=== PATIENT | female | born 2000 | race Caucasian/White ===

== ENCOUNTER 2024-01-27 14:36 | Emergency (ER) | payer SELFPAY ==
[2024-01-27 15:29] VITALS: BP 129/74; PULSE 67; TEMP 36.7; O2SAT 100; BMI 22.3
--- NOTE | 2024-01-27 17:06 | CT_ITS ---
The [address] [address] Patient Name: DARLYN HYATT MRN: [id number] date: 2000 Sex: F Assigned Patient Location: ER Current Patient Location: ER Accession/Order Number: [id number] Exam Date: 01/27/2024 17:29 Report Date: 01/27/2024 18:27 At the request of: SHERRI SANTOYO Procedure: CT head/brain wo con EXAM: CT head/brain wo con HISTORY: Visual changes right eye COMPARISON: None. TECHNIQUE: Axial CT scans through the head were obtained without IV contrast administration. Dose reduction techniques were achieved by using: automated exposure control and/or adjustment of mA and /or kV according to patient size and/or use of iterative reconstruction technique. FINDINGS: There is no acute intracranial hemorrhage or abnormal extra-axial fluid collection. No mass effect or midline shift is seen. There is no evidence of large acute territorial infarction. There is no hydrocephalus. To the limit of CT, the posterior fossa appears unremarkable. There is bony prominence at the left temporal level along the inner table, likely representing small bony exostosis or calcified meningioma, measuring approximately 1 x 0.5 cm (5/20). No mass effect on adjacent brain parenchyma. No acute fracture. The extra cranial soft tissues are unremarkable. The visualized orbits show no abnormality. The visualized paranasal sinuses show no air-fluid level. Mastoid air cells are clear. CT/CT head/brain wo con IMPRESSION: No acute intracranial process. Bony prominence at the left temporal level along the inner table, suggestive of a small bony exostosis or calcified meningioma. Electronically authenticated by: ANDREA WATERSU Date: 01/27/2024 18:27
--- NOTE | 2024-01-27 17:08 | ED_ITS ---
HPI HPI - General Adult General Chief complaint: Skin/Abscess/Foreign Body Stated complaint: RIGHT UNDER ARM PAIN Time Seen by Provider: 01/27/24 16:42 Source: patient Mode of arrival: walk-in Limitations: no limitations History of Present Illness HPI narrative: Patient is a 23-year-old female who presents to the emergency department for the evaluation of multiple complaints. She has a family member at the bedside. She states for 8 months she has had swollen lymph nodes in her throat and now notices them in the last several weeks in the bilateral axilla associated with bilateral breast pain. She states she is concerned she has cancer. She has been to urgent care multiple times and states she has been treated with antibiotics because the providers have assumed that the swollen lymph nodes in her throat are due to bad gums . She states she has been on multiple courses of antibiotics. She does not have a primary care provider. She has not followed up with her primary care provider in the office. She states she went to the emergency department several weeks ago at an outside facility, she states they examined her breasts and discharged her home. She feels worsened pain on the right than the left. She has not had any redness or drainage from the breast. She is not concerned for . She denies upper respiratory symptoms. She further complains of a 2-day history of visual change in the right eye. She states her vision is brown tinted and grainy. She has not had any visual loss, eye pain, headaches. No medications taken prior to arrival. Related Data Home Medications ?Medication ?Instructions ?Recorded ?Confirmed No Known Home Medications 01/27/24 01/27/24 Allergies Allergy/AdvReac Type Severity Reaction Status Date / Time No Known Drug Allergies Allergy Verified 01/27/24 15:29 Opioid HPI Opioid Management Most Recent Opioid Data: Last AUG Pain Assessment 01/27/24 19:22 Review of Systems ROS Constitutional Denies: fever or chills Eyes Reports: change in vision and blurry vision; Denies: blind spots, eye discomfort or eye discharge Ears, nose, mouth, and throat Denies: throat pain, throat swelling, difficulty swallowing or nasal congestion Cardiovascular Denies: chest pain Respiratory Denies: shortness of breath or cough Gastrointestinal Denies: abdominal pain, nausea or vomiting Integumentary/Breast Reports: breast pain; Denies: rash or itching Neurological Denies: headache Hematologic/Lymphatic Reports: enlarged lymph nodes; Denies: easy bruising or easy bleeding Exam Narrative Exam Narrative: Gen.: Awake, alert, in no distress Head: Normocephalic, atraumatic ENT: Moist mucous membranes, normal extraocular muscle motion noted with no identified retinal hemorrhage on ophthalmologic exam, bilateral TMs are clear. Minimal anterior cervical adenopathy palpated with no asymmetric lymphadenopathy, fluctuance or abscess noted Respiratory: No respiratory distress, lungs clear bilaterally; bilateral breast examined with no nipple drainage, no erythema or induration of the breast, no palpated lymphadenopathy to the axilla Extremities: Moves extremities equally Psych: Normal mood and affect Neuro: No focal neuro deficit Skin: Warm, dry, intact Constitutional Vital Signs, click to edit/add: Last Vital Signs Temp 98.1 F 01/27/24 15:29 Pulse 67 01/27/24 15:29 Resp 18 01/27/24 15:29 BP 129/74 01/27/24 15:29 Pulse Ox 100 01/27/24 15:29 O2 Del Method Room Air 01/27/24 15:29 Course Vital Signs Vital signs: Vital Signs Temperature 98.1 F 01/27/24 15:29 Pulse Rate 67 01/27/24 15:29 Respiratory Rate 18 01/27/24 15:29 Blood Pressure 129/74 01/27/24 15:29 Pulse Oximetry 100 01/27/24 15:29 Oxygen Delivery Method Room Air 01/27/24 15:29 Temperature 98.1 F 01/27/24 15:29 Pulse Rate 67 01/27/24 15:29 Respiratory Rate 18 01/27/24 15:29 Blood Pressure 129/74 01/27/24 15:29 Pulse Oximetry 100 01/27/24 15:29 Oxygen Delivery Method Room Air 01/27/24 15:29 Medical Decision Making MDM Narrative Medical decision making narrative: Patient was treated with Toradol for breast pain. Her test is negative, monoscreen is negative. I do not appreciate any specific areas of lymphadenopathy in the throat or the axilla bilaterally. Patient was sent for CT of the brain due to visual change, this is unremarkable. Laboratory studies with normal white blood cell count, normal differential, normal inflammatory markers. test is negative. Patient with no headache, visual loss. Visual acuity was obtained, left eye is 20/25 and right eye is 20/60 with bi lateral eyes 20/40. I discussed the case with Dr. Armstrong for ophthalmology at [facility]. He does have office availability for the patient, at this time I do not suspect a retinal detachment. Patient was given strict instructions to follow-up with ophthalmology for reevaluation of her visual change. She was also given requisition for outpatient ultrasound and mammogram of the bilateral breasts. She was also given primary care follow-up. She is hemodynamically stable, stable vital signs in the ER. I contacted the physician assistant manager retail in the [facility] office, she can see the patient for follow-up next week. Patient was reexamined by attending physician prior to discharge. Return to the ER if symptoms change or worsen SHARED APC VISIT, PHYSICIAN ATTESTATION: [id number] I performed a substantive part of the MDM during the patient?s E/M visit. I personally evaluated and examined the patient. I personally made or approved the documented management plan and acknowledge its risk of complications. Medical Records Medical records reviewed: Yes I reviewed the patient's medical records Lab Data Lab results reviewed: Yes I reviewed the patient's lab results Labs: Lab Results 01/27/24 Range/Units 17:16 WBC 4.8 (4.0-11.0) 10^3/uL RBC 3.95 L (4.20-5.40) 10^6/uL Hgb 11.4 L (12.0-16.0) g/dL Hct 34.4 L (36.0-48.0) % MCV 87.1 (81.0-99.0) fL MCH 28.9 (26.7-34.0) pg MCHC 33.1 (29.9-35.2) g/dL RDW 13.1 (11.0-15.0) % Plt Count 171 (150-450) 10^3/uL MPV 11.0 (9.5-13.5) fL Neut % (Auto) 54.5 (43.0-75.0) % Lymph % (Auto) 31.3 (20.5-60.0) % [place] % (Auto) 9.6 (1.7-12.0) % Eos % (Auto) 2.7 (0.9-7.0) % Baso % (Auto) 1.7 (0.2-2.0) % Neut # (Auto) 2.6 (1.4-6.5) 10^3/uL Lymph # (Auto) 1.5 (1.2-3.8) 10^3/uL [place] # (Auto) 0.5 (0.3-0.8) 10^3/uL Eos # (Auto) 0.1 (0.0-0.7) 10^3/uL Baso # (Auto) 0.1 (0.0-0.1) 10^3/uL Abs Immat Gran (auto) 0.01 (0.00-0.03) 10^3/uL Imm/Tot Granulo (auto) 0.2 (0.0-0.5) % ESR 18 (<=20) mm/hr Sodium 138 (136-145) mmol/L Potassium 4.3 (3.5-5.1) mmol/L Chloride 103 (98-107) mmol/L Carbon Dioxide 27.8 (21.0-32.0) mmol/L Anion Gap 11.5 BUN 11.0 (7.0-18.0) mg/dL Creatinine 0.84 (0.55-1.02) mg/dL Est GFR ( Amer) >60 (>=60) Est GFR (Non-Af Amer) >60 (>=60) BUN/Creatinine Ratio 13.1 Glucose 84 (74-106) mg/dL Calcium 8.9 (8.5-10.1) mg/dL Total Bilirubin 0.3 (0.2-1.0) mg/dL AST 8 L (15-37) U/L ALT 16 (14-59) U/L Alkaline Phosphatase 44 L (46-116) U/L C-Reactive Protein <0.50 (<=0.50) mg/dL Total Protein 7.1 (6.4-8.2) g/dL Albumin 4.0 (3.4-5.0) g/dL Globulin 3.1 g/dL Albumin/Globulin Ratio 1.3 Serum HCG, Qual Negative (NEGATIVE) Monoscreen Negative (NEGATIVE) Imaging Data CT scan - head: Attestation: I have reviewed the pertinent imaging results. Radiologist's impression: ITS Impressions Head CT 01/27/24 17:06 IMPRESSION: No acute intracranial process. Bony prominence at the left temporal level along the inner table, suggestive of a small bony exostosis or calcified meningioma. Electronically authenticated by: ANDREA THURMAN Date: 01/27/2024 18:27 Discharge Plan Discharge Stand Alone Forms: Portal Instructions Chief Complaint: Skin/Abscess/Foreign Body Clinical Impression: Lymphadenopathy, Pain of both breasts, Alteration in vision Patient Disposition: Home, Self-Care Time of Disposition Decision: 19:28 Condition: Good Prescriptions / Home Meds: No Action No Known Home Medications Print Language: Yoruba Instructions: Lymphadenopathy (ED), Blurred Vision (ED) Referrals: Thad Meyer DO [Physician] - As soon as possible Santosh Armstrong MD [Physician] - As soon as possible ([address] [place] [address], [address] [place] [address] ) Viktoriya Sherman NP [Nurse Practitioner] - As soon as possible
[2024-01-27 17:33] LABS: Basophils Absolute Auto 0.1 10^3/uL (0.0-0.1); Basophils Percent Auto 1.7 % (0.2-2.0); Eosinophils Absolute Auto 0.1 10^3/uL (0.0-0.7); Eosinophils Percent Auto 2.7 % (0.9-7.0); Hematocrit 34.4 % (36.0-48.0); Hemoglobin 11.4 g/dL (12.0-16.0); Immature Granulocytes Abs Auto 0.01 10^3/uL (0.00-0.03); Immature Granulocytes Pct Auto 0.2 % (0.0-0.5); Lymphocytes Absolute Auto 1.5 10^3/uL (1.2-3.8); Lymphocytes Percent Auto 31.3 % (20.5-60.0); Mean Corpuscular HGB Conc 33.1 g/dL (29.9-35.2); Mean Corpuscular Hemoglobin 28.9 pg (26.7-34.0); Mean Corpuscular Volume 87.1 fL (81.0-99.0); Monocytes Absolute Auto 0.5 10^3/uL (0.3-0.8); Monocytes Percent Auto 9.6 % (1.7-12.0); Neutrophils Absolute Auto 2.6 10^3/uL (1.4-6.5); Neutrophils Percent Auto 54.5 % (43.0-75.0); Platelet Count 171 10^3/uL (150-450); Red Blood Count 3.95 10^6/uL (4.20-5.40); Red Cell Distribution Width 13.1 % (11.0-15.0); White Blood Count 4.8 10^3/uL (4.0-11.0)
[2024-01-27 17:44] LABS: Alanine Aminotransferase 16 U/L (14-59); Albumin Globulin Ratio 1.3; Alkaline Phosphatase 44 U/L (46-116); Anion Gap 11.5; Aspartate Amino Transferase 8 U/L (15-37); BUN Creatinine Ratio 13.1; Bilirubin Total 0.3 mg/dL (0.2-1.0); Calcium 8.9 mg/dL (8.5-10.1); Carbon Dioxide 27.8 mmol/L (21.0-32.0); Chloride 103 mmol/L (98-107); Estimated GFR (African America >60 (>=60); Estimated GFR (Non-African Ame >60 (>=60); Globulin 3.1 g/dL; Glucose 84 mg/dL (74-106); Potassium 4.3 mmol/L (3.5-5.1); Sodium 138 mmol/L (136-145); Total Protein 7.1 g/dL (6.4-8.2)
[2024-01-27 17:55] LABS: Internal Control Within Normal Limits; Mono Screen NEGATIVE (NEGATIVE)
[2024-01-27 17:56] LABS: Erythrocyte Sedimentation Rate 18 mm/hr (<=20)
[2024-01-27 18:13] LABS: HCG Qualitative NEGATIVE (NEGATIVE); Internal Control Within Normal Limits
[2024-01-27 18:16] LABS: C Reactive Protein <0.50 mg/dL (<=0.50)
--- NOTE | 2024-01-27 19:12 | PC.NURSE ---
visual acuity performed at this time. pts L eye 20/15, R eye 20/60, and both eyes 20/40. Naomi AGUILLON made aware of visual acuity results.
[2024-01-27] MEDS: KETOROLAC TROMETHAMINE 10 MG TABLET PO (19:22)
--- NOTE | 2024-01-27 19:36 | PC.NURSE ---
Visual acuity done by Derick Benavidez and endorsed to HENNA Salgado: Left eye 2/25, right eye 20/60; both eyes 20/40 uncorrected
[2024-01-27 19:56] VITALS: BP 120/75; PULSE 65; O2SAT 98
== END 2024-01-27 20:00 | disposition home or self-care (01) ==
PROVIDERS: Physician Assistant; Emergency Provider Emergency Medicine
DX: H53.9 Unspecified visual disturbance (principal); R59.1 Generalized enlarged lymph nodes; N64.4 Mastodynia
CPT/HCPCS: 36415; 70450; 80053; 84703; 85025; 85652; 86140; 86308; 99284

== ENCOUNTER 2024-07-28 11:33 | Outpatient (OUT) | payer OTHER, SELFPAY ==
--- OUTSIDE RECORDS SUMMARY | 2024-07-28 11:56 | XMS_ITS | CCD ---
Author Organization [facility] Care Team Providers Care Power Lineman Technician Name Role Phone BOB SHAH Admitting Unavailable BOB SHAH Attending Unavailable REQUEST, NONE LISTED Primary Care Unavailable MAITE LUCAS Consulting Unavailable ALYSSABOB DE JESUS Consulting Unavailable MISC, DOCTOR Admitting Unavailable MISC, DOCTOR Attending Unavailable MISC, DOCTOR Primary Care Unavailable MISC, DOCTOR Consulting Unavailable Samantha Driscoll Unavailable NO FAMILY, PHYSICIAN Primary Care Provider Unava ilable Bullimore, MONEY ORDER CLERK-BC Gregoria E Emergency Provider Bullimore, Gregoria E Admitting Unavailable Bullimore, Gregoria E Attending Unavailable NO FAMILY, PHYSICIAN Primary Care Unavailable NO FAMILY, PHYSICIAN Primary Care Unavailable Maximilian Garner Admitting Unavailable Maximilian Garner Attending Unavailable PHILOMENA STEELE Attending Unavailable THAD MEYER Attending Unavailable Unavailable Primary Care Provider Unavailabl belkis Blackburn MD, Prem Unavailable [phone] Unavailable Primary Care Provider UnavailLigia Lawson MD Unavailable [facility] [phone] Syl Santiago CPhT Unavailable UnavailRadha Martinez CPhT Unavailable Unavailable CRISTIAN BOLANOS Attending Unavailable AGUSTO NOONAN Referring Unavailable PROVIDER, UNKNOWN Admitting Unavailable LIGIA BEDOLLA Attending Unavailable PROVIDER, UNKNOWN Attending Unavailable PROVIDER, UNKNOWN Admitting Unavailable AGUSTO NOONAN Admitting Unavailable AGUSTO NOONAN Attending Unavailable PROVIDER, UNKNOWN Admitting Unavailable PROVIDER, UNKNOWN Attending Unavailable PROVIDER, UNKNOWN Attending Unavailable AGUSTO NOONAN Admitting Unavailable AGUSTO NOONAN Referring Unavailable PROVIDER, UNKNOWN Admitting Unavailable PROVIDER, UNKNOWN Attending Unavailable AGUSTO NOONAN Referring Unavailable PROVIDER, UNKNOWN Admitting Unavailable PROVIDER, UNKNOWN Attending Unavailable LIGIA BEDOLLA Attending Unavailable PROVIDER, UNKNOWN Admitting Unavailable NEISHA AGUERO Attending Unavailable PROVIDER, UNKNOWN Admitting Unavailable PREM BLACKBURN Attending Unavailable PROVIDER, UNKNOWN Admitting Unavailable Allergies Allergy Classification Reported Allergen(s) Allergy Type Date of Onset Reaction(s) Facility (1 source) Latex Drug allergy (disorder) 12-08-2019 [facility] Repository Medications Current Medications Medication Drug Class(es) Dates Sig (Normalized) Sig (Original) amoxicillin 500 mg oral capsule (1 source) Penicillin-class Antibacterial Start: 04-05-2023 take 1 capsule by mouth every eight hours Amoxicillin 500 MG 1 capsule Orally three times a day for 10 day(s) Mar, Active cyclobenzaprine hydrochloride 10 mg oral tablet (3 sources) Muscle Relaxant Start: 01-08-2024 take 10 mg by mouth three times daily Cyclobenzaprine Active 10 MG PO Three times daily January 08, 2024 12:00am Start: 12-18-2019 take 1 tablet by kobe th every eight hours Cyclobenzaprine HCl 10 MG 1 tablet as needed Orally Three times a day for 10 days Dec, Active Cyclobenzaprine HCl Active hydrOXYzine hydrochloride 10 mg oral tablet (1 source) Antihistamine Start: 12-18-2019 take 1 tablet by mouth every eight hours hydrOXYzine HCl 10 MG 1 tablet as needed Orally every 8 hrs for 10 days Dec, Active lidocaine 0.05 mg/mg medicated patch (1 source) Antiarrhythmic, Amide Local Anesthetic Start: 01-08-2024 apply 1 dose topically once daily Lidocaine Active 1 PATCH TOPICAL Daily January 08, 2024 12:00am leave on most painful area for up to 12 hrs [place] (No Known Home Meds) (1 source) Start: 01-08-2024 [place] (No Known Home Meds) Active January 08, 2024 12:00am omeprazole 40 mg delayed release oral capsule (14 sources) Proton Pump Inhibitor Start: 02-03-2024 End: 02-03-2024 take 1 capsule by mouth once daily omeprazole (PRILOSEC) 40 MG capsule Take 1 Capsule by mouth daily. 30 Capsule 02/03/2024 Active ondansetron 4 mg oral tablet (1 source) Serotonin-3 Receptor Antagonist Start: 12-18-2019 take 1 tablet by mouth every eight hours as needed Zofran ODT 4 MG 1 tablet on the tongue and allow to dissolve Orally every 8 hrs as needed for 4 days Dec, Active predniSONE 50 mg oral tablet (4 sources) Start: 02-04-2024 End: 02-03-2024 predniSONE (DELTASONE) 50 MG tablet Take 25 Tablets by mouth Daily for 2 days. 50 Tablet 02/04/2024 02/03/2024 Discontinued Start: 02-03-2024 End: 02-05-2024 predniSONE (DELTASONE) 50 MG tablet Take 23 Tablets by mouth daily for 2 days. 46 Tablet 02/03/2024 02/05/2024 Active Start: 01-08-2024 Prednisone Act zainab 20 MG PO Daily January 08, 2024 12:00am 40mg 5 days, 20mg five days, 10mg for five days Start: 08-07-2023 End: 01-08-2024 Prednisone Discontinued 20 M G PO .COMPLEX 10 August 07, 2023 1:00am January 08, 2024 9:09am 20 mg orally Take 40mg (2 tabs) x 3 days then take 20mg orally daily until complete; Completed/Discontinued Medications Medication Drug Class(es) Dates Sig (Normalized) Sig (Original) acetaminophen 325 mg oral tablet (1 source) Start: 02-01-2024 650 mg, Oral, EVERY 4 HOURS PRN, Starting on 02/01/24 at 0655, Until Discontinued, Mild Pain (pain score 1,2,3), Moderate Pain (pain score 4,5,6) cetirizine hydrochloride 10 mg oral tablet (1 source) Histamine-1 Receptor Antagonist Start: 08-07-2023 End: 01-08-2024 take 1 tablet by mouth once daily Cetirizine (Allergy Relief (Cetirizine)) 10 mg tablet Discontinued 10 MG PO Daily August 07, 2023 1:00am January 08, 2024 9:09am 0.4 ml enoxaparin sodium 100 mg/ml prefilled syringe (1 source) Low Molecular Weight Heparin Start: 02-01-2024 inject 40 mg by subcutaneous injection once daily 40 mg, Subcutaneous, DAILY, First dose on Sat02/01/24 at 0900, Until Discontinued EPINEPHrine / Lidocaine (1 source) Antiarrhythmic, alpha-Adrenergic Agonist, beta-Adrenergic Agonist, Catecholamine, Amide Local Anesthetic Start: 02-01-2024 End: 02-01-2024 10 mL, Injection, ONCE, 1 dose, On 02/01/24 at 0041 Gadoterate Meglumine (DOTAREM) 10 MMOL/20ML solution (2 sources) Start: 02-02-2024 End: 02-02-2024 take 1 dose intravenously once 20 mL, Intravenous Push, Once at Radiology exam, 1 dose, Starting on 02/02/24 at 1115, Until 02/02/24 at 1105, Imaging Protocol Orders Start: 01-31-2024 End: 01-31-2024 take 1 dose intravenously once 20 mL, Intravenous Push , Once at Radiology exam, 1 dose, Starting on Sat01/31/24 at 2325, Until Sat01/31/24 at 2324, Imaging Protocol Orders melatonin 3 mg oral tablet (1 source) Start: 02-01-2024 take 3 mg by mouth at bedtime as needed 3 mg, Oral, AT BEDTIME PRN, Starting on Sat02/01/24 at 0527, Until Discontinued, Sleep methylPREDNISolone sodium succinate (SOLU-Medrol) 1,000 mg in dextrose 5 % 100 mL ivpb (custom dose) (1 source) Start: 02-01-2024 End: 02-03-2024 1,000 mg, Intravenous, DAILY, 3 doses, First dose on Sat02/01/24 at 0300, Last dose on Sat02/03/24 at 0900 pantoprazole 40 mg delayed release oral tablet (2 sources) Proton Pump Inhibitor Start: 02-03-2024 End: 02-03-2024 take 1 tablet by mouth once daily pantoprazole (Protonix) 40 MG tablet Take 1 Tablet by mouth daily. 30 Tablet 3 02/03/2024 02/03/2024 Discontinued Start: 02-03-2024 take 40 mg intraveno usly twice daily 40 mg, Intravenous Push, 2 TIMES DAILY, First dose on Sat02/03/24 at 1300, Until Discontinued Problems Active Problems Problem Classification Problem Date Documented Da te Episodic/Chronic Anxiety disorders (2 sources) Panic attack; Translations: [Panic disorder [episodic paroxysmal anxiety]] 08-07-2023 Chronic Disorders of teeth and jaw (2 sources) Gingivitis; Translations: [Chronic gingivitis, plaque induced] Chronic External cause codes: Natural/environment (1 source) Other and unspecified overexertion or strenuous movements or postures, initial encounter; Translations: [OTH AND UNS OVREXRT/STRN MVMT/POS INT] Onset: 12-10-2019 Inflammation; infection of eye (except that caused by tuberculosis or sexually transmitteddisease) (20 sources) Optic neuritis; Translations: [Other optic neuritis] Onset: 02-01-2024 02-01-2024 Chronic Miscellaneous mental health disorders (3 sources) Anxiety about body function or health; Translations: [Other symptoms and signs involving emotional state] 05-06-2024 Episodic Multiple sclerosis (10 sources) Multiple sclerosis; Translations: [Multiple sclerosis] Onset: 05-06-2024 05-06-2024 Chronic Other gastrointestinal disorders (3 sources) Dysphagia; Translations: [Dysphagia, unspecified] 05-06-2024 Episodic Other nervous system disorders (15 sources) Disorder of nervous system; Translations: [Demyelinating disease of central nervous system, unspecified] Onset: 02-03-2024 02-03-2024 Chronic Other nervous system disorders (1 source) Demyelinating disease of central nervous system, unspecified; Translations: [Demyelinating disease of central nervous system, unspecified (HCC)] Onset: 02-10-2024 Chronic Other nervous system disorders (1 source) Paresthesia of right upper limb; Translations: [Paresthesia of skin] 01-08-2024 Episodic Other nervous system disorders (1 source) Anesthesia of skin; Translations: [Anesthesia of skin] Onset: 01-08-2024 Episodic Other nervous system disorders (3 sources) Paresthesia; Translations: [Paresthesia of skin] 05-06-2024 Episodic Other non-traumatic joint disorders (3 sources) Chronic pain of right upper limb; Translations: [Pain in right shoulder] 05-06-2024 Episodic Residual codes; unclassified (3 sources) Body mass index 20-24 - normal; Translations: [Body mass index (BMI) 22.0-22.9, adult] 05-06-2024 Episodic Screening and history of mental health and substance abuse codes (3 sources) History of eating disorder; Translations: [Personal history of other mental and behavioral disorders] 05-06-2024 Episodic Spondylosis; intervertebral disc disorders; other back problems (4 sources) Dorsalgia, unspecified; Translations: [Backache] Onset: 12-08-2019 01-08-2024 Episodic Sprains and strains (1 source) Strain of muscle and tendon of back wall of thorax, initial encounter; Translations: [STRN MSC TENDON BACK WALL THOR INIT] Onset: 12-10-2019 Episodic Unclassified (3 sources) Chronic pain of right upper limb 05-06-2024 Unclassified (1 source) ENCOUNTER OPENED IN ERROR 05-28-2024 Unclassified (2 sources) New Patient; Translations: [New Patient] Onset: 06-09-2024 Unclassified (2 sources) Swollen Glands; Translations: [Swollen Glands] Onset: 06-09-2024 Past or Other Problems Problem Classification Problem Date Documented Da te Episodic/Chronic Acute and chronic tonsillitis (1 source) Acute tonsillitis, unspecified; Translations: [Acute tonsillitis, unspecified] Onset: 08-07-2023 Episodic Immunizations and screening for infectious disease (20 sources) Contact with and (suspected) exposure to other viral communicable diseases; Translations: [Patient encounter status] Onset: 12-24-2019 02-01-2024 Episodic Lymphadenitis (2 sources) Lymphadenopathy; Translations: [Enlarged lymph nodes, unspecified] 01-29-2024 Episodic Other aftercare (2 sources) Follow-up status; Translations: [Encounter for follow-up examination after completed treatment for conditions other than malignant neoplasm] 01-29-2024 Episodic Results Test Name Value Interpretation Reference Range Facility Progress Noteson 07-22-2024 Hygiene Teacher Authentication Interface Message Text SPECIALTY PHARMACY - Appeal Submitted- PHARMACY BENEFIT Medication and dosing: Ocrevus 300mg/10mL: 300 mg once on day 1, followed by 300 mg once 2 weeks later; subsequent doses of 600 mg are administered once every 6 months Insurance: ANNET[employer] Appeal submitted on date: 07/22/24 Method submitted: FAX #: [phone] Insurance has up to 3 calendar days to make a decision on the appeal. Pharmacy will addend this encounter with response from plan. Thank you, Syl Santiago, [facility] [phone] option 3 [facility] Notes[facility] 07-21-2024 Hygiene Teacher Authentication Interface Message Text SPECIALTY PHARMACY - Prior Auth Denied- PHARMACY BENEFIT 07/21/24 1607 Specialty Med Prior Auth Info - Primary Specialty Med [place] Outcome Denied Insurance Payor [employer] Denial Reason Insufficient information submitted Denial Follow Up Appeal Required Specialty Prior Auth Medication Details - Primary Medication(s) Ocrevus 300mg/10mL: 300 mg once on day 1, followed by 300 mg once 2 weeks later; subsequent doses of 600 mg are administered once every 6 months Thank you, Syl Santiago CPhT Normal [facility] Progress Noteson 07-17-2024 Hygiene Teacher Authentication Interface Message Text SPECIALTY PHARMACY - Prior Auth Submitted- PHARMACY BENEFIT Medication and dosing: Ocrevus 300mg/10mL: 300 mg once on day 1, followed by 300 mg once 2 weeks later; subsequent doses of 600 mg are administered once every 6 months Insurance: ANNETTA [place] submitted on date: 07/17/24 [place] WQ- LATENT: Pardo- [id number] Pharmacy will addend this encounter with response from plan. Thank you, Syl Santiago CPhT Normal [facility] Hygiene Teacher Authentication Interface Message Text SPECIALTY PHARMACY - Appeal Denied- MEDICAL BENEFIT 07/17/24 1452 Specialty Med Prior Auth Info - Primary - Medical Benefit Specialty Med [place] Outcome - Medical Benefit Appeal denied Insurance Payor - Medical Benefit [place] Denial Reason Drug criteria not met [place] Notes Appeal Denied on 06/24/24 per MMO Rep Selena ([phone]) Specialty Prior Auth Medication Details - Primary - Medical Benefit Medication(s) Ocrevus Thank you, [facility] [phone] option 3 Normal [facility] Progress Notes[facility] 06-17-2024 Hygiene Teacher Authentication Interface Message Text SPECIALTY PHARMACY - Appeal Submitted- MEDICAL BENEFIT Medication and dosing: Ocrevus 300mg/10mL: 300 mg once on day 1, followed by 300 mg once 2 weeks later; subsequent doses of 600 mg are administered once every 6 months Insurance: MMO Appeal submitted on date: 06/17/24 Method submitted: FAX #: [phone] Insurance has up to 30 calendar days to make a decision on the appeal. Pharmacy will addend this encounter with response from plan. Thank you, Syl Santiago CPhT [facility] [phone] option 3 Normal [facility] Office Visiton 06-09-2024 Follow-up visit [id number] Azeb Hyatt 2000 F Date Provider Department Center 06/09/2024 Luis[facility] FM Comprehensiv Family History Problem Relation Age of Onset Other Maternal Grandmother Family Status - Relation Status Age at Maternal Grandmother Level of Service:13185 [place] OFFICE/OUTPATIENT NEW LOW MDM 30 MINUTES (GE) Reason for Visit and Comments: New Patient [632] - Here to est care. Swollen Glands [[id number]] Normal [facility] Progress Noteson 06-04-2024 Hygiene Teacher Authentication Interface Message Text SPECIALTY PHARMACY - Prior Auth Denied- MEDICAL BENEFIT 06/04/24 1246 Specialty Med Prior Auth Info - Primary - Medical Benefit Specialty Med [place] Outcome - Medical Benefit Denied Insurance Payor - Medical Benefit [place] Denial Reason Required Step Therapy Denial Follow Up Appeal Required Specialty Prior Auth Medication Details - Primary - Medical Benefit Medication(s) Ocrevus 300mg/10mL: 300 mg once on day 1, followed by 300 mg once 2 weeks later; subsequent doses of 600 mg are administered once every 6 months Thank you, Syl Santiago electric stove mechanic Normal [facility] Progress Noteson 05-28-2024 Hygiene Teacher Authentication Interface Message Text Encounter Opened in error. Please disregard. Pt stated she scheduled this visit to establish with a PCP, was unable to schedule herself online. I will request the [facility] Primary Care RN to assist pt. Neisha Aguero PA-C Normal [facility] Hygiene Teacher Authentication Interface Message Text More info faxed to [employer] regarding Ocrevus auth request ([phone]). Thank you, Syl Santiago CPhT Normal [facility] Progress Noteson 05-26-2024 Hygiene Teacher Authentication Interface Message Text Generic disease modifying therapies would not be appropriate for patient. These include oral tablets that she is unable to swallow (dimethyl fumarate, Teriflunomide, fingolimod) and injections that she is unable to administer (glatiramer, interferons). Additionally, patient has MS with spinal cord involvement, is -italian (risk factor for more aggressive MS), and currently lives a very active lifestyle that she would like to maintain. Patient and provider believe a highly aggressive disease modifying therapy is most appropriate to treat patient's multiple sclerosis and to improve patient's quality of life. Supporting literature: Amari K, Pramod O, Ethan M, et al. Clinical Outcomes of Escalation vs Early Intensive Disease-Modifying Therapy in Patients With Multiple Sclerosis. TISH Neurol. 2019 October 08;76(5):536-541. doi: 10.1001/jamaneurol.20 18.4905. PMID: 11160337; PMCID: [id number]. Karie Johnson, KirstenD [facility] [phone] option # 3 Normal [facility] Progress Noteson 05-25-2024 Hygiene Teacher Authentication Interface Message Text Normal [facility] Progress Noteson 05-22-2024 Hygiene Teacher Authentication Interface Message Text SPECIALTY PHARMACY - Prior Auth Submitted- MEDICAL BENEFIT Medication and dosing: Ocrevus 300mg/10mL: 300 mg once on day 1, followed by 300 mg once 2 weeks later; subsequent doses of 600 mg are administered once every 6 months Insurance: [facility] [place] submitted on date: 05/22/24 PORTAL SUBMISSION: SITE: [employer] REF#: [id number] Pharmacy will addend this encounter with response from plan. Thank you, Syl Santiago CPhT Normal [facility] Patient Instructionson 05-20 Hygiene Teacher Authentication Interface Message Text It was great to see you again today! We will work together to tackle MS. Ocrevus is a great medication. I will place the orders. The infusion team should reach out in 1 to 2 weeks. We should have you see a primary care doctor for consideration of the vaccinations: Hep B, Shingrix, flu/COVID PCP: Please schedule a follow up visit with your primary care provider. If you need a new primary care provider please call [phone] Physical therapy for your shoulder: SCHEDULING INSTRUCTIONS: Call [phone] to schedule your Physical Therapy appointment. We offer therapy services at many convenient locations. Please arrive 20 minutes prior to your appointment to register. It is important to bring your insurance cards and a personal identification card to your appointment. If you are unable to keep your appointment, cancel or reschedule by calling [phone] or via [employer]. Normal [facility] Progress Noteson 05-20-2024 Hygiene Teacher Authentication Interface Message Text Patient accompanied by family/friend/visitor for visit. Patient granted verbal permission for family/friend/visitor to remain in exam room for visit. Walk time test result: 11.23 Normal [facility] AUTOIMMUNE MULTIPLEX PANELon 05-06-2024 OSCAR SCREEN Positive Abnormal Negative [facility] Comment on above: Order Comment: ds DN A Reference Range:< or = to 4 IU/gL-Zfeqqjex2-1 IU/mL-Indeterminate> or = to 10 IU/mL-Positive Performed By: #### a na, vz ####[facility] PATHOLOGY [id number] [place] [address], CENTROMERE ANTIBODY Positive Abnormal Negative [facility] Comment on above: Order Comment: ds DN A Reference Range:< or = to 4 IU/mC-Pgsqdfie1-6 IU/mL-Indeterminate> or = to 10 IU/mL-Positive Performed By: #### a na, vz ####S PATHOLOGY [id number] [place], [place], CENTROMERE ANTIBODY INDEX 1.7 Al High <1.0 [facility] Comment on above: Order Comment: ds DN A Reference Range:< or = to 4 IU/cR-Ipzybham5-0 IU/mL-Indeterminate> or = to 10 IU/mL-Positive Performed By: #### a na, vz ####S PATHOLOGY [id number] [place], [place], CHROMATIN ANTIBODY Negative Normal Negative [facility] Comment on above: Order Comment: ds DN A Reference Range:< or = to 4 IU/vJ-Hrrctxio0-4 IU/mL-Indeterminate> or = to 10 IU/mL-Positive Performed By: #### a na, vz ####S PATHOLOGY [id number] [place], [place], CHROMATIN ANTIBODY INDEX < 0.2 Normal <1.0 [facility] Comment on above: Order Comment: ds DN A Reference Range:< or = to 4 IU/fK-Zoymnxco2-0 IU/mL-Indeterminate> or = to 10 IU/mL-Positive Performed By: #### a na, vz ####[facility] PATHOLOGY [id number] [place] [address], DS DNA Negative Normal Negative [facility] Comment on above: Order Comment: ds DN A Reference Range:< or = to 4 IU/xZ-Xncpvbcg9-0 IU/mL-Indeterminate> or = to 10 IU/mL-Positive Performed By: #### a na, vz ####[facility] PATH[facility]Y [id number] [place] [address], DS DNA ANTIBODY < 1 Normal See Below [facility] Comment on above: Order Comment: ds DN A Reference Range:< or = to 4 IU/aQ-Maggqgyq6-2 IU/mL-Indeterminate> or = to 10 IU/mL-Positive Performed By: #### a na, vz ####[facility] [id number] [place] [address], JO1 ANTIBODY Negative Normal Negative [facility] Comment on above: Order Comment: ds DN A Reference Range:< or = to 4 IU/wI-Uikslzpd8-5 IU/mL-Indeterminate> or = to 10 IU/mL-Positive Performed By: #### a na, vz ####[facility]Y [id number] [place] [address], JO1 ANTIBODY INDEX < 0.2 Normal <1.0 [facility] Comment on above: Order Comment: ds DN A Reference Range:< or = to 4 IU/eS-Gbefoapr4-4 IU/mL-Indeterminate> or = to 10 IU/mL-Positive Performed By: #### a na, vz ####[facility] [id number] [place] [address], RIBOSOMAL P ANTIBODY Negative Normal Negative [facility] Comment on above: Order Comment: ds DN A Reference Range:< or = to 4 IU/fY-Knzrtorn0-1 IU/mL-Indeterminate> or = to 10 IU/mL-Positive Performed By: #### a na, vz ####[facility] [id number] [place] [address], RIBOSOMAL P ANTIBODY INDEX < 0.2 Normal <1.0 [facility] Comment on above: Order Comment: ds DN A Reference Range:< or = to 4 IU/pI-Gsavoevy0-3 IU/mL-Indeterminate> or = to 10 IU/mL-Positive Performed By: #### a na, vz ####[facility] [id number] [place] [address], JUKE BOX MECHANIC ANTIBODY Negative Normal Negative [facility] Comment on above: Order Comment: ds DN A Reference Range:< or = to 4 IU/qF-Ryutocqt2-2 IU/mL-Indeterminate> or = to 10 IU/mL-Positive Performed By: #### a na, vz ####[facility] [id number] [place] [address], JUKE BOX MECHANIC ANTIBODY INDEX < 0.2 Normal <1.0 [facility] Comment on above: Order Comment: ds DN A Reference Range:< or = to 4 IU/lI-Ngvlqzru9-1 IU/mL-Indeterminate> or = to 10 IU/mL-Positive Performed By: #### a na, vz ####[facility] [id number] [place] [address], SCLERODERMA-70 ANTIBODY Negative Normal Negative [facility] Comment on above: Order Comment: ds DN A Reference Range:< or = to 4 IU/zB-Qsvlljjg9-9 IU/mL-Indeterminate> or = to 10 IU/mL-Positive Performed By: #### a na, vz ####[facility] [id number] [place] [address], SCLERODERMA-70 ANTIBODY INDEX < 0.2 Normal <1.0 [facility] System Comment on above: Order Comment: ds DN A Reference Range:< or = to 4 IU/pW-Gufzmhvc6-3 IU/mL-Indeterminate> or = to 10 IU/mL-Positive Performed By: #### a na, vz ####[facility] [id number] [place] [address], THOMAS ANTIBODY Negative Normal Negative [facility] Comment on above: Order Comment: ds DN A Reference Range:< or = to 4 IU/sB-Nkodkefo9-7 IU/mL-Indeterminate> or = to 10 IU/mL-Positive Performed By: #### a na, vz ####[facility] [id number] [place] [address], THOMAS ANTIBODY INDEX < 0.2 Normal <1.0 [facility] Comment on above: Order Comment: ds DN A Reference Range:< or = to 4 IU/zI-Awkwitub5-1 IU/mL-Indeterminate> or = to 10 IU/mL-Positive Performed By: #### a na, vz ####[facility] [id number] [place] [address], THOMAS/JUKE [employer]OX [employer] ANTIBODY Negative Normal Negative [facility] Comment on above: Order Comment: ds DN A Reference Range:< or = to 4 IU/pB-Wlzairsd0-9 IU/mL-Indeterminate> or = to 10 IU/mL-Positive Performed By: #### a na, vz ####[facility] [id number] [place] [address], THOMAS/JUKE BOX MECH[employer]IC ANTIBODY INDEX < 0.2 Normal <1.0 [facility] Comment on above: Order Comment: ds DN A Reference Range:< or = to 4 IU/zW-Ydeurcmu5-1 IU/mL-Indeterminate> or = to 10 IU/mL-Positive Performed By: #### a na, vz ####[facility] [id number] [place] [address], SS-A ANTIBODY Negative Normal Negative [facility] Comment on above: Order Comment: ds DN A Reference Range:< or = to 4 IU/tM-Eecmtufw6-3 IU/mL-Indeterminate> or = to 10 IU/mL-Positive Performed By: #### a na, vz ####[facility] [id number] [place] [address], SS-A ANTIBODY INDEX < 0.2 Normal <1.0 [facility] Comment on above: Order Comment: ds DN A Reference Range:< or = to 4 IU/mG-Wouafmkn4-1 IU/mL-Indeterminate> or = to 10 IU/mL-Positive Performed By: #### a na, vz ####[facility] [id number] [place] [address], SS-B ANTIBODY Negative Normal Negative [facility] Comment on above: Order Comment: ds DN A Reference Range:< or = to 4 IU/uT-Zfabilam5-5 IU/mL-Indeterminate> or = to 10 IU/mL-Positive Performed By: #### a nabil, vz ####[facility] [id number] [place], [place], SS-B ANTIBODY INDEX < 0.2 Normal <1.0 [facility] Comment on above: Order Comment: ds DN A Reference Range:< or = to 4 IU/rV-Lnicfbdd4-9 IU/mL-Indeterminate> or = to 10 IU/mL-Positive Performed By: #### a nabil, vz ####[facility] [id number] [place], [place], Addendum Noteon 05-06-2024 Hygiene Teacher Authentication Interface Message Text Addended by: LIGIA BEDOLLA on: 05/06/2024 04:57 PM Modules accepted: Level of Service Normal [facility] BASIC METABOLIC PANELon 11-2 Anion gap [Moles/Vol] 17 mmol/L Normal 10-20 [facility] Comment on above: Performed By: #### U R BETA #### S PATHOLOGY LABORATORY [address] [place] [address], Calcium [Mass/Vol] 9.9 mg/dL Normal 8.6-10.3 [facility] [place], [facility] Comment on above: Performed By: #### U R BETA #### S PATHOLOG[facility] LABORATORY [address] [place] [address], Chloride [Moles/Vol] 105 mmol/L Normal 98-107 [facility] [place] Comment on above: Performed By: #### U R BETA #### S PATH[facility] LAB[facility]ATORY [address] [place] [address], CO2 [Moles/Vol] 28 mmol/L Normal 21-31 [facility] Comment on above: Performed By: #### U R BETA #### S PATH[facility] LABORATORY [address] [place] [address], Creatinine [Mass/Vol] 0.66 mg/dL Normal 0.60-1.20 [facility] Comment on above: Performed By: #### U R BETA #### S PATHOLOGY LABORATORY [address] [place] [address], ESTIMATED GFR (CKD-EPI) 124 mL/min/1.73sqm Normal >=60 [facility] Comment on above: Result Comment: 2020 CKD EPI Equation using Creatinine without Race Comment: Estimated glomerular filtration rate (eGFR) is calculated without a race coefficient. Values should be interpreted in the context of the patient's full clinical presentation. Reference: 1. Darryl C, Luis A M, Arnulfo ABURTO, et al.. A Unifying Approach for GFR Estimation: Recommendations of the NKF-ASN Task Force on Reassessing the Inclusion of Race in Diagnosing Kidney Disease. Irish Journal of Kidney Diseases 2021;79(2):268-88.e1. 2. N Engl J Med 1 Vol. 385 Issue 19 Pages 4432-4326 Performed By: #### U R BETA #### S PATHOLOG[facility] LABORATORY [address] [place] [address], Glucose [Mass/Vol] 77 mg/dL Normal 74-109 [facility] [place] Comment on above: Performed By: #### U R BETA #### S PATH[facility] LAB[facility]ATORY [address] [place] [address], Potassium [Moles/Vol] 4.7 mmol/L Normal 3.5-5.0 [facility] Comment on above: Performed By: #### U R BETA #### S PATH[facility] LABORATORY [address] [place] [address], Sodium [Moles/Vol] 145 mmol/L Normal 136-145 [facility] Comment on above: Performed By: #### U R BETA #### S PATH[facility] LAB[facility]ATORY [address] [place] [address], Urea nitrogen [Mass/Vol] 14 mg/dL Normal 7-25 [facility] Comment on above: Performed By: #### U R BETA #### S PATHOLOG[facility] LABORATORY [address] [place] [address], Basic metabolic 2000 panelon 05-06-2024 Anion gap [Moles/Vol] 17 mmol/L 10 - 20 Met [facility] Calcium [Mass/Vol] 9.9 mg/dL 8.6 - 10. 3 mg/dL [facility] Chloride [Moles/Vol] 105 mmol/L 98 - 10 7 mmol/L [facility] CO2 [Moles/Vol] 28 mmol/L 21 - 31 mmol/L [facility] Creatinine [Mass/Vol] 0.66 mg/dL 0.60 - 1.20 mg/dL [facility] GFR/1.73 sq M.predicted CKD-EPI (S/P/Bld) [Vol rate/Area] 124 - PINF [facility] Comment on above: 2020 CKD EPI Equatio n using Creatinine without Race Comment: Estimated glomerular filtration rate (eGFR) is calculated without a race coefficient. Values should be interpreted in the context of the patient's full clinical presentation. Reference: 1. Darryl C, Luis A M, Arnulfo DC, et al.. A Unifying Approach for GFR Estimation: Recommendations of the NKF-ASN Task Force on Reassessing the Inclusion of Race in Diagnosing Kidney Disease. Irish Journal of Kidney Diseases 2021;79(2):268-88.e1. 2. N Engl J Med 2020 Vol. 385 Issue 19 Pages 8185-1259 Glucose [Mass/Vol] 77 mg/dL 74 - 109 mg/dL [facility] Interpretation and review of laboratory results Normal [facility] Potassium [Moles/Vol] 4.7 mmol/L 3.5 - 5.0 mmol/L [facility] Sodium [Moles/Vol] 145 mmol/L 136 - 145 mmol/L [facility] Urea nitrogen [Mass/Vol] 14 mg/dL 7 - 25 mg/dL [facility] CBC WITH DIFFERENTIALon 11-2 Basophils (Bld) [#/Vol] 0.04 10*3/uL Normal 0.00-0.20 [facility] Comment on above: Performed By: #### U R BETA #### [facility] [address] [place] [address], Basophils/100 WBC (Bld) 0.8 % Normal <=1.9 [facility] [place] Comment on above: Performed By: #### U R BETA #### [facility] [address] [place] [address], Eosinophils (Bld) [#/Vol] 0.11 10*3/uL Normal 0.00-0.70 [facility] [place] Comment on above: Performed By: #### U R BETA #### [facility] [address] [place], [place], Eosinophils/100 WBC (Bld) 2.4 % Normal 0.1-4.0 [facility] Comment on above: Performed By: #### U R BETA #### [facility] [address] [place], [place], Erythrocyte distribution width (RBC) [Ratio] 14.5 % Normal 11.5-14.5 [facility] Comment on above: Performed By: #### U R BETA #### [facility] [address] [place], [place], Hematocrit (Bld) [Volume fraction] 39.6 % Normal 36.0-46.0 [facility] Comment on above: Performed By: #### U R BETA #### [facility] [address] [place] [address], Hemoglobin (Bld) [Mass/Vol] 13.0 g/dL Normal 12.0-15.0 [facility] Comment on above: Performed By: #### U R BETA #### [facility] [address] [place], [place], Lymphocytes (Bld) [#/Vol] 1.15 10*3/uL Normal 1.00-4.80 [facility] Comment on above: Performed By: #### U R BETA #### [facility] [address] [place], [place], Lymphocytes/100 WBC (Bld) 24.2 % Normal 24.0-44.0 [facility] Comment on above: Performed By: #### U R BETA #### [facility] [address] [place], [place], MCH (RBC) [Entitic mass] 30.1 pg Normal 26.0-34.0 [facility] Comment on above: Performed By: #### U R BETA #### [facility] [address] [place], [place], MCHC (RBC) [Mass/Vol] 32.9 g/dL Normal 32.0-35.9 [facility] Comment on above: Performed By: #### U R BETA #### [facility] [address] [place], [place], MCV (RBC) [Entitic vol] 92 fL Normal 80-100 [facility] Comment on above: Performed By: #### U R BETA #### [facility] [address] [place], [place], Monocytes (Bld) [#/Vol] 0.32 10*3/uL Normal 0.20-1.00 [facility] Comment on above: Performed By: #### U R BETA #### [facility] [address] [place], [place], Monocytes/100 WBC (Bld) 6.8 % Normal 2.0-11.0 [facility] Comment on above: Performed By: #### U R BETA #### [facility] [address] [place], [place], Neutrophils (Bld) [#/Vol] 3.14 10*3/uL Normal 1.50-8.00 [facility] Comment on above: Performed By: #### U R BETA #### [facility] [address] [place], [place], Neutrophils/100 WBC (Bld) 65.9 % Normal 31.0-76.0 [facility] Comment on above: Performed By: #### U R BETA #### [facility] [address] [place], [place], Platelet mean volume (Bld) [Entitic vol] 9.7 fL Normal 7.5-11.2 [facility] Comment on above: Performed By: #### U R BETA #### [facility] [address] [place], [place], Platelets (Bld) [#/Vol] 193 10*3/uL Normal 150-400 [facility] Comment on above: Performed By: #### U R BETA #### [facility] [address] [place], [place], RBC (Bld) [#/Vol] 4.32 10*6/uL Normal 4.00-5.20 [facility] Comment on above: Performed By: #### U R BETA #### S PATHOLOGY LABORATORY [address] [place] [address], WBC (Bld) [#/Vol] 4.8 10*3/uL Normal 4.5-11.5 [facility] Comment on above: Performed By: #### U R BETA #### [facility] [address] [place] [address], HCV Ab IA Qn (S)on HCV Ab Ql (S) Non-Reactive Nonreactive [facility] Interpretation and review of laboratory results Normal [facility] HEPATIC FUNCTION PANELon Albumin [Mass/Vol] 5.0 g/dL Normal 3.5-5.7 [facility] Comment on above: Performed By: #### U R BETA #### [facility] [address] [place] [address], ALK 41 IU/L Normal 34-104 [facility] Comment on above: Performed By: #### U R BETA #### [facility] [address] [place] [address], ALT [Catalytic activity/Vol] 8 U/L Normal 7-52 [facility] Comment on above: Performed By: #### U R BETA #### [facility] [address] [place] [address], AST [Catalytic activity/Vol] 11 U/L Low 13-39 [facility] Comment on above: Performed By: #### U R BETA #### S PATHOLOGY LABORATORY [address] [place] [address], Bilirubin [Mass/Vol] 0.5 mg/dL Normal 0.3-1.0 [facility] Comment on above: Performed By: #### U R BETA #### S PATHOLOGY LABORATORY [address] [place] [address], Bilirubin.direct [Mass/Vol] 0.11 mg/dL Normal 0.03-0.18 [facility] Comment on above: Performed By: #### U R BETA #### [facility] [address] [place] [address], Protein [Mass/Vol] 7.5 g/dL Normal 6.0-8.3 [facility] Comment on above: Performed By: #### U R BETA #### S PATHOLOGY LABORATORY [address] [place] [address], HEPATITIS B CORE ANTIBODYon 05-06-2024 CORE Non-Reactive Normal Nonreactive [facility] Comment on above: Performed By: #### U R BETA #### [facility] [address] [place] [address], HEPATITIS B SURFACE ANTIBODY on 05-06-2024 ANTI-HBS < 3.1 Normal [facility] Comment on above: Order Comment: Nonre active: Samples < 7.5 mIU/mLReactive: Samples >/= 10.0 mIU/mLThe accepted criteria for immunity to HBV is anti-HBs activity >/= 10 mIU/mL, as defined by the WHO International Reference Preparation. Performed By: #### U R BETA #### [facility] [address] [place] [address], HEPATITIS B SURFACE ANTIGENo n 05-06-2024 HBSAG Non-Reactive Normal Non-Reactive [facility] Comment on above: Performed By: #### I GG, IGM #### [facility] [address] [place] [address], HEPATITIS C ANTIBODYon 05-06 HCV Non-Reactive Normal Nonreactive [facility] Comment on above: Performed By: #### I GG, IGM #### S PATHOLOGY LABORATORY [address] [place] [address], IMMUNOGLOBULIN Ben 4 IgG [Mass/Vol] 735 mg/dL Normal 635-1741 [facility] Comment on above: Performed By: #### I GG, IGM #### S PATHOLOG[facility] LABORATORY [address] [place] [address], IMMUNOGLOBULIN Mon 4 IgM [Mass/Vol] 219 mg/dL Normal 45-281 [facility] Comment on above: Performed By: #### I GG, IGM #### S PATHOLOGY LABORATORY [address] [place] [address], LYME DISEASE AB WITH REFLEX TO BLOT (IGG, IGM)on 05-06-2024 LYME AB SCREEN <0.90 Normal [facility] Comment on above: Order Comment: Carlos tamy Agency Address Site ID: QPT Name: [employer] [facility] Address: Todd Mosley , [address] [place] [id number] Director: Raudel Jeffries MD Result Comment: Inde x Interpretation ----- < 0.90 Negative 0.90-1.09 Equivocal > 1.09 Positive As recommended by the Food and Drug Administration (FDA), all samples with positive or equivocal results in a Borrelia burgdorferi antibody screen will be tested using a blot method. Positive or equivocal screening test results should not be interpreted as truly positive until verified as such using a supplemental assay (e.g., B. burgdorferi blot). The screening test and/or blot for B. burgdorferi antibodies may be falsely negative in early stages of Lyme disease, including the period when erythema migrans is apparent. Performed By: #### S TRACARO JCV AB, LYME G #### [facility] Pathology [address] [facility] [address] [place], [place] [address] Laboratory - Chemistry and C hemistry - challengeon 05-06-2024 Albumin [Mass/Vol] 5 g/dL 3.5 - 5.7 g/dL [facility] ALP [Catalytic activity/Vol] 41 U/L [facility] ALT [Catalytic activity/Vol] 8 U/L [facility] AST [Catalytic activity/Vol] 11 U/L [facility] Bilirubin [Mass/Vol] 0.5 mg/dL 0.3 - 1 .0 mg/dL [facility] Bilirubin.direct [Mass/Vol] 0.11 mg/dL 0.03 - 0.18 mg/dL [facility] Protein [Mass/Vol] 7.5 g/dL 6.0 - 8.3 g/dL [facility] Laboratory - Hematology and Cell countson 05-06-2024 Basophils (Bld) [#/Vol] 0.04 10*3/uL 0.00 - 0.20 K/uL [facility] Basophils/100 WBC (Bld) 0.8 % NINF - 1.9 % [facility] Eosinophils (Bld) [#/Vol] 0.11 10*3/uL 0.00 - 0.70 K/uL [facility] Eosinophils/100 WBC (Bld) 2.4 % 0.1 - 4.0 % [facility] Erythrocyte distribution width (RBC) [Ratio] 14.5 % 11.5 - 14.5 % [facility] Hematocrit (Bld) [Volume fraction] 39.6 % 36.0 - 46.0 % [facility] Hemoglobin (Bld) [Mass/Vol] 13 g/dL 12.0 - 15.0 g/dL [facility] Lymphocytes (Bld) [#/Vol] 1.15 10*3/uL 1.00 - 4.80 K/uL [facility] Lymphocytes/100 WBC (Bld) 24.2 % 24.0 - 44.0 % [facility] MCH (RBC) [Entitic mass] 30.1 pg 26.0 - 34.0 pg [facility] MCHC (RBC) [Mass/Vol] 32.9 g/dL 32.0 - 35.9 g/dL [facility] MCV (RBC) [Entitic vol] 92 fL 80 - 100 fL [facility] Monocytes (Bld) [#/Vol] 0.32 10*3/uL 0.20 - 1.00 K/uL [facility] Monocytes/100 WBC (Bld) 6.8 % 2.0 - 11.0 % [facility] Neutrophils (Bld) [#/Vol] 3.14 10*3/uL 1.50 - 8.00 K/uL [facility] Neutrophils/100 WBC (Bld) 65.9 % 31.0 - 76.0 % [facility] Platelet mean volume (Bld) [Entitic vol] 9.7 fL 7.5 - 11.2 fL [facility] Platelets (Bld) [#/Vol] 193 10*3/uL 150 - 400 K/uL [facility] RBC (Bld) [#/Vol] 4.32 10*6/uL [facility] WBC (Bld) [#/Vol] 4.8 10*3/uL 4.5 - 11.5 K/uL [facility] Laboratory - Microbiology an d Antimicrobial susceptibilityon 05-06-2024 VZV IgG IA Ql (S) 2.5 AI [facility] HBV surface Ag Ql (S) Non-Reactive Non-Reactive [facility] HBV core Ab Ql (S) Non-Reactive Nonreactive [facility] HBV surface Ab IA Qn mIU/mL [facility] Laboratory - Serology - non- microon 05-06-2024 Centromere protein B Ab Ql (S) Positive Abnormal Negative [facility] Centromere protein B Ab Qn (S) 1.7 [facility] Ql Negative Negative [facility] th Chromatin Ab Qn [facility] th DNA double strand Ab Qn (S) Negative Negative [facility] DNA double strand Ab Qn (S) See Below [facility] Cuca-1 extractable nuclear Ab IA Qn (Body fld) Negative Negative [facility] Cuca-1 extractable nuclear Ab IA Qn (S) [facility] Nuclear Ab IA Ql (S) Positive Abnormal Negative [facility] Ribonucleoprotein extractable nuclear 63kD Ab Ql Negative Negative [facility] Ribonucleoprotein extractable nuclear Ab IA Qn (S) [facility] Ribosomal P Ab IA Qn (S) [facility] Ribosomal P Ab Ql (S) Negative Negative [facility] SCL-70 extractable nuclear Ab IA Ql (S) Negative Negative [facility] SCL-70 extractable nuclear Ab IA Qn (S) [facility] Sjogrens syndrome-A extractable nuclear Ab IA Ql (S) Negative Negative [facility] Sjogrens syndrome-A extractable nuclear Ab IA Qn (S) [facility] Sjogrens syndrome-B extractable nuclear Ab IA Ql (S) Negative Negative [facility] Sjogrens syndrome-B extractable nuclear Ab IA Qn (S) [facility] Thomas extractable nuclear Ab IA Qn (S) [facility] Thomas extractable nuclear Ab Ql (S) Negative Negative [facility] Thomas extractable nuclear Ab+Ribonucleoprotein extractable nuclear Ab IA Ql (S) Negative Negative [facility] Thomas extractable nuclear Ab+Ribonucleoprotein extractable nuclear IgG IA Qn (S) [facility] Immune complex.IgG [Mass/Vol] 735 mg/dL 635 - 1741 mg/dL [facility] Immune complex.IgM [Mass/Vol] 219 mg/dL 45 - 281 mg/dL [facility] MISCELLANEOUS SEND OUT TESTo n 05-06-2024 MISCELLANEOUS TEST RESULT See scanned report Normal [facility] Comment on above: Performed By: #### G ENTEST #### [facility] [address] [place], [place], TEST NAME Myelin Oligodendrocyte Glycoprotein(MOG)Anti body with Reflex to Titer,Serum Normal [facility] Comment on above: Performed By: #### G ENTEST #### [facility] [address] [place], [place], No Panel Informationon 05-06 Reference Range: Negative : < or = 0.80 AI Equivocal : 0.9 - 1.0 AI Positive : > or = 1.1 AI * A negative result indicates no current or previous infection with VZV. Such individuals are presumed to be susceptible to primary infection. * A positive test result indicates a past infection with VZV, or vaccination and indicates immunity to VZV. * The numeric final result does not indicate the amount of anti-VZV antibody present. [facility] Interpretation and review of laboratory results Normal [facility] Interpretation and review of laboratory results Abnormal [facility] ds DNA Reference Range: < or = to 4 IU/mL-Negative 5-9 IU/mL-Indeterminate > or = to 10 IU/mL-Positive [facility] Interpretation and review of laboratory results Normal [facility] Interpretation and review of laboratory results Normal [facility] Nonreactive: Samples < 7.5 mIU/mL Reactive: Samples >/= 10.0 mIU/mL The accepted criteria for immunity to HBV is anti-HBs activity >/= 10 mIU/mL, as defined by the WHO International Reference Preparation. [facility] Interpretation and review of laboratory results Abnormal [facility] Interpretation and review of laboratory results Normal [facility] Patient Instructionson 05-06 Hygiene Teacher Authentication Interface Message Text We discussed today that the data support multiple sclerosis. Please get labs - you will need a red top tube drawn. We can check back in in 2 weeks. Pamphlets today for Ocrevus, Kesimpta, Zeposia. 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 Watt for optic neuritis. The patient was accompanied by her grandmother Shirley. Serenity reports childhood asthma with a long-standing history of subjective breathing/swallowing issues (I.e., difficulty swallowing solids without water). She also reports a long-standing history of fatigue. Several years ago, she slept on her right shoulder atypically, during COVID; she reports chronic right shoulder pain since, never had PT. In December 2023, she experienced right tingling in her chest, different from her chronic shoulder pain; over days to weeks, the tingling worsened, evolving to near-numbness, with palpable swelling in chest and neck. She additionally developed OD eye pain with up gaze, with color desaturation loss in the right eye (view tanish and beige ). 01/28/[address] Steele ([facility]), with VA 20/50, +ve R APD, 12/18 color plates OD, OS normal. She was routed to the ED 01/31/2024 for admission, T3-T8 sensory level on exam as well. MRI Brain WWO performed, with OD ON enhancement and T2 Flair signal changes as below, short to medium segment length ON involvement, left temporal lesion, at least one convincing right T2 cervical hemicord lesion on my review. IVMP x 3 days, with gradual recovery over the next few weeks of nearly all symptoms, with excellent recovery on follow-up with her Ophthalmology team 03/17/2024. Now she feels back to alyson; some mild residual swelling under her left jaw and in her right breast. She works at a [employer]. Lives with grandmother, with cat and dog. Does drink alcohol, 4 to 5 drinks every other weekend. No tobacco use. 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 Has been reading about nutritional approaches to MS, confirms interest in DMT. Extended conversation today to review potential DMT options and some basics regarding acute, chronic treatments and lifestyle modifications pertinent to MS. No family hx of MS. Symptoms: Mood: has some anxiety, some anxiety, started COVID Spasticity: None Bladder: None Bowel: In the past month, more frequent bowel movements Pain: Right shoulder pain x a few years Fatigue: No Sleep: No major issues Memory/Concentration: No major issues Other: None PAST HISTORY: Past Medical History: Diagnosis Date Eating disorder There is no previous surgical history on file. Tobacco: Never Family History Problem Relation Age of Onset Multiple Sclerosis Negative Family History of MEDICATIONS: Current Outpatient Medications: omeprazole (PRILOSEC) 40 MG capsule, Take 1 Capsule by mouth daily., Disp: 30 Capsule, Rfl: 0 PHYSICAL EXAM: Vitals: 05/06/24 0932 BP: 101/61 T25W: 5.6 seconds General Appearance: healthy, alert, pleasant, well appearing, in no acute distress Mental status evaluation during the interview and examination showed no major deficits in orientation, cognition, speech fluency, or perceptual disturbances. Affect: appropriate, mood-congruent Visual acuity: OD 20/20 OS 20/20 Pupils: PERRL Visual Ochoa Full Fundoscopic Exam: crisp, no edema on discs, non-dilated Extraocular movements: Full, without restriction Facial sensation: Intact bilaterally Facial movements: Intact bilaterally Speech: Normal Muscle tone: Right arm spasticity: None Right leg spasticity: None Left arm spasticity: None Left leg spasticity: None Muscle strength (#/5): Upper Extremity (R/L) Deltoid 5 Deltoid 5 Biceps 5 Biceps 5 Triceps 5 Triceps 5 Wrist Extension 5 Wrist Extension 5 Dorsal Interossei 5 Dorsal Interossei 5 Lower Extremity R/L Hip Flexion 5 Hip Flexion 5 Knee Flexion 5 Knee Flexion 5 Knee Extension 5 Knee Extension 5 Dorsiflexion 5 Dorsiflexion 5 Plantar Flexion 5 Plantar Flexion 5 Reflexes brachioradialis 2 brachioradialis 2 biceps 2 biceps 2 triceps 2 triceps 2 patellar 3 patellar 3 Achilles 2 Achilles 2 plantar response mute plantar response downgoing Slight increase reflex RLE Coordination: Upper extremity dexterity and rapid movements: Slight reduction in the right hand, slight decrease in ope (more content not included)... Normal [facility] QUANTIFERON-TB GOLD PLUSon 1 07-06-2023 TB (CELL MEDIATED) Negative Normal Negative [facility] Comment on above: Order Comment: Inter feron gamma release is measured for specimens from each of the four collection tubes. A qualitative result (Negative, Positive, or Indeterminate) is based on interpretation of the four values. NIL (Negative Control), MITOGEN minus NIL (MITOGEN-NIL), TB1 minus NIL (TB Antigen 1) and TB2 minus NIL (TB Antigen 2). The NIL value represents nonspecific reactivity produced by the patient specimen. The MITOGEN-NIL value serves as the positive control for the patient specimen, demonstrating successful lymphocyte activity. The TB1-NIL (TB Antigen 1) tube specifically detects CD4+ lymphocyte reactivity, specifically stimulated by the TB1 antigens. The TB2-NIL (TB Antigen 2) tube detects both the CD4+ and CD8+ lymphocyte reactivity, stimulated by TB2 antigens. An overall negative result does not completely rule out TB infection. A false positive result in the absence of other clinical evidence of TB infection is not uncommon. Performed By: #### I GG, IGM #### [facility] [address] [place] [address], [id number] TB ANTIGEN 1 < 0.35 Normal <0.35 [facility] Comment on above: Order Comment: Inter feron gamma release is measured for specimens from each of the four collection tubes. A qualitative result (Negative, Positive, or Indeterminate) is based on interpretation of the four values. NIL (Negative Control), MITOGEN minus NIL (MITOGEN-NIL), TB1 minus NIL (TB Antigen 1) and TB2 minus NIL (TB Antigen 2). The NIL value represents nonspecific reactivity produced by the patient specimen. The MITOGEN-NIL value serves as the positive control for the patient specimen, demonstrating successful lymphocyte activity. The TB1-NIL (TB Antigen 1) tube specifically detects CD4+ lymphocyte reactivity, specifically stimulated by the TB1 antigens. The TB2-NIL (TB Antigen 2) tube detects both the CD4+ and CD8+ lymphocyte reactivity, stimulated by TB2 antigens. An overall negative result does not completely rule out TB infection. A false positive result in the absence of other clinical evidence of TB infection is not uncommon. Performed By: #### I GG, IGM #### [facility] [address] [place], [place], TB ANTIGEN 2 < 0.35 Normal <0.35 [facility] Comment on above: Order Comment: Inter feron gamma release is measured for specimens from each of the four collection tubes. A qualitative result (Negative, Positive, or Indeterminate) is based on interpretation of the four values. NIL (Negative Control), MITOGEN minus NIL (MITOGEN-NIL), TB1 minus NIL (TB Antigen 1) and TB2 minus NIL (TB Antigen 2). The NIL value represents nonspecific reactivity produced by the patient specimen. The MITOGEN-NIL value serves as the positive control for the patient specimen, demonstrating successful lymphocyte activity. The TB1-NIL (TB Antigen 1) tube specifically detects CD4+ lymphocyte reactivity, specifically stimulated by the TB1 antigens. The TB2-NIL (TB Antigen 2) tube detects both the CD4+ and CD8+ lymphocyte reactivity, stimulated by TB2 antigens. An overall negative result does not completely rule out TB infection. A false positive result in the absence of other clinical evidence of TB infection is not uncommon. Performed By: #### I GG, IGM #### [facility] [address] [place] [address], STRATIFY JCV ABon 05-06-2024 INDEX VALUE 0.16 Normal [facility] Comment on above: Order Comment: Carlos [facility] Address Site ID: EZ Name: [employer] [facility], Address: [address] [place], [place] [address] Director: Xochitl Moreno MD,PhD,DEVI Performed By: #### S TRATIFY JCV AB, LYME G #### [facility] [address] [place], [place] SUSANNA VIRUS AB Negative Normal [facility] Comment on above: Order Comment: Carlos [facility] Address Site ID: EZ Name: [employer] [facility], Address: [address] [place] [phone] Director: Xochitl Moreno MD,PhD,DEVI Result Comment: Index interpretive criteria: <0.20 negative 0.20-0.40 indeterminate >0.40 positive INTERPRETATION Negative: Antibodies to JCV not detected. Indeterminate: Low level reactivity detected, see Inhibition Assay result below for the final antibody result. Positive: Antibodies to SUSANNA virus (JCV) detected indicating the patient has been exposed to JCV at an undetermined time. The STRATIFY JCV Antibody Test is an enzyme-linked immunosorbent assay (DIGNA) designed to detect JCV antibodies to help identify individuals who have been exposed to the virus. Samples with low level reactivity in the detection assay are retested in a confirmation (inhibition) assay to confirm presence or absence of JCV-specific antibodies. Retrospective analyses of post marketing data from various sources, including observational studies and spontaneous reports obtained worldwide, suggest that the risk of developing PML may be associated with relative levels of serum anti-JCV antibody as measured by anti-JCV antibody index.1 1TYSABRI(natalizumab) Prescribing Information Performed By: #### S TRATIFKayce JCV AB, LYME Gustavo #### [facility] [address] [place], [place] VARICELLA ZOSTER IGG ANTIBOD Yon 05-06-2024 VZI 2.5 AI Normal [facility] Comment on above: Order Comment: Refer ence Range:Negative : < or = 0.80 AIEquivocal : 0.9 - 1.0 AIPositive : > or = 1.1 AI* A negative result indicates no current or previous infection with VZV. Such individuals are presumed to be susceptible to primary infection.* A positive test result indicates a past infection with VZV, or vaccination and indicates immunity to VZV.* The numeric final result does not indicate the amount of anti-VZV antibody present. Performed By: #### a na, vz ####S PATHOLOGY [id number] [place], [place], Telephone Encounteron 2023 Hygiene Teacher Authentication Interface Message Text Neurology Clinical Maintenance Supervisor 2Nd Shift Note Attempted to call patient. LVM to return call to the Neurology department to schedule a neurology appt for optic neuritis (MS) with Dr Bedolla. Appt on 05/04 cancelled, letter sent RIN Enriquez, RN, CMSRN Clinical Maintenance Supervisor 2Nd Shift, Neurology Normal [facility] JACOBSEN VISUAL FIELD - OU - BOTH EYESon 10-09-2024 Right Eye Reliability was good. Findings include normal observations. Left Eye Reliability was good. Findings include normal observations. Notes I personally reviewed the visual ochoa performed by this patient on 03/17/24. The visual ochoa are normal OU. Nguyễn Watt MD [facility] JACOBSEN VISUAL FIELD - OU - BOTH EYES Right Eye Reliability was good. Findings include normal observations. Left Eye Reliability was good. Findings include normal observations. Notes I personally reviewed the visual ochoa performed by this patient on 03/17/24. The visual ochoa are normal OU. Nguyễn Watt MD Normal [facility] OPTIC DISC PHOTOS - OU - BOT H EYESon 03-18-2024 OPTIC DISC PHOTOS - OU - BOTH EYES Trace temporal pallor I personally reviewed the fundus photos taken on this patient. Fundus photos taken to document the appearance of the optic discs. There is trace temporal pallor of the right optic disc. The left disc is normal. Nguyễn Watt MD Normal [facility] Trace temporal pallo r I personally reviewed the fundus photos taken on this patient. Fundus photos taken to document the appearance of the optic discs. There is trace temporal pallor of the right optic disc. The left disc is normal. Nguyễn Watt MD [facility] Progress Noteson 03-17-2024 Hygiene Teacher Authentication Interface Message Text New patient Optic neuritis, right eye -Reports blurry vision OD, pain with up gaze and paresthesias January 2024. Went to ED -Seen by contact lens edge buffer resident 01/31/24. At time time +rAPD OD, color plates 12/18 OD, full OS -LP with oligoclonal Bands present MRI orbit 01/31/24 Focal, short segment of mild edema and enhancement of the right intraorbital optic nerve (Series 7, Image 18) (Series 8, Image 14-17), which also mildly restricts diffusion. Signal abnormality in the left anterior cord at C2 without contrast enhancement. The finding is in keeping with demyelinating disease. Signal abnormality of the thoracic cord at T2 in keeping with demyelinating disease. S/p 3 days of high dose IV solumederol and discharged with high dose PO pred Today No APD documented by technicians, Color plates are full Exam with very trace disc pallor right eye temporally She has made an excellent recovery F/u with Neurology as scheduled 05/04/24 Follow up PRN with neuro-ophthalmology Case seen and discussed with attending physician Dr. Alysa Blackburn MD Ophthalmology resident I saw and evaluated the patient. I personally obtained the pardo and critical portions of the history and the ophthalmologic exam. I reviewed the resident's documentation and discussed the patient's history and examination with the resident. I agree with the ophthalmology resident's medical decision making as documented in the resident's note. 23 year old diagnosed with right optic neuritis 01/31/24. She was treated with IV steroids. Oligoclonal bands on LP and cervical spine lesions on MRI scan. Patient states her vision has improved OD. On exam the vision is 20/20 OU with normal color plates. On fundus exam there is trace temporal pallor OD. Imp: Excellent recovery of the optic neuritis. Patient will FU with neurology. Nguyễn Watt MD Normal [facility] BASIC METABOLIC PANELon 01-09 Anion gap [Moles/Vol] 13 mmol/L Normal 10-20 [facility] Comment on above: Performed By: #### G ENTEST #### [facility] [address] [place] [address], Calcium [Mass/Vol] 9.8 mg/dL Normal 8.6-10.3 [facility] Comment on above: Performed By: #### G ENTEST #### [facility] [address] [place] [address], Chloride [Moles/Vol] 105 mmol/L Normal 98-107 [facility] Comment on above: Performed By: #### G ENTEST #### [facility] [address] [place] [address], CO2 [Moles/Vol] 25 mmol/L Normal 21-31 [facility] Comment on above: Performed By: #### G ENTEST #### [facility] [address] [place] [address], Creatinine [Mass/Vol] 0.71 mg/dL Normal 0.60-1.20 [facility] Comment on above: Performed By: #### G ENTEST #### [facility] [address] [place] [address], ESTIMATED GFR (CKD-EPI) 121 mL/min/1.73sqm Normal >=60 [facility] [place], [facility] Comment on above: Result Comment: 2020 CKD EPI Equation using Creatinine without Race Comment: Estimated glomerular filtration rate (eGFR) is calculated without a race coefficient. Values should be interpreted in the context of the patient's full clinical presentation. Reference: 1. Darryl C, Luis A M, rAnulfo ABURTO, et al.. A Unifying Approach for GFR Estimation: Recommendations of the NKF-ASN Task Force on Reassessing the Inclusion of Race in Diagnosing Kidney Disease. Irish Journal of Kidney Diseases 2021;79(2):268-88.e1. 2. N Engl J Med 1 Vol. 385 Issue 19 Pages 3785-7485 Performed By: #### G ENTEST #### [facility] [address] [place] [address], Glucose [Mass/Vol] 150 mg/dL High 74-109 [facility] [place], [facility] Comment on above: Performed By: #### G ENTEST #### [facility] [address] [place] [address], Potassium [Moles/Vol] 4.3 mmol/L Normal 3.5-5.0 [facility] [place], [facility] Comment on above: Performed By: #### G ENTEST #### [facility] [address] [place] [address], Sodium [Moles/Vol] 139 mmol/L Normal 136-145 [facility] [place] Comment on above: Performed By: #### G ENTEST #### [facility] [address] [place] [address], Urea nitrogen [Mass/Vol] 19 mg/dL Normal 7-25 [facility] Comment on above: Performed By: #### G ENTEST #### [facility] [address] [place] [address], Basic metabolic 2000 panelon 02-03-2024 Anion gap [Moles/Vol] 13 mmol/L 10 - 20 Met [facility] Calcium [Mass/Vol] 9.8 mg/dL 8.6 - 10. 3 mg/dL [facility] Chloride [Moles/Vol] 105 mmol/L 98 - 10 7 mmol/L [facility] CO2 [Moles/Vol] 25 mmol/L 21 - 31 mmol/L [facility] Creatinine [Mass/Vol] 0.71 mg/dL 0.60 - 1.20 mg/dL [facility] GFR/1.73 sq M.predicted CKD-EPI (S/P/Bld) [Vol rate/Area] 121 - PINF [facility] Comment on above: 2020 CKD EPI Equatio n using Creatinine without Race Comment: Estimated glomerular filtration rate (eGFR) is calculated without a race coefficient. Values should be interpreted in the context of the patient's full clinical presentation. Reference: 1. Darryl C, Luis A M, Arnulfo DC, et al.. A Unifying Approach for GFR Estimation: Recommendations of the NKF-ASN Task Force on Reassessing the Inclusion of Race in Diagnosing Kidney Disease. Irish Journal of Kidney Diseases 202;79(2):268-88.e1. 2. N Engl J Med 1 Vol. 385 Issue 19 Pages 6449-6612 Glucose [Mass/Vol] 150 mg/dL High 74 - 109 mg/dL [facility] Interpretation and review of laboratory results Abnormal [facility] Potassium [Moles/Vol] 4.3 mmol/L 3.5 - 5.0 mmol/L [facility] Sodium [Moles/Vol] 139 mmol/L 136 - 145 mmol/L [facility] Urea nitrogen [Mass/Vol] 19 mg/dL 7 - 25 mg/dL [facility] CBC panel Auto (Bld)on 02-02 Erythrocyte distribution width (RBC) [Ratio] 14.0 % 11.5 - 14.5 % [facility] Hematocrit (Bld) [Volume fraction] 37.0 % 36.0 - 46.0 % [facility] Hemoglobin (Bld) [Mass/Vol] 12.3 g/dL 12.0 - 15.0 g/dL [facility] Interpretation and review of laboratory results Normal [facility] MCH (RBC) [Entitic mass] 29.1 pg 26.0 - 34.0 pg [facility] MCHC (RBC) [Mass/Vol] 33.3 g/dL 32.0 - 35.9 g/dL [facility] MCV (RBC) [Entitic vol] 87 fL 80 - 100 fL [facility] Platelet mean volume (Bld) [Entitic vol] 10.2 fL 7.5 - 11.2 fL [facility] Platelets (Bld) [#/Vol] 158 10*3/uL 150 - 400 K/uL [facility] RBC (Bld) [#/Vol] 4.24 10*6/uL [facility] WBC (Bld) [#/Vol] 11.2 10*3/uL 4.5 - 11.5 K/uL [facility] COMPLETE BLOOD COUNTon 02-02 Erythrocyte distribution width (RBC) [Ratio] 14.0 % Normal 11.5-14.5 [facility] Comment on above: Performed By: #### G ENTEST #### [facility] [address] [place] [address], Hematocrit (Bld) [Volume fraction] 37.0 % Normal 36.0-46.0 [facility] Comment on above: Performed By: #### G ENTEST #### [facility] [address] [place] [address], Hemoglobin (Bld) [Mass/Vol] 12.3 g/dL Normal 12.0-15.0 [facility] Comment on above: Performed By: #### G ENTEST #### [facility] [address] [place] [address], MCH (RBC) [Entitic mass] 29.1 pg Normal 26.0-34.0 [facility] Comment on above: Performed By: #### G ENTEST #### [facility] [address] [place] [address], MCHC (RBC) [Mass/Vol] 33.3 g/dL Normal 32.0-35.9 [facility] Comment on above: Performed By: #### G ENTEST #### [facility] [address] [place] [address], MCV (RBC) [Entitic vol] 87 fL Normal 80-100 [facility] Comment on above: Performed By: #### G ENTEST #### [facility] [address] [place] [address], Platelet mean volume (Bld) [Entitic vol] 10.2 fL Normal 7.5-11.2 [facility] Comment on above: Performed By: #### G ENTEST #### S [facility] [address] [place], [place], Platelets (Bld) [#/Vol] 158 10*3/uL Normal 150-400 [facility] Comment on above: Performed By: #### G ENTEST #### [facility] [address] [place], [place], RBC (Bld) [#/Vol] 4.24 10*6/uL Normal 4.00-5.20 [facility] Comment on above: Performed By: #### G ENTEST #### [facility] [address] [place], [place], WBC (Bld) [#/Vol] 11.2 10*3/uL Normal 4.5-11.5 [facility] Comment on above: Performed By: #### G ENTEST #### [facility] [address] [place] [address], MAGNESIUMon 02-03-2024 Interpretation and review of laboratory results Normal [facility] Magnesium [Mass/Vol] 2.0 mg/dL 1.9 - 2 .7 mg/dL [facility] Magnesium [Mass/Vol] 2.0 mg/dL Normal 1.9-2.7 [facility] Comment on above: Performed By: #### G ENTEST #### [facility] [address] [place], [place], NMO AQUAPORIN 4 IGG, CBAon 0 02-03-2024 AQUAPORIN 4 RECEPTOR AB, IGG Negative Normal NEGATIVE [facility] Comment on above: Order Comment: Carlos morelos Agency Address Site ID: EZ Name: [employer], Address: [address] [place] [phone] Director: Xochitl Moreno MD,PhD,DEVI Result Comment: This test was developed and its analytical performance characteristics have been determined by [employer]. It has not been cleared or approved by FDA. This assay has been validated pursuant to the CLIA regulations and is used for clinical purposes. Performed By: #### N RI #### [facility]ology [address] [facility] [address] [place], [place] [address] No Panel Informationon 02-02 [facility] Progress Noteson 02-03-2024 Hygiene Teacher [employer]ation Interface Message Text SOCIAL WORK Per interdisciplinary rounds, pt is medically ready for discharge this date. SW has reviewed patient's chart and assessed that there are no discharge planning needs at this time. The following was reviewed to determine no SW needs warranted. 1). PT/OT evaluations indicate pt can DC home with no needs or PT/OT evaluations are not warranted. 2). No wound care or IV Antibiotics indicated at this time. 3). No SW consults placed through nursing admission screen 4). Pt does not meet the criteria of being a Medicare recipient that has a high or rising readmission rate. Patient will continue to be discussed in multi-disciplinary rounds and monitored daily. If any of the the above changes, SW will complete appropriate assessments and interventions. Vaibhav Washington, ANIBAL, CREW LEAD Inpatient Social Work Normal [facility] Hygiene Teacher [employer] Interface Message Text ATTENDING ATTESTATION I have personally performed a face to face diagnostic evaluation on this patient. I have reviewed and agree with the resident Kristan Arzate's care plan. History and exam by me show a 23F admitted w/ acute Lt optic neuritis and transverse myelitis. Exam: awake, no aphasia, Rt rAPD, subjective sensory loss from under breasts/upper abdomen, good strength/sensation/co ordination. Rt eye able to distinguish shades of pink/red now, but not back to baseline. ASSESSMENT 23F w/ optic neuritis and transverse myelitis... improving (although not to baseline) w/ 3 days high dose steroids. Likely multiple sclerosis or NMO; CSF studies in process. She'd probably benefit from a couple more days of high dose steroids. RECOMMENDATIONS [ ] 2 days oral prednisone equivalent dosing of 1,000 mg methylprednisolone (+ GI ppx) - no steroid taper [ ] NMO ABs (serum) - will sign off, please reach out with any questions or concerns Multiple sclerosis, central nervous system demyelination, autoimmune encephalitis: Dr Bedolla, Dr Pelaez, Dr Eagle Visit type: 60 minute, in person or video Timing: next available, except 4-6 weeks post-discharge stroke/TIA hospital follow- up Issues to address: review CSF and NMO ABs for demyelinating disease; discuss disease modifying therapies Teaching Physician Note: I saw and evaluated the patient. I personally obtained the pardo and critical portions of the history and physical exam. I reviewed the resident's documentation and discussed the patient with the resident. I agree with the resident's medical decision making as documented in the resident's note. Split/Shared Documentation I approve the management plan for this patient and take responsibility for the plan as documented. My evaluation and management consisted of a HIGH level of medical decision making due to optic neuritis posing a threat to bodily function. I personally reviewed prior external note(s) from each unique source and ordered/requested unique testing and discussed management and test interpretation with primary medicine service and I spent 41 minutes of Time-based billing justifications: Reviewing (chart, labs, and other clinical notes) Patient visit (including performing a medically appropriate exam) Ordering (medications, tests, procedures - including independent interpretation of results when not reported separately) Referring/communicati ng with other health gericare aide teacher - when not reported separately Charting in Epic. Tyler Morales MD ------- NEUROLOGY CONSULT FOLLOWUP NOTE Hospital Course: Briefly this is a 23yo female who presents with one week of vision changes along with vague sensory changes to her right trunk. In the ED she was seen by optho with findings concerning for optic neuritis. Started on high dose IV steroids. MRI head and LP were obtained. Optho, endocrinology following. MRI Spine obtained showing abnormality in left anterior cord at C2 and T2 in line with demyelinating disease. Updates since last visit: MRI obtained - Signal abnormality in the left anterior cord at C2 without contrast enhancement. The finding is in keeping with demyelinating disease. Signal abnormality of the thoracic cord at T2 in keeping with demyelinating disease.' Subjective - denies any headache - feels color is coming back to normal - R eye is still a bit blurry but has improved - Feels the numbness in chest area but feels that the region has gotten smaller - no CP/SOB, some nausea, no vomiting - Feels that she gets random feelings of numbness and tingling in her body at times, sometimes when she applies pressure to an area OBJECTIVE: Vitals: 02/03/24 0512 BP: 100/51 Pulse: 53 Resp: 18 Temp: 98.2 ???F (36.8 ???C) SpO2: 100% Intake/Output Summary (Last 24 hours) at 02/03/2024 0917 Last data filed at 02/02/2024 2119 Gross per 24 hour Intake 0 ml Output 0 ml Net 0 ml Physical Exam: Gen: alert, oriented, pleasant, comfortable Cardiac: Regular rate and rhythm Respiratory: Lungs are clear to auscultation bilaterally Neurologic exam: Mental status: oriented x3 Cranial Nerves Vision/fundoscopic: n/a Pupil: relative afferent pupillary defect present Spontaneous gaze: no deviation Extraocular movements: all positions of gaze intact and not painful Facial sensation: intact Facial motor function: symmetric forehead wrinkling and smile Hearing: intact to conversation Palate elevation: symmetric Dysarthria: absent Tongue: midline; able to move fully to R and L SENSORY: chest: temperature intact, decreased sensation to below nipple line to mid rib (~T5-T8) LABS: CBC (last 3 years, up to 8 values) 02/03/2024 02/02/2024 01/31/2024 2:02 AM 1:50 AM 6:14 PM WBC 11.2 8.0 4.4 RBC 4.24 4.19 4.25 Hgb 12.3 12.2 12.2 Hct 37.0 36.4 37.2 MCV 87 87 88 RDW 14. (more content not included)... Normal [facility] BASIC METABOLIC PANELon 01-09 Anion gap [Moles/Vol] 14 mmol/L Normal 10-20 [facility] Comment on above: Performed By: #### G ENTEST #### [facility] [address] [place] [address], Calcium [Mass/Vol] 9.4 mg/dL Normal 8.6-10.3 [facility] Comment on above: Performed By: #### G ENTEST #### [facility] [address] [place] [address], Chloride [Moles/Vol] 105 mmol/L Normal 98-107 [facility] Comment on above: Performed By: #### G ENTEST #### [facility] [address], [place], CO2 [Moles/Vol] 24 mmol/L Normal 21-31 [facility] Comment on above: Performed By: #### G ENTEST #### [facility] [address], [place], Creatinine [Mass/Vol] 0.64 mg/dL Normal 0.60-1.20 [facility] Comment on above: Performed By: #### G ENTEST #### [facility] [address], [place], ESTIMATED GFR (CKD-EPI) 126 mL/min/1.73sqm Normal >=60 [facility] Comment on above: Result Comment: 2020 CKD EPI Equation using Creatinine without Race Comment: Estimated glomerular filtration rate (eGFR) is calculated without a race coefficient. Values should be interpreted in the context of the patient's full clinical presentation. Reference: 1. Darryl C, Luis A M, Arnulfo ABURTO, et al.. A Unifying Approach for GFR Estimation: Recommendations of the NKF-ASN Task Force on Reassessing the Inclusion of Race in Diagnosing Kidney Disease. Irish Journal of Kidney Diseases 2021;79(2):268-88.e1. 2. N Engl J Med 2020 Vol. 385 Issue 19 Pages 1779-8795 Performed By: #### G ENTEST #### [facility] [address], [place], Glucose [Mass/Vol] 133 mg/dL High 74-109 [facility] Comment on above: Performed By: #### G ENTEST #### [facility] [address], [place], Potassium [Moles/Vol] 4.3 mmol/L Normal 3.5-5.0 [facility] Comment on above: Performed By: #### G ENTEST #### [facility] [address], [place], Sodium [Moles/Vol] 139 mmol/L Normal 136-145 [facility] Comment on above: Performed By: #### G ENTEST #### [facility] [address], [place], Urea nitrogen [Mass/Vol] 14 mg/dL Normal 7-25 [facility] Comment on above: Performed By: #### G ENTEST #### [facility] [address], [place], Basic metabolic 2000 panelon 02-02-2024 Anion gap [Moles/Vol] 14 mmol/L 10 - 20 Met [facility] Calcium [Mass/Vol] 9.4 mg/dL 8.6 - 10. 3 mg/dL [facility] Chloride [Moles/Vol] 105 mmol/L 98 - 10 7 mmol/L [facility] CO2 [Moles/Vol] 24 mmol/L 21 - 31 mmol/L [facility] Creatinine [Mass/Vol] 0.64 mg/dL 0.60 - 1.20 mg/dL [facility] GFR/1.73 sq M.predicted CKD-EPI (S/P/Bld) [Vol rate/Area] 126 - PINF [facility] Comment on above: 2020 CKD EPI Equatio n using Creatinine without Race Comment: Estimated glomerular filtration rate (eGFR) is calculated without a race coefficient. Values should be interpreted in the context of the patient's full clinical presentation. Reference: 1. Darryl C, Luis A M, Arnulfo ABURTO, et al.. A Unifying Approach for GFR Estimation: Recommendations of the NKF-ASN Task Force on Reassessing the Inclusion of Race in Diagnosing Kidney Disease. Irish Journal of Kidney Diseases 202;79(2):268-88.e1. 2. N Engl J Med 2020 Vol. 385 Issue 19 Pages 8700-4013 Glucose [Mass/Vol] 133 mg/dL High 74 - 109 mg/dL [facility] Interpretation and review of laboratory results Abnormal [facility] Potassium [Moles/Vol] 4.3 mmol/L 3.5 - 5.0 mmol/L [facility] Sodium [Moles/Vol] 139 mmol/L 136 - 145 mmol/L [facility] Urea nitrogen [Mass/Vol] 14 mg/dL 7 - 25 mg/dL [facility] CBC panel Auto (Bld)Ordered By: Esau Donnelly on 02-02-2024 Erythrocyte distribution width (RBC) [Ratio] 13.8 % 11.5 - 14.5 % [facility] Hematocrit (Bld) [Volume fraction] 36.4 % 36.0 - 46.0 % [facility] Hemoglobin (Bld) [Mass/Vol] 12.2 g/dL 12.0 - 15.0 g/dL [facility] Interpretation and review of laboratory results Normal [facility] MCH (RBC) [Entitic mass] 29.2 pg 26.0 - 34.0 pg [facility] MCHC (RBC) [Mass/Vol] 33.6 g/dL 32.0 - 35.9 g/dL [facility] MCV (RBC) [Entitic vol] 87 fL 80 - 100 fL [facility] Platelet mean volume (Bld) [Entitic vol] 9.3 fL 7.5 - 11.2 fL [facility] Platelets (Bld) [#/Vol] 170 10*3/uL 150 - 400 K/uL [facility] RBC (Bld) [#/Vol] 4.19 10*6/uL [facility] WBC (Bld) [#/Vol] 8.0 10*3/uL 4.5 - 11.5 K/uL [facility] COMPLETE BLOOD COUNTon 02-01 Erythrocyte distribution width (RBC) [Ratio] 13.8 % Normal 11.5-14.5 [facility] Comment on above: Performed By: #### G ENTEST #### [facility] [address] [place] [address], Hematocrit (Bld) [Volume fraction] 36.4 % Normal 36.0-46.0 [facility] Comment on above: Performed By: #### G ENTEST #### [facility] [address] [place] [address], Hemoglobin (Bld) [Mass/Vol] 12.2 g/dL Normal 12.0-15.0 [facility] Comment on above: Performed By: #### G ENTEST #### [facility] [address] [place] [address], MCH (RBC) [Entitic mass] 29.2 pg Normal 26.0-34.0 [facility] Comment on above: Performed By: #### G ENTEST #### [facility] [address] [place] [address], MCHC (RBC) [Mass/Vol] 33.6 g/dL Normal 32.0-35.9 [facility] Comment on above: Performed By: #### G ENTEST #### [facility] [address] [place] [address], MCV (RBC) [Entitic vol] 87 fL Normal 80-100 [facility] Comment on above: Performed By: #### G ENTEST #### [facility] [address] [place] [address], Platelet mean volume (Bld) [Entitic vol] 9.3 fL Normal 7.5-11.2 [facility] [place] Comment on above: Performed By: #### Gustavo ENTEST #### [facility] [address] [place] [address], Platelets (Bld) [#/Vol] 170 10*3/uL Normal 150-400 [facility] [place] Comment on above: Performed By: #### Gustavo ENTEST #### [facility] [address] [place] [address], RBC (Bld) [#/Vol] 4.19 10*6/uL Normal 4.00-5.20 [facility] Comment on above: Performed By: #### Gustavo ENTEST #### [facility] [address] [place] [address], WBC (Bld) [#/Vol] 8.0 10*3/uL Normal 4.5-11.5 [facility] Comment on above: Performed By: #### Gustavo ENTEST #### [facility] [address] [place] [address], MAGNESIUMon 02-02-2024 Interpretation and review of laboratory results Normal [facility] Magnesium [Mass/Vol] 1.9 mg/dL 1.9 - 2 .7 mg/dL [facility] Magnesium [Mass/Vol] 1.9 mg/dL Normal 1.9-2.7 [facility] Comment on above: Performed By: #### Gustavo ENTEST #### [facility] [address] [place], [id number] MR C-SPINE W/+W/Oon 02-02-20 MR C-SPINE W/+W/O EXAMINATION: MR C-SPINE W/+W/O 02/02/2024 11:19 AM CLINICAL HISTORY: concern for MS ASSOCIATED DIAGNOSIS: concern for MS ORDERING PROVIDER: AGUSTO MARIE NOTE: COMPARISON: None TECHNIQUE: Patient questionnaire was completed and was reviewed by MRI personnel prior to the patient entering the scanner. Multiplanar, multisequence MR imaging of the cervical spine was performed with and without intravenous contrast. INTRA-PROCEDURE MEDS: Gadoterate Meglumine (DOTAREM) 10 MMOL/20ML solution 14 mL Route: Intravenous Push FINDINGS: Counting reference: Craniocervical junction. Anatomic variants: None. Alignment: Normal. Vertebral Body Height: Normal. Bone Marrow: Normal. Cord: Short segment signal abnormality left anterior cervical cord at C2 in keeping with demyelinating disease. No abnormal contrast enhancement to suggest the present of breakdown of blood-brain barrier. No abnormal intramedullary or leptomeningeal enhancement. Craniocervical Junction, Cervical Soft Tissues and Included Brain: Within normal limits. C2-C3: No significant stenosis. C3-C4: No significant stenosis. C4-C5: No significant stenosis. C5-C6: No significant stenosis. C6-C7: No significant stenosis. C7-T1: No significant stenosis. IMPRESSION: Signal abnormality in the left anterior cord at C2 without contrast enhancement. The finding is in keeping with demyelinating disease. MACRO: None Normal [facility] MR Cervical spine WO and W c ontrast Sd 02-02-2024 EXAMINATION: MR C-SPINE W/+W/O 02/02/2024 11:19 AM CLINICAL HISTORY: concern for MS ASSOCIATED DIAGNOSIS: concern for MS ORDERING PROVIDER: AGUSTO MARIE NOTE: COMPARISON: None TECHNIQUE: Patient questionnaire was completed and was reviewed by MRI personnel prior to the patient entering the scanner. Multiplanar, multisequence MR imaging of the cervical spine was performed with and without intravenous contrast. INTRA-PROCEDURE MEDS: Gadoterate Meglumine (DOTAREM) 10 MMOL/20ML solution 14 mL Route: Intravenous Push FINDINGS: Counting reference: Craniocervical junction. Anatomic variants: None. Alignment: Normal. Vertebral Body Height: Normal. Bone Marrow: Normal. Cord: Short segment signal abnormality left anterior cervical cord at C2 in keeping with demyelinating disease. No abnormal contrast enhancement to suggest the present of breakdown of blood-brain barrier. No abnormal intramedullary or leptomeningeal enhancement. Craniocervical Junction, Cervical Soft Tissues and Included Brain: Within normal limits. C2-C3: No significant stenosis. C3-C4: No significant stenosis. C4-C5: No significant stenosis. C5-C6: No significant stenosis. C6-C7: No significant stenosis. C7-T1: No significant stenosis. IMPRESSION: Signal abnormality in the left anterior cord at C2 without contrast enhancement. The finding is in keeping with demyelinating disease. MACRO: None RADIOLOGY Alessandro Alvarez MD - 02/02/2024 EXAMINATION: MR C-SPINE W/+W/O 02/02/2024 11:19 AM CLINICAL HISTORY: concern for MS ASSOCIATED DIAGNOSIS: concern for MS ORDERING PROVIDER: AGUSTO HARTLEY TECHNOLOGISTS NOTE: COMPARISON: None TECHNIQUE: Patient questionnaire was completed and was reviewed by MRI personnel prior to the patient entering the scanner. Multiplanar, multisequence MR imaging of the cervical spine was performed with and without intravenous contrast. INTRA-PROCEDURE MEDS: Gadoterate Meglumine (DOTAREM) 10 MMOL/20ML solution 14 mL Route: Intravenous Push FINDINGS: Counting reference: Craniocervical junction. Anatomic variants: None. Alignment: Normal. Vertebral Body Height: Normal. Bone Marrow: Normal. Cord: Short segment signal abnormality left anterior cervical cord at C2 in keeping with demyelinating disease. No abnormal contrast enhancement to suggest the present of breakdown of blood-brain barrier. No abnormal intramedullary or leptomeningeal enhancement. Craniocervical Junction, Cervical Soft Tissues and Included Brain: Within normal limits. C2-C3: No significant stenosis. C3-C4: No significant stenosis. C4-C5: No significant stenosis. C5-C6: No significant stenosis. C6-C7: No significant stenosis. C7-T1: No significant stenosis. IMPRESSION: Signal abnormality in the left anterior cord at C2 without contrast enhancement. The finding is in keeping with demyelinating disease. MACRO: None [facility] Radiology Study observation (narrative) [facility] MR T-SPINE W/+W/Oon 02-02-20 MR T-SPINE W/+W/O EXAMINATION: MR T-SPINE W/+W/O 02/02/2024 11:18 AM CLINICAL HISTORY: concern for MS ASSOCIATED DIAGNOSIS: concern for MS ORDERING PROVIDER: AGUSTO MARIE NOTE: COMPARISON: None TECHNIQUE: Patient questionnaire was completed and was reviewed by MRI personnel prior to the patient entering the scanner. Multiplanar, multisequence MR imaging of the thoracic spine was performed with and without intravenous contrast. INTRA-PROCEDURE MEDS: Gadoterate Meglumine (DOTAREM) 10 MMOL/20ML solution 14 mL Route: Intravenous Push FINDINGS: Alignment: Normal. Vertebral Body Height: Normal. Bone Marrow: No aggressive focal lesion or pathologic marrow infiltration. Cord: Abnormal cord signal intensity at the right dorsal T2 in keeping with demyelinating disease. There is no abnormal intramedullary or leptomeningeal enhancement. Paraspinal Soft Tissues: Normal. Canal and Foramina: No significant stenosis. IMPRESSION: Signal abnormality of the thoracic cord at T2 in keeping with demyelinating disease. MACRO: None Normal [facility] MR Thoracic spine WO and W c ontrast Sd 02-02-2024 EXAMINATION: MR T-SPINE W/+W/O 02/02/2024 11:18 AM CLINICAL HISTORY: concern for MS ASSOCIATED DIAGNOSIS: concern for MS ORDERING PROVIDER: AGUSTO MARIE NOTE: COMPARISON: None TECHNIQUE: Patient questionnaire was completed and was reviewed by MRI personnel prior to the patient entering the scanner. Multiplanar, multisequence MR imaging of the thoracic spine was performed with and without intravenous contrast. INTRA-PROCEDURE MEDS: Gadoterate Meglumine (DOTAREM) 10 MMOL/20ML solution 14 mL Route: Intravenous Push FINDINGS: Alignment: Normal. Vertebral Body Height: Normal. Bone Marrow: No aggressive focal lesion or pathologic marrow infiltration. Cord: Abnormal cord signal intensity at the right dorsal T2 in keeping with demyelinating disease. There is no abnormal intramedullary or leptomeningeal enhancement. Paraspinal Soft Tissues: Normal. Canal and Foramina: No significant stenosis. IMPRESSION: Signal abnormality of the thoracic cord at T2 in keeping with demyelinating disease. MACRO: None RADIOLOGY Alessandro Alvarez MD - 02/02/2024 EXAMINATION: MR T-SPINE W/+W/O 02/02/2024 11:18 AM CLINICAL HISTORY: concern for MS ASSOCIATED DIAGNOSIS: concern for MS ORDERING PROVIDER: AGUSTO BENNISON TECHNOLOGISTS NOTE: COMPARISON: None TECHNIQUE: Patient questionnaire was completed and was reviewed by MRI personnel prior to the patient entering the scanner. Multiplanar, multisequence MR imaging of the thoracic spine was performed with and without intravenous contrast. INTRA-PROCEDURE MEDS: Gadoterate Meglumine (DOTAREM) 10 MMOL/20ML solution 14 mL Route: Intravenous Push FINDINGS: Alignment: Normal. Vertebral Body Height: Normal. Bone Marrow: No aggressive focal lesion or pathologic marrow infiltration. Cord: Abnormal cord signal intensity at the right dorsal T2 in keeping with demyelinating disease. There is no abnormal intramedullary or leptomeningeal enhancement. Paraspinal Soft Tissues: Normal. Canal and Foramina: No significant stenosis. IMPRESSION: Signal abnormality of the thoracic cord at T2 in keeping with demyelinating disease. MACRO: None [facility] Radiology Study observation (narrative) [facility] [place] MR Thoracic spine WO and W c ontrast IVOrdered By: Alessandro Alvarez on 02-02-2024 [facility] Phone: No Panel Informationon 02-01 [facility] Noteson 02-02-2024 Hygiene Teacher Authentication Interface Message Text Reason for Consult: Optic Neuritis Consulted by: Agusto Noonan MD HPI: Azeb Hyatt is a 23 year old female with no significant PMH who presented to the ED with blurry vision and concern for optic neuritis. Patient endorses a week of blurry vision in the right eye. She also endorsed painful right superior rectus position of gaze. She also endorsed bilateral breast swelling, left breast swelling resolved fairly quickly however the right breast improved slowly. She was evaluated by OBGYN for concerns of breast CA. She endorses numbness from above the nipple line down to just above the end of her right rib cage. She states this numbness used to spread to her back but that has improved. She was evaluated in the ED by ophthalmology and was noted to have optic neuritis given history and imaging. Neurology consulted for optic neuritis. Recommending Solumedrol 1 g daily x 3 days and MRI of T spine and C-spine (pending). Review of Systems Constitutional: Negative Eyes: Per HPI Ears/ Nose/ Mouth/ Throat: Negative Respiratory: Negative Cardiovascular: Negative Gastrointestinal: Negative Genitourinary: Negative Musculoskeletal: Negative Neurologic: Per HPI Psychiatric: Negative Integumentary (skin/breast): Negative Endocrine: Negative Rheumatologic: Negative Allergic/ Immunologic: Negative Significant positives: Per HPI No past medical history on file. No past surgical history on file. Social History Socioeconomic History Marital status: Single Tobacco Use Smoking status: Never Smokeless tobacco: Never Vaping Use Vaping status: Never Used Vital sign ranges over the past 24 hours (retrieved 02/02/2024 at 11:26 AM): Tmax (24 hours): 98.5 ???F (36.9 ???C) Pulse Av Min: 65 Max: 87 Systolic (24hrs), Av , Min:100 , Max:112 Diastolic (24hrs), Av, Min:58, Max:75 MAP (mmHg) Av.6 mmHg Min: 68 mmHg Max: 77 mmHg Resp Av.8 Min: 17 Max: 18 SpO2 Av.3 % Min: 99 % Max: 100 % Intake/Output Summary (Last 24 hours) at 02/02/2024 1126 Last data filed at 02/02/2024 0815 Gross per 24 hour Intake 120 ml Output -- Net 120 ml Current Facility-Administered Medications: acetaminophen (TYLENOL) tablet, 650 mg, Oral, Q4H PRN, Deonte Davenport MD melatonin tablet, 3 mg, Oral, At Bedtime PRN, Deonte Davenport MD enoxaparin (LOVENOX) 40 MG/0.4ML injection 40 mg, 40 mg, Subcutaneous, Daily, Deonte Davenport MD methylPREDNISolone sodium succinate (SOLU-Medrol) 1,000 mg in dextrose 5 % 100 mL ivpb (custom dose), 1,000 mg, Intravenous, Daily, Efe Lanza DO, Last Rate: 100 mL/hr at 02/02/24 0916, 1,000 mg at 02/02/24 0916 Exam Neurologic: Cognition Sedation: none Level of consciousness: awake, alert Affect: normal Orientation: oriented x 3 Attention: normal Language: intact fluency, comprehension Visual ochoa: full, blink to threat Neglect: absent Extinction: absent Right-left confusion: absent Cranial Nerves Vision/fundoscopic: n/a Pupils: 3 mm OD, 3 mm OS; reactive to light B Spontaneous gaze: no deviation Extraocular movements: painful right superior rectus position of gaze- all other positions of gaze intact and not painful Vision continues to endorse white haze, colors are less brown, and evans colors are getting better Facial sensation: intact Facial motor function: symmetric forehead wrinkling and smile Hearing: intact to conversation Palate elevation: symmetric Dysarthria: absent Tongue: midline; able to move fully to R and L Shoulder shrug: normal Motor Tone: normal Drift: absent Spontaneous abnormal movements: none RIGHT LEFT Deltoids 5 5 Biceps 5 5 Triceps 5 5 Hand 5 5 Hip flexion 5 5 Knee extension 5 5 Knee flexion 5 5 Dorsiflexion 5 5 Plantarflexion 5 5 DTRs RIGHT LEFT Biceps 2 2 Patellar 2 2 Sensation Decreased from just above nipple line down to (T3-T8) just above the end of the rib cage, otherwise sensation intact. General appearance: normal appearing at stated age Head: NC, AT Neck: supple Eyes/orbits: no scleral icterus, edema or injection Mucous membranes: moist Lungs: no audible wheezing or rhonchi Heart: regular rate, regular rhythm Abdomen: soft, NT/ND Extremities: no deformities; no joint redness; no joint swelling Skin: no rash; no bruising; no edema; well perfused Labs: CBC (last 3 years, up to 8 values) 02/02/2024 01/31/2024 1:50 AM 6:14 PM WBC 8.0 4.4 RBC 4.19 4.25 Hgb 12.2 12.2 Hct 36.4 37.2 MCV 87 88 RDW 13.8 14.3 Plt 170 172 BMP (last 3 years, up to 8 values) 02/02/2024 01/31/2024 1:50 AM 6:14 PM Na 139 142 K 4.3 4.3 Cl 105 106 CO2 24 27 Gap 14 13 Glu 133 78 BUN 14 14 Cr 0.64 0.69 Ca 9.4 9.9 eGFR 126 123 Glucose (mg/dL) Date Value 02/02/2024 133 (H) 01/31/2024 Negative Summary of Imaging AND Other Pertinent Studies MRI C-SPINE: IMPRESSION: Signal abnormality in the left anterior cord at C2 witho (more content not included)... Normal [facility] ANGIOTENSIN 1 CONVERTING ENZ Y*on 02-01-2024 MAULIK 19 U/L Normal 9-67 [facility] Comment on above: Order Comment: Carlos morelos Agency Address Site ID: [id number] Name: [facility] Address: [address] [place] [address] Director: Raudel Jeffries MD Performed By: #### Gustavo TOLEDO #### [facility] [address] [place], [place], CSF CELL COUNTOrdered By: Nikolay Bautista on 02-01-2024 Clarity (U) Clear [facility] Color (U) Colorless [facility] RBC Manual cnt (CSF) [#/Vol] 2 /uL 0 - 5 /uL [facility] Supernatant Colorless [facility] Tube # 4 [facility] WBC (CSF) [#/Vol] 5 /uL 0 - 5 /uL [facility] TNC (Total Nucleated Count) consists of WBC and lining cells. [facility] CSF CELL COUNTon 02-01-2024 Clarity (U) Clear Normal [facility] Comment on above: Order Comment: TNC ( Total Nucleated Count) consists of WBC and lining cells. Performed By: #### HOA HOPE ####[facility] [id number] [place], [place], Color (U) Colorless Normal [facility] Comment on above: Order Comment: TNC ( Total Nucleated Count) consists of WBC and lining cells. Performed By: #### HOA HOPE ####[facility] [id number] [place], [place], RBC (Bld) [#/Vol] 0 10*6/uL Normal 0-5 [facility] Comment on above: Order Comment: TNC ( Total Nucleated Count) consists of WBC and lining cells. Performed By: #### C HOA RODRÍGUEZ ####[facility] [id number] [place], [place], SUPERNATANT Colorless Normal [facility] Comment on above: Order Comment: TNC ( Total Nucleated Count) consists of WBC and lining cells. Performed By: #### C HOA RODRÍGUEZ ####[facility] [id number] [place], [place], TUBE # 4 Normal [facility] Comment on above: Order Comment: TNC ( Total Nucleated Count) consists of WBC and lining cells. Performed By: #### HOA HOPE ####S PATHOLOGY [id number] [place], [place], WBC (Bld) [#/Vol] 0.005 10*3/uL Normal 0-5 [facility] Comment on above: Order Comment: TNC ( Total Nucleated Count) consists of WBC and lining cells. Performed By: #### HOA HOPE ####S PATHOLOGY [id number] [place], [place], CSF DIFFERENTIALon Cells Counted Total (Bld) [#] 10 {cells} [facility] Lymphocytes/100 WBC (CSF) 90 % [facility] Monocytes+Macrophages /100 WBC (CSF) 10 % [facility] CELLS COUNTED TOTAL # IN BLOOD 10 Normal The [facility] Comment on above: Performed By: #### HOA HOPE ####[facility] PATH[facility] [id number] [place], [place], FLUID, LYMPHOCYTES 90 % Normal The [facility] Comment on above: Performed By: #### HOA HOPE ####[facility] PATHOLOG[facility] [id number] [place], [place], FLUID, MONOCYTES/MACROPHAGES 10 % Normal [facility] Comment on above: Performed By: #### HOA HOPE ####[facility] PATH[facility] [id number] [place], [place], CULTURE, CSF/GRAM STAINon CULTURE, CSF/GRAM STAIN C CSF: No Growth GRAM STAIN: This Gram Stain was performed on a Cytocentrifuged specimen. No Polymorphonuclear Leukocytes seen No organisms seen Normal [facility] Comment on above: Performed By: #### C CSF ####[facility] [id number] [place], [place] [id number] Consultson 02-01-2024 Hygiene Teacher Authentication Interface Message Text Reason for Consult: Optic Neuritis Consulted by: Agusto Noonan MD HPI: Azeb Hyatt is a 23 year old female with no significant PMH who presented to the ED with blurry vision and concern for optic neuritis. Patient endorses a week of blurry vision in the right eye. She also endorsed painful right superior rectus position of gaze. She also endorsed bilateral breast swelling, left breast swelling resolved fairly quickly however the right breast improved slowly. She was evaluated by OBGYN for concerns of breast CA. She endorses numbness from above the nipple line down to just above the end of her right rib cage. She states this numbness used to spread to her back but that has improved. She was evaluated in the ED by ophthalmology and was noted to have optic neuritis given history and imaging. Neurology consulted for optic neuritis. Recommending Solumedrol 1 g daily x 3 days and MRI of T spine and C-spine. Review of Systems Constitutional: Negative Eyes: Per HPI Ears/ Nose/ Mouth/ Throat: Negative Respiratory: Negative Cardiovascular: Negative Gastrointestinal: Negative Genitourinary: Negative Musculoskeletal: Negative Neurologic: Per HPI Psychiatric: Negative Integumentary (skin/breast): Negative Endocrine: Negative Rheumatologic: Negative Allergic/ Immunologic: Negative Significant positives: Per HPI No past medical history on file. No past surgical history on file. Social History Socioeconomic History Marital status: Single Tobacco Use Smoking status: Never Smokeless tobacco: Never Vaping Use Vaping status: Never Used Vital sign ranges over the past 24 hours (retrieved 02/01/2024 at 4:36 PM): Tmax (24 hours): 98.5 ???F (36.9 ???C) Pulse Av Min: 67 Max: 87 Systolic (24hrs), Av , Min:107 , Max:114 Diastolic (24hrs), Av, Min:61, Max:75 MAP (mmHg) Av mmHg Min: 72 mmHg Max: 72 mmHg Resp Av Min: 17 Max: 19 SpO2 Av.7 % Min: 98 % Max: 99 % Intake/Output Summary (Last 24 hours) at 02/01/2024 1636 Last data filed at 02/01/2024 0703 Gross per 24 hour Intake 100 ml Output -- Net 100 ml Current Facility-Administered Medications: acetaminophen (TYLENOL) tablet, 650 mg, Oral, Q4H PRN, Deonte Davenport MD melatonin tablet, 3 mg, Oral, At Bedtime PRN, Deonte Davenport MD enoxaparin (LOVENOX) 40 MG/0.4ML injection 40 mg, 40 mg, Subcutaneous, Daily, Deonte Davenport MD methylPREDNISolone sodium succinate (SOLU-Medrol) 1,000 mg in dextrose 5 % 100 mL ivpb (custom dose), 1,000 mg, Intravenous, Daily, Efe Lanza DO, Stopped at 02/01/24 0703 Exam Neurologic: Cognition Sedation: none Level of consciousness: awake, alert Affect: normal Orientation: oriented x 3 Attention: normal Language: intact fluency, comprehension Visual ochoa: full, blink to threat Neglect: absent Extinction: absent Right-left confusion: absent Cranial Nerves Vision/fundoscopic: n/a Pupils: 3 mm OD, 3 mm OS; reactive to light B Spontaneous gaze: no deviation Extraocular movements: painful right superior rectus position of gaze- all other positions of gaze intact and not painful Facial sensation: intact Facial motor function: symmetric forehead wrinkling and smile Hearing: intact to conversation Palate elevation: symmetric Dysarthria: absent Tongue: midline; able to move fully to R and L Shoulder shrug: normal Motor Tone: normal Drift: absent Spontaneous abnormal movements: none RIGHT LEFT Deltoids 5 5 Biceps 5 5 Triceps 5 5 Hand 5 5 Hip flexion 5 5 Knee extension 5 5 Knee flexion 5 5 Dorsiflexion 5 5 Plantarflexion 5 5 DTRs RIGHT LEFT Biceps 2 2 Triceps Fingers Patellar 2 2 Ankle Toes Sensation Decreased from just above nipple line down to (T3-T8) just above the end of the rib cage, otherwise sensation intact. General appearance: normal appearing at stated age Head: NC, AT Neck: supple Eyes/orbits: no scleral icterus, edema or injection Mucous membranes: moist Lungs: no audible wheezing or rhonchi Heart: regular rate, regular rhythm Abdomen: soft, NT/ND Extremities: no deformities; no joint redness; no joint swelling Skin: no rash; no bruising; no edema; well perfused Labs: CBC (last 3 years, up to 8 values) 01/31/2024 6:14 PM WBC 4.4 RBC 4.25 Hgb 12.2 Hct 37.2 MCV 88 RDW 14.3 Plt 172 BMP (last 3 years, up to 8 values) 01/31/2024 6:14 PM Na 142 K 4.3 Cl 106 CO2 27 Gap 13 Glu 78 BUN 14 Cr 0.69 Ca 9.9 eGFR 123 Glucose (mg/dL) Date Value 01/31/2024 Negative 01/31/2024 78 Summary of Imaging AND Other Pertinent Studies MRI HEAD: IMPRESSION: 1. Normal enhanced and unenhanced MRI of the brain. 2. Asymmetric enhancement of the right intraorbital optic nerve suggestive of optic neuritis. Please review separately dictated MR orbits. MRI ORBIT: IMPRESSION: 1. Findings suspicious for optic neuritis of the right intraorbital o (more content not included)... Normal [facility] ED Provider Noteson 02-01-20 Hygiene Teacher Authentication Interface Message Text Normal [facility] GC/CHLAMYDIA/TRICHOMONAS AMP LIFICATIONon 02-01-2024 C. trachomatis DNA SKIP+probe Ql (Unsp spec) Negative Negative [facility] Interpretation and review of laboratory results Normal [facility] N. gonorrhoeae DNA SKIP+probe Ql (Unsp spec) Negative Negative [facility] T. vaginalis DNA SKIP+probe Ql (Unsp spec) Negative Negative [facility] This test is performed using an automated nucleic acid amplification assay ([employer]). [facility] GC/CHLAMYDIA/TRICHOMO LOWELL AMPLIFICATION CHLAMYDIA AMPLIFICATION: Negative GC AMPLIFICATION: Negative TRICHOMONAS AMPLIFICATION: Negative Normal Negative [facility] Comment on above: Order Comment: This test is performed using an automated nucleic acid amplification assay ([employer] Performed By: #### G CT ####[facility] [id number] [place] [id number] GLUCOSE, CSFon 02-01-2024 Glucose (CSF) [Mass/Vol] 54 mg/dL 40 - 70 mg/dL [facility] GLU CSF 54 mg/dL Normal 40-70 [facility] Comment on above: Performed By: #### U R BETA #### [facility] [address] [place], [id number] H AND Uriel 02-01-2024 Hygiene Teacher Authentication Interface Message Text Attestation signed by Agusto Noonan MD at 02/01/2024 1:02 PM Teaching Physician Note: I saw and evaluated the patient. I personally obtained the pardo and critical portions of the history and physical exam. I reviewed the resident's documentation and discussed the patient with the resident. I agree with the resident's medical decision making as documented in the resident's note. Briefly this is a 23yo female who presents with one week of vision changes along with vague sensory changes to her right trunk. In the ED she was seen by optho with findings concerning for optic neuritis. Started on high dose IV steroids. MRI head and LP were obtained. Neuro on board and following. Feels her visual symptoms may be slightly better this morning. LP labs pending MRI Spine pending MRI Head/Orbits with Optic nerve invovlement Plan - Continue IV 1g steroids every day (2 more doses) - Neuro following appreciate recs - MRI Spine - Follow LP/labs Agusto Noonan MD [facility] Internal Medicine: H AND P Note Patient: Azeb Hyatt : 2000 Sex: female Room: [place] [id number] Admit Date: 01/31/2024 Today's Date: 02/01/2024 Length of stay: 1 day(s) HISTORY OF PRESENT ILLNESS: CHIEF COMPLAINT: No chief complaint on file. Azeb Hyatt is a 23 year old female admitted on 01/31/2024 with unremarkable PMH who presented with blurry vision and concern for optic neuritis. Patient reports that one week prior to admission, she had new blurry vision in her right eye. Progressed over the following few days with development of color changes ( evans, splotchy ) on 01/26. Reports she is having mild pain with EOM of the right eye. No sx of left eye. Has never had eye problems before. She also reports that about one month ago at the end of December, she noticed bilateral tenderness and possible swelling of her breasts. Associated with numbness/tingling over her right torso/abdomen. Per patient, she was evaluated by OBGYN for the breast swelling, and he had low concern for neoplasm or lymph node. She reports the swelling seems to be better now, but she is not really able to say how long the swelling lasted. She also shares that she has had lymph node swelling in her neck and submandibular region beginning about 8 months ago. Reports it seems to be better now but states she still has some swelling along her bilateral jawline. She was evaluated by Ophthalmology in the ED. Has suspicion for optic neuritis of the right eye given clinical history and imaging. Recommending Neurology consult and IV methylprednisolone 1g daily for 3 days, followed by prednisone taper. Additional imaging and labs pending. ED Course: - VS: T 98.2 HR 79 RR 16 MAP 109/59 SpO2 100% room air - Labs: CBC unremarkable, BMP wnl, HIV neg, syphilis neg, UA + leuk esterase and nitrites - EKG: not obtained - Imaging: - Interventions: started on methylprednisolone ROS: As noted in HPI MEDICAL HISTORY: No past medical history on file. No past surgical history on file. No family history on file. No current facility-administered medications on file prior to encounter. No current outpatient medications on file prior to encounter. Not on File OBJECTIVE: Objective Temperature: [98.2 ???F (36.8 ???C)] 98.2 ???F (36.8 ???C) Heart Rate: [79] 79 Respiratory Rate: [16] 16 BP: (109)/(59) 109/59 I/Os: No intake or output data in the 24 hours ending 02/01/24 0652 LABS: CBC: (01/31/2024: 6:14 PM) WBC 4.4 Hgb 12.2 / Plt 172 / Hct 37.2 BMP: (01/31/2024: 6:14 PM) 142 106 14 Gluc 78 4.3 27 0.69 Mg PO4 Ca N/A N/A 9.9 (1.6-2.8) (2.5-4.8) (8.4-10) PHYSICAL EXAM: General: NAD. HEENT: EOMI with some reported pain of right eye. Conjunctiva clear. No lymphadenopathy noted. Heart: RRR. No murmurs or rub. Lungs: CTAB. Abdomen: Soft. Non-tender. Non-distended. Extremities: No LE edema. Neuro: Sensation and strength intact throughout. Alert and oriented. Visual field testing intact bilaterally, though patient reports more difficultly/blurrines s with using right eye only. EOM intact but with some reported pain in right eye. Skin: Warm AND dry. Active Meds: enoxaparin 40 mg Daily methylPREDNISolone sodium succinate 1,000 mg Daily --- IMAGING ---- MRI Head 01/31/2024 IMPRESSION: 1. Normal enhanced and unenhanced MRI of the brain. 2. Asymmetric enhancement of the right intraorbital optic nerve suggestive of optic neuritis. Please review separately dictated MR orbits. MRI Orbit 01/31/2024 IMPRESSION: 1. Findings suspicious for optic neuritis of the right intraorbital optic nerve. Unremarkable left optic nerve. 2. Please see same day (more content not included)... Normal [facility] MR Brain WO and W contrast I Von 02-01-2024 EXAMINATION: MR HEAD W/+W/O 01/31/2024 11:48 PM CLINICAL HISTORY: optic neuritis ASSOCIATED DIAGNOSIS: optic neuritis ORDERING PROVIDER: PRICILA ARGUELLO TECHNOLOGISTS NOTE: COMPARISON: None TECHNIQUE: Patient questionnaire was completed, and was reviewed by MRI personnel prior to the patient entering the scanner. Multiplanar, multisequence MR imaging of the head was performed with and without intravenous contrast. INTRA-PROCEDURE MEDS: Gadoterate Meglumine (DOTAREM) 10 MMOL/20ML solution 12 mL Route: Intravenous Push FINDINGS: Brain Parenchyma: No acute infarct or intracranial hemorrhage. No mass effect or herniation. The white matter is within normal limits of signal intensity for age. Ventricles and Sulci: Normal caliber. Skull Base: Hypothalamic and pituitary region are grossly normal. Craniocervical junction is normal. No marrow replacement process. Vasculature: Major intracranial vessels have normal flow voids suggesting patency. Extracranial structures: The paranasal sinuses and mastoid air cells are clear. The extracranial soft tissues demonstrate no significant abnormality. There is asymmetrical enhancement of the right intraorbital optic nerve. Please review separately dictated MR orbits for further evaluation. IMPRESSION: 1. Normal enhanced and unenhanced MRI of the brain. 2. Asymmetric enhancement of the right intraorbital optic nerve suggestive of optic neuritis. Please review separately dictated MR orbits. MACRO: None RADIOLOGY Lyle Vargas MD - 02/01/2024 EXAMINATION: MR HEAD W/+W/O 01/31/2024 11:48 PM CLINICAL HISTORY: optic neuritis ASSOCIATED DIAGNOSIS: optic neuritis ORDERING PROVIDER: PRICILA MARIE NOTE: COMPARISON: None TECHNIQUE: Patient questionnaire was completed, and was reviewed by MRI personnel prior to the patient entering the scanner. Multiplanar, multisequence MR imaging of the head was performed with and without intravenous contrast. INTRA-PROCEDURE MEDS: Gadoterate Meglumine (DOTAREM) 10 MMOL/20ML solution 12 mL Route: Intravenous Push FINDINGS: Brain Parenchyma: No acute infarct or intracranial hemorrhage. No mass effect or herniation. The white matter is within normal limits of signal intensity for age. Ventricles and Sulci: Normal caliber. Skull Base: Hypothalamic and pituitary region are grossly normal. Craniocervical junction is normal. No marrow replacement process. Vasculature: Major intracranial vessels have normal flow voids suggesting patency. Extracranial structures: The paranasal sinuses and mastoid air cells are clear. The extracranial soft tissues demonstrate no significant abnormality. There is asymmetrical enhancement of the right intraorbital optic nerve. Please review separately dictated MR orbits for further evaluation. IMPRESSION: 1. Normal enhanced and unenhanced MRI of the brain. 2. Asymmetric enhancement of the right intraorbital optic nerve suggestive of optic neuritis. Please review separately dictated MR orbits. MACRO: None [facility] MR HEAD W/+W/Oon 02-01-2024 MR HEAD W/+W/O EXAMINATION: MR HEAD W/+W/O 01/31/2024 11:48 PM CLINICAL HISTORY: optic neuritis ASSOCIATED DIAGNOSIS: optic neuritis ORDERING PROVIDER: PRICILA JOS TECHNOLOGISTS NOTE: COMPARISON: None TECHNIQUE: Patient questionnaire was completed, and was reviewed by MRI personnel prior to the patient entering the scanner. Multiplanar, multisequence MR imaging of the head was performed with and without intravenous contrast. INTRA-PROCEDURE MEDS: Gadoterate Meglumine (DOTAREM) 10 MMOL/20ML solution 12 mL Route: Intravenous Push FINDINGS: Brain Parenchyma: No acute infarct or intracranial hemorrhage. No mass effect or herniation. The white matter is within normal limits of signal intensity for age. Ventricles and Sulci: Normal caliber. Skull Base: Hypothalamic and pituitary region are grossly normal. Craniocervical junction is normal. No marrow replacement process. Vasculature: Major intracranial vessels have normal flow voids suggesting patency. Extracranial structures: The paranasal sinuses and mastoid air cells are clear. The extracranial soft tissues demonstrate no significant abnormality. There is asymmetrical enhancement of the right intraorbital optic nerve. Please review separately dictated MR orbits for further evaluation. IMPRESSION: 1. Normal enhanced and unenhanced MRI of the brain. 2. Asymmetric enhancement of the right intraorbital optic nerve suggestive of optic neuritis. Please review separately dictated MR orbits. MACRO: None Normal [facility] MR ORBIT W/+W/Oon 02-01-2024 MR ORBIT W/+W/O EXAMINATION: MR ORBI T W/+W/O 01/31/2024 11:46 PM CLINICAL HISTORY: rt eye changes ro ms optic neuritis ASSOCIATED DIAGNOSIS: rt eye changes ro ms optic neuritis ORDERING PROVIDER: PRICILA ARGUELLO TECHNOLOGISTS NOTE: Pt states that their right eye is what is bothering them the most. They state there is a bright orb in their vision. COMPARISON: MR HEAD W/+W/O 01/31/2024, 11:49 PM. TECHNIQUE: Patient questionnaire was completed, and was reviewed by MRI personnel prior to the patient entering the scanner. Multiplanar, multisequence MR imaging of the orbits was performed with and without intravenous contrast. INTRA-PROCEDURE MEDS: Gadoterate Meglumine (DOTAREM) 10 MMOL/20ML solution 12 mL Route: Intravenous Push FINDINGS: GLOBES: Normal. LACRIMAL GLANDS: Normal. RETROBULBAR FAT: No mass or inflammation. EXTRAOCULAR MUSCLES: Normal bulk and signal intensity. OPTIC PATHWAY: Focal, short segment of mild edema and enhancement of the right intraorbital optic nerve (Series 7, Image 18) (Series 8, Image 14-17), which also mildly restricts diffusion. Optic chiasm and tracts are normal. No abnormalities involving the included portions of the optic radiations. Unremarkable left optic nerve. CAVERNOUS SINUSES: Normal. INCLUDED BRAIN PARENCHYMA: Within normal limits. Please see same day dedicated MRI brain for further characterization. EXTRACRANIAL STRUCTURES: Paranasal sinuses are clear. Mastoid air cells are clear. Normal Marrow signal. IMPRESSION: 1. Findings suspicious for optic neuritis of the right intraorbital optic nerve. Unremarkable left optic nerve. 2. Please see same day dedicated MRI brain for further characterization. MACRO: None Normal [facility] MR Orbit WO and W contrast I Von 02-01-2024 EXAMINATION: MR ORBI T W/+W/O 01/31/2024 11:46 PM CLINICAL HISTORY: rt eye changes ro ms optic neuritis ASSOCIATED DIAGNOSIS: rt eye changes ro ms optic neuritis ORDERING PROVIDER: PRICILA ARGUELLO TECHNOLOGISTS NOTE: Pt states that their right eye is what is bothering them the most. They state there is a bright orb in their vision. COMPARISON: MR HEAD W/+W/O 01/31/2024, 11:49 PM. TECHNIQUE: Patient questionnaire was completed, and was reviewed by MRI personnel prior to the patient entering the scanner. Multiplanar, multisequence MR imaging of the orbits was performed with and without intravenous contrast. INTRA-PROCEDURE MEDS: Gadoterate Meglumine (DOTAREM) 10 MMOL/20ML solution 12 mL Route: Intravenous Push FINDINGS: GLOBES: Normal. LACRIMAL GLANDS: Normal. RETROBULBAR FAT: No mass or inflammation. EXTRAOCULAR MUSCLES: Normal bulk and signal intensity. OPTIC PATHWAY: Focal, short segment of mild edema and enhancement of the right intraorbital optic nerve (Series 7, Image 18) (Series 8, Image 14-17), which also mildly restricts diffusion. Optic chiasm and tracts are normal. No abnormalities involving the included portions of the optic radiations. Unremarkable left optic nerve. CAVERNOUS SINUSES: Normal. INCLUDED BRAIN PARENCHYMA: Within normal limits. Please see same day dedicated MRI brain for further characterization. EXTRACRANIAL STRUCTURES: Paranasal sinuses are clear. Mastoid air cells are clear. Normal Marrow signal. IMPRESSION: 1. Findings suspicious for optic neuritis of the right intraorbital optic nerve. Unremarkable left optic nerve. 2. Please see same day dedicated MRI brain for further characterization. MACRO: None RADIOLOGY Lyle Vargas MD - 02/01/2024 EXAMINATION: MR ORBIT W/+W/O 01/31/2024 11:46 PM CLINICAL HISTORY: rt eye changes ro ms optic neuritis ASSOCIATED DIAGNOSIS: rt eye changes ro ms optic neuritis ORDERING PROVIDER: PRICILA ARGUELLO TECHNOLOGISTS NOTE: Pt states that their right eye is what is bothering them the most. They state there is a bright orb in their vision. COMPARISON: MR HEAD W/+W/O 01/31/2024, 11:49 PM. TECHNIQUE: Patient questionnaire was completed, and was reviewed by MRI personnel prior to the patient entering the scanner. Multiplanar, multisequence MR imaging of the orbits was performed with and without intravenous contrast. INTRA-PROCEDURE MEDS: Gadoterate Meglumine (DOTAREM) 10 MMOL/20ML solution 12 mL Route: Intravenous Push FINDINGS: GLOBES: Normal. LACRIMAL GLANDS: Normal. RETROBULBAR FAT: No mass or inflammation. EXTRAOCULAR MUSCLES: Normal bulk and signal intensity. OPTIC PATHWAY: Focal, short segment of mild edema and enhancement of the right intraorbital optic nerve (Series 7, Image 18) (Series 8, Image 14-17), which also mildly restricts diffusion. Optic chiasm and tracts are normal. No abnormalities involving the included portions of the optic radiations. Unremarkable left optic nerve. CAVERNOUS SINUSES: Normal. INCLUDED BRAIN PARENCHYMA: Within normal limits. Please see same day dedicated MRI brain for further characterization. EXTRACRANIAL STRUCTURES: Paranasal sinuses are clear. Mastoid air cells are clear. Normal Marrow signal. IMPRESSION: 1. Findings suspicious for optic neuritis of the right intraorbital optic nerve. Unremarkable left optic nerve. 2. Please see same day dedicated MRI brain for further characterization. MACRO: [facility] WO and W contrast I VOrdered By: Lyle Vargas on 02-01-2024 [facility] Work Phone: No Panel InformationOrdered By: Rojas Bautista on 02-01-2024 [facility] No Panel Informationon 01-31 Interpretation and review of laboratory results Normal [facility] OLIGOCLONAL BANDS, SERUM AND CSFon 02-01-2024 OLIGOCLONAL BANDS Present Abnormal Absent [facility] Comment on above: Order Comment: Carlos tamy Agency Address Site ID: AMD Name: [employer] Address: [id number] [place] [address] [place], [place] Director: Rio Szymanski M.D.,PhD Result Comment: The patient's CSF contains GREATER THAN FIVE well defined gamma restriction bands that are not present in the corresponding serum sample. Also noted are additional identical (mirror image) gamma restriction bands in both the patient's CSF and serum. These findings are indicative of intra-cerebral as well as systemic synthesis of gamma globulins and may be associated with Guillain-[place] syndrome, peripheral neuropathy or increased blood-brain barrier permeability. The results should be interpreted in conjunction with all clinical and laboratory data pertaining to this patient. Oligoclonal bands are present in the CSF of more than 85% of patients with clinically definite multiple sclerosis (MS). To distinguish between oligoclonal bands in the CSF due to a peripheral gammopathy and oligoclonal bands due to local production in the [employer], serum and CSF should be tested simultaneously. Oligoclonal bands can however be observed in a variety of other diseases, e.g., subacute sclerosing panen- cephalitis, inflammatory polyneuropathy, [employer] lupus, and brain tumors and infarctions. The clinical significance of a numerical band count, determined by isoelectric focusing, has not been definitively defined. The data should be interpreted in conjunction with all pertinent clinical and laboratory data for this patient. 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 Visual disturbances onset 1 week ago and described as color loss, blurry vision of the right eye w/ associated right ocular pain with movement. Patient also reports intermittent swelling of left postauricular, submandibular, and right axial/breast lymph nodes for the past 8 months. However she does not feel any current lymphadenopathy. Also reports loss of sensation in R chest for past 3 weeks. Pt evaluated by ER 4 days ago where blood work and head CT were both normal. Denies recent travel, IV drug use, insect bites. Endorses tobacco and marijuana use. Denies fevers, N/V, shortness of breath, chest pain, dysuria, melena, hematochezia, constipation, or diarrhea. Vitals Reviewed: Afebrile, HDS, Saturating well on RA Data Review: -CSF: protein 27.8, glucose of 54 -UA positive for leuk esterase, nitrite, WBC 6-10 -BMP, CBC, HIV, Syphilis wnl -Awaiting CSF cx and Oligoclonal bands - MRI head: Normal enhanced and unenhanced MRI of the brain. Asymmetric enhancement of the right intraorbital optic nerve suggestive of optic neuritis. 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 of the Right Eye UTI Recurrent lymphadenopathy Plan: -Workup for MS, autoimmune processes -Await Neurology recommendations -F/u MRI of the T-spine/C-spine -IV methylprednisolone 1 g for 3 days followed by prednisone taper -F/u on CSF studies, TB, MAULIK -F/u CXR -Start Macrobid for UTI -PT/OT Dispo: Home Connor Monson MD Internal Medicine PGY-2 Normal [facility] QUANTIFERON-TB GOLD PLUSon 0 02-01-2024 TB (CELL MEDIATED) Indeterminate Abnormal Negative [facility] Comment on above: Order Comment: Inter feron gamma release is measured for specimens from each of the four collection tubes. A qualitative result (Negative, Positive, or Indeterminate) is based on interpretation of the four values. NIL (Negative Control), MITOGEN minus NIL (MITOGEN-NIL), TB1 minus NIL (TB Antigen 1) and TB2 minus NIL (TB Antigen 2). The NIL value represents nonspecific reactivity produced by the patient specimen. The MITOGEN-NIL value serves as the positive control for the patient specimen, demonstrating successful lymphocyte activity. The TB1-NIL (TB Antigen 1) tube specifically detects CD4+ lymphocyte reactivity, specifically stimulated by the TB1 antigens. The TB2-NIL (TB Antigen 2) tube detects both the CD4+ and CD8+ lymphocyte reactivity, stimulated by TB2 antigens. An overall negative result does not completely rule out TB infection. A false positive result in the absence of other clinical evidence of TB infection is not uncommon. Performed By: #### G ENTEST #### [facility] [address] [place], [id number] TB ANTIGEN 1 < 0.35 Normal <0.35 [facility] Comment on above: Order Comment: Inter feron gamma release is measured for specimens from each of the four collection tubes. A qualitative result (Negative, Positive, or Indeterminate) is based on interpretation of the four values. NIL (Negative Control), MITOGEN minus NIL (MITOGEN-NIL), TB1 minus NIL (TB Antigen 1) and TB2 minus NIL (TB Antigen 2). The NIL value represents nonspecific reactivity produced by the patient specimen. The MITOGEN-NIL value serves as the positive control for the patient specimen, demonstrating successful lymphocyte activity. The TB1-NIL (TB Antigen 1) tube specifically detects CD4+ lymphocyte reactivity, specifically stimulated by the TB1 antigens. The TB2-NIL (TB Antigen 2) tube detects both the CD4+ and CD8+ lymphocyte reactivity, stimulated by TB2 antigens. An overall negative result does not completely rule out TB infection. A false positive result in the absence of other clinical evidence of TB infection is not uncommon. Performed By: #### G ENTEST #### [facility] [address] [place], [address] TB ANTIGEN 2 < 0.35 Normal <0.35 [facility] Comment on above: Order Comment: Inter feron gamma release is measured for specimens from each of the four collection tubes. A qualitative result (Negative, Positive, or Indeterminate) is based on interpretation of the four values. NIL (Negative Control), MITOGEN minus NIL (MITOGEN-NIL), TB1 minus NIL (TB Antigen 1) and TB2 minus NIL (TB Antigen 2). The NIL value represents nonspecific reactivity produced by the patient specimen. The MITOGEN-NIL value serves as the positive control for the patient specimen, demonstrating successful lymphocyte activity. The TB1-NIL (TB Antigen 1) tube specifically detects CD4+ lymphocyte reactivity, specifically stimulated by the TB1 antigens. The TB2-NIL (TB Antigen 2) tube detects both the CD4+ and CD8+ lymphocyte reactivity, stimulated by TB2 antigens. An overall negative result does not completely rule out TB infection. A false positive result in the absence of other clinical evidence of TB infection is not uncommon. Performed By: #### G ENTEST #### [facility] [address], [place], TOTAL PROTEIN, CSFon 024 Protein (CSF) [Mass/Vol] 27.8 mg/dL 15 - 45 mg/dL [facility] TP CSF 27.8 mg/dL Normal 15-45 [facility] Comment on above: Performed By: #### U R BETA #### [facility] [address], [place], XR CHEST AP OR PA 1 VIEWon 0 02-01-2024 XR CHEST AP OR PA 1 VIEW EXAMINATION: XR CHEST AP OR PA 1 VIEW 02/01/2024 07:27 AM CLINICAL HISTORY: concern for autoimmune, ?sarcoid ASSOCIATED DIAGNOSIS: concern for autoimmune, ?sarcoid ORDERING PROVIDER: DEONTE DAVENPORT TECHNOLOGISTS NOTE: COMPARISON: None FINDINGS: Limitations: Limited by single frontal portable view. Lines, tubes, and devices: None. Lungs and pleura: No focal pulmonary consolidation, effusion or pneumothorax. Cardiomediastinal silhouette: Normal cardiomediastinal silhouette. Musculoskeletal: Unremarkable. IMPRESSION: No radiographically apparent acute abnormality allowing for single view radiograph. MACRO: None Normal [facility] XR Chest Single viewon 01-31 EXAMINATION: XR CHES T AP OR PA 1 VIEW 02/01/2024 07:27 AM CLINICAL HISTORY: concern for autoimmune, ?sarcoid ASSOCIATED DIAGNOSIS: concern for autoimmune, ?sarcoid ORDERING PROVIDER: DEONTE DAVENPORT TECHNOLOGISTS NOTE: COMPARISON: None FINDINGS: Limitations: Limited by single frontal portable view. Lines, tubes, and devices: None. Lungs and pleura: No focal pulmonary consolidation, effusion or pneumothorax. Cardiomediastinal silhouette: Normal cardiomediastinal silhouette. Musculoskeletal: Unremarkable. IMPRESSION: No radiographically apparent acute abnormality allowing for single view radiograph. MACRO: None RADIOLOGY Pete Byers MD - 02/01/2024 EXAMINATION: XR CHEST AP OR PA 1 VIEW 02/01/2024 07:27 AM CLINICAL HISTORY: concern for autoimmune, ?sarcoid ASSOCIATED DIAGNOSIS: concern for autoimmune, ?sarcoid ORDERING PROVIDER: DEONTE ADVENPORT TECHNRAFAEL NOTE: COMPARISON: None FINDINGS: Limitations: Limited by single frontal portable view. Lines, tubes, and devices: None. Lungs and pleura: No focal pulmonary consolidation, effusion or pneumothorax. Cardiomediastinal silhouette: Normal cardiomediastinal silhouette. Musculoskeletal: Unremarkable. IMPRESSION: No radiographically apparent acute abnormality allowing for single view radiograph. MACRO: None [facility] Study observation (narrative) [facility] XR Chest Single viewOrdered By: Pete Byers on 02-01-2024 [facility] Phone: BASIC METABOLIC PANELon 01-09 Anion gap [Moles/Vol] 13 mmol/L Normal 10-20 [facility] Comment on above: Performed By: #### U R BETA #### [facility] [address] [place] [address], Calcium [Mass/Vol] 9.9 mg/dL Normal 8.6-10.3 [facility] Comment on above: Performed By: #### U R BETA #### [facility] [address] [place] [address], Chloride [Moles/Vol] 106 mmol/L Normal 98-107 [facility] Comment on above: Performed By: #### U R BETA #### [facility] [address] [place] [address], CO2 [Moles/Vol] 27 mmol/L Normal 21-31 [facility] Comment on above: Performed By: #### U R BETA #### [facility] [address] [place] [address], Creatinine [Mass/Vol] 0.69 mg/dL Normal 0.60-1.20 [facility] Comment on above: Performed By: #### U R BETA #### [facility] [address] [place] [address], ESTIMATED GFR (CKD-EPI) 123 mL/min/1.73sqm Normal >=60 [facility] Comment on above: Result Comment: 2020 CKD EPI Equation using Creatinine without Race Comment: Estimated glomerular filtration rate (eGFR) is calculated without a race coefficient. Values should be interpreted in the context of the patient's full clinical presentation. Reference: 1. Darryl C, Luis A M, Arnulfo ABURTO, et al.. A Unifying Approach for GFR Estimation: Recommendations of the NKF-ASN Task Force on Reassessing the Inclusion of Race in Diagnosing Kidney Disease. Irish Journal of Kidney Diseases 2021;79(2):268-88.e1. 2. N Engl J Med 1 Vol. 385 Issue 19 Pages 3760-6215 Performed By: #### U R BETA #### [facility] [address] [place] [address], Glucose [Mass/Vol] 78 mg/dL Normal 74-109 [facility] Comment on above: Performed By: #### U R BETA #### [facility] [address] [place] [address], Potassium [Moles/Vol] 4.3 mmol/L Normal 3.5-5.0 [facility] Comment on above: Performed By: #### U R BETA #### [facility] [address] [place] [address], Sodium [Moles/Vol] 142 mmol/L Normal 136-145 [facility] Comment on above: Performed By: #### U R BETA #### [facility] [address] [place] [address], Urea nitrogen [Mass/Vol] 14 mg/dL Normal 7-25 [facility] Comment on above: Performed By: #### U R BETA #### [facility] [address] [place] [address], Basic metabolic 2000 panelon 01-31-2024 Anion gap [Moles/Vol] 13 mmol/L 10 - 20 [facility] Calcium [Mass/Vol] 9.9 mg/dL 8.6 - 10. 3 mg/dL [facility] Chloride [Moles/Vol] 106 mmol/L 98 - 10 7 mmol/L [facility] CO2 [Moles/Vol] 27 mmol/L 21 - 31 mmol/L [facility] Creatinine [Mass/Vol] 0.69 mg/dL 0.60 - 1.20 mg/dL [facility] GFR/1.73 sq M.predicted CKD-EPI (S/P/Bld) [Vol rate/Area] 123 - PINF [facility] Comment on above: 2020 CKD EPI Equatio n using Creatinine without Race Comment: Estimated glomerular filtration rate (eGFR) is calculated without a race coefficient. Values should be interpreted in the context of the patient's full clinical presentation. Reference: 1. Darryl C, Luis A M, Arnulfo ABURTO, et al.. A Unifying Approach for GFR Estimation: Recommendations of the NKF-ASN Task Force on Reassessing the Inclusion of Race in Diagnosing Kidney Disease. Irish Journal of Kidney Diseases 202;79(2):268-88.e1. 2. N Engl J Med 2020 Vol. 385 Issue 19 Pages 1430-1685 Glucose [Mass/Vol] 78 mg/dL 74 - 109 mg/dL [facility] Interpretation and review of laboratory results Normal [facility] Potassium [Moles/Vol] 4.3 mmol/L 3.5 - 5.0 mmol/L [facility] Sodium [Moles/Vol] 142 mmol/L 136 - 145 mmol/L [facility] Urea nitrogen [Mass/Vol] 14 mg/dL 7 - 25 mg/dL [facility] CBC panel Auto (Bld)on 01-30 Erythrocyte distribution width (RBC) [Ratio] 14.3 % 11.5 - 14.5 % [facility] Hematocrit (Bld) [Volume fraction] 37.2 % 36.0 - 46.0 % [facility] Hemoglobin (Bld) [Mass/Vol] 12.2 g/dL 12.0 - 15.0 g/dL [facility] Interpretation and review of laboratory results Abnormal [facility] MCH (RBC) [Entitic mass] 28.7 pg 26.0 - 34.0 pg [facility] MCHC (RBC) [Mass/Vol] 32.7 g/dL 32.0 - 35.9 g/dL [facility] MCV (RBC) [Entitic vol] 88 fL 80 - 100 fL [facility] Platelet mean volume (Bld) [Entitic vol] 10.1 fL 7.5 - 11.2 fL [facility] Platelets (Bld) [#/Vol] 172 10*3/uL 150 - 400 K/uL [facility] RBC (Bld) [#/Vol] 4.25 10*6/uL [facility] WBC (Bld) [#/Vol] 4.4 10*3/uL Low 4.5 - 11.5 K/uL [facility] COMPLETE BLOOD COUNTon 01-30 Erythrocyte distribution width (RBC) [Ratio] 14.3 % Normal 11.5-14.5 [facility] Comment on above: Performed By: #### G ENTEST #### [facility] [address] [place] [address], Hematocrit (Bld) [Volume fraction] 37.2 % Normal 36.0-46.0 [facility] Comment on above: Performed By: #### G ENTEST #### [facility] [address] [place] [address], Hemoglobin (Bld) [Mass/Vol] 12.2 g/dL Normal 12.0-15.0 [facility] Comment on above: Performed By: #### Gustavo ENTEST #### [facility] [address] [place] [address], MCH (RBC) [Entitic mass] 28.7 pg Normal 26.0-34.0 [facility] Comment on above: Performed By: #### Gustavo ENTEST #### [facility] [address] [place] [address], MCHC (RBC) [Mass/Vol] 32.7 g/dL Normal 32.0-35.9 [facility] Comment on above: Performed By: #### Gustavo ENTEST #### [facility] [address] [place] [address], MCV (RBC) [Entitic vol] 88 fL Normal 80-100 [facility] Comment on above: Performed By: #### Gustavo ENTEST #### [facility] [address] [place] [address], Platelet mean volume (Bld) [Entitic vol] 10.1 fL Normal 7.5-11.2 [facility] Comment on above: Performed By: #### Gustavo ENTEST #### [facility] [address] [place] [address], Platelets (Bld) [#/Vol] 172 10*3/uL Normal 150-400 [facility] Comment on above: Performed By: #### Gustavo ENTEST #### [facility] [address] [place] [address], RBC (Bld) [#/Vol] 4.25 10*6/uL Normal 4.00-5.20 [facility] Comment on above: Performed By: #### G ENTEST #### [facility] [address], [place], WBC (Bld) [#/Vol] 4.4 10*3/uL Low 4.5-11.5 [facility] Comment on above: Performed By: #### G ENTEST #### [facility] [address], [place], Consultson 01-31-2024 Hygiene Teacher Authentication Interface Message Text Attestation signed by Israel Bennett MD at 02/03/2024 1:28 PM I did not personally examine this patient. I have, where applicable, reviewed relevant laboratory studies and imaging personally. I have reviewed the resident's note and agree with the proposed management. Israel Bennett MD Cornea, External Disease, and Refractive Surgery [facility] Ophthalmology Ophthalmology Consult Note CC: Blurred vision HPI: Azeb Hyatt is a 23 year old female presenting with blurred vision OD. Saturday (1wk ago) patient noticed new blurred vision in the right eye. On Saturday (4d ago) woke up with noticeable color desaturation; everything looks evans. No current pain. Also since late December ~3 weeks ago has had right upper eyelid/periorbital pain when moving eye. Patient also describes new lymph node tenderness/swelling 8 months ago in the neck and submandibular region. ~1 month ago had bilateral axillary lymph node swelling/tenderness and an episode of tingling and numbness of the right side of her chest wall. Otherwise denies discharge, tearing, irritation, redness, FBS, floaters, flashes, pain, sudden vision loss, photophobia or diplopia. PMH: (-) HTN, DM, migraine, blindness, glaucoma, cataract, AMD, ocular cancer, eye trauma, amblyopia, strabismus, CAD, stroke, cancer. PSH: (-) eye surgeries, eye lasers Eye meds: None Family History: (-) migraine, blindness, glaucoma, AMD, ocular cancer, DM, HTN, CAD, stroke, cancer. Social History: N/a EXAM: Visual acuity at distance without correction OD: 20/20-2 slow OS: 20/20 IOP with Tonopen OD: 17 significant squeezing, low reliability OS: 23 significant squeezing, low reliability Pupils: dark->light: OD: 3->2 2+ APD OS: 3->2 no APD EOM: OD: full OS: full Visual ochoa: OD: full to confrontation OS: full to confrontation Color plates: OD: 12/18 OS: 04/20 Slit lamp examination: External Exam: OD: WNL OS: WNL L/L/L: OD: WNL OS: WNL Conj/Sclera: OD: no injection OS: no injection Cornea: OD: no epithelial defect, clear stroma, normal tear film, normal endothelium OS: no epithelial defect, clear stroma, normal tear film, normal endothelium Anterior chamber: OD: deep and quiet, no cell OS: deep and quiet, no cell Iris: OD: normal stroma OS: normal stroma Lens: OD: clear OS: clear Dilated OU with tropicamide 1% and phenylephrine 2.5% Vitreous OD: Clear, no heme or pigment OS: Clear, no heme or pigment Disc OD: Colcord, Sharp, perfused, and c/d 0.2, no edema appreciated, no disc heme OS: Colcord, Sharp, perfused, and c/d 0.2, no edema appreciated, no disc heme Vessels OD: Normal course and caliber, no sheathing, no nicking, AV ratio 2:3 OS: Normal course and caliber, no sheathing, no nicking, AV ratio 2:3 Macula OD: Flat, no heme, no commotio, no holes OS: Flat, no heme, no commotio, no holes Periphery OD: Attached, no tears OS: Attached, no tears Imaging: MR head/orbit wwo: ordered, pending HVF OU outside center 01/28/24 (interpretation of outside visual field without raw data is unreliable in guiding clinical decision making): Right Eye Reliability was good. Progression has no prior data. Foveal threshold was reduced. Findings include superior paracentral defect, inferior paracentral defect, paracentral scotoma. Left Eye Reliability was good. Progression has no prior data. Foveal threshold was normal. Assessment: 1. Suspicion for optic neuritis, right eye - Patient describing blurred vision and color desaturation, right eye - ?pain with EOMs - Exam with evidence of optic neuropathy such as APD and color desaturation. No apparent altitudinal visual field defect such as seen in NAION. Searching/difficult to obtain visual acuity in the right eye may or may not represent sporadic field loss. - No apparent optic disc edema on posterior exam at this time - ED HIV and syphilis labs pending Recommendations: - High suspicion for optic neuritis - Recommend neurology consult - Recommend starting IV methylprednisolone 1g daily x3d, followed by prednisone taper, but defer to neurology for optimal treatment - Labs: obtain TB and MAULIK. HIV and syphilis pending. Follow up: - neuro-ophthalmology 1 month (ophthalmology will reach out to schedule) - if visual ochoa desired, may be able to arrange a time in clinic next week for patient to obtain visual ochoa Heber Benjamin MD Ophthalmology Resident Please page [phone] with additional questions/concerns Patient was discussed with Dr. Dunham, senior resident contact lens edge buffer. Commonly used ophthalmology abbreviations: AC: Anterior chamber; ACIOL: Anterior chamber intraocular lens; APD, RAPD: (Relative) Afferent pupillary defect; ARMD, AMD: Age-related macular dege (more content not included)... Normal [facility] ED Noteson 01-31-2024 Hygiene Teacher Authentication Interface Message Text Bed: 43 Expected date: Expected time: Means of arrival: Comments: eye Normal [facility] ED Provider Noteson 01-31-20 Hygiene Teacher Authentication Interface Message Text Attestation signed by Paul Alexander MD at 02/02/2024 9:44 PM (Updated) I was personally present for the pardo and critical portions of the procedure. Additionally, opening pressure was 18 mmHg Paul Alexander MD PROCEDURE NOTE: LUMBAR PUNCTURE Informed consent, after discussion of the risks, benefits, and alternatives to the procedure, was obtained and the consent form was signed by patient . The patient was identified using two patient identifiers: Yes. The H AND P along with required diagnostics are available in Epic: Yes The correct procedure was verified: Yes Procedural site identified: Yes Presence of required equipment verified prior to starting procedure: Yes Patient allergies identified or reviewed: Yes Site marking done: Yes A timeout to verify the correct patient, procedure, and site was performed immediately prior to the procedure The patient was positioned lying on side. The landmarks were identified. Anesthesia was obtained with 5 cc of Lidocaine 1%. The area was prepped and draped in the usual sterile fashion. A 20 leonela 3 1/2 in spinal needle was inserted at the L4 - L5 level. Return was clear CSF . The patient tolerated the procedure well. Agusto Hartley DO Normal [facility] Hygiene Teacher Authentication Interface Message Text I, Paul Alexander MD, have assumed care of this patient from Dr. Arguello as of 9:46 PM. PENDING/TO DO: MRI INTERVAL PROGRESS: ED Course as of 02/02/242145Jan 31, [id number] Received sign out pending MRI and final ophtho recs [MIRIAM] ED Course User Index [MIRIAM] Paul Alexander MD Optho rec'd neuro consult, neuro recd LP and further MRIs. Both rec'd solumedrol which was ordered --------- IMPRESSION AND DISPOSITION ------- Clinical Impression Diagnosis Comment Other optic neuritis [H46.8] Disposition: Admitted to Floor: Resident Medicine Admission Service. Report called to [facility] res, [facility], 0500 (02/01/24 0501) The patient has received a medical screening examination and within reasonable clinical confidence the patient was stabilized within the capabilities of the emergency department and requires admission / observation. Counseling: Spoke with the patient and discussed today's findings, in addition to providing specific details for the plan of care and expected course. They were given the opportunity to ask questions. Paul Alexander MD Normal [facility] Hygiene Teacher [employer] Interface Message Text --------- HISTORY OF PRESENT ILLNESS ----- 01/31/2024, 4:46 PM. The history is provided by the Patient. Azeb Hyatt is a 23 year old female presenting to the ED for numbness on R chest, visual disturbances. Visual disturbances are described as color loss, blurry vision. Patient expresses concern over swelling in lymph nodes for the past 8 months, tingling and loss of sensation in R chest for past 3 weeks, pain in R eye for 2 weeks and visual disturbances for past 1 week. Has had a series of ER/Urgent care visits without resolution of symptoms. ED visit from 4 days ago received blood work and head CT, both normal. States doctor had ruled out breast cancer from swollen lymph nodes. Was diagnosed with optic neuritis by opthalmology in [place]. 2nd opinion ophthalmology said eye was fine, could get vision to 20/20. Endorses tobacco and marijuana use. Denies possibility of . REVIEW OF SYSTEMS Review of Systems Eyes: Positive for visual disturbance. Neurological: Positive for numbness. PAST HISTORY Past Medical History: No past medical history on file. Past Surgical History: No past surgical history on file. Social History: Family History: No family history on file. The patient's home medications have been reviewed. Allergies: Patient has no allergy information on record. PHYSICAL EXAM Vitals Recorded in This Encounter 01/31/2024 1600 BP: 109/59 Pulse: 79 Resp: 16 Temp: 98.2 ???F (36.8 ???C) Temp src: Oral SpO2: 100 % Constitutional: Well developed, well nourished. Awake AND alert. No distress. Head: Atraumatic. Eyes: PERRL. EOMI. No injected conjunctivae. No scleral icterus. ENT: Mucous membranes are moist. Neck: Normal movement. Supple. Cardiovascular: Well perfused. Pulmonary/Chest: No evidence of respiratory distress. Speaks in full sentences. Numbness of R chest wall. Musculoskeletal: Moves all four extremities. No deformities. Skin: Skin is warm and dry. No rashes on exposed skin. Neurological: Alert, awake, and appropriate. Normal speech. No acute focal neurological deficits are appreciated. Psychiatric: Good eye contact. Appropriate in content/context. Normal affect. LABORATORY RESULTS No results found for this or any previous visit. PROCEDURE ------ ED COURSE --- HIPAA: Verbal permission granted from patient to discuss case, including protected health information, in front of family / friends in room at the time of the evaluation. ED Medications: Medications - No data to display Smoking cessation counseling of less than 3 minutes was provided to the patient including Advising the patient on the health risks of smoking. The patient was not interested in learning about the health risks of smoking. 4:58 PM Consulted Ophthalmology. Will come to ED to evaluate patient. ED Course as of 02/01/242107Jan 31, [id number] Received sign out pending MRI and final ophtho recs [MIRIAM] ED Course User Index [MIRIAM] Paul Alexander MD MEDICAL DECISION MAKING Vital Signs: Reviewed the patient's vital signs. Nursing Notes: Reviewed and utilized the nursing notes. Fabrication And Assembly Supervisor: not needed - patient preferred language is Cameroonian. External Medical Records: The patient's available past medical records and past encounters were reviewed. Summary of pertinent elements include: Optic neuritis. Seen on 01/27 by ophthalmology. Laboratory Studies: Ordered and independently reviewed the laboratory tests. Pertinent results include: CBC and BMP normal Radiology Studies: Ordered and independently reviewed the radiology images. I independently reviewed and interpreted the mri. My interpretation is possible rt eye optic neuritis . Consultations: Time: 4:58 PM. Indication for consultation: Visual disturbances Spoke with Ophthalmology. Discussed case. The consult will come to the ED to evaluate this patient.. Medical Decision Making: pt with optic neuritis will admit for further tx and steroids. Review of External (Non- ED) Notes: notes from [facility] shows normal eye exam Management Decisions: Diagnoses considered include cva, brain tumor, optic neuritis, MS Discussion with External Provider: Tire Room Supervisor from opetho service recommends admit Independent Test Interpretation: see above SCRIBE ATTESTATION (more content not included)... Normal [facility] HCG URINEOrdered By: Ryan Cheema on 01-31-2024 HCG ( test) Ql (U) Negative [facility] Interpretation and review of laboratory results [facility] HCG URINEon 01-31-2024 Beta HCG ( test) Ql (U) Negative Normal Negative [facility] Comment on above: Performed By: #### U R BETA #### [facility] [address] [place] [address], [id number] HIV 1 and 2 Ab and HIV 1 p24 Ag panel IAon 01-31-2024 HIV 1+2 Ab+HIV1 p24 Ag IA Ql Non-Reactive Non-Reactive [facility] Comment on above: No laboratory eviden ce for HIV Infection. Negative result does not rule out acute HIV infection. If acute HIV infection is suspected, recommend ordering an HIV-1 RNA quanitification test. Interpretation and review of laboratory results Normal [facility] Information: [place] Rev. code 3701.243(E): This information has been disclosed to you from confidential records protected from disclosure by state law. You shall make no further disclosure of this information without the specific, written, and informed release of the individual to whom it pertains, or as otherwise permitted by state law. A general authorization for the release of medical or other information is not sufficient for the purpose of the release of HIV test results or diagnoses. [facility] HIV1 HIV2 AGAB SCRNon 2023 HIV AG-AB SCREEN Non-Reactive Normal Non-Reactive [facility] Comment on above: Order Comment: HIV I nformation: ???[place] Rev. code 3701.243(E):This information has been disclosed to you from confidential records protected from disclosure by state law. ???You shall make no further disclosure of this information without the specific, written, and informed release of the individual to whom it pertains, or as otherwise permitted by state law. ???A general authorization for the release of medical or other information is not sufficient for the purpose of the release of HIV test results or diagnoses. Result Comment: No l aboratory evidence for HIV Infection. Negative result does not rule out acute HIV infection. If acute HIV infection is suspected, recommend ordering an HIV-1 RNA quanitification test. Performed By: #### U R BETA #### [facility] [address] [place], [place], MR Brain WO and W contrast I [facility] 01-31-2024 Radiology Study observation (narrative) [facility] MR Orbit WO and W contrast I [facility] 01-31-2024 Radiology Study observation (narrative) [facility] SYPHILIS WITH CONFIRMATIONon 01-31-2024 T. pallidum Ab LA Qn (S) [facility] T. pallidum IgG+IgM IA Ql (S) Non-Reactive Non-Reactive [facility] No results found for : TPPA No components found for: FTA No serologic evidence of syphilis. If recent exposure/early infection is suspected, repeat testing in 2-4 weeks. [facility] SYPHILIS TOTAL (IGG/IGM) Non-Reactive Normal Non-Reactive [facility] Comment on above: Order Comment: No re sults found for: TPPA No components found for: FTA No serologic evidence of syphilis.If recent exposure/early infection is suspected, repeat testing in 2-4 weeks. Performed By: #### G ENTEST #### [facility] [address], [place], TPPA Normal [facility] Comment on above: Order Comment: No re sults found for: TPPA No components found for: FTA No serologic evidence of syphilis.If recent exposure/early infection is suspected, repeat testing in 2-4 weeks. Performed By: #### G ENTEST #### [facility] [address] [place], [id number] URINALYSISon 01-31-2024 Appearance (U) Turbid Clear [facility] Bacteria LM.HPF (Urine sed) [#/Area] Few /HPF [facility] Bilirubin Ql (U) Negative Negative [facility] Color (U) Light Yellow Colorless [facility] Epithelial cells.squamous LM.HPF (Urine sed) [#/Area] 6-10 [facility] Glucose Auto test strip (U) [Mass/Vol] Negative Negative mg/dL [facility] Hemoglobin Ql (U) Negative Negative [facility] Interpretation and review of laboratory results Abnormal [facility] Ketones Ql (U) Negative Negative mg/dL [facility] Leukocyte esterase Test strip Ql (U) Positive Abnormal Negative [facility] Comment on above: Normal urine specime ns will not produce a positive reaction. Small amounts of leukocyte esterase, causing a positive reaction should be repeated, using a fresh urine specimen, from the same patient. Positive results require further testing for pyuria. Mucus Ql (Urine sed) Present [facility] Nitrite Ql (U) Positive Abnormal Negative [facility] pH (U) 7.0 [pH] 5.0 - 8.0 [facility] Protein (U) [Mass/Vol] 20 mg/dL Negative [facility] Specific gravity (U) [Rel density] 1.024 NINF - 1.030 [facility] Urobilinogen Qn (U) Negative Negative mg/dL [facility] WBC (U) [#/Vol] None Seen [facility] WBC LM.HPF (Urine sed) [#/Area] 6-10 Abnormal [facility] A negative leukocyte esterase AND negative nitrite test or absence of pyuria (urine WBC count <= 5-10) make a UTI (urinary tract infection) very unlikely in a non-neutropenic adult (<=5% likelihood in many studies). A positive leukocyte esterase, nitrite and/or pyuria is a nonspecific result. This can be seen in conditions other than a UTI e.g. asymptomatic bacteriuria, gynecologic infections, sexually transmitted infections, and noninfectious conditions (positive predictive value for UTI around 50%) [facility] Glucose Ql (U) Negative Normal Negative [facility] [place] Comment on above: Order Comment: A neg ative leukocyte esterase AND negative nitrite test or absence of pyuria (urine WBC count <= 5-10) make a UTI (urinary tract infection) very unlikely in a non-neutropenic adult (<=5% likelihood in many studies). A positive leukocyte esterase, nitrite and/or pyuria is a nonspecific result. This can be seen in conditions other than a UTI e.g. asymptomatic bacteriuria, gynecologic infections, sexually transmitted infections, and noninfectious conditions (positive predictive value for UTI around 50%) Performed By: #### u rinalysis ####S PATHOLOGY [id number] [place] [address], Protein (U) [Mass/Vol] 20 mg/dL Normal Negative [facility] [place] Comment on above: Order Comment: A neg ative leukocyte esterase AND negative nitrite test or absence of pyuria (urine WBC count <= 5-10) make a UTI (urinary tract infection) very unlikely in a non-neutropenic adult (<=5% likelihood in many studies). A positive leukocyte esterase, nitrite and/or pyuria is a nonspecific result. This can be seen in conditions other than a UTI e.g. asymptomatic bacteriuria, gynecologic infections, sexually transmitted infections, and noninfectious conditions (positive predictive value for UTI around 50%) Performed By: #### u rinalysis ####S PATHOLOGY [id number] [place] [address], SQUAMOUS EPITHELIAL 6-10 Normal 0-10 [facility] Comment on above: Order Comment: A neg ative leukocyte esterase AND negative nitrite test or absence of pyuria (urine WBC count <= 5-10) make a UTI (urinary tract infection) very unlikely in a non-neutropenic adult (<=5% likelihood in many studies). A positive leukocyte esterase, nitrite and/or pyuria is a nonspecific result. This can be seen in conditions other than a UTI e.g. asymptomatic bacteriuria, gynecologic infections, sexually transmitted infections, and noninfectious conditions (positive predictive value for UTI around 50%) Performed By: #### u rinalysis ####S PATHOLOGY [id number] [place], [place], U APPEAR Turbid Normal Clear [facility] Comment on above: Order Comment: A neg ative leukocyte esterase AND negative nitrite test or absence of pyuria (urine WBC count <= 5-10) make a UTI (urinary tract infection) very unlikely in a non-neutropenic adult (<=5% likelihood in many studies). A positive leukocyte esterase, nitrite and/or pyuria is a nonspecific result. This can be seen in conditions other than a UTI e.g. asymptomatic bacteriuria, gynecologic infections, sexually transmitted infections, and noninfectious conditions (positive predictive value for UTI around 50%) Performed By: #### u rinalysis ####[facility] [id number] [place], [place], U BACTERIA Few Normal [facility] Comment on above: Order Comment: A neg ative leukocyte esterase AND negative nitrite test or absence of pyuria (urine WBC count <= 5-10) make a UTI (urinary tract infection) very unlikely in a non-neutropenic adult (<=5% likelihood in many studies). A positive leukocyte esterase, nitrite and/or pyuria is a nonspecific result. This can be seen in conditions other than a UTI e.g. asymptomatic bacteriuria, gynecologic infections, sexually transmitted infections, and noninfectious conditions (positive predictive value for UTI around 50%) Performed By: #### u rinalysis ####[facility] [id number] [place], [place], [place] BILI Negative Normal Negative [facility] Comment on above: Order Comment: A neg ative leukocyte esterase AND negative nitrite test or absence of pyuria (urine WBC count <= 5-10) make a UTI (urinary tract infection) very unlikely in a non-neutropenic adult (<=5% likelihood in many studies). A positive leukocyte esterase, nitrite and/or pyuria is a nonspecific result. This can be seen in conditions other than a UTI e.g. asymptomatic bacteriuria, gynecologic infections, sexually transmitted infections, and noninfectious conditions (positive predictive value for UTI around 50%) Performed By: #### u rinalysis ####[facility] [id number] [place], [place], [place] BLOOD Negative Normal Negative [facility] Comment on above: Order Comment: A neg ative leukocyte esterase AND negative nitrite test or absence of pyuria (urine WBC count <= 5-10) make a UTI (urinary tract infection) very unlikely in a non-neutropenic adult (<=5% likelihood in many studies). A positive leukocyte esterase, nitrite and/or pyuria is a nonspecific result. This can be seen in conditions other than a UTI e.g. asymptomatic bacteriuria, gynecologic infections, sexually transmitted infections, and noninfectious conditions (positive predictive value for UTI around 50%) Performed By: #### u rinalysis ####S PATHOLOGY [id number] [place], [place], U COLOR Light Yellow Normal Colorless [facility] Comment on above: Order Comment: A neg ative leukocyte esterase AND negative nitrite test or absence of pyuria (urine WBC count <= 5-10) make a UTI (urinary tract infection) very unlikely in a non-neutropenic adult (<=5% likelihood in many studies). A positive leukocyte esterase, nitrite and/or pyuria is a nonspecific result. This can be seen in conditions other than a UTI e.g. asymptomatic bacteriuria, gynecologic infections, sexually transmitted infections, and noninfectious conditions (positive predictive value for UTI around 50%) Performed By: #### u rinalysis ####S PATHOLOGY [id number] [place], [place], [place] KETONE Negative Normal Negative [facility] Comment on above: Order Comment: A neg ative leukocyte esterase AND negative nitrite test or absence of pyuria (urine WBC count <= 5-10) make a UTI (urinary tract infection) very unlikely in a non-neutropenic adult (<=5% likelihood in many studies). A positive leukocyte esterase, nitrite and/or pyuria is a nonspecific result. This can be seen in conditions other than a UTI e.g. asymptomatic bacteriuria, gynecologic infections, sexually transmitted infections, and noninfectious conditions (positive predictive value for UTI around 50%) Performed By: #### u rinalysis ####[facility] [id number] [place], [place], [place] LEUK Positive Abnormal Negative [facility] Comment on above: Order Comment: A neg ative leukocyte esterase AND negative nitrite test or absence of pyuria (urine WBC count <= 5-10) make a UTI (urinary tract infection) very unlikely in a non-neutropenic adult (<=5% likelihood in many studies). A positive leukocyte esterase, nitrite and/or pyuria is a nonspecific result. This can be seen in conditions other than a UTI e.g. asymptomatic bacteriuria, gynecologic infections, sexually transmitted infections, and noninfectious conditions (positive predictive value for UTI around 50%) Result Comment: Norm al urine specimens will not produce a positive reaction. Small amounts of leukocyte esterase, causing a positive reaction should be repeated, using a fresh urine specimen, from the same patient. Positive results require further testing for pyuria. Performed By: #### u rinalysis ####[facility] [id number] [place], [place], [place] MUCOUS Present Normal [facility] Comment on above: Order Comment: A neg ative leukocyte esterase AND negative nitrite test or absence of pyuria (urine WBC count <= 5-10) make a UTI (urinary tract infection) very unlikely in a non-neutropenic adult (<=5% likelihood in many studies). A positive leukocyte esterase, nitrite and/or pyuria is a nonspecific result. This can be seen in conditions other than a UTI e.g. asymptomatic bacteriuria, gynecologic infections, sexually transmitted infections, and noninfectious conditions (positive predictive value for UTI around 50%) Performed By: #### u rinalysis ####S PATHOLOGY [id number] [place], [place], [place] NITRITE Positive Abnormal Negative [facility] Comment on above: Order Comment: A neg ative leukocyte esterase AND negative nitrite test or absence of pyuria (urine WBC count <= 5-10) make a UTI (urinary tract infection) very unlikely in a non-neutropenic adult (<=5% likelihood in many studies). A positive leukocyte esterase, nitrite and/or pyuria is a nonspecific result. This can be seen in conditions other than a UTI e.g. asymptomatic bacteriuria, gynecologic infections, sexually transmitted infections, and noninfectious conditions (positive predictive value for UTI around 50%) Performed By: #### u rinalysis ####[facility] [id number] [place], [place], [place] PH 7.0 Normal 5.0-8.0 [facility] Comment on above: Order Comment: A neg ative leukocyte esterase AND negative nitrite test or absence of pyuria (urine WBC count <= 5-10) make a UTI (urinary tract infection) very unlikely in a non-neutropenic adult (<=5% likelihood in many studies). A positive leukocyte esterase, nitrite and/or pyuria is a nonspecific result. This can be seen in conditions other than a UTI e.g. asymptomatic bacteriuria, gynecologic infections, sexually transmitted infections, and noninfectious conditions (positive predictive value for UTI around 50%) Performed By: #### u rinalysis ####[facility] [id number] [place], [place], [place] RBC None Seen Normal 0-2 [facility] [place] Comment on above: Order Comment: A neg ative leukocyte esterase AND negative nitrite test or absence of pyuria (urine WBC count <= 5-10) make a UTI (urinary tract infection) very unlikely in a non-neutropenic adult (<=5% likelihood in many studies). A positive leukocyte esterase, nitrite and/or pyuria is a nonspecific result. This can be seen in conditions other than a UTI e.g. asymptomatic bacteriuria, gynecologic infections, sexually transmitted infections, and noninfectious conditions (positive predictive value for UTI around 50%) Performed By: #### u rinalysis ####[facility] [id number] [place], [place], [place] SG 1.024 Normal <=1.030 [facility] [place] Comment on above: Order Comment: A neg ative leukocyte esterase AND negative nitrite test or absence of pyuria (urine WBC count <= 5-10) make a UTI (urinary tract infection) very unlikely in a non-neutropenic adult (<=5% likelihood in many studies). A positive leukocyte esterase, nitrite and/or pyuria is a nonspecific result. This can be seen in conditions other than a UTI e.g. asymptomatic bacteriuria, gynecologic infections, sexually transmitted infections, and noninfectious conditions (positive predictive value for UTI around 50%) Performed By: #### u rinalysis ####[facility] [id number] [place], [place], [place] UROBILI Negative Normal Negative [facility] Comment on above: Order Comment: A neg ative leukocyte esterase AND negative nitrite test or absence of pyuria (urine WBC count <= 5-10) make a UTI (urinary tract infection) very unlikely in a non-neutropenic adult (<=5% likelihood in many studies). A positive leukocyte esterase, nitrite and/or pyuria is a nonspecific result. This can be seen in conditions other than a UTI e.g. asymptomatic bacteriuria, gynecologic infections, sexually transmitted infections, and noninfectious conditions (positive predictive value for UTI around 50%) Performed By: #### u rinalysis ####[facility] [id number] [place], [place], U WBC 6-10 Abnormal 0-2 [facility] Comment on above: Order Comment: A neg ative leukocyte esterase AND negative nitrite test or absence of pyuria (urine WBC count <= 5-10) make a UTI (urinary tract infection) very unlikely in a non-neutropenic adult (<=5% likelihood in many studies). A positive leukocyte esterase, nitrite and/or pyuria is a nonspecific result. This can be seen in conditions other than a UTI e.g. asymptomatic bacteriuria, gynecologic infections, sexually transmitted infections, and noninfectious conditions (positive predictive value for UTI around 50%) Performed By: #### u rinalysis ####[facility] [id number] [place], [place], Perimetry studyon 01-30-2024 [facility] Perimetry studyon 01-28-2024 Radiology Study observation (narrative) [facility] XR chest 2V*on 01-08-2024 XR chest 2V* [facility] [place] [address] XRay Report Signed Patient: Azeb Hyatt MR#: [id number] 517 : 2000 Acct:[id number] Age/Sex: 23 / F ADM Date: 01/08/24 Loc: ER Room: Type: [facility] ER Attending Dr: Copies to: PINEDA Chang Ordering Provider: PINEDA Chang Date of Service: 01/08/24 XR/XR chest 2V*: Skin/Abscess/Foreign Body Chest 2 views CLINICAL HISTORY: Right axillary numbness, shortness of breath anxiety. COMPARISON: None FINDINGS: Heart normal size. Lungs are clear. No free air. XR/XR chest 2V* IMPRESSION: NO ACUTE CARDIOPULMONARY ABNORMALITY. Impression dictated by: Tra Marroquin Jr., D.O.01/08/2024 9:34 AM Dictation Location: [place] [address] Transcribed By: [facility] 01/08/24933 Dictated By: Tra Marroquin Jr, DO 01/08/24933 Signed By: 01/08/24933 Normal [facility] Throat Cultureon 08-07-2023 Throat culture Moderate Normal Respiratory I[place] 2 Days PERFORMED BY: [place] [address] PATHOLOGIST ASSISTANT CHIEF ENGINEER GLORY SHELTON M.D. Normal [facility] Comment on above: Performed By: #### C [place] #### [address] COVID-19 PCRon 12-26-2019 SARS-CoV-2, SKIP Not Detected Normal Not Detected [facility] Comment on above: Result Comment: This test was developed and its performance characteristics determined by [employer]. This test has not been FDA cleared or approved. This test has been authorized by FDA under an Emergency Use Authorization (EUA). This test is only authorized for the duration of time the declaration that circumstances exist justifying the authorization of the emergency use of in vitro diagnostic tests for detection of SARS-CoV-2 virus and/or diagnosis of COVID-19 infection under section 564(b)(1) of the Act, 21 U.S.C. 360bbb-3(b)(1), unless the authorization is terminated or revoked sooner. When diagnostic testing is negative, the possibility of a false negative result should be considered in the context of a patient's recent exposures and the presence of clinical signs and symptoms consistent with COVID-19. An individual without symptoms of COVID-19 and who is not shedding SARS-CoV-2 virus would expect to have a negative (not detected) result in this assay. Performed By: #### C VDPCR #### [facility] [address] [id number] Blanca Aguilar XR CHEST 2 Von 12-08-2019 XR CHEST 2 V EXAMINATION: XR CHES T 2 V HISTORY: SHORTNESS OF BREATH chronic chest pain since August, acute dyspnea COMPARISON: 08/17/2015 chest x-ray FINDINGS: LUNGS: No significant pulmonary parenchymal abnormalities. VASCULATURE: No increased pulmonary vasculature. PLEURA: No pneumothorax, effusion, or pleural thickening. CARDIAC: No cardiomegaly or cardiac silhouette abnormality. MEDIASTINUM: No visible mass or adenopathy. BONES: No fracture or visible bone lesion. OTHER: Negative. IMPRESSION: 1. No acute cardiopulmonary process or suspicious findings. Electronically authenticated by: MAITE LUCAS Date: 2019-12-08 10:27 Normal [facility] Vital Signs Date Time Vital Sign Value Performing Clinician Facility 05-06-2024 09:32-0500 Body mass index (BMI) [Ratio] 22.9 kg/m2 Ligia Bedolla MD Work Phone: [facility] 05-06-2024 09:32-0500 Body weight 60.51 kg Ligia Bedolla MD Work Phone: [facility] 05-06-2024 09:32-0500 Diastolic blood pressure 61 mm[Hg] Ligia Bedolla MD Work Phone: [facility] 05-06-2024 09:32-0500 Systolic blood pressure 101 mm[Hg] Ligia Bedolla MD Work Phone: [facility] 02-03-2024 13:06-0400 Body temperature 98.71 [degF] Pricila Arguello MD Work Phone: [facility] 02-03-2024 13:06-0400 Diastolic blood pressure 61 mm[Hg] Pricila Arguello MD Work Phone: [facility] 02-03-2024 13:06-0400 Heart rate 58 /min Pricila Arguello MD Work Phone: [facility] 02-03-2024 13:06-0400 Respiratory rate 18 /min P[facility]guello [facility] 02-03-2024 13:06-0400 SaO2% (BldA) [Mass fraction] 99 % Pricila Arguello MD [facility] 02-03-2024 13:06-0400 Systolic blood pressure 110 mm[Hg] Pricila Arguello MD Work Phone: [facility] 02-01-2024 14:44-0400 Body height 162.6 cm Pricila Arguello MD [facility] 02-01-2024 14:44-0400 Body mass index (BMI) [Ratio] 22.31 kg/m2 Pricila Arguello MD [facility] 02-01-2024 14:44-0400 Body weight 58.97 kg Pricila Arguello MD [facility] 01-29-2024 15:06-0400 Body weight 59.93 kg Thad Mitch DO Work Phone: [facility] 01-29-2024 15:06-0400 Diastolic blood pressure 68 mm[Hg] Thad Mitch DO Work Phone: [facility] 01-29-2024 15:06-0400 Systolic blood pressure 104 mm[Hg] Thad Mitch DO Work Phone: [facility] 01-08-2024 09:05-0400 Body height 162.56 cm PHYSICIAN NO [facility] 01-08-2024 09:05-0400 Body temperature 98 [degF] PHYSICIAN NO [facility] 01-08-2024 09:05-0400 Body weight 60 kg PHYSICIAN NO [facility] 01-08-2024 09:05-0400 Diastolic blood pressure 60 mm[Hg] PHYSICIAN NO [facility] 01-08-2024 09:05-0400 Heart rate 71 /min PHYSICIAN NO [facility] 01-08-2024 09:05-0400 Respiratory rate 18 /min PHYSICIAN NO [facility] 01-08-2024 09:05-0400 SaO2% (BldA) [Mass fraction] 98 % PHYSICIAN NO [facility] 01-08-2024 09:05-0400 Systolic blood pressure 103 mm[Hg] PHYSICIAN NO [facility] 04-05-2023 12:20-0400 Body height 162.56 cm Samantha Driscoll Other [employer] Other 04-05-2023 12:20-0400 Body mass index (BMI) [Ratio] 20.94 kg/m2 Samantha Driscoll Other [employer] Other 04-05-2023 12:20-0400 Body temperature 98.3 [degF] Samantha Driscoll Other [employer] Other 04-05-2023 12:20-0400 Body weight 55.34 kg Samantha Driscoll Other [employer] Other 04-05-2023 12:20-0400 Diastolic blood pressure 60 mm[Hg] Samantha Driscoll Other [employer] Other 04-05-2023 12:20-0400 Respiratory rate 18 /min Samantha Driscoll Other [employer] Other 04-05-2023 12:20-0400 SaO2% (BldA) [Mass fraction] 99 % Samantha Driscoll Other [employer] Other 04-05-2023 12:20-0400 Systolic blood pressure 103 mm[Hg] Samantha Driscoll Other [employer] Other Encounters Encounter Date Encounter Type Care Provider Facility Start: 06-12-2024 End: 06-12-2024 Telephone encounter Marlee GREEN/MPA [facility] Start: 06-09-2024 End: 06-09-2024 ambulatory CRISTIAN [facility] Start: 05-28-2024 End: 05-28-2024 Telemedicine consultation with patient Neisha Aguero IRIS Work Phone: [facility] Comment on above: ENCOUNTER OPENED IN ERROR (Primary Dx) Start: 05-28-2024 End: 05-28-2024 ambulatory [facility] Start: 05-20-2024 End: 05-20-2024 ambulatory LIGIA [facility]ED[facility]LLA [facility] Start: 05-06-2024 End: 05-06-2024 Clinical Support [facility] Comment on above: Arrived Start: 05-06-2024 End: 05-06-2024 Office outpatient visit 40 minutes Ligia Bedolla MD Work Phone: [facility] Comment on above: Multiple sclerosis ( HCC) (Primary Dx); Chronic right shoulder pain; Paresthesias; History of eating disorder; Dysphagia, unspecified type; Anxiety about health; Body mass index (BMI) 22.0-22.9, adult Start: 05-06-2024 End: 05-06-2024 ambulatory AGUSTO NOONAN Facility:[facility] Start: 05-02-2024 End: 05-02-2024 Letter encounter Prem Blackburn MD Work Phone: [facility] Start: 03-23-2024 End: 03-23-2024 Telephone encounter Neisha Casanova RN [facility] Comment on above: APPOINTMENT SCHEDULI NG Start: 03-17-2024 End: 03-17-2024 ambulatory PREM BLACKBURN Facility:[facility] Start: 02-17-2024 End: 02-17-2024 Letter encounter Neisha Casanova RN [facility] Start: 02-01-2024 Evaluation and management of inpatient UNKNOWN PROVIDER Facility:[facility] Start: 02-01-2024 End: 02-03-2024 Evaluation and management of inpatient AGUSTO NOONAN Facility:[facility] Start: 01-31-2024 End: 02-03-2024 Evaluation and management of inpatient Pricila Arguello MD Work Phone: [facility] [address] Comment on above: Other optic neuritis (Primary Dx); Screening for STD (sexually transmitted disease) [Z11.3]; Demyelinating disease (HCC) Start: 01-31-2024 Emergency department patient visit UNKNOWN PROVIDER Facility:[facility] Start: 01-29-2024 End: 01-29-2024 ambulatory THAD MITCH Not Available Start: 01-29-2024 End: 01-29-2024 Office outpatient visit 15 minutes Thad Mitch DO Work Phone: [facility] Comment on above: Swelling of lymph no nicole; Follow-up exam Start: 01-29-2024 End: 01-29-2024 Bamboo flowsheet Thad Mitch DO Work Phone: [facility] Start: 01-29-2024 End: 01-29-2024 Bamboo flowsheet Thad Mitch DO Work Phone: [facility] Start: 01-28-2024 End: 01-28-2024 Bamboo flowsheet Philomena Steele MD Work Phone: [facility] Start: 01-28-2024 End: 01-28-2024 Bamboo flowsheet Philomena Steele MD Work Phone: [facility] Start: 01-28-2024 End: 01-28-2024 Office outpatient new 45 minutes Philomena Steele MD Work Phone: [facility] Comment on above: Optic neuritis (Prim sincere Dx) Start: 01-28-2024 End: 01-28-2024 ambulatory PHILOMENA STEELE Not Available Start: 01-08-2024 End: 01-08-2024 Emergency department patient visit PHYSICIAN BLAZE [facility] Work Phone: Start: 08-07-2023 End: 08-07-2023 ambulatory PHYSICIAN NO FAMILY Facility:[facility] Start: 04-05-2023 End: 04-05-2023 ambulatory Samantha Driscoll Other [employer] Other Start: 04-05-2023 Office outpatient ne w 20 minutes Samantha Driscoll [facility] Start: 12-24-2019 End: 12-25-2019 Patient encounter procedure [facility] Facility:[facility] Start: 12-08-2019 End: 12-08-2019 Patient encounter procedure BOB SHAH Facility: Procedures Date Procedure Procedure Detail Performing Clinician Start: 05-06-2024 Assay of gammaglobul in iga igd igg igm each Ligia Bedolla MD Work Phone: Start: 05-06-2024 Hepatitis c antibody Ca mikala Bedolla MD Work Phone: Start: 05-06-2024 Iaad ia hepatitis b surface antigen Ligia Bedolla MD Work Phone: Start: 03-17-2024 End: 03-17-2024 Visual field xm uni/bi w/interp extended exam Prem Blackburn MD Work Phone: Start: 03-17-2024 End: 03-17-2024 Ophth medical xm&eval compre new pt 1/> vst Other optic neuritis Prem Blackburn MD Work Phone: Comment on above: Other optic neuritis (Primary Dx) Optic neuritis, righ t (Primary Dx) Start: 02-03-2024 Assay of magnesium Janusz Davenport MD Work Phone: Start: 02-02-2024 End: 02-02-2024 Mri spinal canal cervical w/o & w/contr matrl Agusto Hartley DO Work Phone: Start: 02-02-2024 Assay of magnesium Janusz Davenport MD Work Phone: Start: 02-01-2024 Iadna nos amplified probe tq each organism Agusto Noonan MD Work Phone: Start: 02-01-2024 Radiologic exam ches t single view Deonte Davenport MD Work Phone: Start: 02-01-2024 Cell count misc body fluids w/differential count Paul Alexander MD Work Phone: Start: 02-01-2024 Cul bact xcpt urine blood/stool aerobic isol Paul Alexander MD Work Phone: Start: 02-01-2024 Glucose body fluid o ther than blood Paul Alexander MD Work Phone: Start: 01-31-2024 End: 01-31-2024 Mri brain brain stem w/o w/contrast material Pricila Arguello MD Work Phone: Start: 01-31-2024 Urine test visual color cmprsn meths Venancio Aranda MD Work Phone: Start: 01-31-2024 Antibody hiv-1&hiv-2 single result Pricila Arguello MD Work Phone: Start: 01-31-2024 Blood count complete automated Pricila Arguello MD Work Phone: Start: 01-28-2024 Visual field xm uni/ bi w/interp extended exam Philomena Steele MD Work Phone: Start: 01-08-2024 Plain chest X-ray PHYSI PEPITO NO FAMILY Plan of Treatment Date Care Activity Detail Author Start: 2048 Shingles (RZV) Vacci ne (1 of 2) Shingles (RZV) Vaccine (1 of 2) [facility] Start: 08-19-2024 End: 08-19-2024 Telemedicine consultation with patient 08/19/2024 1:00 PM EDT Telemedicine [facility] [address] [place], [place] [id number] Ligia Bedolla MD [address] [place] [id number] [facility] Start: 07-28-2024 End: 07-28-2024 Patient encounter procedure 07/28/2024 10:00 AM EST Office Visit [facility] [address] [place] [address] Thad Meyer DO [address] [place] [address] [facility] Start: 05-20-2024 End: 05-20-2024 Patient encounter procedure 05/20/2024 11:30 AM EST Office Visit [facility] [address] [place] [address] Ligia Bedolla MD [address] [place], [place] [phone] [facility] Start: 05-04-2024 End: 05-04-2024 Patient encounter procedure 05/04/2024 4:00 PM EST Office Visit [facility] Neurology [address] [place] [address] Nicholas Pelaez MD [address] [place] [phone] [facility] Start: 03-17-2024 End: 03-17-2024 Patient encounter procedure 03/17/2024 10:00 AM EDT Office Visit [facility] Ophthalmology (Eye) Residents [address] [place] [address] Nguyễn Watt MD [address] [place] [phone] [employer], Eye [facility] Ophthalmology (Eye) Residents Start: 03-10-2024 Influenza vaccination Influenza Vacc ine (#1) [facility] Start: 02-09-2024 COVID-19 Vaccine ( season) COVID-19 Vaccine ( season) [facility] Start: 02-09-2024 COVID-19 Vaccine ( season) COVID-19 Vaccine ( season) [facility] Start: 02-09-2024 Influenza vaccination Influenza Vacc ine (#1) [facility] Start: 02-03-2024 End: 02-03-2024 Patient encounter procedure 02/03/2024 10:30 AM EDT Office Visit [facility] [address] [place] [phone] Philomena Steele MD [address] [place] [address] [facility] Start: 01-28-2024 End: 01-28-2024 Patient encounter procedure 01/28/2024 11:15 AM EDT Office Visit [facility] [address] [place] [address] Philomena Steele MD [address] [place] [address] Arrived [facility] Comment on above: Arrived Start: 02-08-2023 COVID-19 Vaccine ( season) COVID-19 Vaccine ( season) [facility] Start: 03-13-2021 Tetanus vaccination Tetanus (T d or Tdap) Booster [facility] Start: 11-02-2020 COVID-19 Vaccine (3 - Pfizer risk series) COVID-19 Vaccine (3 - Pfizer risk series) [facility] Start: 2019 Screening for malign ant neoplasm of cervix Pap Smear [facility] Start: 2016 Hepatitis C screening Hepatitis C An tibody [facility] Start: 07-08-2008 Hepatitis A (HAV) Vaccine (2 of 2 - Risk 2-dose series) Hepatitis A (HAV) Vaccine (2 of 2 - Risk 2-dose series) [facility] Start: 07-08-2008 Vaccination for annel n papillomavirus HPV Vaccine (3 - 2-dose series) [facility] Start: 2004 Pneumococcal vaccination Pneum ococcal Vaccine(s) (1 of 2 - PCV) [facility] Start: 03-01-1999 Hepatitis B vaccination Hepati tis B (HBV) Vaccine (3 of 3 - 3-dose series) [facility] End: 02-01-2024 Angiotensin i-converting enzyme [facility] Comment on above: Morning Blood Draw f or 1 Occurrences starting 02/01/2024 until 02/01/2024 Antibody borrelia burgdorferi lyme disease LYME DISEASE AB WITH REFLEX TO BLOT (IGG, IGM) Lab Routine Multiple sclerosis ([facility]) 05/06/2024 11:18 AM EST [facility] Antibody agusto cunnin gham virus STRATIFY JCV AB Lab Routine Multiple sclerosis ([facility]) 05/06/2024 11:18 AM EST [facility] End: 05-06-2025 Antibody varicella-zoster VARICELLA ZOSTER IGG ANTIBODY Lab Routine Multiple sclerosis ([facility]) 1 Occurrences starting 05/06/2024 until 05/06/2025 [facility] Comment on above: 1 Occurrences starti ng 05/06/2024 until 05/06/2025 Antibody varicella-zoster VARICELLA ZOSTER IGG ANTIBODY Lab Routine Multiple sclerosis ([facility]) 05/06/2024 11:18 AM EST [facility] End: 05-06-2025 Antinuclear antibodies oscar AUTOIMMUNE MULTIPLEX PANEL Lab Routine Multiple sclerosis ([facility]) 1 Occurrences starting 05/06/2024 until 05/06/2025 [facility] Comment on above: 1 Occurrences starti ng 05/06/2024 until 05/06/2025 Antinuclear antibodi es oscar AUTOIMMUNE MULTIPLEX PANEL Lab Routine Multiple sclerosis ([facility]) 05/06/2024 11:18 AM EST [facility] Assay of gammaglobul in iga igd igg igm each [facility] Assay of magnesium MAGNESIUM Lab STAT Daily until discontinued starting 02/02/2024, 2 completed [facility] Comment on above: Daily until disconti nued starting 02/02/2024, 2 completed Basic metabolic 2000 panel - Serum or Plasma BASIC METABOLIC PANEL Lab STAT Daily until discontinued starting 02/02/2024, 2 completed [facility] Work Phone: Comment on above: Daily until disconti nued starting 02/02/2024, 2 completed End: 05-06-2025 Basic metabolic 2000 panel - Serum or Plasma BASIC METABOLIC PANEL Lab Routine Multiple sclerosis ([facility]) 1 Occurrences starting 05/06/2024 until 05/06/2025 [facility] Work Phone: Comment on above: 1 Occurrences starti ng 05/06/2024 until 05/06/2025 Basic metabolic 2000 panel - Serum or Plasma BASIC METABOLIC PANEL Lab Routine Multiple sclerosis (HCC) 05/06/2024 11:18 AM EST [facility] Blood count complete auto&auto difrntl wbc CBC WITH DIFFERENTIAL Lab Only Routine Multiple sclerosis (HCC) 05/06/2024 11:18 AM [facility] CBC panel - Blood by Automated count COMPLETE BLOOD COUNT Lab STAT Daily until discontinued starting 02/02/2024, 2 completed [facility] Comment on above: Daily until disconti nued starting 02/02/2024, 2 completed CBC W Auto Different ial panel - Blood COMPLETE BLOOD COUNT W/DIFF Lab Routine Multiple sclerosis (HCC) 05/06/2024 11:18 AM EST [facility] Cul bact xcpt urine blood/stool aerobic isol CULTURE, CSF/GRAM STAIN Microbiology STAT 02/01/2024 1:17 AM EDT [facility] End: 05-06-2025 Hepatic function panel HEPATIC FUNCTION PANEL Lab Routine Multiple sclerosis (HCC) 1 Occurrences starting 05/06/2024 until 05/06/2025 [facility] Comment on above: 1 Occurrences starti ng 05/06/2024 until 05/06/2025 Hepatic function panel HEPATIC F UNCTION PANEL Lab Routine Multiple sclerosis (HCC) 05/06/2024 11:18 AM EST [facility] End: 05-06-2025 Hepatitis b core antibody hbcab total HEPATITIS B CORE ANTIBODY Lab Routine Multiple sclerosis (HCC) 1 Occurrences starting 05/06/2024 until 05/06/2025 [facility] Comment on above: 1 Occurrences starti ng 05/06/2024 until 05/06/2025 Hepatitis b core antibody hbcab total HEPATITIS B CORE ANTIBODY Lab Routine Multiple sclerosis (HCC) 05/06/2024 11:18 AM EST [facility] End: 05-06-2025 Hepatitis b surf antibody hbsab HEPATITIS B SURFACE ANTIBODY Lab Routine Multiple sclerosis (HCC) 1 Occurrences starting 05/06/2024 until 05/06/2025 [facility] Comment on above: 1 Occurrences starti ng 05/06/2024 until 05/06/2025 Hepatitis b surf antibody hbsab HEPATITIS B SURFACE ANTIBODY Lab Routine Multiple sclerosis (HCC) 05/06/2024 11:18 AM EST [facility] Hepatitis C virus Ab [Units/volume] in Serum by Immunoassay HEPATITIS C ANTIBODY Lab Routine Multiple sclerosis ([facility]) 05/06/2024 11:18 AM EST [facility] Jacobsen perimeter plot JACOBSEN VISUAL FIELD - OU - BOTH EYES Ophthalmology Routine Other optic neuritis 03/17/2024 12:23 PM EDT [facility] [employer] [facility] Work Phone: End: 05-06-2025 Iaad ia hepatitis b surface antigen HEPATITIS B SURFACE ANTIGEN Lab Routine Multiple sclerosis (HCC) 1 Occurrences starting 05/06/2024 until 05/06/2025 [facility] Comment on above: 1 Occurrences starti ng 05/06/2024 until 05/06/2025 Iaad ia hepatitis b surface antigen HEPATITIS B SURFACE ANTIGEN Lab Routine Multiple sclerosis ([facility]) 05/06/2024 11:18 AM EST [employer] End: 02-03-2024 Immunoassay analyte qual/semiqual multiple step [facility] [employer] [facility] Work Phone: Comment on above: One time for 1 Occur rences starting 02/03/2024 until 02/03/2024 End: 02-01-2024 Oligoclonal immune OLIGOCLONAL BANDS, SERUM & CSF Lab STAT One time for 1 Occurrences starting 02/01/2024 until 02/01/2024 [facility] [employer] [facility] Work Phone: Comment on above: One time for 1 Occur rences starting 02/01/2024 until 02/01/2024 Oligoclonal immune OLIGOCLONAL B ANDS, SERUM & CSF Lab STAT 02/01/2024 1:17 AM EDT [facility] OPTIC DISC PHOTOS - OU - BOTH EYES OPTIC DISC PHOTOS - OU - BOTH EYES Ophthalmology Routine Other optic neuritis 03/17/2024 12:23 PM EDT [facility] Patient Education Paresthesia (D C) Upper Back Pain ED [facility] Work Phone: Patient referral [facility] Work Phone: End: 02-01-2024 Tb cell mediated antign respnse gamma interferon [facility] Comment on above: Morning Blood Draw f or 1 Occurrences starting 02/01/2024 until 02/01/2024 Tb cell mediated ant ign respnse gamma interferon QUANTIFERON-TB GOLD PLUS Lab Routine Multiple sclerosis ([facility]) 05/06/2024 11:18 AM [facility] Unlisted chemistry procedure MISCELLANEOUS SEND OUT TEST Lab Routine Multiple sclerosis ([facility] MARION) 05/06/2024 11:18 AM [facility] Immunizations Immunization Date Immunization Notes Care Provider Dee mathur 08-18-2014 meningococcal polysaccharide (groups A, C, Y and W-135) diphtheria toxoid conjugate vaccine (MCV4P) Pricila Arguello MD Work Phone: [facility] 03-13-2011 influenza, seasonal, injectable Pricila Arguello MD Work Phone: [facility] 03-13-2011 meningococcal polysaccharide (groups A, C, Y and W-135) diphtheria toxoid conjugate vaccine (MCV4P) Pricila Arguello MD Work Phone: [facility] 03-13-2011 tetanus toxoid, redu beatriz diphtheria toxoid, and acellular pertussis vaccine, adsorbed Pricila Arguello MD Work Phone: [facility] 03-13-2011 influenza virus vacc ine, unspecified formulation Philomena Steele MD Work Phone: [facility] 06-15-2008 influenza, seasonal, injectable, preservative free Pricila Arguello MD Work Phone: [facility] 03-10-2008 human papilloma viru s vaccine, quadrivalent Pricila Arguello MD Work Phone: [facility] 01-06-2008 hepatitis A vaccine, pediatric/adolescent dosage, 2 dose schedule Pricila Arguello MD Work Phone: [facility] 01-06-2008 human papilloma viru s vaccine, quadrivalent Pricila Arguello MD Work Phone: [facility] 01-06-2008 varicella virus vaccine Pricila Arguello MD Work Phone: [facility] 12-31-2003 diphtheria, tetanus toxoids and acellular pertussis vaccine Pricila Arguello MD Work Phone: [facility] 12-31-2003 measles, mumps and r ubella virus vaccine Pricila Arguello MD Work Phone: [facility] 12-31-2003 poliovirus vaccine, inactivated Pricila Jos MD Work Phone: [facility] 07-14-1999 diphtheria, tetanus toxoids and acellular pertussis vaccine, unspecified formulation Pricila Arguello MD Work Phone: [facility] 07-14-1999 haemophilus influenz ae type b vaccine, HbOC conjugate Pricila Arguello MD Work Phone: [facility] 05-15-1999 measles, mumps and r ubella virus vaccine Pricila Arguello MD Work Phone: [facility] 05-15-1999 trivalent poliovirus vaccine, live, oral Pricila Arguello MD Work Phone: [facility] 05-15-1999 varicella virus vaccine Pricila Arguello MD Work Phone: [facility] 01-04-1999 diphtheria, tetanus toxoids and acellular pertussis vaccine, unspecified formulation Pricila Arguello MD Work Phone: [facility] 01-04-1999 haemophilus influenz ae type b conjugate and Hepatitis B vaccine Pricila Arguello MD Work Phone: [facility] 1998 diphtheria, tetanus toxoids and acellular pertussis vaccine, unspecified formulation Pricila Arguello MD Work Phone: [facility] 1998 haemophilus influenz ae type b vaccine, HbOC conjugate Pricila Arguello MD Work Phone: [facility] 1998 poliovirus vaccine, inactivated Pricila Arguello MD Work Phone: [facility] 1998 diphtheria, tetanus toxoids and acellular pertussis vaccine, unspecified formulation Pricila Arguello MD Work Phone: [facility] 1998 haemophilus influenz ae type b conjugate and Hepatitis B vaccine Pricila Arguello MD Work Phone: [facility] 1998 poliovirus vaccine, inactivated Pricila Arguello MD Work Phone: [facility] Payers Date Payer Category Payer Commercial Indemnity [employer] - HMO/PPO/POS [id number] 2024 Unknown [employer] - HMO/PPO/POS SUPERMED PPO/CLASSIC/PLUS [id number] 2024-Present [address] [place] [address] PPO [id number] 2024 Unknown [id number] 2023 Self-pay 1998 Unknown [id number] 32 1998 Unknown [id number] 32 1998 Unknown [id number] 32 1998 Unknown [id number] 32 1998 Unknown [id number] 1998 Unknown [id number] 1978 Unknown [id number] 1978 Unknown [id number] 1959 Unknown [id number] Unknown [id number] 31 Unknown [id number] 31 Social History Date Type Detail Facility Unknown if ever smoked [facility] Other Start: 02-01-2024 End: 05-06-2024 Sex Assigned At [employer] [facility] Other Start: 01-08-2024 Tobacco smoking status NHIS Smoker (finding) [facility] Start: 1998 Sex Assigned At Female [facility] Start: 02-01-2024 Tobacco smoking status INIS Never smoked tobacco [facility] Start: 02-01-2024 Tobacco use and exposure Smokeless tobacco non-user [facility] Start: 02-01-2024 End: 05-06-2024 History of Social function [facility] Start: 1998 Sex assigned at Not on file [facility] Start: 01-31-2024 Sex Female (finding) [facility] Start: 01-28-2024 Tobacco smoking status INIS Smokes tobacco daily [facility] History of tobacco use Cigarette Smoker [facility] Tobacco smoking status INIS Tobacco smoking consumption unknown [facility] Clinical Notes 04-05-2023 to 06-09-2024 Neisha Aguero PA-C - 05/28/2024 7:57 PM ESTAddendum Note - Ligia Bedolal MD - 05/06/2024 4:57 PM ESTAddendum Note - Ligia Bedolla MD - 05/06/2024 4:57 PM ESTPatient Instructions Note Date & Type Note Facility 06-09-2024 Note Attestation signed by Adia Reece MD at 06/15/2024 2:24 PM By using the attestations below, the signing clinician agrees that I have read and verify that the documentation has been personally reviewed by me and ensure that the documentation accurately reflects the encounter. GE: I discussed the patient with the resident while the patient was in the office or immediately after the patient was seen. We reviewed the pardo portions of the service and discussed the plan with the resident. I confirm the resident's documentation. Please note there may be additional personal documentation from me. Additional Comments: Subjective Patient ID: Azeb Hyatt is a 24 y.o. female who presents for New Patient (Here to [facility]) and Swollen Glands. HPI Patient reports swollen lymph nodes in the jaw for the past couple of years that occur on and off, however she has a lymph node that has been swollen for the past couple of months that has not gone away. She was seen at urgent care for the swollen lymph nodes and was prescribed amoxicillin. Recent lab work shows neg HIV, normal CBC. Had breast exam with gynecology in Jan 2024. No breast lumps or changes. Recently diagnosed with MS after hospitalization for optic neuritis in Mar 2024. Follows with neurology. She is working with insurance currently to start medication. She has history of anxiety and depression treated with zoloft, buspar, and xanax in the past but has not taken any of these medications for a few years. 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 Lives with grandmother. Vapes daily, occasional cigarette. EtOH socially. Smokes marijuana about twice weekly. 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 HENT: Negative for congestion, dental problem, ear pain, facial swelling, sinus pressure, sinus pain, sore throat and trouble swallowing. Respiratory: Negative for shortness of breath. Cardiovascular: Negative. Gastrointestinal: Negative. Genitourinary: Negative. Musculoskeletal: Negative. Neurological: Negative for headaches. Hematological: Positive for adenopathy. Psychiatric/Behavioral: Negative for dysphoric mood. The patient is not nervous/anxious. Objective Physical Exam Constitutional: Appearance: Normal appearance. She is not ill-appearing. HENT: Head: Normocephalic and atraumatic. Mouth/Throat: Mouth: Mucous membranes are moist. Pharynx: No oropharyngeal exudate or posterior oropharyngeal erythema. Comments: Dentition appears grossly normal, no sores, masses, or lesions of mouth observed Eyes: Extraocular Movements: Extraocular movements intact. Neck: Comments: No discrete masses or swelling appreciated on palpation Cardiovascular: Rate and Rhythm: Normal rate and regular rhythm. Pulmonary: Effort: Pulmonary effort is normal. Breath sounds: Normal breath sounds. Abdominal: General: There is no distension. Musculoskeletal: Cervical back: No tenderness. Lymphadenopathy: Cervical: No cervical adenopathy. Skin: General: Skin is warm and dry. Neurological: General: No focal deficit present. Mental Status: She is alert and oriented to person, place, and time. Psychiatric: Thought Content: Thought content normal. Assessment/Plan Diagnoses and all orders for this visit: Encounter for medical examination to establish care Swelling of lymph nodes -Reassurance provided to patient regarding swollen lymph nodes as exam and recent workup including head/neck imaging and extensive laboratory tests have been reassuring. Advised to establish care with dentist as soon as possible and to contact office if symptoms worsen or recur. Multiple sclerosis (CMS/HCC) Need for vaccination - Tdap vaccine (Boostrix/Adacel) greater than or equal to 7 years old IM - Flu vaccine (Fluzone, Fluarix, Flulaval) greater than or equal to 6 months old, preservative free IM -Follow up with gynecology and neurology as scheduled. -Follow up in 6 months for health maintenance. Cristian Bolanos DO Family Medicine PGY-3 [facility] 05-28-2024 History of Present illness Narrative Encounter Opened in error. Please disregard. Pt stated she scheduled this visit to establish with a PCP, was unable to schedule herself online. I will request the [facility] Primary Care RN to assist pt. Neisha Aguero PA-C documented in this encounter [facility] 05-21-2024 Note Serenity Lupe 1999 SPECIALTY REFERRAL Medication: Ocrevus 300mg/10mL: 300 mg once on day 1, followed by 300 mg once 2 weeks later; subsequent doses of 600 mg are administered once every 6 months Prescriber: Ligia Bedolla MD ( ) Indication for treatment (ICD-10): G35 MS clinical sub-type: Relapsing Remitting MS (RRMS) Not on File Weight was 60.3 kg on 05/20/2024 Immunization History Administered Date(s) Administered DTaP (CVX=20) 12/31/2003 DTaP, unspecified formulation (PUI=189) 1998, 1998, 01/04/1999, 07/14/1999 HPV, quadrivalent (Gardasil 4) (CVX=62) 01/06/2008, 03/10/2008 Hep A (peds/adol, 2 dose) (CVX=83) 01/06/2008 Hep B/HIB (Comvax) (CVX=51) 1998, 01/04/1999 Hib (HbOC) (CVX=47) 1998, 07/14/1999 Influenza, injectable, trivalent, preservative (JXR=091) 03/13/2011 Influenza, injectable, trivalent, preservative free (HKU=100) 06/15/2008 MMR, Iyyvhlw-Bkblq-Tloundk (CVX=03) 05/15/1999, 12/31/2003 Meningococcal conjugate (MCV4,Men-ACWY), Menactra (MCV4P) (ZPO=949) 03/13/2011, 08/18/2014 Pfizer Monovalent (12+ yrs) SARS-COV-2 (COVID-19) vaccine, mRNA, spike protein, LNP, pres. free, 30 mcg/0.3mL dose (PVM=383) 09/14/2020, 10/05/2020 Polio, inactivated (IPV) (CVX=10) 1998, 1998, 12/31/2003 Polio, oral (OPV) (CVX=02) 05/15/1999 Tdap (YZU=615) 03/13/2011 Varicella (Chickenpox) (CVX=21) 05/15/1999, 01/06/2008 Is the request for initial or continuation of therapy? Initial Supporting Clinical Information Prior treatments include: - DMT Naive PO options not ideal for patient d/t concerns for dysphagia Patient has needle phobia, self injection not ideal Current medications include: Current Outpatient Medications Medication Sig Dispense Refill omeprazole (PRILOSEC) 40 MG capsule Take 1 Capsule by mouth daily. (Patient not taking: Reported on 05/20/2024) 30 Capsule 0 No current facility-administered medications for this visit. Labs: CBC (last 3 years, up to 8 values) 05/06/2024 02/03/2024 02/02/2024 01/31/2024 11:18 AM 2:02 AM 1:50 AM 6:14 PM WBC 4.8 11.2 8.0 4.4 RBC 4.32 4.24 4.19 4.25 Hgb 13.0 12.3 12.2 12.2 Hct 39.6 37.0 36.4 37.2 MCV 92 87 87 88 RDW 14.5 14.0 13.8 14.3 Plt 193 158 170 172 BMP (last 3 years, up to 8 values) 05/06/2024 02/03/2024 02/02/2024 01/31/2024 11:18 AM 2:02 AM 1:50 AM 6:14 PM Na 145 139 139 142 K 4.7 4.3 4.3 4.3 Cl 105 105 105 106 CO2 28 25 24 27 Gap 17 13 14 13 Glu 77 150 133 78 BUN 14 19 14 14 Cr 0.66 0.71 0.64 0.69 Ca 9.9 9.8 9.4 9.9 eGFR 124 121 126 123 LFT's (last 3 years, up to 8 values) 05/06/2024 11:18 AM T Prot 7.5 Albumin 5.0 D Bili 0.11 T Bili 0.5 Alk Phos 41 ALT 8 AST 11 Chart Notes 05/20 office visit CHIEF COMPLAINT: MS Neurologic Diagnosis: MS Date of onset: 12/2023 Date of diagnosis of MS: 04/2024 Disease course at onset: RRMS Current disease course: RRMS Previous disease therapies: IVMP x 3 days, 02/01/2024 - 02/03/2024 Current disease therapy: None Most recent MRI brain: 01/31/2024 Most recent MRI cervical spine: 02/02/2024 Most recent MRI thoracic spine: 02/02/2024 Last known new clinical relapse or radiographic activity: 12/2023 CSF: 12/2023, TNC 5/Prot 28/Glu 54, +OCBs, no IgG index JCV serology result and date: NA NMO/MOG antibodies: 02/03/2024 NMO CBA negative ([facility]); MOGAD 05/06/2024 negative ([facility]) The patient is accompanied by her grandmother Shirley, currently not on treatment. Since the last visit on 05/06/2024, overall felt well. INTERVAL HISTORY: Doing well overall, without major new symptoms. Denies worsening paresthesias, did go swimming at [employer] and noted she fatigued more easily than usual (though admits she has not been as active recently as she has been in the past). Does have some difficulty thinking / focusing at work but overall doing well. 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 We re-reviewed options and her labs below, including Kesimpta, Tysabri, Ocrevus. Pros and cons of each discussed in depth, with extended conversation re: SUSANNA Virus status and EBV as risk factor; ultimately, Ocrevus selected as the preferred choice. She has been researching on [employer] and other sites. We reviewed healthy lifestyle choices, including moderate alcohol use and no smoking, as well as previously reviewed reproductive safety data surrounding DMT. She had questions re: vaccinations; schedule and referral to PCP provided. Presented with [facility] paperwork, which I will complete. We reviewed frequency and duration of appointments and of the expected treatment. She reports her work has been quite supportive as she decides on DMT. 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 Repeat Tb test negative (previ (more content not included)... [facility] [place] 05-20-2024 Note [facility] Neuroimm unology Clinic Established Patient Evaluation CHIEF COMPLAINT: MS Neurologic Diagnosis: MS Date of onset: 12/2023 Date of diagnosis of MS: 04/2024 Disease course at onset: RRMS Current disease course: RRMS Previous disease therapies: IVMP x 3 days, 02/01/2024 - 02/03/2024 Current disease therapy: None Most recent MRI brain: 01/31/2024 Most recent MRI cervical spine: 02/02/2024 Most recent MRI thoracic spine: 02/02/2024 Last known new clinical relapse or radiographic activity: 12/2023 CSF: 12/2023, TNC 5/Prot 28/Glu 54, +OCBs, no IgG index JCV serology result and date: NA NMO/MOG antibodies: 02/03/2024 NMO CBA negative ([facility]); MOGAD 05/06/2024 negative ([facility]) The patient is accompanied by her grandmother Shirley, currently not on treatment. Since the last visit on 05/06/2024, overall felt well. INTERVAL HISTORY: Doing well overall, without major new symptoms. Denies worsening paresthesias, did go swimming at [employer] and noted she fatigued more easily than usual (though admits she has not been as active recently as she has been in the past). Does have some difficulty thinking / focusing at work but overall doing well. 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 We re-reviewed options and her labs below, including Kesimpta, Tysabri, Ocrevus. Pros and cons of each discussed in depth, with extended conversation re: SUSANNA Virus status and EBV as risk factor; ultimately, Ana selected as the preferred choice. She has been researching on [employer] and other sites. We reviewed healthy lifestyle choices, including moderate alcohol use and no smoking, as well as previously reviewed reproductive safety data surrounding DMT. She had questions re: vaccinations; schedule and referral to PCP provided. Presented with [facility] paperwork, which I will complete. We reviewed frequency and duration of appointments and of the expected treatment. She reports her work has been quite supportive as she decides on DMT. 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 Repeat Tb test negative (previously indeterminate). Not yet scheduled with PT, provided phone number. On-going symptoms related to the neuroimmunological condition were reviewed, including (updates in bold): Symptoms: Mood: has some anxiety, some anxiety, started COVID. Spasticity: None Bladder: None Bowel: In the past month, more frequent bowel movements Pain: Right shoulder pain x a few years Fatigue: No Sleep: No major issues Memory/Concentration: No major issues Other: None PAST HISTORY: Past Medical History: Diagnosis Date Eating disorder There is no previous surgical history on file. Social Drivers of Health Tobacco Use: Low Risk (05/06/2024) Patient History Smoking Tobacco Use: Never Smokeless Tobacco Use: Never Passive Exposure: Not on file Recent Concern: Tobacco Use - High Risk (01/28/2024) Received from [facility] Patient History Smoking Tobacco Use: Every Day Smokeless Tobacco Use: Unknown Passive Exposure: Not on file Alcohol Use: Not on file Financial Resource Strain: Not on file Food Insecurity: Not on file Transportation Needs: Not on file Physical Activity: Not on file Stress: Not on file Social Connections: Not on file Intimate Partner Violence: Not on file Depression: Not on file Housing Stability: Not on file Utilities: Not on file Tobacco: Never Family History Problem Relation Age of Onset Multiple Sclerosis Negative Family History of MEDICATIONS: Current Outpatient Medications: omeprazole (PRILOSEC) 40 MG capsule, Take 1 Capsule by mouth daily. (Patient not taking: Reported on 05/20/2024), Disp: 30 Capsule, Rfl: 0 PHYSICAL EXAM: Vitals: 05/20/24 1125 BP: 106/71 Pulse: 68 Resp: 16 05/06/2024 T25W: 5.6 seconds 05/20/2024 T25W: 5.6 seconds EDSS estimate: 2.0 General Appearance: well appearing, in no acute distress Mental status evaluation during the interview and examination showed no major alterations in cognition. 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 5/5 hip flexors, knee flexors, knee extension, dorsiflexion, plantar flexion bilaterally Reflexes: brachioradialis 2 brachioradialis 2 biceps 3 biceps 2 triceps 2 triceps 2 patellar 3 patellar 3 Achilles 2 Achilles 2 Coordination: Upper extremity dexterity and rapid movements: Mild slowing, RUE Finger-nose: FNF bilaterally Heel-carlson: FNF bilaterally Sensory Perception: Intact to light touch Standing balance: Normal Standard gait: Normal Assistive device: independent Tandem walking: Normal REVIEW OF NEUROIMAGING STUDIES: None new REVIEW OF OTHER RELEVANT RECORDS: 05/06/2024 11:18 AM [facility] SCRN Positive ! Anti-DNA Screen Negative (more content not included)... [facility] Note Addended by: LIGIA BEDOLLA on: 05/06/2024 04:57 PM Modules accepted: Level of Service [facility] 05-06-2024 Note Addended by: LIGIA BEDOLLA on: 05/06/2024 04:57 PM Modules accepted: Level of Service [facility] 05-06-2024 Note Addended by: LIGIA BEDOLLA on: 05/06/2024 04:57 PM Modules accepted: Level of Service [facility] 05-06-2024 Miscellaneous Notes Addended by: LIGIA BEDOLLA on: 05/06/2024 04:57 PM Modules accepted: Level of Service documented in this encounter [facility] 05-06-2024 Instructions Ligia Bedolla MD - 05/06/2024 10:46 AM EST We discussed today that the data support multiple sclerosis. Please get labs - you will need a red top tube drawn. We can check back in in 2 weeks. Pamphlets today for Ocrevus, Kesimpta, Zeposia. documented in this encounter [facility] 05-06-2024 History of Present illness Narrative Images from the original note were not included. [facility] Department of Neurology Neuroimmunology Clinic New Patient Evaluation CHIEF COMPLAINT: demyelinating disease, MS likely Neurologic Diagnosis: demyelinating disease, MS likely Date of onset: 12/2023 Date of diagnosis of MS: 04/2024 Disease course at onset: RRMS Current disease course: RRMS Previous disease therapies: IVMP x 3 days, 02/01/2024 - 02/03/2024 Current disease therapy: None Most recent MRI brain: 01/31/2024 Most recent MRI cervical spine: 02/02/2024 Most recent MRI thoracic spine: 02/02/2024 Last known new clinical relapse or radiographic activity: 12/2023 CSF: 12/2023, TNC 5/Prot 28/Glu 54, +OCBs, no IgG index JCV serology result and date: NA NMO/MOG antibodies: NA HISTORY OF ILLNESS: An opinion on this 24 year old, right-handed female was requested by the referring clinician, Dr. Watt for optic neuritis. The patient was accompanied by her grandmother Shirley. Serenity reports childhood asthma with a long-standing history of subjective breathing/swallowing issues (I.e., difficulty swallowing solids without water). She also reports a long-standing history of fatigue. Several years ago, she slept on her right shoulder atypically, during COVID; she reports chronic right shoulder pain since, never had PT. In December 2023, she experienced right tingling in her chest, different from her chronic shoulder pain; over days to weeks, the tingling worsened, evolving to near-numbness, with palpable swelling in chest and neck. She additionally developed OD eye pain with up gaze, with color desaturation loss in the right eye (view tanish and beige ). 01/28/[address] Steele ([facility]), with VA 20/50, +ve R APD, 12/18 color plates OD, OS normal. She was routed to the ED 01/31/2024 for admission, T3-T8 sensory level on exam as well. MRI Brain WWO performed, with OD ON enhancement and T2 Flair signal changes as below, short to medium segment length ON involvement, left temporal lesion, at least one convincing right T2 cervical hemicord lesion on my review. IVMP x 3 days, with gradual recovery over the next few weeks of nearly all symptoms, with excellent recovery on follow-up with her Ophthalmology team 03/17/2024. Now she feels back to alyson; some mild residual swelling under her left jaw and in her right breast. She works at a [employer]. Lives with grandmother, with cat and dog. Does drink alcohol, 4 to 5 drinks every other weekend. No tobacco use. 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 Has been reading about nutritional approaches to MS, confirms interest in DMT. Extended conversation today to review potential DMT options and some basics regarding acute, chronic treatments and lifestyle modifications pertinent to MS. No family hx of MS. Symptoms: Mood: has some anxiety, some anxiety, started COVID Spasticity: None Bladder: None Bowel: In the past month, more frequent bowel movements Pain: Right shoulder pain x a few years Fatigue: No Sleep: No major issues Memory/Concentration: no major issues, always been all over the place , nothing new Other: None PAST HISTORY: Past Medical History: Diagnosis Date Eating disorder There is no previous surgical history on file. Tobacco: Never Family History Problem Relation Age of Onset Multiple Sclerosis Negative Family History of MEDICATIONS: Current Outpatient Medications: omeprazole (PRILOSEC) 40 MG capsule, Take 1 Capsule by mouth daily., Disp: 30 Capsule, Rfl: 0 PHYSICAL EXAM: Vitals: 05/06/24 0932 BP: 101/61 T25W: 5.6 seconds General Appearance: healthy, alert, pleasant, well appearing, in no acute distress Mental status evaluation during the interview and examination showed no major deficits in orientation, cognition, speech fluency, or perceptual disturbances. Affect: appropriate, mood-congruent Visual acuity: OD 20/20 OS 20/20 Pupils: PERRL Visual Ochoa Full Fundoscopic Exam: crisp, no edema on discs, non-dilated Extraocular movements: Full, without restriction Facial sensation: Intact bilaterally Facial movements: Intact bilaterally Speech: Normal Muscle tone: Right arm spasticity: None Right leg spasticity: None Left arm spasticity: None Left leg spasticity: None Muscle strength (#/5): Upper Extremity (R/L) Deltoid 5 Deltoid 5 Biceps 5 Biceps 5 Triceps 5 Triceps 5 Wrist Extension 5 Wrist Extension 5 Dorsal Interossei 5 Dorsal Interossei 5 Lower Extremity R/L Hip Flexion 5 Hip Flexion 5 Knee Flexion 5 Knee Flexion 5 Knee Extension 5 Knee Extension 5 Dorsiflexion 5 Dorsiflexion 5 Plantar Flexion 5 Plantar Flexion 5 Reflexes brachioradialis 2 brachioradialis 2 biceps 2 biceps 2 triceps 2 triceps 2 patellar 3 patellar 3 Achilles 2 Achilles 2 plantar response mute plantar response downgoing Slight increase reflex RLE Coordination: Upper extremity dexterity and rapid movements: Slight reduction in the right hand, slight decrease in opening and closing, slower FNF but not ataxia Finger-nose: Normal Bilaterally Heel-carlson:Normal Bilaterally Sensory Perception: Light touch: intact in all 4 extremities. Vibration: decreased mildly LLE (9 seconds), intact elsewhere Standing balance: Normal Standard gait: Normal Assistive device: Independent Tandem walking: Normal REVIEW OF NEUROIMAGING STUDIES: 02/01/2024 MR Head WWO (all images reviewed w/ patient) T2 flair signal changes in right ON, with post-contrast enhancement. Post-contrast T1 with right ON short to medium segment enhancement T2 flair left temporal lobe juxtacortical lesion present. T2 thoracic segment changes, present on STIR, right hemicord, without enhancement. REVIEW OF OTHER RELEVANT RECORDS: CSF: 02/01/2024 1:17 AM Supernatant Colorless Tube # 4 WBC COUNT 5 RBC Count 2 Color Colorless Clarity Clear Culture No Growth Gram Stain This Gram Stain was performed on a Cytocentrifuged specimen. Gram Stain No Polymorphonuclear Leukocytes seen Gram Stain No organisms seen Fluid, Lymphocytes 90 Fluid, Monocytes/Macrophages 10 Total Cells Counted 10 Total Protein, CSF 27.8 Glucose, CSF 54 Oligoclonal Bands Present ! Legend: ! Abnormal 01/31/2024 6:14 PM 02/01/2024 12:19 PM 02/03/2024 2:02 AM Glucose 150 (H) Sodium 139 Potassium 4.3 Carbon Dioxide 25 Chloride 105 BUN 19 Creatinine 0.71 Calcium 9.8 Anion Gap 13 Estimated GFR 121 WBC 11.2 RBC 4.24 Hemoglobin 12.3 Hematocrit 37.0 MCV 87 MCH 29.1 MCHC 33.3 Platelet 158 RDW-CV% 14.0 MPV 10.2 TB (Cell Mediated) Indeterminate ! TB Antigen 1 <0.35 TB Antigen 2 <0.35 Syphilis Total (IgG/IgM) Non-Reactive HIV Ag-Ab Screen Non-Reactive MAULIK 19 Aquaporin 4 receptor Ab, IgG 02/03/2024 12:57 PM Glucose Sodium Potassium Carbon Dioxide Chloride BUN Creatinine Calcium Anion Gap Estimated GFR WBC RBC Hemoglobin Hematocrit MCV MCH MCHC Platelet RDW-CV% MPV TB (Cell Mediated) TB Antigen 1 TB Antigen 2 Syphilis Total (IgG/IgM) HIV Ag-Ab Screen MAULIK Aquaporin 4 receptor Ab, IgG NEGATIVE Legend: ! Abnormal (H) High ASSESSMENT: 24-year-old female with hx of ED, now with newly-diagnosed MS after ON and TM symptoms in 12/2023, meeting DIS and DIT surrogate (+ve OCBs). Exam nearly non-focal, with subtle RUE slowing (denies impairment) and LLE vibratory sense reduction. Began conversation re: DMT selection; we will evaluate and treat as below. PLAN: #MS --Mimics as below --Pre-DMT testing as below --Reviewed Ocrevus vs Kesimpta vs oral DMT (Zeposia); she leans OCR now (dislikes pills 2/2 mild dysphagia symptoms, dislikes idea of shots), but we will have a follow-up to review --RTC 2 weeks #Health anxiety --Admits to some anxiety symptoms surrounding health, active in reading and researching health and well-being --Monitor for now, consider integrated behavioral health #Swelling --Reviewed this may be paresthesias (less likely, cervical lesion read as C2 less apparent on my review of MRI, but possible) vs dental (does have wisdom teeth partially impacted) --Swelling in the neck #Indeterminate TB --Resend, may need ID consult if persistent #Right shoulder pain ?Chronic tear/strain after sleeping on it atypically, ?MS related myelopathy symptom - less likely, though possible --PT referral Orders & Meds Signed During This Encounter Basic Metabolic Panel Hepatic Function Panel Complete Blood Count W/Diff Immunoglobulin M Immunoglobulin G Varicella Zoster IgG Antibody Stratify JCV AB Hepatitis C Antibody Hepatitis B Surface Antigen Hepatitis B Surface Antibody Hepatitis B Core Antibody Tuberculosis- Cell Mediated I* LYME DISEASE AB WITH REFLEX TO BLOT (IGG, IGM) Miscellaneous Send Out Test Autoimmune Panel PHYS THERAPY ADULT EVAL/TREAT SERVICE RQST Complete Blood Count W/Diff I spent a total of 137 minutes on the date of the service which included preparing to see the patient, [id number] patient care, completing clinical documentation, obtaining and/or reviewing separately obtained history, counseling and educating the patient/family/caregiver, ordering medications, tests, or procedures, independently interpreting results (not separately reported) and communicating results to the patient/family/caregiver. Ligia Bedolla MD, MS Neuroimmunology Staff Department of Neurology [facility] documented in this encounter [facility] 05-06-2024 History of Present illness Narrative Images from the original note were not included. [facility] Department of Neurology Neuroimmunology Clinic New Patient Evaluation CHIEF COMPLAINT: demyelinating disease, MS likely Neurologic Diagnosis: demyelinating disease, MS likely Date of onset: 12/2023 Date of diagnosis of MS: 04/2024 Disease course at onset: RRMS Current disease course: RRMS Previous disease therapies: IVMP x 3 days, 02/01/2024 - 02/03/2024 Current disease therapy: None Most recent MRI brain: 01/31/2024 Most recent MRI cervical spine: 02/02/2024 Most recent MRI thoracic spine: 02/02/2024 Last known new clinical relapse or radiographic activity: 12/2023 CSF: 12/2023, TNC 5/Prot 28/Glu 54, +OCBs, no IgG index JCV serology result and date: NA NMO/MOG antibodies: NA HISTORY OF ILLNESS: An opinion on this 24 year old, right-handed female was requested by the referring clinician, Dr. Watt for optic neuritis. The patient was accompanied by her grandmother Shirley. Azeb reports childhood asthma with a long-standing history of subjective breathing/swallowing issues (I.e., difficulty swallowing solids without water). She also reports a long-standing history of fatigue. Several years ago, she slept on her right shoulder atypically, during COVID; she reports chronic right shoulder pain since, never had PT. In December 2023, she experienced right tingling in her chest, different from her chronic shoulder pain; over days to weeks, the tingling worsened, evolving to near-numbness, with palpable swelling in chest and neck. She additionally developed OD eye pain with up gaze, with color desaturation loss in the right eye (view tanish and beige ). 01/28/[address] Steele ([facility]), with VA 20/50, +ve R APD, 12/18 color plates OD, OS normal. She was routed to the ED 01/31/2024 for admission, T3-T8 sensory level on exam as well. MRI Brain WWO performed, with OD ON enhancement and T2 Flair signal changes as below, short to medium segment length ON involvement, left temporal lesion, at least one convincing right T2 cervical hemicord lesion on my review. IVMP x 3 days, with gradual recovery over the next few weeks of nearly all symptoms, with excellent recovery on follow-up with her Ophthalmology team 03/17/2024. Now she feels back to alyson; some mild residual swelling under her left jaw and in her right breast. 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 Lives with grandmother, with cat and dog. Does drink alcohol, 4 to 5 drinks every other weekend. No tobacco use. 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 Has been reading about nutritional approaches to MS, confirms interest in DMT. Extended conversation today to review potential DMT options and some basics regarding acute, chronic treatments and lifestyle modifications pertinent to MS. No family hx of MS. Symptoms: Mood: has some anxiety, some anxiety, started COVID Spasticity: None Bladder: None Bowel: In the past month, more frequent bowel movements Pain: Right shoulder pain x a few years Fatigue: No Sleep: No major issues Memory/Concentration: No major issues Other: None PAST HISTORY: Past Medical History: Diagnosis Date Eating disorder There is no previous surgical history on file. Tobacco: Never Family History Problem Relation Age of Onset Multiple Sclerosis Negative Family History of MEDICATIONS: Current Outpatient Medications: omeprazole (PRILOSEC) 40 MG capsule, Take 1 Capsule by mouth daily., Disp: 30 Capsule, Rfl: 0 PHYSICAL EXAM: Vitals: 05/06/24 0932 BP: 101/61 T25W: 5.6 seconds General Appearance: healthy, alert, pleasant, well appearing, in no acute distress Mental status evaluation during the interview and examination showed no major deficits in orientation, cognition, speech fluency, or perceptual disturbances. Affect: appropriate, mood-congruent Visual acuity: OD 20/20 OS 20/20 Pupils: PERRL Visual Ochoa Full Fundoscopic Exam: crisp, no edema on discs, non-dilated Extraocular movements: Full, without restriction Facial sensation: Intact bilaterally Facial movements: Intact bilaterally Speech: Normal Muscle tone: Right arm spasticity: None Right leg spasticity: None Left arm spasticity: None Left leg spasticity: None Muscle strength (#/5): Upper Extremity (R/L) Deltoid 5 Deltoid 5 Biceps 5 Biceps 5 Triceps 5 Triceps 5 Wrist Extension 5 Wrist Extension 5 Dorsal Interossei 5 Dorsal Interossei 5 Lower Extremity R/L Hip Flexion 5 Hip Flexion 5 Knee Flexion 5 Knee Flexion 5 Knee Extension 5 Knee Extension 5 Dorsiflexion 5 Dorsiflexion 5 Plantar Flexion 5 Plantar Flexion 5 Reflexes brachioradialis 2 brachioradialis 2 biceps 2 biceps 2 triceps 2 triceps 2 patellar 3 patellar 3 Achilles 2 Achilles 2 plantar response mute plantar response downgoing Slight increase reflex RLE Coordination: Upper extremity dexterity and rapid movements: Slight reduction in the right hand, slight decrease in opening and closing, slower FNF but not ataxia Finger-nose: Normal Bilaterally Heel-carlson:Normal Bilaterally Sensory Perception: Light touch: intact in all 4 extremities. Vibration: decreased mildly LLE (9 seconds), intact elsewhere Standing balance: Normal Standard gait: Normal Assistive device: Independent Tandem walking: Normal REVIEW OF NEUROIMAGING STUDIES: 02/01/2024 MR Head WWO (all images reviewed w/ patient) T2 flair signal changes in right ON, with post-contrast enhancement. Post-contrast T1 with right ON short to medium segment enhancement T2 flair left temporal lobe juxtacortical lesion present. T2 thoracic segment changes, present on STIR, right hemicord, without enhancement. REVIEW OF OTHER RELEVANT RECORDS: CSF: 02/01/2024 1:17 AM Supernatant Colorless Tube # 4 WBC COUNT 5 RBC Count 2 Color Colorless Clarity Clear Culture No Growth Gram Stain This Gram Stain was performed on a Cytocentrifuged specimen. Gram Stain No Polymorphonuclear Leukocytes seen Gram Stain No organisms seen Fluid, Lymphocytes 90 Fluid, Monocytes/Macrophages 10 Total Cells Counted 10 Total Protein, CSF 27.8 Glucose, CSF 54 Oligoclonal Bands Present ! Legend: ! Abnormal 01/31/2024 6:14 PM 02/01/2024 12:19 PM 02/03/2024 2:02 AM Glucose 150 (H) Sodium 139 Potassium 4.3 Carbon Dioxide 25 Chloride 105 BUN 19 Creatinine 0.71 Calcium 9.8 Anion Gap 13 Estimated GFR 121 WBC 11.2 RBC 4.24 Hemoglobin 12.3 Hematocrit 37.0 MCV 87 MCH 29.1 MCHC 33.3 Platelet 158 RDW-CV% 14.0 MPV 10.2 TB (Cell Mediated) Indeterminate ! TB Antigen 1 <0.35 TB Antigen 2 <0.35 Syphilis Total (IgG/IgM) Non-Reactive HIV Ag-Ab Screen Non-Reactive MAULIK 19 Aquaporin 4 receptor Ab, IgG 02/03/2024 12:57 PM Glucose Sodium Potassium Carbon Dioxide Chloride BUN Creatinine Calcium Anion Gap Estimated GFR WBC RBC Hemoglobin Hematocrit MCV MCH MCHC Platelet RDW-CV% MPV TB (Cell Mediated) TB Antigen 1 TB Antigen 2 Syphilis Total (IgG/IgM) HIV Ag-Ab Screen MAULIK Aquaporin 4 receptor Ab, IgG NEGATIVE Legend: ! Abnormal (H) High ASSESSMENT: 24-year-old female with hx of ED, now with newly-diagnosed MS after ON and TM symptoms in 12/2023, meeting DIS and DIT surrogate (+ve OCBs). Exam nearly non-focal, with subtle RUE slowing (denies impairment) and LLE vibratory sense reduction. Began conversation re: DMT selection; we will evaluate and treat as below. PLAN: #MS --Mimics as below --Pre-DMT testing as below --Reviewed Ocrevus vs Kesimpta vs oral DMT (Zeposia); she leans OCR now (dislikes pills 2/2 mild dysphagia symptoms, dislikes idea of shots), but we will have a follow-up to review --RTC 2 weeks #Health anxiety --Admits to some anxiety symptoms surrounding health, active in reading and researching health and well-being --Monitor for now, consider integrated behavioral health #Swelling --Reviewed this may be paresthesias (less likely, cervical lesion read as C2 less apparent on my review of MRI, but possible) vs dental (does have wisdom teeth partially impacted) --Swelling in the neck #Indeterminate TB --Resend, may need ID consult if persistent #Right shoulder pain ?Chronic tear/strain after sleeping on it atypically, ?MS related myelopathy symptom - less likely, though possible --PT referral Orders & Meds Signed During This Encounter Basic Metabolic Panel Hepatic Function Panel Complete Blood Count W/Diff Immunoglobulin M Immunoglobulin G Varicella Zoster IgG Antibody Stratify JCV AB Hepatitis C Antibody Hepatitis B Surface Antigen Hepatitis B Surface Antibody Hepatitis B Core Antibody Tuberculosis- Cell Mediated I* LYME DISEASE AB WITH REFLEX TO BLOT (IGG, IGM) Miscellaneous Send Out Test Autoimmune Panel PHYS THERAPY ADULT EVAL/TREAT SERVICE RQST Complete Blood Count W/Diff I spent a total of 137 minutes on the date of the service which included preparing to see the patient, [id number] patient care, completing clinical documentation, obtaining and/or reviewing separately obtained history, counseling and educating the patient/family/caregiver, ordering medications, tests, or procedures, independently interpreting results (not separately reported) and communicating results to the patient/family/caregiver. Ligia Bedolla MD, MS Neuroimmunology Staff Department of Neurology [facility] documented in this encounter [facility] 03-23-2024 Telephone encounter Note Neurology Clinical Maintenance Supervisor 2Nd Shift Note Attempted to call patient. LVM to return call to the Neurology department to schedule a neurology appt for optic neuritis (MS) with Dr Bedolla. Appt on 05/04 cancelled, letter sent RIN Enriquez, RN, CMSRN Clinical Maintenance Supervisor 2Nd Shift, Neurology [facility] 03-23-2024 Miscellaneous Notes Neurology Clinical Maintenance Supervisor 2Nd Shift Note Attempted to call patient. LVM to return call to the Neurology department to schedule a neurology appt for optic neuritis (MS) with Dr Bedolla. Appt on 05/04 cancelled, letter sent RIN Enriquez, RN, CMSRN Clinical Maintenance Supervisor 2Nd Shift, Neurology documented in this encounter [facility] 03-17-2024 History of Present illness Narrative New patient Optic neuritis, right eye -Reports blurry vision OD, pain with up gauze and paresthesias January 2024. Went to ED -Seen by contact lens edge buffer resident 01/31/24. At time time +rAPD OD, color plates 7/11 OD, full OS -LP with oligoclonal Bands present MRI orbit 01/31/24 Focal, short segment of mild edema and enhancement of the right intraorbital optic nerve (Series 7, Image 18) (Series 8, Image 14-17), which also mildly restricts diffusion. Signal abnormality in the left anterior cord at C2 without contrast enhancement. The finding is in keeping with demyelinating disease. Signal abnormality of the thoracic cord at T2 in keeping with demyelinating disease. S/p 3 days of high dose IV solumederol and discharged with high dose PO pred Today No rAPD documented by technicians, Color paltes are full Exam with very trace disc pallor right eye temporally She has made an excellent recovery F/u with Neurology as scheduled 05/04/24 Follow up PRN with neuro-ophthalmology Case seen and discussed with attending physician Dr. Alysa Blackburn MD Ophthalmology resident documented in this encounter [facility] 03-17-2024 History of Present illness Narrative New patient Optic neuritis, right eye -Reports blurry vision OD, pain with up gaze and paresthesias January 2024. Went to ED -Seen by contact lens edge buffer resident 01/31/24. At time time +rAPD OD, color plates 7/11 OD, full OS -LP with oligoclonal Bands present MRI orbit 01/31/24 Focal, short segment of mild edema and enhancement of the right intraorbital optic nerve (Series 7, Image 18) (Series 8, Image 14-17), which also mildly restricts diffusion. Signal abnormality in the left anterior cord at C2 without contrast enhancement. The finding is in keeping with demyelinating disease. Signal abnormality of the thoracic cord at T2 in keeping with demyelinating disease. S/p 3 days of high dose IV solumederol and discharged with high dose PO pred Today No APD documented by technicians, Color plates are full Exam with very trace disc pallor right eye temporally She has made an excellent recovery F/u with Neurology as scheduled 05/04/24 Follow up PRN with neuro-ophthalmology Case seen and discussed with attending physician Dr. Alysa Blackburn MD Ophthalmology resident I saw and evaluated the patient. I personally obtained the pardo and critical portions of the history and the ophthalmologic exam. I reviewed the resident's documentation and discussed the patient's history and examination with the resident. I agree with the ophthalmology resident's medical decision making as documented in the resident's note. 23 year old diagnosed with right optic neuritis 01/31/24. She was treated with IV steroids. Oligoclonal bands on LP and cervical spine lesions on MRI scan. Patient states her vision has improved OD. On exam the vision is 20/20 OU with normal color plates. On fundus exam there is trace temporal pallor OD. Imp: Excellent recovery of the optic neuritis. Patient will FU with neurology. Nguyễn Watt MD documented in this encounter [facility] 02-03-2024 Note DISCHARGE SUMMARY [address] [id number] Azeb Hyatt Date of : 2000 23 year old female Attending Agusto Noonan MD Date of Admission 01/31/2024 Date of Discharge 02/03/2024 Final Diagnosis: Demyelinating disease (HCC) Hospital Problems as of 02/03/2024 * (Principal) Demyelinating disease (HCC) Other optic neuritis Screening for STD (sexually transmitted disease) Discharge Procedure Orders NEUROLOGY SERVICE REQUEST Referral Priority: Routine Referral Type: Service Level Authorization Referral Location: [facility] Number of Visits Requested: 3 Expiration Date: 02/02/25 Future Appointments Date Time Provider Department Center 03/17/2024 10:00 AM Nguyễn Watt MD [facility] 05/04/2024 4:00 PM Nicholas Pelaez MD [facility] Condition at Discharge improved Symptoms to look out for after discharge: New or Severe Pain, Fever, Dizziness, Unable to keep down fluids and Headache Activity no restrictions Diet no restrictions Disposition home Functional Status ambulatory This patient is not being discharged to a facility, and does not require completion of the facility form. Reason for Hospitalization Vision changes, Demyelinating disease Significant Findings MRI Orbit: Concerning for optic neuritis MRI C/T Spine: Focal areas concerning for demyelinating disease Hospital Course Briefly this is a 23yo female who presents with one week of vision changes along with vague sensory changes to her right trunk. In the ED she was seen by optho with findings concerning for optic neuritis. Started on high dose IV steroids. MRI head and LP were obtained. Neuro on board and following. MRI Spine with concerning findings for demyelinating disease process. Completed three days of inpatient IV steroids. Plan for two more days of oral steroids with follow up by Neurology. On day of discharge visual symptoms resolved. In good spirits, Ready for discharge. Discussed indications to return to ED, which patient expressed understanding. Discharged home. PHYSICAL EXAM: BP 110/61 (BP Location: right arm) Pulse 58 Temp 98.7 ???F (37.1 ???C) (Oral) Resp 18 Ht 5' 4 (1.626 m) Wt 130 lb (59 kg) SpO2 99% BMI 22.31 kg/m??? Alert female in NAD. Sitting comfortably in chair HEENT: NC AT, PERRLA, EOM intact (no pain) Heart: +S1/S2, no murmurs noted Lungs CTA bilat, no rhonchi, crackles or wheezes noted; respirations unlabored. Abd , soft, nontender, bowel sounds are present Extremities: no edema Neuro AAOx3, sensation intact, normal visual acuity Discharge Medication List as of 02/03/2024 3:03 PM START taking these medications Details omeprazole (PRILOSEC) 40 MG capsule Take 1 Capsule by mouth daily.40 mg Normal Disp-30 Capsule, R-0 predniSONE (DELTASONE) 50 MG tablet Take 23 Tablets by mouth daily for 2 days.1,150 mg Normal Disp-46 Tablet, R-0 - Until Sat02/05/2024 I provided the patient and/or family/surrogate with the following information: Explanation of the primary diagnosis, and secondary diagnoses where applicable, including test results, Discussion of any new medications and treatments, including expected benefits and potential major side effects, Explanation of previous treatments or medications that are discontinued, Discussion of post-hospital day-to-day care needs, and Follow-up plans, and warning signs that should prompt more urgent follow-up Agusto Noonan MD [facility] 02-03-2024 History of Present illness Narrative SOCIAL WORK Per interdisciplinary rounds, pt is medically ready for discharge this date. SW has reviewed patient's chart and assessed that there are no discharge planning needs at this time. The following was reviewed to determine no SW needs warranted. 1). PT/OT evaluations indicate pt can DC home with no needs or PT/OT evaluations are not warranted. 2). No wound care or IV Antibiotics indicated at this time. 3). No SW consults placed through nursing admission screen 4). Pt does not meet the criteria of being a Medicare recipient that has a high or rising readmission rate. Patient will continue to be discussed in multi-disciplinary rounds and monitored daily. If any of the the above changes, SW will complete appropriate assessments and interventions. ANIBAL Ferrari, MYRA Inpatient Social Work Images from the original note were not included. Reason for Consult: Optic Neuritis Consulted by: Agusto Noonan MD HPI: Azeb Hyatt is a 23 year old female with no significant PMH who presented to the ED with blurry vision and concern for optic neuritis. Patient endorses a week of blurry vision in the right eye. She also endorsed painful right superior rectus position of gaze. She also endorsed bilateral breast swelling, left breast swelling resolved fairly quickly however the right breast improved slowly. She was evaluated by OBGYN for concerns of breast CA. She endorses numbness from above the nipple line down to just above the end of her right rib cage. She states this numbness used to spread to her back but that has improved. She was evaluated in the ED by ophthalmology and was noted to have optic neuritis given history and imaging. Neurology consulted for optic neuritis. Recommending Solumedrol 1 g daily x 3 days and MRI of T spine and C-spine (pending). Review of Systems Constitutional: Negative Eyes: Per HPI Ears/ Nose/ Mouth/ Throat: Negative Respiratory: Negative Cardiovascular: Negative Gastrointestinal: Negative Genitourinary: Negative Musculoskeletal: Negative Neurologic: Per HPI Psychiatric: Negative Integumentary (skin/breast): Negative Endocrine: Negative Rheumatologic: Negative Allergic/ Immunologic: Negative Significant positives: Per HPI No past medical history on file. No past surgical history on file. Social History Socioeconomic History Marital status: Single Tobacco Use Smoking status: Never Smokeless tobacco: Never Vaping Use Vaping status: Never Used Vital sign ranges over the past 24 hours (retrieved 02/02/2024 at 11:26 AM): Tmax (24 hours): 98.5 F (36.9 C) Pulse Av Min: 65 Max: 87 Systolic (24hrs), Av , Min:100 , Max:112 Diastolic (24hrs), Av, Min:58, Max:75 MAP (mmHg) Av.6 mmHg Min: 68 mmHg Max: 77 mmHg Resp Av.8 Min: 17 Max: 18 SpO2 Av.3 % Min: 99 % Max: 100 % Intake/Output Summary (Last 24 hours) at 02/02/2024 1126 Last data filed at 02/02/2024 0815 Gross per 24 hour Intake 120 ml Output -- Net 120 ml Current Facility-Administered Medications: acetaminophen (TYLENOL) tablet, 650 mg, Oral, Q4H PRN, Deonte Davenport MD melatonin tablet, 3 mg, Oral, At Bedtime PRN, Deonte Davenport MD enoxaparin (LOVENOX) 40 MG/0.4ML injection 40 mg, 40 mg, Subcutaneous, Daily, Deonte Davenport MD methylPREDNISolone sodium succinate (SOLU-Medrol) 1,000 mg in dextrose 5 % 100 mL ivpb (custom dose), 1,000 mg, Intravenous, Daily, Efe Lanza DO, Last Rate: 100 mL/hr at 02/02/24 0916, 1,000 mg at 02/02/24 0916 Exam Neurologic: Cognition Sedation: none Level of consciousness: awake, alert Affect: normal Orientation: oriented x 3 Attention: normal Language: intact fluency, comprehension Visual ochoa: full, blink to threat Neglect: absent Extinction: absent Right-left confusion: absent Cranial Nerves Vision/fundoscopic: n/a Pupils: 3 mm OD, 3 mm OS; reactive to light B Spontaneous gaze: no deviation Extraocular movements: painful right superior rectus position of gaze- all other positions of gaze intact and not painful Vision continues to endorse white haze, colors are less brown, and evans colors are getting better Facial sensation: intact Facial motor function: symmetric forehead wrinkling and smile Hearing: intact to conversation Palate elevation: symmetric Dysarthria: absent Tongue: midline; able to move fully to R and L Shoulder shrug: normal Motor Tone: normal Drift: absent Spontaneous abnormal movements: none RIGHT LEFT Deltoids 5 5 Biceps 5 5 Triceps 5 5 Hand 5 5 Hip flexion 5 5 Knee extension 5 5 Knee flexion 5 5 Dorsiflexion 5 5 Plantarflexion 5 5 DTRs RIGHT LEFT Biceps 2 2 Patellar 2 2 Sensation Decreased from just above nipple line down to (T3-T8) just above the end of the rib cage, otherwise sensation intact. General appearance: normal appearing at stated age Head: NC, AT Neck: supple Eyes/orbits: no scleral icterus, edema or injection Mucous membranes: moist Lungs: no audible wheezing or rhonchi Heart: regular rate, regular rhythm Abdomen: soft, NT/ND Extremities: no deformities; no joint redness; no joint swelling Skin: no rash; no bruising; no edema; well perfused Labs: CBC (last 3 years, up to 8 values) 02/02/2024 01/31/2024 1:50 AM 6:14 PM WBC 8.0 4.4 RBC 4.19 4.25 Hgb 12.2 12.2 Hct 36.4 37.2 MCV 87 88 RDW 13.8 14.3 Plt 170 172 BMP (last 3 years, up to 8 values) 02/02/2024 01/31/2024 1:50 AM 6:14 PM Na 139 142 K 4.3 4.3 Cl 105 106 CO2 24 27 Gap 14 13 Glu 133 78 BUN 14 14 Cr 0.64 0.69 Ca 9.4 9.9 eGFR 126 123 Glucose (mg/dL) Date Value 02/02/2024 133 (H) 01/31/2024 Negative Summary of Imaging & Other Pertinent Studies MRI C-SPINE: IMPRESSION: Signal abnormality in the left anterior cord at C2 without contrast enhancement. The finding is in keeping with demyelinating disease. MRI HEAD: IMPRESSION: 1. Normal enhanced and unenhanced MRI of the brain. 2. Asymmetric enhancement of the right intraorbital optic nerve suggestive of optic neuritis. Please review separately dictated MR orbits. MRI ORBIT: IMPRESSION: 1. Findings suspicious for optic neuritis of the right intraorbital optic nerve. Unremarkable left optic nerve. 2. Please see same day dedicated MRI brain for further characterization. ASSESSMENT/PLAN: Azeb Hyatt is a 23 year old female with no significant PMH who presented to the ED with blurry vision and concern for optic neuritis. She was evaluated in the ED by ophthalmology and was noted to have optic neuritis given history and imaging. Neurology consulted for optic neuritis. Recommending Solumedrol 1 g daily x 3 days and MRI of T spine and C-spine. MRI c-spine #Optic Neuritis #Painful right superior rectus position of gaze most likely do to optic neuritis #Numbness of chest from just above nipple line down to just above end of rib cage on the right (Around T3-T8) -Solumedrol 1 g daily x 3 days (day 2/3) -f/u MRI T-SPINE results -Follow up with Neurology Multiple sclerosis, central nervous system demyelination, autoimmune encephalitis: Dr Bedolla, Dr Pelaez, Dr Eagle Visit type: 60 minute, in person or video Timing: next available except for 4-6 weeks post-discharge stroke/TIA follow- up Issues to address: f/u CSF labs, I personally examined this high risk patient; personally evaluated patient data, laboratory data and imaging; made clinical decisions, updated the patient, care team, and discussed my findings and plan with the attending Dr. Rowe. NATASHA Lynn Pager; [phone] Department of Neurology Hospital Medicine Progress Note Azeb Hyatt Age [age] year old female [id number] Admitted 01/31/2024 3:56 PM Hospital Day: 3 HOSPITAL COURSE: Briefly this is a 23yo female who presents with one week of vision changes along with vague sensory changes to her right trunk. In the ED she was seen by optho with findings concerning for optic neuritis. Started on high dose IV steroids. MRI head and LP were obtained. Neuro on board and following. MRI Spine obtained today awaiting results. INTERVAL HPI: Patient seen and examined at bedside after MRI. Thinks her vision is getting slightly better. Still having some pain with upward gaze. Good apatite, no other pain. No other questions or concerns today. PHYSICAL EXAM: BP 101/61 (BP Location: right arm) Pulse 74 Temp 98.4 F (36.9 C) (Oral) Resp 18 Ht 5' 4 (1.626 m) Wt 130 lb (59 kg) SpO2 99% BMI 22.31 kg/m Alert female in NAD. Laying comfortably in bed HEENT: NC AT, PERRLA, EOM intact (Pain with upwards lateral gaze) Heart: +S1/S2, no murmurs noted Lungs CTA bilat, no rhonchi, crackles or wheezes noted; respirations unlabored. Abd , soft, nontender, bowel sounds are present Extremities: no edema Neuro AAOx3, sensation intact, decreased in visual acuity in right eye DATA (Review and Interpretation of Data (including Tele, EKG, Labs, Imaging): BMP wnl CBC wnl MRI T/C Spine: Complete, read in process ASSESSMENT/PLAN: Azeb Hyatt is a 23 year old female admitted on 01/31/2024 with unremarkable PMH who presented with blurry vision and concern for optic neuritis. Now on High dose IV steroids. Principal Problem: Other optic neuritis Active Problems: Screening for STD (sexually transmitted disease) # Blurry vision of R eye # Concern for optic neuritis -Seen by Ophthalmology in ED, suspicion for optic neuritis. -MRI Head and Orbit with findings concerning for optic neuritis of R eye. -Patient to undergo workup for MS, autoimmune diseases Plan: -Neurology consult, appreciate recommendations -Per Opthalmology, IV methylprednisolone 1g daily for three days, followed by prednisone taper -Follow up OGC Bands -Follow up MRI C-Spine, T-Spine -Neuro-ophthalmology follow up in 1 month (Optho will reach out to schedule). # UTI - UA with positive leuk esterase and nitrites - No symptoms - Will hold Abx - CTM This patient is on a high risk medication High Dose IV STeroids that requires close monitoring for toxicity. DVT PPX: lovenox CODE: Full Code DISPO: Home COMMUNICATION: The patient's plan of care was discussed with the Patient. All questions and concerns addressed. Agusto Noonan MD [facility] PLAN NOTE CC: Blurred vision of the right eye Hx: None HPI: Pt presented to the ED on 01/31/24 c/o numbness on right chest, right sided visual disturbances, and lymphadenopathy. Visual disturbances onset 1 week ago and described as color loss, blurry vision of the right eye w/ associated right ocular pain with movement. Patient also reports intermittent swelling of left postauricular, submandibular, and right axial/breast lymph nodes for the past 8 months. However she does not feel any current lymphadenopathy. Also reports loss of sensation in R chest for past 3 weeks. Pt evaluated by ER 4 days ago where blood work and head CT were both normal. Denies recent travel, IV drug use, insect bites. Endorses tobacco and marijuana use. Denies fevers, N/V, shortness of breath, chest pain, dysuria, melena, hematochezia, constipation, or diarrhea. Vitals Reviewed: Afebrile, HDS, Saturating well on RA Data Review: -CSF: protein 27.8, glucose of 54 -UA positive for leuk esterase, nitrite, WBC 6-10 -BMP, CBC, HIV, Syphilis wnl -Awaiting CSF cx and Oligoclonal bands - MRI head: Normal enhanced and unenhanced MRI of the brain. Asymmetric enhancement of the right intraorbital optic nerve suggestive of optic neuritis. 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 of the Right Eye UTI Recurrent lymphadenopathy Plan: -Workup for MS, autoimmune processes -Await Neurology recommendations -F/u MRI of the T-spine/C-spine -IV methylprednisolone 1 g for 3 days followed by prednisone taper -F/u on CSF studies, TB, MAULIK -F/u CXR -Start Macrobid for UTI -PT/OT Dispo: Home Connor Monson MD Internal Medicine PGY-2 documented in this encounter [facility] 02-03-2024 Note Hospital Medicine Pr ashely Note Azeb Hyatt Age [age] year old female [id number] Admitted 01/31/2024 3:56 PM Hospital Day: 4 HOSPITAL COURSE: Briefly this is a 23yo female who presents with one week of vision changes along with vague sensory changes to her right trunk. In the ED she was seen by optho with findings concerning for optic neuritis. Started on high dose IV steroids. MRI head and LP were obtained. Neuro on board and following. MRI Spine obtained today awaiting results. INTERVAL HPI: Patient seen and examined at bedside after MRI. Thinks her vision is getting slightly better. Still having some pain with upward gaze. Good apatite, no other pain. No other questions or concerns today. PHYSICAL EXAM: BP 100/51 (BP Location: right arm) Pulse 53 Temp 98.2 ???F (36.8 ???C) (Oral) Resp 18 Ht 5' 4 (1.626 m) Wt 130 lb (59 kg) SpO2 100% BMI 22.31 kg/m??? Alert female in NAD. Laying comfortably in bed HEENT: NC AT, PERRLA, EOM intact (Pain with upwards lateral gaze) Heart: +S1/S2, no murmurs noted Lungs CTA bilat, no rhonchi, crackles or wheezes noted; respirations unlabored. Abd , soft, nontender, bowel sounds are present Extremities: no edema Neuro AAOx3, sensation intact, decreased in visual acuity in right eye DATA (Review and Interpretation of Data (including Tele, EKG, Labs, Imaging): BMP wnl CBC wnl MRI T/C Spine: Complete, read in process ASSESSMENT/PLAN: Azeb Hyatt is a 23 year old female admitted on 01/31/2024 with unremarkable PMH who presented with blurry vision and concern for optic neuritis. Now on High dose IV steroids. Principal Problem: Other optic neuritis Active Problems: Screening for STD (sexually transmitted disease) # Blurry vision of R eye # Concern for optic neuritis -Seen by Ophthalmology in ED, suspicion for optic neuritis. -MRI Head and Orbit with findings concerning for optic neuritis of R eye. -Patient to undergo workup for MS, autoimmune diseases Plan: -Neurology consult, appreciate recommendations -Per Opthalmology, IV methylprednisolone 1g daily for three days, followed by prednisone taper -Follow up OGC Bands -Follow up MRI C-Spine, T-Spine -Neuro-ophthalmology follow up in 1 month (Optho will reach out to schedule). # UTI - UA with positive leuk esterase and nitrites - No symptoms - Will hold Abx - CTM This patient is on a high risk medication High Dose IV STeroids that requires close monitoring for toxicity. DVT PPX: lovenox CODE: Full Code DISPO: Home COMMUNICATION: The patient's plan of care was discussed with the Patient. All questions and concerns addressed. Agusto Noonan MD [facility] 02-02-2024 Note Hospital Medicine Pr ogress Note Venancioenilottie Hyatt Age [age] year old female [id number] Admitted 01/31/2024 3:56 PM Hospital Day: 3 HOSPITAL COURSE: Briefly this is a 23yo female who presents with one week of vision changes along with vague sensory changes to her right trunk. In the ED she was seen by optho with findings concerning for optic neuritis. Started on high dose IV steroids. MRI head and LP were obtained. Neuro on board and following. MRI Spine obtained today awaiting results. INTERVAL HPI: Patient seen and examined at bedside after MRI. Thinks her vision is getting slightly better. Still having some pain with upward gaze. Good apatite, no other pain. No other questions or concerns today. PHYSICAL EXAM: BP 101/61 (BP Location: right arm) Pulse 74 Temp 98.4 ???F (36.9 ???C) (Oral) Resp 18 Ht 5' 4 (1.626 m) Wt 130 lb (59 kg) SpO2 99% BMI 22.31 kg/m??? Alert female in NAD. Laying comfortably in bed HEENT: NC AT, PERRLA, EOM intact (Pain with upwards lateral gaze) Heart: +S1/S2, no murmurs noted Lungs CTA bilat, no rhonchi, crackles or wheezes noted; respirations unlabored. Abd , soft, nontender, bowel sounds are present Extremities: no edema Neuro AAOx3, sensation intact, decreased in visual acuity in right eye DATA (Review and Interpretation of Data (including Tele, EKG, Labs, Imaging): BMP wnl CBC wnl MRI T/C Spine: Complete, read in process ASSESSMENT/PLAN: Azeb Hyatt is a 23 year old female admitted on 01/31/2024 with unremarkable PMH who presented with blurry vision and concern for optic neuritis. Now on High dose IV steroids. Principal Problem: Other optic neuritis Active Problems: Screening for STD (sexually transmitted disease) # Blurry vision of R eye # Concern for optic neuritis -Seen by Ophthalmology in ED, suspicion for optic neuritis. -MRI Head and Orbit with findings concerning for optic neuritis of R eye. -Patient to undergo workup for MS, autoimmune diseases Plan: -Neurology consult, appreciate recommendations -Per Opthalmology, IV methylprednisolone 1g daily for three days, followed by prednisone taper -Follow up OGC Bands -Follow up MRI C-Spine, T-Spine -Neuro-ophthalmology follow up in 1 month (Optho will reach out to schedule). # UTI - UA with positive leuk esterase and nitrites - No symptoms - Will hold Abx - CTM This patient is on a high risk medication High Dose IV STeroids that requires close monitoring for toxicity. DVT PPX: lovenox CODE: Full Code DISPO: Home COMMUNICATION: The patient's plan of care was discussed with the Patient. All questions and concerns addressed. Agusto Noonan MD [facility] [place] 02-01-2024 Consult note Associated Order (s): IP NEUROLOGY CONSULT Images from the original note were not included. Reason for Consult: Optic Neuritis Consulted by: Agusto Noonan MD HPI: Azeb Hyatt is a 23 year old female with no significant PMH who presented to the ED with blurry vision and concern for optic neuritis. Patient endorses a week of blurry vision in the right eye. She also endorsed painful right superior rectus position of gaze. She also endorsed bilateral breast swelling, left breast swelling resolved fairly quickly however the right breast improved slowly. She was evaluated by OBGYN for concerns of breast CA. She endorses numbness from above the nipple line down to just above the end of her right rib cage. She states this numbness used to spread to her back but that has improved. She was evaluated in the ED by ophthalmology and was noted to have optic neuritis given history and imaging. Neurology consulted for optic neuritis. Recommending Solumedrol 1 g daily x 3 days and MRI of T spine and C-spine. Review of Systems Constitutional: Negative Eyes: Per HPI Ears/ Nose/ Mouth/ Throat: Negative Respiratory: Negative Cardiovascular: Negative Gastrointestinal: Negative Genitourinary: Negative Musculoskeletal: Negative Neurologic: Per HPI Psychiatric: Negative Integumentary (skin/breast): Negative Endocrine: Negative Rheumatologic: Negative Allergic/ Immunologic: Negative Significant positives: Per HPI No past medical history on file. No past surgical history on file. Social History Socioeconomic History Marital status: Single Tobacco Use Smoking status: Never Smokeless tobacco: Never Vaping Use Vaping status: Never Used Vital sign ranges over the past 24 hours (retrieved 02/01/2024 at 4:36 PM): Tmax (24 hours): 98.5 F (36.9 C) Pulse Av Min: 67 Max: 87 Systolic (24hrs), Av , Min:107 , Max:114 Diastolic (24hrs), Av, Min:61, Max:75 MAP (mmHg) Av mmHg Min: 72 mmHg Max: 72 mmHg Resp Av Min: 17 Max: 19 SpO2 Av.7 % Min: 98 % Max: 99 % Intake/Output Summary (Last 24 hours) at 02/01/2024 1636 Last data filed at 02/01/2024 0703 Gross per 24 hour Intake 100 ml Output -- Net 100 ml Current Facility-Administered Medications: acetaminophen (TYLENOL) tablet, 650 mg, Oral, Q4H PRN, Deonte Davenport MD melatonin tablet, 3 mg, Oral, At Bedtime PRN, Deonte Davenport MD enoxaparin (LOVENOX) 40 MG/0.4ML injection 40 mg, 40 mg, Subcutaneous, Daily, Deonte Davenport MD methylPREDNISolone sodium succinate (SOLU-Medrol) 1,000 mg in dextrose 5 % 100 mL ivpb (custom dose), 1,000 mg, Intravenous, Daily, Efe Lanza DO, Stopped at 02/01/24 0703 Exam Neurologic: Cognition Sedation: none Level of consciousness: awake, alert Affect: normal Orientation: oriented x 3 Attention: normal Language: intact fluency, comprehension Visual ochoa: full, blink to threat Neglect: absent Extinction: absent Right-left confusion: absent Cranial Nerves Vision/fundoscopic: n/a Pupils: 3 mm OD, 3 mm OS; reactive to light B Spontaneous gaze: no deviation Extraocular movements: painful right superior rectus position of gaze- all other positions of gaze intact and not painful Facial sensation: intact Facial motor function: symmetric forehead wrinkling and smile Hearing: intact to conversation Palate elevation: symmetric Dysarthria: absent Tongue: midline; able to move fully to R and L Shoulder shrug: normal Motor Tone: normal Drift: absent Spontaneous abnormal movements: none RIGHT LEFT Deltoids 5 5 Biceps 5 5 Triceps 5 5 Hand 5 5 Hip flexion 5 5 Knee extension 5 5 Knee flexion 5 5 Dorsiflexion 5 5 Plantarflexion 5 5 DTRs RIGHT LEFT Biceps 2 2 Triceps Fingers Patellar 2 2 Ankle Toes Sensation Decreased from just above nipple line down to (T3-T8) just above the end of the rib cage, otherwise sensation intact. General appearance: normal appearing at stated age Head: NC, AT Neck: supple Eyes/orbits: no scleral icterus, edema or injection Mucous membranes: moist Lungs: no audible wheezing or rhonchi Heart: regular rate, regular rhythm Abdomen: soft, NT/ND Extremities: no deformities; no joint redness; no joint swelling Skin: no rash; no bruising; no edema; well perfused Labs: CBC (last 3 years, up to 8 values) 01/31/2024 6:14 PM WBC 4.4 RBC 4.25 Hgb 12.2 Hct 37.2 MCV 88 RDW 14.3 Plt 172 BMP (last 3 years, up to 8 values) 01/31/2024 6:14 PM Na 142 K 4.3 Cl 106 CO2 27 Gap 13 Glu 78 BUN 14 Cr 0.69 Ca 9.9 eGFR 123 Glucose (mg/dL) Date Value 01/31/2024 Negative 01/31/2024 78 Summary of Imaging & Other Pertinent Studies MRI HEAD: IMPRESSION: 1. Normal enhanced and unenhanced MRI of the brain. 2. Asymmetric enhancement of the right intraorbital optic nerve suggestive of optic neuritis. Please review separately dictated MR orbits. MRI ORBIT: IMPRESSION: 1. Findings suspicious for optic neuritis of the right intraorbital optic nerve. Unremarkable left optic nerve. 2. Please see same day dedicated MRI brain for further characterization. ASSESSMENT/PLAN: Azeb Hyatt is a 23 year old female with no significant PMH who presented to the ED with blurry vision and concern for optic neuritis. She was evaluated in the ED by ophthalmology and was noted to have optic neuritis given history and imaging. Neurology consulted for optic neuritis. Recommending Solumedrol 1 g daily x 3 days and MRI of T spine and C-spine. #Optic Neuritis #Painful right superior rectus position of gaze most likely do to optic neuritis #Numbness of chest from just above nipple line down to just above end of rib cage on the right (Around T3-T8) -Solumedrol 1 g daily x 3 days (day 1/3) -MRI C-SPINE w/w/o -MRI T-SPINE w/w/o -Will follow I personally examined this high risk patient; personally evaluated patient data, laboratory data and imaging; made clinical decisions, updated the patient, care team, and discussed my findings and plan with the attending Dr. Rowe. NATASHA Lynn Pager; [phone] Department of Neurology [facility] 02-01-2024 Consult note Associated Order (s): IP NEUROLOGY CONSULT Images from the original note were not included. Reason for Consult: Optic Neuritis Consulted by: gAusto Noonan MD HPI: Azeb Hyatt is a 23 year old female with no significant PMH who presented to the ED with blurry vision and concern for optic neuritis. Patient endorses a week of blurry vision in the right eye. She also endorsed painful right superior rectus position of gaze. She also endorsed bilateral breast swelling, left breast swelling resolved fairly quickly however the right breast improved slowly. She was evaluated by OBGYN for concerns of breast CA. She endorses numbness from above the nipple line down to just above the end of her right rib cage. She states this numbness used to spread to her back but that has improved. She was evaluated in the ED by ophthalmology and was noted to have optic neuritis given history and imaging. Neurology consulted for optic neuritis. Recommending Solumedrol 1 g daily x 3 days and MRI of T spine and C-spine. Review of Systems Constitutional: Negative Eyes: Per HPI Ears/ Nose/ Mouth/ Throat: Negative Respiratory: Negative Cardiovascular: Negative Gastrointestinal: Negative Genitourinary: Negative Musculoskeletal: Negative Neurologic: Per HPI Psychiatric: Negative Integumentary (skin/breast): Negative Endocrine: Negative Rheumatologic: Negative Allergic/ Immunologic: Negative Significant positives: Per HPI No past medical history on file. No past surgical history on file. Social History Socioeconomic History Marital status: Single Tobacco Use Smoking status: Never Smokeless tobacco: Never Vaping Use Vaping status: Never Used Vital sign ranges over the past 24 hours (retrieved 02/01/2024 at 4:36 PM): Tmax (24 hours): 98.5 F (36.9 C) Pulse Av Min: 67 Max: 87 Systolic (24hrs), Av , Min:107 , Max:114 Diastolic (24hrs), Av, Min:61, Max:75 MAP (mmHg) Av mmHg Min: 72 mmHg Max: 72 mmHg Resp Av Min: 17 Max: 19 SpO2 Av.7 % Min: 98 % Max: 99 % Intake/Output Summary (Last 24 hours) at 02/01/2024 1636 Last data filed at 02/01/2024 0703 Gross per 24 hour Intake 100 ml Output -- Net 100 ml Current Facility-Administered Medications: acetaminophen (TYLENOL) tablet, 650 mg, Oral, Q4H PRN, Deonte Davenport MD melatonin tablet, 3 mg, Oral, At Bedtime PRN, Deonte Davenport MD enoxaparin (LOVENOX) 40 MG/0.4ML injection 40 mg, 40 mg, Subcutaneous, Daily, Deonte Davenport MD methylPREDNISolone sodium succinate (SOLU-Medrol) 1,000 mg in dextrose 5 % 100 mL ivpb (custom dose), 1,000 mg, Intravenous, Daily, Efe Lanza DO, Stopped at 02/01/24 0703 Exam Neurologic: Cognition Sedation: none Level of consciousness: awake, alert Affect: normal Orientation: oriented x 3 Attention: normal Language: intact fluency, comprehension Visual ochoa: full, blink to threat Neglect: absent Extinction: absent Right-left confusion: absent Cranial Nerves Vision/fundoscopic: n/a Pupils: 3 mm OD, 3 mm OS; reactive to light B Spontaneous gaze: no deviation Extraocular movements: painful right superior rectus position of gaze- all other positions of gaze intact and not painful Facial sensation: intact Facial motor function: symmetric forehead wrinkling and smile Hearing: intact to conversation Palate elevation: symmetric Dysarthria: absent Tongue: midline; able to move fully to R and L Shoulder shrug: normal Motor Tone: normal Drift: absent Spontaneous abnormal movements: none RIGHT LEFT Deltoids 5 5 Biceps 5 5 Triceps 5 5 Hand 5 5 Hip flexion 5 5 Knee extension 5 5 Knee flexion 5 5 Dorsiflexion 5 5 Plantarflexion 5 5 DTRs RIGHT LEFT Biceps 2 2 Triceps Fingers Patellar 2 2 Ankle Toes Sensation Decreased from just above nipple line down to (T3-T8) just above the end of the rib cage, otherwise sensation intact. General appearance: normal appearing at stated age Head: NC, AT Neck: supple Eyes/orbits: no scleral icterus, edema or injection Mucous membranes: moist Lungs: no audible wheezing or rhonchi Heart: regular rate, regular rhythm Abdomen: soft, NT/ND Extremities: no deformities; no joint redness; no joint swelling Skin: no rash; no bruising; no edema; well perfused Labs: CBC (last 3 years, up to 8 values) 01/31/2024 6:14 PM WBC 4.4 RBC 4.25 Hgb 12.2 Hct 37.2 MCV 88 RDW 14.3 Plt 172 BMP (last 3 years, up to 8 values) 01/31/2024 6:14 PM Na 142 K 4.3 Cl 106 CO2 27 Gap 13 Glu 78 BUN 14 Cr 0.69 Ca 9.9 eGFR 123 Glucose (mg/dL) Date Value 01/31/2024 Negative 01/31/2024 78 Summary of Imaging & Other Pertinent Studies MRI HEAD: IMPRESSION: 1. Normal enhanced and unenhanced MRI of the brain. 2. Asymmetric enhancement of the right intraorbital optic nerve suggestive of optic neuritis. Please review separately dictated MR orbits. MRI ORBIT: IMPRESSION: 1. Findings suspicious for optic neuritis of the right intraorbital optic nerve. Unremarkable left optic nerve. 2. Please see same day dedicated MRI brain for further characterization. ASSESSMENT/PLAN: Azeb Hyatt is a 23 year old female with no significant PMH who presented to the ED with blurry vision and concern for optic neuritis. She was evaluated in the ED by ophthalmology and was noted to have optic neuritis given history and imaging. Neurology consulted for optic neuritis. Recommending Solumedrol 1 g daily x 3 days and MRI of T spine and C-spine. #Optic Neuritis #Painful right superior rectus position of gaze most likely do to optic neuritis #Numbness of chest from just above nipple line down to just above end of rib cage on the right (Around T3-T8) -Solumedrol 1 g daily x 3 days (day 1/3) -MRI C-SPINE w/w/o -MRI T-SPINE w/w/o -Will follow I personally examined this high risk patient; personally evaluated patient data, laboratory data and imaging; made clinical decisions, updated the patient, care team, and discussed my findings and plan with the attending Dr. Rowe. NATASHA Lynn Pager; [phone] Department of Neurology Associated Order(s): IP OPHTHALMOLOGY CONSULT Ophthalmology Consult Note CC: Blurred vision HPI: Azeb Hyatt is a 23 year old female presenting with blurred vision OD. Saturday (1wk ago) patient noticed new blurred vision in the right eye. On Saturday (4d ago) woke up with noticeable color desaturation; everything looks evans. No current pain. Also since late December ~3 weeks ago has had right upper eyelid/periorbital pain when moving eye. Patient also describes new lymph node tenderness/swelling 8 months ago in the neck and submandibular region. ~1 month ago had bilateral axillary lymph node swelling/tenderness and an episode of tingling and numbness of the right side of her chest wall. Otherwise denies discharge, tearing, irritation, redness, FBS, floaters, flashes, pain, sudden vision loss, photophobia or diplopia. PMH: (-) HTN, DM, migraine, blindness, glaucoma, cataract, AMD, ocular cancer, eye trauma, amblyopia, strabismus, CAD, stroke, cancer. PSH: (-) eye surgeries, eye lasers Eye meds: None Family History: (-) migraine, blindness, glaucoma, AMD, ocular cancer, DM, HTN, CAD, stroke, cancer. Social History: N/a EXAM: Visual acuity at distance without correction OD: 20/20-2 slow OS: 20/20 IOP with [place]open OD: 17 significant squeezing, low reliability OS: 23 significant squeezing, low reliability Pupils: dark->light: OD: 3->2 2+ APD OS: 3->2 no APD EOM: OD: full OS: full Visual ochoa: OD: full to confrontation OS: full to confrontation Color plates: OD: 12/18 OS: 04/20 Slit lamp examination: External Exam: OD: WNL OS: WNL L/L/L: OD: WNL OS: WNL Conj/Sclera: OD: no injection OS: no injection Cornea: OD: no epithelial defect, clear stroma, normal tear film, normal endothelium OS: no epithelial defect, clear stroma, normal tear film, normal endothelium Anterior chamber: OD: deep and quiet, no cell OS: deep and quiet, no cell Iris: OD: normal stroma OS: normal stroma Lens: OD: clear OS: clear Dilated OU with tropicamide 1% and phenylephrine 2.5% Vitreous OD: Clear, no heme or pigment OS: Clear, no heme or pigment Disc OD: Colcord, Sharp, perfused, and c/d 0.2, no edema appreciated, no disc heme OS: Colcord, Sharp, perfused, and c/d 0.2, no edema appreciated, no disc heme Vessels OD: Normal course and caliber, no sheathing, no nicking, AV ratio 2:3 OS: Normal course and caliber, no sheathing, no nicking, AV ratio 2:3 Macula OD: Flat, no heme, no commotio, no holes OS: Flat, no heme, no commotio, no holes Periphery OD: Attached, no tears OS: Attached, no tears Imaging: MR head/orbit wwo: ordered, pending HVF OU outside center 01/28/24 (interpretation of outside visual field without raw data is unreliable in guiding clinical decision making): Right Eye Reliability was good. Progression has no prior data. Foveal threshold was reduced. Findings include superior paracentral defect, inferior paracentral defect, paracentral scotoma. Left Eye Reliability was good. Progression has no prior data. Foveal threshold was normal. Assessment: 1. Suspicion for optic neuritis, right eye - Patient describing blurred vision and color desaturation, right eye - ?pain with EOMs - Exam with evidence of optic neuropathy such as APD and color desaturation. No apparent altitudinal visual field defect such as seen in NAION. Searching/difficult to obtain visual acuity in the right eye may or may not represent sporadic field loss. - No apparent optic disc edema on posterior exam at this time - ED HIV and syphilis labs pending Recommendations: - High suspicion for optic neuritis - Recommend neurology consult - Recommend starting IV methylprednisolone 1g daily x3d, followed by prednisone taper, but defer to neurology for optimal treatment - Labs: obtain TB and MAULIK. HIV and syphilis pending. Follow up: - neuro-ophthalmology 1 month (ophthalmology will reach out to schedule) - if visual ochoa desired, may be able to arrange a time in clinic next week for patient to obtain visual ochoa Heber Benjamin MD Ophthalmology Resident Please page [phone] with additional questions/concerns Patient was discussed with Dr. Dunham, senior resident contact lens edge buffer. Commonly used ophthalmology abbreviations: AC: Anterior chamber; ACIOL: Anterior chamber intraocular lens; APD, RAPD: (Relative) Afferent pupillary defect; ARMD, AMD: Age-related macular degeneration; ASC: Anterior subcapsular cataract; BRAO/BRVO: Branch retinal artery/vein occlusion; BCL: bandage contact lens; cc: With correction; CDR: Cup disk ratio; CE/IOL: Cataract extraction with intraocular lens implant; CF: Counting fingers; CL, CTL: Contact lens; CME: Cystoid macular edema; CNV, CNVM: Choroidal neovascularization; CRAO/CRVO: Central retinal artery/vein occlusion; CRS: Chorioretinal scar; CR, CRX: Cycloplegic refraction; NICOLE: Dry eye syndrome; DME: Diabetic macular edema; DR: Diabetic retinopathy; ERM: Epiretinal membrane; ET: esotropia; GDI: Glaucoma drainage implant; HM: Hand motions; HVF: Jacobsen visual field; IOL: Intraocular lens; IOP: Intraocular pressure; IRF: Intra-retinal fluid; IRH: Intra-retinal hemorrhage; K: Cornea or Keratometry; KP; Keratic precipitates; LP: Light perception; LPI: Laser peripheral iridotomy; MA: Microaneurysm; MGD: Meibomian gland dysfunction; MH: Macular hole; MP: Membrane peeling or macular pucker; MR, MRX: Manifest refraction; NAION: Non-arteritic ischemic optic neuropathy; NLP: No light perception; NPDR: Nonproliferative diabetic retinopathy; NVA/NVD/NVE: Neovascularization of the angle/disc/elsewhere; NVG: Neovascular glaucoma; NVI: Neovascularization of iris (rubeosis iridis); OCT: Optical coherence tomography; OD: Oculus mellisa (right eye); OS: Oculus sinister (left eye); OU: Oculus uterque (both eyes); PAS: Peripheral anterior synechiae; PC: Posterior chamber; PCIOL: Posterior chamber intraocular lens; PCO: Posterior capsule opacity; PDR: Proliferative diabetic retinopathy; PEE; Punctate epithelial erosion; PERRL(A): Pupils equal, round, reactive to light and accommodation; PH: Pinhole; PI: Peripheral iridotomy; PK, PKP: Penetrating keratoplasty; POAG: Primary open-angle glaucoma; PPA: Peripapillary atrophy; PPV: Pars plana vitrectomy; PRP: Panretinal photocoagulation; PS: Posterior synechiae; PSC: Posterior subcapsular cataract; PVD: Posterior vitreous detachment; PVR: Proliferative vitreoretinopathy; (R)RD: (rhegmatogenous) Retinal detachment; SB: Scleral buckle; sc: Without correction; SLT: Selective laser trabeculoplasty; SO, SiO: Silicone oil; SPK: Superficial punctate keratopathy; SRF/SRH: Subretinal fluid/hemorrhage; TBUT: Tear breakup time; VA: Visual acuity; VF: Visual field; VH: Vitreous hemorrhage; XT: Exotropia Associated attestation - Israel Bennett MD - 02/03/2024 1:28 PM EDT I did not personally examine this patient. I have, where applicable, reviewed relevant laboratory studies and imaging personally. I have reviewed the resident's note and agree with the proposed management. Israel Bennett MD Cornea, External Disease, and Refractive Surgery [facility] documented in this encounter [facility] 02-01-2024 History and physical note Images from the original note were not included. [facility] Internal Medicine: H&P Note Patient: Azeb Hyatt : 2000 Sex: female Room: [place] [id number] Admit Date: 01/31/2024 Today's Date: 02/01/2024 Length of stay: 1 day(s) HISTORY OF PRESENT ILLNESS: CHIEF COMPLAINT: No chief complaint on file. Azeb Hyatt is a 23 year old female admitted on 01/31/2024 with unremarkable PMH who presented with blurry vision and concern for optic neuritis. Patient reports that one week prior to admission, she had new blurry vision in her right eye. Progressed over the following few days with development of color changes ( evans, splotchy ) on 01/26. Reports she is having mild pain with EOM of the right eye. No sx of left eye. Has never had eye problems before. She also reports that about one month ago at the end of December, she noticed bilateral tenderness and possible swelling of her breasts. Associated with numbness/tingling over her right torso/abdomen. Per patient, she was evaluated by OBGYN for the breast swelling, and he had low concern for neoplasm or lymph node. She reports the swelling seems to be better now, but she is not really able to say how long the swelling lasted. She also shares that she has had lymph node swelling in her neck and submandibular region beginning about 8 months ago. Reports it seems to be better now but states she still has some swelling along her bilateral jawline. She was evaluated by Ophthalmology in the ED. Has suspicion for optic neuritis of the right eye given clinical history and imaging. Recommending Neurology consult and IV methylprednisolone 1g daily for 3 days, followed by prednisone taper. Additional imaging and labs pending. ED Course: - VS: T 98.2 HR 79 RR 16 MAP 109/59 SpO2 100% room air - Labs: CBC unremarkable, BMP wnl, HIV neg, syphilis neg, UA + leuk esterase and nitrites - EKG: not obtained - Imaging: - Interventions: started on methylprednisolone ROS: As noted in HPI MEDICAL HISTORY: No past medical history on file. No past surgical history on file. No family history on file. No current facility-administered medications on file prior to encounter. No current outpatient medications on file prior to encounter. Not on File OBJECTIVE: Objective Temperature: [98.2 F (36.8 C)] 98.2 F (36.8 C) Heart Rate: [79] 79 Respiratory Rate: [16] 16 BP: (109)/(59) 109/59 I/Os: No intake or output data in the 24 hours ending 02/01/24 0652 LABS: CBC: (01/31/2024: 6:14 PM) WBC 4.4 \ Hgb 12.2 / Plt 172 / Hct 37.2 \ BMP: (01/31/2024: 6:14 PM) 142 106 14 Gluc 78 4.3 27 0.69 Mg PO4 Ca N/A N/A 9.9 (1.6-2.8) (2.5-4.8) (8.4-10) PHYSICAL EXAM: General: NAD. HEENT: EOMI with some reported pain of right eye. Conjunctiva clear. No lymphadenopathy noted. Heart: RRR. No murmurs or rub. Lungs: CTAB. Abdomen: Soft. Non-tender. Non-distended. Extremities: No LE edema. Neuro: Sensation and strength intact throughout. Alert and oriented. Visual field testing intact bilaterally, though patient reports more difficultly/blurriness with using right eye only. EOM intact but with some reported pain in right eye. Skin: Warm & dry. Active Meds: enoxaparin 40 mg Daily methylPREDNISolone sodium succinate 1,000 mg Daily IMAGING MRI Head 01/31/2024 IMPRESSION: 1. Normal enhanced and unenhanced MRI of the brain. 2. Asymmetric enhancement of the right intraorbital optic nerve suggestive of optic neuritis. Please review separately dictated MR orbits. MRI Orbit 01/31/2024 IMPRESSION: 1. Findings suspicious for optic neuritis of the right intraorbital optic nerve. Unremarkable left optic nerve. 2. Please see same day dedicated MRI brain for further characterization. CONSULTS: IP OPHTHALMOLOGY CONSULT IP NEUROLOGY CONSULT ASSESSMENT AND PLAN: SUMMARY: Azeb Hyatt is a 23 year old female admitted on 01/31/2024 with unremarkable PMH who presented with blurry vision and concern for optic neuritis. PROBLEM LIST: # Blurry vision of R eye # Concern for optic neuritis -Seen by Ophthalmology in ED, suspicion for optic neuritis. -MRI Head and Orbit with findings concerning for optic neuritis of R eye. -Patient to undergo workup for MS, autoimmune diseases Plan: -Neurology consult, appreciate recommendations -Per Opthalmology, IV methylprednisolone 1g daily for three days, followed by prednisone taper - Neurology may recommend different regimen. -Follow up TB, MAULIK, HIV, syphilis. -Follow up CSF studies. -Follow up MRI C-Spine, T-Spine, CXR. -Neuro-ophthalmology follow up in 1 month (Optho will reach out to schedule). # UTI - UA with positive leuk esterase and nitrites - Started on Macrobid 100mg BID for five days DVT Prophylaxis: Subcutaneous Enoxaparin Analgesia: Tylenol prn Diet: Regular IVF: None Code Status: Full Code Emergency Contact: PATIENT: Home: Mobile: Not on file. EMERGENCY CONTACT #1: Reginaldo HYATT (Grandparent) home: [phone], work: Dispo: Home when medically ready Outpatient followup: PCP, No primary care provider on file. Plan is preliminary until finalized by the attending physician. See attending note for final plan. Deonte Davenport MD IM/PM&R PGY-1 Associated attestation - Agusto Noonan MD - 02/01/2024 1:02 PM EDT Teaching Physician Note: I saw and evaluated the patient. I personally obtained the pardo and critical portions of the history and physical exam. I reviewed the resident's documentation and discussed the patient with the resident. I agree with the resident's medical decision making as documented in the resident's note. Briefly this is a 23yo female who presents with one week of vision changes along with vague sensory changes to her right trunk. In the ED she was seen by optho with findings concerning for optic neuritis. Started on high dose IV steroids. MRI head and LP were obtained. Neuro on board and following. Feels her visual symptoms may be slightly better this morning. LP labs pending MRI Spine pending MRI Head/Orbits with Optic nerve invovlement Plan - Continue IV 1g steroids every day (2 more doses) - Neuro following appreciate recs - MRI Spine - Follow LP/labs Agusto Noonan MD [facility] Work Phone: 02-01-2024 History and physical note Images from the original note were not included. [facility] Internal Medicine: H&P Note Patient: Azeb Hyatt : 2000 Sex: female Room: [place] [address] Admit Date: 01/31/2024 Today's Date: 02/01/2024 Length of stay: 1 day(s) HISTORY OF PRESENT ILLNESS: CHIEF COMPLAINT: No chief complaint on file. Azeb Hyatt is a 23 year old female admitted on 01/31/2024 with unremarkable PMH who presented with blurry vision and concern for optic neuritis. Patient reports that one week prior to admission, she had new blurry vision in her right eye. Progressed over the following few days with development of color changes ( evans, splotchy ) on 01/26. Reports she is having mild pain with EOM of the right eye. No sx of left eye. Has never had eye problems before. She also reports that about one month ago at the end of December, she noticed bilateral tenderness and possible swelling of her breasts. Associated with numbness/tingling over her right torso/abdomen. Per patient, she was evaluated by OBGYN for the breast swelling, and he had low concern for neoplasm or lymph node. She reports the swelling seems to be better now, but she is not really able to say how long the swelling lasted. She also shares that she has had lymph node swelling in her neck and submandibular region beginning about 8 months ago. Reports it seems to be better now but states she still has some swelling along her bilateral jawline. She was evaluated by Ophthalmology in the ED. Has suspicion for optic neuritis of the right eye given clinical history and imaging. Recommending Neurology consult and IV methylprednisolone 1g daily for 3 days, followed by prednisone taper. Additional imaging and labs pending. ED Course: - VS: T 98.2 HR 79 RR 16 MAP 109/59 SpO2 100% room air - Labs: CBC unremarkable, BMP wnl, HIV neg, syphilis neg, UA + leuk esterase and nitrites - EKG: not obtained - Imaging: - Interventions: started on methylprednisolone ROS: As noted in HPI MEDICAL HISTORY: No past medical history on file. No past surgical history on file. No family history on file. No current facility-administered medications on file prior to encounter. No current outpatient medications on file prior to encounter. Not on File OBJECTIVE: Objective Temperature: [98.2 F (36.8 C)] 98.2 F (36.8 C) Heart Rate: [79] 79 Respiratory Rate: [16] 16 BP: (109)/(59) 109/59 I/Os: No intake or output data in the 24 hours ending 02/01/24 0652 LABS: CBC: (01/31/2024: 6:14 PM) WBC 4.4 \ Hgb 12.2 / Plt 172 / Hct 37.2 \ BMP: (01/31/2024: 6:14 PM) 142 106 14 Gluc 78 4.3 27 0.69 Mg PO4 Ca N/A N/A 9.9 (1.6-2.8) (2.5-4.8) (8.4-10) PHYSICAL EXAM: General: NAD. HEENT: EOMI with some reported pain of right eye. Conjunctiva clear. No lymphadenopathy noted. Heart: RRR. No murmurs or rub. Lungs: CTAB. Abdomen: Soft. Non-tender. Non-distended. Extremities: No LE edema. Neuro: Sensation and strength intact throughout. Alert and oriented. Visual field testing intact bilaterally, though patient reports more difficultly/blurriness with using right eye only. EOM intact but with some reported pain in right eye. Skin: Warm & dry. Active Meds: enoxaparin 40 mg Daily methylPREDNISolone sodium succinate 1,000 mg Daily IMAGING MRI Head 01/31/2024 IMPRESSION: 1. Normal enhanced and unenhanced MRI of the brain. 2. Asymmetric enhancement of the right intraorbital optic nerve suggestive of optic neuritis. Please review separately dictated MR orbits. MRI Orbit 01/31/2024 IMPRESSION: 1. Findings suspicious for optic neuritis of the right intraorbital optic nerve. Unremarkable left optic nerve. 2. Please see same day dedicated MRI brain for further characterization. CONSULTS: IP OPHTHALMOLOGY CONSULT IP NEUROLOGY CONSULT ASSESSMENT AND PLAN: SUMMARY: Azeb Hyatt is a 23 year old female admitted on 01/31/2024 with unremarkable PMH who presented with blurry vision and concern for optic neuritis. PROBLEM LIST: # Blurry vision of R eye # Concern for optic neuritis -Seen by Ophthalmology in ED, suspicion for optic neuritis. -MRI Head and Orbit with findings concerning for optic neuritis of R eye. -Patient to undergo workup for MS, autoimmune diseases Plan: -Neurology consult, appreciate recommendations -Per Opthalmology, IV methylprednisolone 1g daily for three days, followed by prednisone taper - Neurology may recommend different regimen. -Follow up TB, MAULIK, HIV, syphilis. -Follow up CSF studies. -Follow up MRI C-Spine, T-Spine, CXR. -Neuro-ophthalmology follow up in 1 month (Optho will reach out to schedule). # UTI - UA with positive leuk esterase and nitrites - Started on Macrobid 100mg BID for five days DVT Prophylaxis: Subcutaneous Enoxaparin Analgesia: Tylenol prn Diet: Regular IVF: None Code Status: Full Code Emergency Contact: PATIENT: Home: Mobile: Not on file. EMERGENCY CONTACT #1: Reginaldo HYATT (Grandparent) home: [phone], work: Dispo: Home when medically ready Outpatient followup: PCP, No primary care provider on file. Plan is preliminary until finalized by the attending physician. See attending note for final plan. Deonte Davenport MD IM/PM&R PGY-1 Associated attestation - Agusto Noonan MD - 02/01/2024 1:02 PM EDT Teaching Physician Note: I saw and evaluated the patient. I personally obtained the pardo and critical portions of the history and physical exam. I reviewed the resident's documentation and discussed the patient with the resident. I agree with the resident's medical decision making as documented in the resident's note. Briefly this is a 23yo female who presents with one week of vision changes along with vague sensory changes to her right trunk. In the ED she was seen by optho with findings concerning for optic neuritis. Started on high dose IV steroids. MRI head and LP were obtained. Neuro on board and following. Feels her visual symptoms may be slightly better this morning. LP labs pending MRI Spine pending MRI Head/Orbits with Optic nerve invovlement Plan - Continue IV 1g steroids every day (2 more doses) - Neuro following appreciate recs - MRI Spine - Follow LP/labs Agusto Noonan MD documented in this encounter [facility] 01-31-2024 Emergency department Note PROCEDURE NOTE: LUMBAR PUNCTURE Informed consent, after discussion of the risks, benefits, and alternatives to the procedure, was obtained and the consent form was signed by patient . The patient was identified using two patient identifiers: Yes. The H&P along with required diagnostics are available in Epic: Yes The correct procedure was verified: Yes Procedural site identified: Yes Presence of required equipment verified prior to starting procedure: Yes Patient allergies identified or reviewed: Yes Site marking done: Yes A timeout to verify the correct patient, procedure, and site was performed immediately prior to the procedure The patient was positioned lying on side. The landmarks were identified. Anesthesia was obtained with 5 cc of Lidocaine 1%. The area was prepped and draped in the usual sterile fashion. A 20 leonela 3 1/2 in spinal needle was inserted at the L4 - L5 level. Return was clear CSF . The patient tolerated the procedure well. Agusto Hartley DO Associated attestation - Paul Alexander MD - 02/02/2024 9:44 PM EDT I was personally present for the pardo and critical portions of the procedure. Additionally, opening pressure was 18 mmHg Paul Alexander MD Images from the original note were not included. I, Paul Alexander MD, have assumed care of this patient from Dr. Arguello as of 9:46 PM. PENDING/TO DO: MRI INTERVAL PROGRESS: ED Course as of 02/02/242145Jan 31, 2024 193 Received sign out pending MRI and final ophtho recs [MIRIAM] ED Course User Index [MIRIAM] Paul Alexander MD Optho rec'd neuro consult, neuro recd LP and further MRIs. Both rec'd solumedrol which was ordered IMPRESSION AND DISPOSITION Clinical Impression Diagnosis Comment Other optic neuritis [H46.8] Disposition: Admitted to Floor: Resident Medicine Admission Service. Report called to Med res, medicine, 0500 (02/01/24 0501) The patient has received a medical screening examination and within reasonable clinical confidence the patient was stabilized within the capabilities of the emergency department and requires admission / observation. Counseling: Spoke with the patient and discussed today s findings, in addition to providing specific details for the plan of care and expected course. They were given the opportunity to ask questions. Paul Alexander MD Bed: 43 Expected date: Expected time: Means of arrival: Comments: eye HISTORY OF PRESENT ILLNESS 01/31/2024, 4:46 PM. The history is provided by the Patient. Azeb Hyatt is a 23 year old female presenting to the ED for numbness on R chest, visual disturbances. Visual disturbances are described as color loss, blurry vision. Patient expresses concern over swelling in lymph nodes for the past 8 months, tingling and loss of sensation in R chest for past 3 weeks, pain in R eye for 2 weeks and visual disturbances for past 1 week. Has had a series of ER/Urgent care visits without resolution of symptoms. ED visit from 4 days ago received blood work and head CT, both normal. States doctor had ruled out breast cancer from swollen lymph nodes. Was diagnosed with optic neuritis by opthalmology in [place]. 2nd opinion ophthalmology said eye was fine, could get vision to 20/20. Endorses tobacco and marijuana use. Denies possibility of . --- REVIEW OF SYSTEMS ----- Review of Systems Eyes: Positive for visual disturbance. Neurological: Positive for numbness. ------- PAST HISTORY Past Medical History: No past medical history on file. Past Surgical History: No past surgical history on file. Social History: Family History: No family history on file. The patient's home medications have been reviewed. Allergies: Patient has no allergy information on record. ----- PHYSICAL EXAM --------- Vitals Recorded in This Encounter 01/31/2024 1600 BP: 109/59 Pulse: 79 Resp: 16 Temp: 98.2 F (36.8 C) Temp src: Oral SpO2: 100 % Constitutional: Well developed, well nourished. Awake & alert. No distress. Head: Atraumatic. Eyes: PERRL. EOMI. No injected conjunctivae. No scleral icterus. ENT: Mucous membranes are moist. Neck: Normal movement. Supple. Cardiovascular: Well perfused. Pulmonary/Chest: No evidence of respiratory distress. Speaks in full sentences. Numbness of R chest wall. Musculoskeletal: Moves all four extremities. No deformities. Skin: Skin is warm and dry. No rashes on exposed skin. Neurological: Alert, awake, and appropriate. Normal speech. No acute focal neurological deficits are appreciated. Psychiatric: Good eye contact. Appropriate in content/context. Normal affect. -- LABORATORY RESULTS --- No results found for this or any previous visit. ------ PROCEDURE ED COURSE HIPAA: Verbal permission granted from patient to discuss case, including protected health information, in front of family / friends in room at the time of the evaluation. ED Medications: Medications - No data to display Smoking cessation counseling of less than 3 minutes was provided to the patient including Advising the patient on the health risks of smoking. The patient was not interested in learning about the health risks of smoking. 4:58 PM Consulted Ophthalmology. Will come to ED to evaluate patient. ED Course as of 02/01/242107Jan 31, [id number] Received sign out pending MRI and final ophtho recs [MIRIAM] ED Course User Index [MIRIAM] Paul Alexander MD - MEDICAL DECISION MAKING Vital Signs: Reviewed the patient s vital signs. Nursing Notes: Reviewed and utilized the nursing notes. Fabrication And Assembly Supervisor: not needed - patient preferred language is Cameroonian. External Medical Records: The patient's available past medical records and past encounters were reviewed. Summary of pertinent elements include: Optic neuritis. Seen on 01/27 by ophthalmology. Laboratory Studies: Ordered and independently reviewed the laboratory tests. Pertinent results include: CBC and BMP normal Radiology Studies: Ordered and independently reviewed the radiology images. I independently reviewed and interpreted the mri. My interpretation is possible rt eye optic neuritis . Consultations: Time: 4:58 PM. Indication for consultation: Visual disturbances Spoke with Ophthalmology. Discussed case. The consult will come to the ED to evaluate this patient.. Medical Decision Making: pt with optic neuritis will admit for further tx and steroids. Review of External (Non- ED) Notes: notes from [facility] shows normal eye exam Management Decisions: Diagnoses considered include cva, brain tumor, optic neuritis, MS Discussion with External Provider: Tire Room Supervisor from [facility] service recommends admit Independent Test Interpretation: see above ----- SCRIBE ATTESTATION ---- 01/31/2024, 4:59 PM. This note is prepared by Connor Cabrera acting as Scribe for Pricila Matute All medical record entries made by the Scribe were at my direction and personally dictated by me. I have reviewed the record and confirm that the note above accurately reflects all work, treatment, procedures, and medical decision making performed by me. Pricila Matute. Physician Triage Note The patient was seen by me in intake for a brief history and physical obtained for triage reasons only. My exam is intended to be an initial medical screening exam for disposition within our ED with limited initial orders placed, when appropriate, to expedite care by the treating team. Patient complains of blurry vision in right eye, pain in right eye when looking to the left, numbness / tingling in right chest wall./. Had CT in other ED and ophthalmology exam. Focused Exam: CN grossly intact. The patient is deemed appropriate for [facility]. Initial orders: None , ? MS initial presentation.. The remainder of testing, treatment, and diagnostic plan will be assumed by the next clinician who will be seeing the patient as a primary patient, creating a plan and impression, and final disposition of the patient from the ED. I had a limited role in this case. PLEASE SEE OTHER ATTENDING/RESIDENT/PHYSICIAN/SUPERINTENDENT WATER AND SEWER SYSTEMS /PA NOTATION Venancio Aranda MD documented in this encounter [facility] 01-31-2024 Physician Emergency department Note PROCEDURE NOTE: LUMBAR PUNCTURE Informed consent, after discussion of the risks, benefits, and alternatives to the procedure, was obtained and the consent form was signed by patient . The patient was identified using two patient identifiers: Yes. The H&P along with required diagnostics are available in Epic: Yes The correct procedure was verified: Yes Procedural site identified: Yes Presence of required equipment verified prior to starting procedure: Yes Patient allergies identified or reviewed: Yes Site marking done: Yes A timeout to verify the correct patient, procedure, and site was performed immediately prior to the procedure The patient was positioned lying on side. The landmarks were identified. Anesthesia was obtained with 5 cc of Lidocaine 1%. The area was prepped and draped in the usual sterile fashion. A 20 leonela 3 1/2 in spinal needle was inserted at the L4 - L5 level. Return was clear CSF . The patient tolerated the procedure well. Agusto Hartley DO Associated attestation - Paul Alexander MD - 02/02/2024 9:44 PM EDT I was personally present for the pardo and critical portions of the procedure. Additionally, opening pressure was 18 mmHg Paul Alexander MD [facility] Work Phone: 01-31-2024 Physician Emergency department Note Images from the original note were not included. I, Paul Alexander MD, have assumed care of this patient from Dr. Arguello as of 9:46 PM. PENDING/TO DO: MRI INTERVAL PROGRESS: ED Course as of 02/02/242145Jan 31, [id number] Received sign out pending MRI and final ophtho recs [MIRIAM] ED Course User Index [MIRIAM] Paul Alexander MD Optho rec'd neuro consult, neuro recd LP and further MRIs. Both rec'd solumedrol which was ordered IMPRESSION AND DISPOSITION Clinical Impression Diagnosis Comment Other optic neuritis [H46.8] Disposition: Admitted to Floor: Resident Medicine Admission Service. Report called to Med res, medicine, 0500 (02/01/24 0501) The patient has received a medical screening examination and within reasonable clinical confidence the patient was stabilized within the capabilities of the emergency department and requires admission / observation. Counseling: Spoke with the patient and discussed today s findings, in addition to providing specific details for the plan of care and expected course. They were given the opportunity to ask questions. Paul Alexander MD [facility] Work Phone: 01-31-2024 Consult note Associated Order (s): IP OPHTHALMOLOGY CONSULT Ophthalmology Consult Note CC: Blurred vision HPI: Azeb Hyatt is a 23 year old female presenting with blurred vision OD. Saturday (1wk ago) patient noticed new blurred vision in the right eye. On Saturday (4d ago) woke up with noticeable color desaturation; everything looks evans. No current pain. Also since late December ~3 weeks ago has had right upper eyelid/periorbital pain when moving eye. Patient also describes new lymph node tenderness/swelling 8 months ago in the neck and submandibular region. ~1 month ago had bilateral axillary lymph node swelling/tenderness and an episode of tingling and numbness of the right side of her chest wall. Otherwise denies discharge, tearing, irritation, redness, FBS, floaters, flashes, pain, sudden vision loss, photophobia or diplopia. PMH: (-) HTN, DM, migraine, blindness, glaucoma, cataract, AMD, ocular cancer, eye trauma, amblyopia, strabismus, CAD, stroke, cancer. PSH: (-) eye surgeries, eye lasers Eye meds: None Family History: (-) migraine, blindness, glaucoma, AMD, ocular cancer, DM, HTN, CAD, stroke, cancer. Social History: N/a EXAM: Visual acuity at distance without correction OD: 20/20-2 slow OS: 20/20 IOP with [place]open OD: 17 significant squeezing, low reliability OS: 23 significant squeezing, low reliability Pupils: dark->light: OD: 3->2 2+ APD OS: 3->2 no APD EOM: OD: full OS: full Visual ochoa: OD: full to confrontation OS: full to confrontation Color plates: OD: 12/18 OS: 04/20 Slit lamp examination: External Exam: OD: WNL OS: WNL L/L/L: OD: WNL OS: WNL Conj/Sclera: OD: no injection OS: no injection Cornea: OD: no epithelial defect, clear stroma, normal tear film, normal endothelium OS: no epithelial defect, clear stroma, normal tear film, normal endothelium Anterior chamber: OD: deep and quiet, no cell OS: deep and quiet, no cell Iris: OD: normal stroma OS: normal stroma Lens: OD: clear OS: clear Dilated OU with tropicamide 1% and phenylephrine 2.5% Vitreous OD: Clear, no heme or pigment OS: Clear, no heme or pigment Disc OD: Colcord, Sharp, perfused, and c/d 0.2, no edema appreciated, no disc heme OS: Colcord, Sharp, perfused, and c/d 0.2, no edema appreciated, no disc heme Vessels OD: Normal course and caliber, no sheathing, no nicking, AV ratio 2:3 OS: Normal course and caliber, no sheathing, no nicking, AV ratio 2:3 Macula OD: Flat, no heme, no commotio, no holes OS: Flat, no heme, no commotio, no holes Periphery OD: Attached, no tears OS: Attached, no tears Imaging: MR head/orbit wwo: ordered, pending HVF OU outside center 01/28/24 (interpretation of outside visual field without raw data is unreliable in guiding clinical decision making): Right Eye Reliability was good. Progression has no prior data. Foveal threshold was reduced. Findings include superior paracentral defect, inferior paracentral defect, paracentral scotoma. Left Eye Reliability was good. Progression has no prior data. Foveal threshold was normal. Assessment: 1. Suspicion for optic neuritis, right eye - Patient describing blurred vision and color desaturation, right eye - ?pain with EOMs - Exam with evidence of optic neuropathy such as APD and color desaturation. No apparent altitudinal visual field defect such as seen in NAION. Searching/difficult to obtain visual acuity in the right eye may or may not represent sporadic field loss. - No apparent optic disc edema on posterior exam at this time - ED HIV and syphilis labs pending Recommendations: - High suspicion for optic neuritis - Recommend neurology consult - Recommend starting IV methylprednisolone 1g daily x3d, followed by prednisone taper, but defer to neurology for optimal treatment - Labs: obtain TB and MAULIK. HIV and syphilis pending. Follow up: - neuro-ophthalmology 1 month (ophthalmology will reach out to schedule) - if visual ochoa desired, may be able to arrange a time in clinic next week for patient to obtain visual ochoa Heber Benjamin MD Ophthalmology Resident Please page [phone] with additional questions/concerns Patient was discussed with Dr. Dunham, senior resident contact lens edge buffer. Commonly used ophthalmology abbreviations: AC: Anterior chamber; ACIOL: Anterior chamber intraocular lens; APD, RAPD: (Relative) Afferent pupillary defect; ARMD, AMD: Age-related macular degeneration; ASC: Anterior subcapsular cataract; BRAO/BRVO: Branch retinal artery/vein occlusion; BCL: bandage contact lens; cc: With correction; CDR: Cup disk ratio; CE/IOL: Cataract extraction with intraocular lens implant; CF: Counting fingers; CL, CTL: Contact lens; CME: Cystoid macular edema; CNV, CNVM: Choroidal neovascularization; CRAO/CRVO: Central retinal artery/vein occlusion; CRS: Chorioretinal scar; CR, CRX: Cycloplegic refraction; NICOLE: Dry eye syndrome; DME: Diabetic macular edema; DR: Diabetic retinopathy; ERM: Epiretinal membrane; ET: esotropia; GDI: Glaucoma drainage implant; HM: Hand motions; HVF: Jacobsen visual field; IOL: Intraocular lens; IOP: Intraocular pressure; IRF: Intra-retinal fluid; IRH: Intra-retinal hemorrhage; K: Cornea or Keratometry; KP; Keratic precipitates; LP: Light perception; LPI: Laser peripheral iridotomy; MA: Microaneurysm; MGD: Meibomian gland dysfunction; MH: Macular hole; MP: Membrane peeling or macular pucker; MR, MRX: Manifest refraction; NAION: Non-arteritic ischemic optic neuropathy; NLP: No light perception; NPDR: Nonproliferative diabetic retinopathy; NVA/NVD/NVE: Neovascularization of the angle/disc/elsewhere; NVG: Neovascular glaucoma; NVI: Neovascularization of iris (rubeosis iridis); OCT: Optical coherence tomography; OD: Oculus mellisa (right eye); OS: Oculus sinister (left eye); OU: Oculus uterque (both eyes); PAS: Peripheral anterior synechiae; PC: Posterior chamber; PCIOL: Posterior chamber intraocular lens; PCO: Posterior capsule opacity; PDR: Proliferative diabetic retinopathy; PEE; Punctate epithelial erosion; PERRL(A): Pupils equal, round, reactive to light and accommodation; PH: Pinhole; PI: Peripheral iridotomy; PK, PKP: Penetrating keratoplasty; POAG: Primary open-angle glaucoma; PPA: Peripapillary atrophy; PPV: Pars plana vitrectomy; PRP: Panretinal photocoagulation; PS: Posterior synechiae; PSC: Posterior subcapsular cataract; PVD: Posterior vitreous detachment; PVR: Proliferative vitreoretinopathy; (R)RD: (rhegmatogenous) Retinal detachment; SB: Scleral buckle; sc: Without correction; SLT: Selective laser trabeculoplasty; SO, SiO: Silicone oil; SPK: Superficial punctate keratopathy; SRF/SRH: Subretinal fluid/hemorrhage; TBUT: Tear breakup time; VA: Visual acuity; VF: Visual field; VH: Vitreous hemorrhage; XT: Exotropia Associated attestation - Israel Bennett MD - 02/03/2024 1:28 PM EDT I did not personally examine this patient. I have, where applicable, reviewed relevant laboratory studies and imaging personally. I have reviewed the resident's note and agree with the proposed management. Israel Bennett MD Cornea, External Disease, and Refractive Surgery [facility] Ophthalmology [facility] Work Phone: 01-31-2024 Emergency department Note Bed: 43 Expected date: Expected time: Means of arrival: Comments: eye [facility] 01-31-2024 Physician Emergency department Note HISTORY OF PRESENT ILLNESS 01/31/2024, 4:46 PM. The history is provided by the Patient. Azeb Hyatt is a 23 year old female presenting to the ED for numbness on R chest, visual disturbances. Visual disturbances are described as color loss, blurry vision. Patient expresses concern over swelling in lymph nodes for the past 8 months, tingling and loss of sensation in R chest for past 3 weeks, pain in R eye for 2 weeks and visual disturbances for past 1 week. Has had a series of ER/Urgent care visits without resolution of symptoms. ED visit from 4 days ago received blood work and head CT, both normal. States doctor had ruled out breast cancer from swollen lymph nodes. Was diagnosed with optic neuritis by opthalmology in [place]. 2nd opinion ophthalmology said eye was fine, could get vision to 20/20. Endorses tobacco and marijuana use. Denies possibility of . --- REVIEW OF SYSTEMS ----- Review of Systems Eyes: Positive for visual disturbance. Neurological: Positive for numbness. ------- PAST HISTORY Past Medical History: No past medical history on file. Past Surgical History: No past surgical history on file. Social History: Family History: No family history on file. The patient's home medications have been reviewed. Allergies: Patient has no allergy information on record. ----- PHYSICAL EXAM --------- Vitals Recorded in This Encounter 01/31/2024 1600 BP: 109/59 Pulse: 79 Resp: 16 Temp: 98.2 F (36.8 C) Temp src: Oral SpO2: 100 % Constitutional: Well developed, well nourished. Awake & alert. No distress. Head: Atraumatic. Eyes: PERRL. EOMI. No injected conjunctivae. No scleral icterus. ENT: Mucous membranes are moist. Neck: Normal movement. Supple. Cardiovascular: Well perfused. Pulmonary/Chest: No evidence of respiratory distress. Speaks in full sentences. Numbness of R chest wall. Musculoskeletal: Moves all four extremities. No deformities. Skin: Skin is warm and dry. No rashes on exposed skin. Neurological: Alert, awake, and appropriate. Normal speech. No acute focal neurological deficits are appreciated. Psychiatric: Good eye contact. Appropriate in content/context. Normal affect. -- LABORATORY RESULTS --- No results found for this or any previous visit. ------ PROCEDURE ED COURSE HIPAA: Verbal permission granted from patient to discuss case, including protected health information, in front of family / friends in room at the time of the evaluation. ED Medications: Medications - No data to display Smoking cessation counseling of less than 3 minutes was provided to the patient including Advising the patient on the health risks of smoking. The patient was not interested in learning about the health risks of smoking. 4:58 PM Consulted Ophthalmology. Will come to ED to evaluate patient. ED Course as of 02/01/242107Jan 31, 20245 Received sign out pending MRI and final ophtho recs [MIRIAM] ED Course User Index [MIRIAM] Paul Alexander MD - MEDICAL DECISION MAKING Vital Signs: Reviewed the patient s vital signs. Nursing Notes: Reviewed and utilized the nursing notes. Fabrication And Assembly Supervisor: not needed - patient preferred language is Cameroonian. External Medical Records: The patient's available past medical records and past encounters were reviewed. Summary of pertinent elements include: Optic neuritis. Seen on 01/27 by ophthalmology. Laboratory Studies: Ordered and independently reviewed the laboratory tests. Pertinent results include: CBC and BMP normal Radiology Studies: Ordered and independently reviewed the radiology images. I independently reviewed and interpreted the mri. My interpretation is possible rt eye optic neuritis . Consultations: Time: 4:58 PM. Indication for consultation: Visual disturbances Spoke with Ophthalmology. Discussed case. The consult will come to the ED to evaluate this patient.. Medical Decision Making: pt with optic neuritis will admit for further tx and steroids. Review of External (Non- ED) Notes: notes from [facility] shows normal eye exam Management Decisions: Diagnoses considered include cva, brain tumor, optic neuritis, MS Discussion with External Provider: Tire Room Supervisor from [facility] service recommends admit Independent Test Interpretation: see above ----- SCRIBE ATTESTATION ---- 01/31/2024, 4:59 PM. This note is prepared by Connor Cabrera acting as Scribe for Pricila Matute All medical record entries made by the Scribe were at my direction and personally dictated by me. I have reviewed the record and confirm that the note above accurately reflects all work, treatment, procedures, and medical decision making performed by me. Pricila Matute. [facility] Work Phone: 01-31-2024 Note Physician Triage Not e The patient was seen by me in intake for a brief history and physical obtained for triage reasons only. My exam is intended to be an initial medical screening exam for disposition within our ED with limited initial orders placed, when appropriate, to expedite care by the treating team. Patient complains of blurry vision in right eye, pain in right eye when looking to the left, numbness / tingling in right chest wall./. Had CT in other ED and ophthalmology exam. Focused Exam: CN grossly intact. The patient is deemed appropriate for [facility]. Initial orders: None , ? MS initial presentation.. The remainder of testing, treatment, and diagnostic plan will be assumed by the next clinician who will be seeing the patient as a primary patient, creating a plan and impression, and final disposition of the patient from the ED. I had a limited role in this case. PLEASE SEE OTHER ATTENDING/RESIDENT/PHYSICIAN/SUPERINTENDENT WATER AND SEWER SYSTEMS /PA NOTATION Venancio Aranda MD [facility] 01-31-2024 Physician Emergency department Note Physician Triage Note The patient was seen by me in intake for a brief history and physical obtained for triage reasons only. My exam is intended to be an initial medical screening exam for disposition within our ED with limited initial orders placed, when appropriate, to expedite care by the treating team. Patient complains of blurry vision in right eye, pain in right eye when looking to the left, numbness / tingling in right chest wall./. Had CT in other ED and ophthalmology exam. Focused Exam: CN grossly intact. The patient is deemed appropriate for [facility]. Initial orders: None , ? MS initial presentation.. The remainder of testing, treatment, and diagnostic plan will be assumed by the next clinician who will be seeing the patient as a primary patient, creating a plan and impression, and final disposition of the patient from the ED. I had a limited role in this case. PLEASE SEE OTHER ATTENDING/RESIDENT/PHYSICIAN/SUPERINTENDENT WATER AND SEWER SYSTEMS /PA NOTATION Venancio Aranda MD [facility] Work Phone: 01-30-2024 Note Right Eye Reliability was good. Progression has no prior data. Foveal threshold was reduced. Findings include superior paracentral defect, inferior paracentral defect, paracentral scotoma. Left Eye Reliability was good. Progression has no prior data. Foveal threshold was normal. Notes Possible vertical cut not consistent with ON [facility] 01-29-2024 History of Present illness Narrative Reason for Appointment: Patient ID: Azeb Hyatt is a 23 y.o. female who presents for ER Follow-up Patient presents today for Acute Visit. MEDICATIONS No current outpatient medications ALLERGIES No Known Allergies PROBLEMS Active Ambulatory Problems Diagnosis Date Noted No Active Ambulatory Problems Resolved Ambulatory Problems Diagnosis Date Noted No Resolved Ambulatory Problems Past Medical History: Diagnosis Date Vision disturbance HISTORY PAST MEDICAL HISTORY SOCIAL HISTORY Past Medical History: Diagnosis Date Vision disturbance Social History Tobacco Use Smoking status: Every Day Types: Cigarettes Smokeless tobacco: Not on file Substance Use Topics Alcohol use: Not on file Drug use: Not on file FAMILY HISTORY No family history on file. SURGICAL HISTORY History reviewed. No pertinent surgical history. REVIEW OF SYSTEMS Review of Systems: Review of Systems Constitutional: Negative. HENT: Negative. Eyes: Positive for visual disturbance. Breasts: Numbness and tingling on right side of chest lymph nodes swollen on right side of breast Respiratory: Negative. Cardiovascular: Negative. Gastrointestinal: Negative. Genitourinary: Negative. Musculoskeletal: Negative. Skin: Negative. Neurological: Negative. All other systems reviewed and are negative. Hematological: Negative. Endocrine: Negative. Allergic/Immunologic: Negative. OBJECTIVE Objective: Physical Exam Constitutional: Appearance: Normal appearance. She is well-developed. Genitourinary: Breasts: Breasts are soft. Right: Swelling present. Left: Normal. Cardiovascular: Rate and Rhythm: Normal rate and regular rhythm. Pulmonary: Effort: Pulmonary effort is normal. Breath sounds: Normal breath sounds. Abdominal: General: Bowel sounds are normal. There is no distension. Palpations: Abdomen is soft. Tenderness: There is no abdominal tenderness. There is no guarding or rebound. Musculoskeletal: General: No swelling. Normal range of motion. Right lower leg: No edema. Left lower leg: No edema. Neurological: Mental Status: She is alert and oriented to person, place, and time. Skin: General: Skin is warm and dry. Psychiatric: Mood and Affect: Mood normal. Behavior: Behavior normal. Vitals and nursing note reviewed. Exam conducted with a optoelectronic technician present. Vitals: There is no height or weight on file to calculate BMI. BP: 104/68 No LMP recorded. ASSESSMENT & PLAN ICD-10-CM 1. Swelling of lymph nodes R59.9 2. Follow-up exam Z09 Pt was seen in the ER on Saturday01/27/24, with swollen lymph nodes in neck and right side of breast with vision loss on right side. Pt ct scan negative. Pt was given mammogram and breast ultrasound order. Breast exam performed, no lumps or swollen lymph nodes noted. Pt saw ophthalmology in the [facility] - 02/03/24. Second opinion with Ariana Adrian. Pt to return for annual unless needed sooner. Documented by Lauren Paulson LPN on behalf of: Thad Meyer DO documented in this encounter [facility] 01-28-2024 History of Present illness Narrative Assessment/Plan work up for optic neuritis Had mri in er yesterday--normal documented in this encounter [facility] 01-08-2024 Hospital Discharge instructions Additional Instructions Take the prednisone as prescribed until completed May take the muscle relaxer cyclobenzaprine 3 times a day for this to symptoms this might make you drowsy for the first time you take it take it when you are at home when you can rest May apply 1-2 lidocaine patches over sore area on the back near your shoulder blade Follow-up with your family doctor Return to the ER for worsening numbness specially if the right arm becomes weak if high fever vomiting or any other concerns [facility] Work Phone: 04-05-2023 Evaluation note Encounter Date Diagnosis Assessment Notes Mar, Gingivitis (ICD-10 - K05.10) Gingivitis home care material was printed Drink plenty fluids, get plenty of rest. Take the amoxicillin as prescribed until gone. Rinse your mouth with warm salt water frequently. Take Tylenol alternately with ibuprofen for pain. Follow-up with your dentist as soon as possible. [employer] Other Evaluation noteNo assessment information available [facility] Work Phone: Evaluation note* Diagnosis Demyelinating disease (HCC)- Primary Demyelinating disease of central nervous system, unspecified Other optic neuritis Screening for STD (sexually transmitted disease) [Z11.3] Screening examination for venereal disease Demyelinating disease (HCC) Demyelinating disease of central nervous system, unspecified Other optic neuritis Screening for STD (sexually transmitted disease) Screening examination for venereal disease [facility] Other optic neuritis- Primary [facility] Diagnosis Optic neuritis, right- Primary Optic neuritis, unspecified [facility]* Diagnosis Multiple sclerosis (HCC)- Primary Multiple sclerosis Chronic right shoulder pain Pain in joint, shoulder region Paresthesias Disturbance of skin sensation History of eating disorder Personal history of other mental disorder Dysphagia, unspecified type Anxiety about health Body mass index (BMI) 22.0-22.9, adult [facility] Diagnosis Multiple sclerosis (HCC)- Primary Multiple sclerosis Chronic right shoulder pain Pain in joint, shoulder region Paresthesias Disturbance of skin sensation History of eating disorder Personal history of other mental disorder Dysphagia, unspecified type Anxiety about health Body mass index (BMI) 22.0-22.9, adult [facility] Diagnosis Multiple sclerosis (HCC)- Primary Multiple sclerosis Chronic right shoulder pain Pain in joint, shoulder region Paresthesias Disturbance of skin sensation History of eating disorder Personal history of other mental disorder Dysphagia, unspecified type Anxiety about health Body mass index (BMI) 22.0-22.9, adult [facility]* Diagnosis Multiple sclerosis (HCC)- Primary Multiple sclerosis [facility]* Diagnosis Swelling of lymph nodes Enlargement of lymph nodes Follow-up exam Unspecified follow-up examination [facility]* Diagnosis Optic neuritis- Primary Unspecified optic neuritis [facility]* Diagnosis ENCOUNTER OPENED IN ERROR- Primary [facility] - Reported* Type Description Date Medical History possible overactive thyroid Medical History possible PCOS, unable to f/u bec ause she lost her insurance [employer] Other Summary Purpose Family History No Family History Records Found Relationship Condition Age at Onset Recorded Date/T [place] Not Specified No pertinent family history Unknown Advance Directives No Advanced Directives Records Found Advance Directive Response Recorded Date/ Time Advance Directives No July 7:33pm Date Activated Date Inactivated Comments 02/01/2024 6:55 AM Question Answer Comments Documentation of decision pr ocess for this code status: Discussed with patient or surrogate. This is the code status chosen by the patient/surrogate. Date Activated Date Inactivated Comments 02/01/2024 5:30 AM 02/01/2024 6:55 AM Question Answer Comments Documentation of decision pr ocess for this code status: Patient and surrogate unable or unavailable to discuss. There is no previous documentation of code status. Defaulting to Full Code Date Activated Date Inactivated Comments 02/01/2024 6:55 AM 02/03/2024 6:52 PM Question Answer Comments Documentation of decision pr ocess for this code status: Discussed with patient or surrogate. This is the code status chosen by the patient/surrogate. Date Activated Date Inactivated Comments 02/01/2024 5:30 AM 02/01/2024 6:55 AM Question Answer Comments Documentation of decision pr ocess for this code status: Patient and surrogate unable or unavailable to discuss. There is no previous documentation of code status. Defaulting to Full Code Date Activated Date Inactivated Comments 02/01/2024 6:55 AM 02/03/2024 6:52 PM Chief Complaint and Reason for Visit Chief Complaint loss of sensation un ronald RT arm Reason for Referral Specialty Diagnoses / Procedures Referred By Forrest morrison Referred To Contact Neurology Diagnoses Demyelinating disease (HCC) Agusto Noonan MD [facility] [place] [address] [facility] [place] [address] Referral ID Status Reason Start Date Expiration Date V isits Requested Visits Authorized [id number] Authorized 02/03/2024 02/02/2025 3 3 Scheduling Instructions Please call the Neurology Clinic at to schedule an appointment if one was not made for you today. Question Answer Patient to be evaluated for: Multiple Sclerosis, Demyelinating Disease Additional Source Comments INFORMATION SOURCE (unrecogn ized section and content) DATE CREATED AUTHOR 12/31/2019 [facility] DATE CREATED AUTHOR AUTHOR'S ORGANIZ ATION 01/24/2024 [facility] DATE CREATED AUTHOR AUTHOR'S ORGANIZ ATION 01/29/2024 [facility] EP[facility] DATE CREATED AUTHOR AUTHOR'S ORGANIZ ATION 06/21/2024 [facility] DATE CREATED AUTHOR AUTHOR'S ORGANIZ ATION 07/23/2024 [facility] [facility] REASON FOR VISIT (unrecogniz ed section and content) Specialty Diagnoses / Procedures Referred By Forrest morrison Referred To Contact Emergency Medicine Diagnoses Other optic neuritis Procedures NA [facility] [employer] [facility] [address] [place], [place] [address] [address] Phone: [phone] [facility] [employer] [facility] [place] [address] Phone: [phone] Referral ID Status Reason Start Date Expiration Date Visits Re quested Visits Authorized [id number] 3 3 Reason Comments Optic Neuritis Reason Onset Date Comments APPOINTMENT SCHEDULING 03/23/2024 Reason Comments New patient, to establish relationship N ew patient, MSWalk time: 8.77 Specialty Diagnoses / Procedures Referred By Forrest morrison Referred To Contact Neurology Diagnoses Demyelinating disease (HCC) Agusto Noonan MD [address] [place] [address] Phone: tel: fax: [facility] [address] [place] [address] Phone: tel: Referral ID Status Reason Start Date Expiration Date V isits Requested Visits Authorized [id number] Authorized 02/03/2024 02/02/2025 3 3 Reason Comments ER Follow-up Reason Comments Eye Pain Reason Onset Date Comments to establish with a PCP Encounter opened in error 05/28/2024 Care Teams (unrecognized sec tion and content) Team Status: Active Member Role Status Dates PHYSICIAN NO FAMILY Primary Care Provider Active Team Status: Inactive Member Role Status Dates PHYSICIAN NO FAMILY Primary Care Provider Active Start: January 08, 2024 End: January 08, 2024 Gregoria Irving [facility] Emergency Provider Active Start: January 08, 2024 End: January 08, 2024 Power Lineman Technician Relationship Specialty Start Date End Date Prem Blackburn MD [address] [place] [address] [place] [address] Resident Ophthalmology 04/11/24 Power Lineman Technician Relationship Specialty Start Date End Date Prem Blackburn MD [address] [place] [address] [place] [address] Resident Ophthalmology 04/11/24 Power Lineman Technician Relationship Specialty Start Date End Date Prem Blackburn MD [address] [place] [address] [place] [address] Resident Ophthalmology 04/11/24 Power Lineman Technician Relationship Specialty Start Date End Date Prem Blackburn MD [address] [place] [address] [place] [address] Resident Ophthalmology 04/11/24 Power Lineman Technician Relationship Specialty Start Date End Date Prem Blackburn MD [address] [place] [address] [place] [address] Resident Ophthalmology 04/11/24 Power Lineman Technician Relationship Specialty Start Date End Date Prem Blackburn MD [address] [place] [address] [place] [address] Resident Ophthalmology 04/11/24 Ligia Bedolla MD [address] [place] [address] [place] [address] Physician Neurology 05/16/[facility] [address] [place] [address] [place] [address] Pharmacist Pharmacology and Toxicology 05/21/24 Syl Santiago [facility] Medication Auto Body Straightener Pharmacology and Toxicology 05/21/24 Radha Dolan, [facility] [employer] Pharmacology and Toxicology 05/21/24 Power Lineman Technician Relationship Specialty Start Date End Date Prem Blackburn MD [address] [place] [address] [place] [address] Resident Ophthalmology 04/11/24 Ligia Bedolla MD [address] [place] [id number] Physician Neurology 05/16/24 [facility] [address] [place] [address] [place] [address] Pharmacist Pharmacology and Toxicology 05/21/24 Syl Santiago [facility] Medication Auto Body Straightener Pharmacology and Toxicology 05/21/24 Radha Dolan, [facility] [employer] Pharmacology and Toxicology 05/21/24 Goals (unrecognized section and content) Goals may be documented in a n alternate section Scheduled Active and Recently Administ ered Medications (unrecognized section and content) Medication Order 02/01/2024 02/02/2024 02/03/2024 enoxaparin (LOVENOX) 40 MG/0.4ML injection 40 mg 40 mg, Subcutaneous, DAILY, First dose on 02/01/24 at 0900, Until Discontinued 0900 (Hold/Not Given - Provider: Luis Felipe Perez RN - Reason: Other) 0900 (Hold/Not Given - Provider: Connie Bocanegra RN - Reason: Patient refused) 0900 (Hold/Not Given - Provider: Whit Pastrana RN - Reason: Patient refused) Gadoterate Meglumine (DOTAREM) 10 MMOL/20ML solution (COMPLETED) 20 mL, Intravenous Push, Once at Radiology exam, 1 dose, Starting on 02/02/24 at 1115, Until 02/02/24 at 1105, Imaging Protocol Orders 1105 (Given - Provider: Dee Yost) lidocaine-epinephrine (XYLOCAINE) 1 %-[id number] injection SOLN (COMPLETED) 10 mL, Injection, ONCE, 1 dose, On 02/01/24 at 0041 0041 (Given by Clinician - Provider: Dayron Alvarez RN) methylPREDNISolone sodium succinate (SOLU-Medrol) 1,000 mg in dextrose 5 % 100 mL ivpb (custom dose) (COMPLETED) 1,000 mg, Intravenous, DAILY, 3 doses, First dose on 02/01/24 at 0300, Last dose on Sat02/03/24 at 0900 0520 (IV New Bag - Provider: Dayron Alvarez RN)0703 (IV Stop - Provider: Erika Cardoza RN) 0916 (IV New Bag - Provider: Connie Bocanegra, GORGE) 0917 (IV New Bag - Provider: Whit Pastrana, GORGE) pantoprazole (PROTONIX) injection 40 mg, Intravenous Push, 2 TIMES DAILY, First dose on 02/03/24 at 1300, Until Discontinued 1253 (Given - Provider: Whit Pastrana, GORGE)2100 (Due) PRN Medication Order 02/01/2024 02/02/2024 02/03/2024 acetaminophen (TYLENOL) tablet 650 mg, Oral, EVERY 4 HOURS PRN, Starting on 02/01/24 at 0655, Until Discontinued, Mild Pain (pain score 1,2,3), Moderate Pain (pain score 4,5,6) melatonin tablet 3 mg, Oral, AT BEDTIME PRN, Starting on 02/01/24 at 0527, Until Discontinued, Sleep FOR RECORDS PERTAINING TO PATIENTS WHO ARE OR HAVE BEEN ENROLLED IN A CHEMICAL DEPENDENCY/SUBSTANCEABUSE PROGRAM, SOME INFORMATION MAY BE OMITTED. This clinical summary was aggregated from multiple sources. Caution should be exercised in using it in the provision of clinical care. This summary normalizes information from multiple sources, and as a consequence, information in this document may materially change the coding, format and clinical context of patient data. In addition, data may be omitted in some cases. CLINICAL DECISIONS SHOULD BE BASED ON THE PRIMARY CLINICAL RECORDS. ice [facility]. provides no warranty or guarantee of the accuracy or completeness of information in this document.
[2024-07-28 12:16] LABS: Eosinophils Absolute Auto 0.2 10^3/uL (0.0-0.7); Hemoglobin 13.1 g/dL (12.0-16.0); Immature Granulocytes Abs Auto 0.01 10^3/uL (0.00-0.03); Immature Granulocytes Pct Auto 0.3 % (0.0-0.5); Lymphocytes Absolute Auto 1.2 10^3/uL (1.2-3.8); Lymphocytes Percent Auto 29.6 % (20.5-60.0); Mean Corpuscular HGB Conc 32.8 g/dL (29.9-35.2); Mean Corpuscular Hemoglobin 28.7 pg (26.7-34.0); Mean Corpuscular Volume 87.5 fL (81.0-99.0); Mean Platelet Volume 11.7 fL (9.5-13.5); Monocytes Absolute Auto 0.4 10^3/uL (0.3-0.8); Monocytes Percent Auto 9.3 % (1.7-12.0); Neutrophils Absolute Auto 2.2 10^3/uL (1.4-6.5); Neutrophils Percent Auto 55.8 % (43.0-75.0); Platelet Count 184 10^3/uL (150-450); Red Blood Count 4.57 10^6/uL (4.20-5.40); Red Cell Distribution Width 13.5 % (11.0-15.0)
[2024-07-28 12:28] LABS: Estimated Average Glucose 100 mg/dL; Glycohemoglobin A1C 5.1 % (4.5-6.2)
[2024-07-28 13:10] LABS: Free T4 1.18 ng/dL (0.76-1.46)
[2024-07-28 13:13] LABS: HCG Quantitative <1 mIU/mL
[2024-07-29 04:07] LABS: FSH 5.1 mIU/mL (.); Luteinizing Hormone(LH) 14.6 mIU/mL (.)
== END 2024-07-28 11:34 | disposition home or self-care (01) ==
LOC: LAB 11:35
PROVIDERS: Visit Provider Obstetrics & Gynecology
DX: E28.2 Polycystic ovarian syndrome (principal); Z01.419 Encounter for gynecological examination (general) (routine) without abnormal findings; N93.9 Abnormal uterine and vaginal bleeding, unspecified
CPT/HCPCS: 36415; 82626; 82627; 83001; 83002; 83036; 84439; 84443; 84702; 85025; 88175

== ENCOUNTER 2024-07-28 20:37 | Outpatient (REF) | payer OTHER, SELFPAY ==
--- OUTSIDE RECORDS SUMMARY | 2024-07-28 20:41 | XMS_ITS | CCD ---
Author Organization [facility] Care Team Providers Care Mold Finisher Name Role Phone BOB SHAH Admitting Unavailable BOB SHAH Attending Unavailable REQUEST, NONE LISTED Primary Care Unavailable MAITE LUCAS Consulting Unavailable ALYSSABOB DE JESUS Consulting Unavailable MISC, DOCTOR Admitting Unavailable MISC, DOCTOR Attending Unavailable MISC, DOCTOR Primary Care Unavailable MISC, DOCTOR Consulting Unavailable Samantha Driscoll Unavailable NO FAMILY, PHYSICIAN Primary Care Provider Unava ilable Bullimore, APPLICATION SUPPORT INTERN-BC Gregoria E Emergency Provider Bullimore, Gregoria E Admitting Unavailable Bullimore, Gregoria E Attending Unavailable NO FAMILY, PHYSICIAN Primary Care Unavailable NO FAMILY, PHYSICIAN Primary Care Unavailable Maximilian Garner Admitting Unavailable Maximilian Garner Attending Unavailable PHILOMENA STEELE Attending Unavailable THAD MEYER Attending Unavailable Unavailable Primary Care Provider Unavailabl belkis Blackburn MD, Prem Unavailable [phone] Unavailable Primary Care Provider UnavailLigia Lawson MD Unavailable [facility] Syl Santiago CPhT Unavailable UnavailRadha Martinez CPhT [...] source) Latex Drug allergy (disorder) 12-08-2019 [facility] Repository Medications Current Medications Medication Drug Class(es) [...] painful area for up to 12 hrs [place] (No Known Home Meds) (1 source) Start: 01-08-2024 [place] (No Known Home Meds) Active January 08, [...] Interpretation Reference Range Facility Progress Noteson 07-22-2024 Mechanic And Welder Authentication Interface Message Text SPECIALTY PHARMACY - Appeal Submitted- PHARMACY BENEFIT Medication and dosing: Ocrevus 300mg/10mL: 300 mg once on day 1, followed by 300 mg once 2 weeks later; subsequent doses of 600 mg are administered once every 6 months Insurance: ANNETTA Appeal submitted on date: 07/22/24 Method submitted: FAX #: [phone] Insurance has up to 3 calendar days to make a decision on the appeal. Pharmacy will addend this encounter with response from plan. Thank you, Syl Santiago, [facility] [phone] option 3 [facility] 07-21-2024 Mechanic And Welder Authentication Interface Message Text SPECIALTY PHARMACY - [...] Thank you, Syl Santiago CPhT Normal [facility] Progress Noteson 07-17-2024 Mechanic And Welder Authentication Interface Message Text SPECIALTY PHARMACY - Prior Auth Submitted- PHARMACY BENEFIT Medication and dosing: Ocrevus 300mg/10mL: 300 mg once on day 1, followed by 300 mg once 2 weeks later; subsequent doses of 600 mg are administered once every 6 months Insurance: ANNETTA PA submitted on date: 07/17/24 [facility] WQ- LATENT: Pardo- [id number] Pharmacy will addend this encounter with response from plan. Thank you, Syl Santiago CPhT Normal [facility] Mechanic And Welder Authentication Interface Message Text SPECIALTY PHARMACY - Appeal Denied- MEDICAL BENEFIT 07/17/24 1452 Specialty Med Prior Auth Info - Primary - Medical Benefit Specialty Med [place] Outcome - Medical Benefit Appeal denied Insurance Payor - Medical Benefit [facility] [place] Denial Reason Drug criteria not met [place] Notes Appeal Denied on 06/24/24 per MMO Rep Selena ([phone]) Specialty Prior Auth Medication Details - Primary - Medical Benefit Medication(s) Ocrevus Thank you, [facility] [phone] option 3 Normal [facility] Progress Noteson 06-17-2024 Mechanic And Welder Authentication Interface Message Text SPECIALTY PHARMACY - Appeal Submitted- MEDICAL BENEFIT Medication and dosing: Ocrevus 300mg/10mL: 300 mg once on day 1, followed by 300 mg once 2 weeks later; subsequent doses of 600 mg are administered once every 6 months Insurance: MMO Appeal submitted on date: 06/17/24 Method submitted: FAX #: [phone] Insurance has up to 30 calendar days to make a decision on the appeal. Pharmacy will addend this encounter with response from plan. Thank you, Syl Santiago CPhT [facility] [phone] option 3 Normal [facility] [employer] [facility] Office Visiton 06-09-2024 Follow-up visit [id number] Azeb Hyatt 2000 F Date Provider Department Center 06/09/2024 Luis[facility] FM Comprehensiv Family History Problem Relation Age of Onset Other Maternal Grandmother Family Status - Relation Status Age at Maternal Grandmother Level of Service:00770 DE OFFICE/OUTPATIENT NEW LOW MDM 30 MINUTES (GE) Reason for Visit and Comments: New Patient [632] - Here to est care. Swollen Glands [[id number]] Normal [facility] Progress Noteson 06-04-2024 Mechanic And Welder Authentication Interface Message Text SPECIALTY PHARMACY - Prior Auth Denied- MEDICAL BENEFIT 06/04/24 1246 Specialty Med Prior Auth Info - Primary - Medical Benefit Specialty Med [place] Outcome - Medical Benefit Denied Insurance Payor - Medical Benefit Medical [place] Denial Reason Required Step Therapy Denial Follow Up Appeal Required Specialty Prior Auth Medication Details - Primary - Medical Benefit Medication(s) Ocrevus 300mg/10mL: 300 mg once on day 1, followed by 300 mg once 2 weeks later; subsequent doses of 600 mg are administered once every 6 months Thank you, Syl Santiago chemical unit operator Normal [facility] [employer] [facility] Progress Noteson 05-28-2024 Mechanic And Welder Authentication Interface Message Text Encounter Opened in error. Please disregard. Pt stated she scheduled this visit to establish with a PCP, was unable to schedule herself online. I will request the [facility] Primary Care RN to assist pt. Neisha Aguero PA-C Normal [facility] [employer] [facility] Mechanic And Welder Authentication Interface Message Text More info faxed to [employer] regarding Ocrevus auth request ([phone]). Thank you, Syl Santiago CPhT Normal The [employer] Progress Noteson 05-26-2024 Mechanic And Welder Authentication Interface Message Text Generic disease modifying therapies would not be appropriate for patient. These include oral tablets that she is unable to swallow (dimethyl fumarate, Teriflunomide, fingolimod) and injections that she is unable to administer (glatiramer, interferons). Additionally, patient has MS with spinal cord involvement, is -syrian (risk factor for more aggressive MS), and [...] 2019 October 08;76(5):536-541. doi: [email or web address]. PMID: [id number]; PMCID: [id number]. Karie Johnson, KirstenD [facility] [phone] option # 3 Normal [facility] [employer] [facility] Progress Noteson 05-25-2024 Mechanic And Welder Authentication Interface Message Text Normal [facility] [employer] [facility] Progress Noteson 05-22-2024 Mechanic And Welder Authentication Interface Message Text SPECIALTY PHARMACY - Prior Auth Submitted- MEDICAL BENEFIT Medication and dosing: Ocrevus 300mg/10mL: 300 mg once on day 1, followed by 300 mg once 2 weeks later; subsequent doses of 600 mg are administered once every 6 months Insurance[place] [facility] [place] submitted on date: 05/22/24 PORTAL SUBMISSION: SITE: [employer] REF#: [id number] Pharmacy will addend this encounter with response from plan. Thank you, Syl Santiago CPhT Normal [facility] [employer] [facility] Patient Instructionson 05-20 Mechanic And Welder Authentication Interface Message Text It was great [...] a new primary care provider please call [phone] Physical therapy for your shoulder: SCHEDULING INSTRUCTIONS: Call [phone] to schedule your Physical Therapy appointment. We offer therapy services at many convenient locations. Please arrive 20 minutes prior to your appointment to register. It is important to bring your insurance cards and a personal identification card to your appointment. If you are unable to keep your appointment, cancel or reschedule by calling [phone] or via [employer]. Normal [facility] [employer] [facility] Progress Noteson 05-20-2024 Mechanic And Welder Authentication Interface Message Text Patient accompanied by family/friend/visitor for visit. Patient granted verbal permission for family/friend/visitor to remain in exam room for visit. Walk time test result: 11.23 Normal [facility] [employer] [facility] AUTOIMMUNE MULTIPLEX PANELon 05-06-2024 OSCAR SCREEN Positive Abnormal Negative [facility] [employer] [facility] Comment on above: Order Comment: ds DN A Reference Range:< or = to 4 IU/mE-Pthghlps1-1 IU/mL-Indeterminate> or = to 10 IU/mL-Positive Performed By: #### a na, vz ####[facility] PATHOLOGY [id number] [place] [address], CENTROMERE ANTIBODY Positive Abnormal Negative [facility] [employer] [facility] Comment on above: Order Comment: ds DN A Reference Range:< or = to 4 IU/zK-Zsyhgjpz1-5 IU/mL-Indeterminate> or = to 10 IU/mL-Positive Performed By: #### a na, vz ####S PATHOLOGY [id number] [place], [place], CENTROMERE ANTIBODY INDEX 1.7 Al High <1.0 [facility] Comment on above: Order Comment: ds DN A Reference Range:< or = to 4 IU/lT-Gqnhzgpj5-0 IU/mL-Indeterminate> or = to 10 IU/mL-Positive Performed By: #### a na, vz ####S PATHOLOGY [id number] [place], [place], CHROMATIN ANTIBODY Negative Normal Negative [facility] Comment on above: Order Comment: ds DN A Reference Range:< or = to 4 IU/wB-Kkdzfegy1-4 IU/mL-Indeterminate> or = to 10 IU/mL-Positive Performed By: #### a na, vz ####S PATHOLOGY [id number] [place], [place], CHROMATIN ANTIBODY INDEX < 0.2 Normal <1.0 [facility] Comment on above: Order Comment: ds DN A Reference Range:< or = to 4 IU/rV-Ptntwatr1-1 IU/mL-Indeterminate> or = to 10 IU/mL-Positive Performed By: #### a na, vz ####[facility] PATHOLOGY [id number] [place] [address], DS DNA Negative Normal Negative The [facility] Comment on above: Order Comment: ds DN A Reference Range:< or = to 4 IU/sE-Obfflrnh7-3 IU/mL-Indeterminate> or = to 10 IU/mL-Positive Performed By: #### a na, vz ####[facility] PATHOLOGY [id number] [place] [address], DS DNA ANTIBODY < 1 Normal See Below [facility] Comment on above: Order Comment: ds DN A Reference Range:< or = to 4 IU/vL-Yzesxjxo5-7 IU/mL-Indeterminate> or = to 10 IU/mL-Positive Performed By: #### a na, vz ####[facility] PATHOLOGY [id number] [place] [address], JO1 ANTIBODY Negative Normal Negative The [facility] Comment on above: Order Comment: ds DN A Reference Range:< or = to 4 IU/hD-Dhcgmzvh0-2 IU/mL-Indeterminate> or = to 10 IU/mL-Positive Performed By: #### a na, vz ####[facility] PATHOLOGY [id number] [place] [address], JO1 ANTIBODY INDEX < 0.2 Normal <1.0 The [facility] Comment on above: Order Comment: ds DN A Reference Range:< or = to 4 IU/aK-Vpfpeilk5-5 IU/mL-Indeterminate> or = to 10 IU/mL-Positive Performed By: #### a na, vz ####[facility] PATHOLOGY [id number] [place] [address], RIBOSOMAL P ANTIBODY Negative Normal Negative The [facility] Comment on above: Order Comment: ds DN A Reference Range:< or = to 4 IU/iP-Qoubkguf5-4 IU/mL-Indeterminate> or = to 10 IU/mL-Positive Performed By: #### a na, vz ####[facility] PATHOLOGY [id number] [place] [address], RIBOSOMAL P ANTIBODY INDEX < 0.2 Normal <1.0 [facility] Comment on above: Order Comment: ds DN A Reference Range:< or = to 4 IU/qC-Ljtbptnq0-9 IU/mL-Indeterminate> or = to 10 IU/mL-Positive Performed By: #### a na, vz ####[facility] PATHOLOGY [id number] [place] [address], LINE OUT WORKER ANTIBODY Negative Normal Negative [facility] Comment on above: Order Comment: ds DN A Reference Range:< or = to 4 IU/bI-Yfdzdfzo2-2 IU/mL-Indeterminate> or = to 10 IU/mL-Positive Performed By: #### a na, vz ####[facility] PATHOLOGY [id number] [place] [address], LINE OUT WORKER ANTIBODY INDEX < 0.2 Normal <1.0 [facility] Comment on above: Order Comment: ds DN A Reference Range:< or = to 4 IU/qJ-Zxasfaqw8-6 IU/mL-Indeterminate> or = to 10 IU/mL-Positive Performed By: #### a na, vz ####[facility] PATHOLOGY [id number] [place] [address], SCLERODERMA-70 ANTIBODY Negative Normal Negative [facility] Comment on above: Order Comment: ds DN A Reference Range:< or = to 4 IU/vP-Texezjwn9-8 IU/mL-Indeterminate> or = to 10 IU/mL-Positive Performed By: #### a na, vz ####[facility] PATHOLOGY [id number] [place] [address], SCLERODERMA-70 ANTIBODY INDEX < 0.2 Normal <1.0 [facility] Comment on above: Order Comment: ds DN A Reference Range:< or = to 4 IU/hI-Wphdhpws6-2 IU/mL-Indeterminate> or = to 10 IU/mL-Positive Performed By: #### a na, vz ####[facility] PATHOLOGY [id number] [place] [address], THOMAS ANTIBODY Negative Normal Negative [facility] Comment on above: Order Comment: ds DN A Reference Range:< or = to 4 IU/uT-Bgtyeart0-7 IU/mL-Indeterminate> or = to 10 IU/mL-Positive Performed By: #### a na, vz ####[facility] PATHOLOGY [id number] [place] [address], THOMAS ANTIBODY INDEX < 0.2 Normal <1.0 [facility] Comment on above: Order Comment: ds DN A Reference Range:< or = to 4 IU/mQ-Asicitmk6-8 IU/mL-Indeterminate> or = to 10 IU/mL-Positive Performed By: #### a na, vz ####[facility] PATHOLOGY [id number] [place] [address], THOMAS/LINE OUT WORKER ANTIBODY Negative Normal Negative [facility] Comment on above: Order Comment: ds DN A Reference Range:< or = to 4 IU/zD-Yikdioax8-0 IU/mL-Indeterminate> or = to 10 IU/mL-Positive Performed By: #### a na, vz ####[facility] PATHOLOGY [id number] [place] [address], THOMAS/LINE OUT WORKER ANTIBODY INDEX < 0.2 Normal <1.0 [facility] Comment on above: Order Comment: ds DN A Reference Range:< or = to 4 IU/bL-Haqrwovy0-7 IU/mL-Indeterminate> or = to 10 IU/mL-Positive Performed By: #### a na, vz ####[facility] PATHOLOGY [id number] [place] [address], SS-A ANTIBODY Negative Normal Negative [facility] Comment on above: Order Comment: ds DN A Reference Range:< or = to 4 IU/tZ-Nqzspbzt8-2 IU/mL-Indeterminate> or = to 10 IU/mL-Positive Performed By: #### a na, vz ####[facility] PATHOLOGY [id number] [place] [address], SS-A ANTIBODY INDEX < 0.2 Normal <1.0 [facility] Comment on above: Order Comment: ds DN A Reference Range:< or = to 4 IU/kF-Qudfhtde9-0 IU/mL-Indeterminate> or = to 10 IU/mL-Positive Performed By: #### a na, vz ####[facility] PATHOLOGY [id number] [place] [address], SS-B ANTIBODY Negative Normal Negative [facility] Comment on above: Order Comment: ds DN A Reference Range:< or = to 4 IU/lY-Idudbauq4-7 IU/mL-Indeterminate> or = to 10 IU/mL-Positive Performed By: #### a nabil, vz ####[facility] [id number] [place], [place], SS-B ANTIBODY INDEX < 0.2 Normal <1.0 [facility] Comment on above: Order Comment: ds DN A Reference Range:< or = to 4 IU/kE-Quomzcxg9-4 IU/mL-Indeterminate> or = to 10 IU/mL-Positive Performed By: #### a nabil, vz ####[facility] [id number] [place], [place], Addendum Noteon 05-06-2024 Mechan[employer] Welder Authentication Interface Message Text Addended by: LIGIA BEDOLLA on: 05/06/2024 04:57 PM Modules accepted: Level of Service Normal [facility] BASIC METABOLIC PANELon 11-2 Anion gap [Moles/Vol] 17 mmol/L Normal 10-20 [facility] Comment on above: Performed By: #### U R BETA #### S PATHOLOGY LABORATORY [address] [place] [address], Calcium [Mass/Vol] 9.9 mg/dL Normal 8.6-10.3 [facility] Comment on above: Performed By: #### U R BETA #### S PATHOLOGY LABORATORY [address] [place] [address], Chloride [Moles/Vol] 105 mmol/L Normal 98-107 [facility] Comment on above: Performed By: #### U R BETA #### S PATHOLOGY LABORATORY [address] [place] [address], CO2 [Moles/Vol] 28 mmol/L Normal 21-31 [facility] Comment on above: Performed By: #### U R BETA #### S PATHOLOGY LABORATORY [address] [place] [address], Creatinine [Mass/Vol] 0.66 mg/dL Normal 0.60-1.20 [facility] Comment on above: Performed By: #### U R BETA #### S PATHOLOGY LABORATORY [address] [place] [address], ESTIMATED GFR (CKD-EPI) 124 mL/min/1.73sqm Normal >=60 [facility] Comment on above: Result Comment: 2020 [...] Inclusion of Race in Diagnosing Kidney Disease. Australian Journal of Kidney Diseases 2021;79(2):268-88.e1. 2. N Engl J Med 1 Vol. 385 Issue 19 Pages 6468-2570 Performed By: #### U R BETA #### S PATHOLOGY LABORATORY [address] [place] [address], Glucose [Mass/Vol] 77 mg/dL Normal 74-109 [facility] Comment on above: Performed By: #### U R BETA #### S PATHOLOGY LABORATORY [address] [place] [address], Potassium [Moles/Vol] 4.7 mmol/L Normal 3.5-5.0 [facility] Comment on above: Performed By: #### U R BETA #### S PATHOLOGY LABORATORY [address] [place] [address], Sodium [Moles/Vol] 145 mmol/L Normal 136-145 [facility] Comment on above: Performed By: #### U R BETA #### S PATHOLOGY LABORATORY [address] [place] [address], Urea nitrogen [Mass/Vol] 14 mg/dL Normal 7-25 [facility] Comment on above: Performed By: #### U R BETA #### S PATHOLOGY LABORATORY [address] [place] [address], Basic metabolic 2000 panelon 05-06-2024 Anion gap [Moles/Vol] 17 mmol/L 10 - 20 Met [facility] Calcium [Mass/Vol] 9.9 mg/dL 8.6 - 10. 3 mg/dL [facility] Chloride [Moles/Vol] 105 mmol/L 98 - 10 7 mmol/L [facility] CO2 [Moles/Vol] 28 mmol/L 21 - 31 mmol/L [facility] Creatinine [Mass/Vol] 0.66 mg/dL 0.60 - 1.20 mg/dL [facility] GFR/1.73 sq M.predicted CKD-EPI (S/P/Bld) [Vol rate/Area] 124 - PINF [facility] Comment on above: 2020 CKD EPI [...] Inclusion of Race in Diagnosing Kidney Disease. Australian Journal of Kidney Diseases 2021;79(2):268-88.e1. 2. N Engl J Med 2020 Vol. 385 Issue 19 Pages 5032-5646 Glucose [Mass/Vol] 77 mg/dL 74 - 109 mg/dL [facility] Interpretation and review of laboratory results [facility] Potassium [Moles/Vol] 4.7 mmol/L 3.5 - 5.0 mmol/L [facility] Sodium [Moles/Vol] 145 mmol/L 136 - 145 mmol/L [facility] Urea nitrogen [Mass/Vol] 14 mg/dL 7 - 25 mg/dL [facility] CBC WITH DIFFERENTIALon 11-2 Basophils (Bld) [#/Vol] 0.04 10*3/uL Normal 0.00-0.20 The [facility] Comment on above: Performed By: #### U R BETA #### [facility] [address] [place] [address], Basophils/100 WBC (Bld) 0.8 % Normal <=1.9 [facility] Comment on above: Performed By: #### U R BETA #### [facility] [address] [place] [address], Eosinophils (Bld) [#/Vol] 0.11 10*3/uL Normal 0.00-0.70 [facility] Comment on above: Performed By: #### U R BETA #### [facility] PATH[facility] LABORATORY [address] [place], [place], Eosinophils/100 WBC (Bld) 2.4 % Normal 0.1-4.0 [facility] Comment on above: Performed By: #### U R BETA #### [facility] PATH[facility] LABORATORY [address] [place], [place], Erythrocyte distribution width (RBC) [Ratio] 14.5 % Normal 11.5-14.5 [facility] Comment on above: Performed By: #### U R BETA #### [facility] PATH[facility] LABORATORY [address] [place], [place], Hematocrit (Bld) [Volume fraction] 39.6 % Normal 36.0-46.0 [facility] Comment on above: Performed By: #### U R BETA #### [facility] PATH[facility] LABORATORY [address] [place] [address], Hemoglobin (Bld) [Mass/Vol] 13.0 g/dL Normal 12.0-15.0 [facility] Comment on above: Performed By: #### U R BETA #### [facility] LABORATORY [address] [place], [place], Lymphocytes (Bld) [#/Vol] 1.15 10*3/uL Normal 1.00-4.80 [facility] Comment on above: Performed By: #### U R BETA #### [facility] PATH[facility] LABORATORY [address] [place], [place], Lymphocytes/100 WBC (Bld) 24.2 % Normal 24.0-44.0 [facility] Comment on above: Performed By: #### U R BETA #### [facility] LABOR[facility]ORY [address] [place], [place], MCH (RBC) [Entitic mass] 30.1 pg Normal 26.0-34.0 [facility] Comment on above: Performed By: #### U R BETA #### [facility]OR[facility] [address] [place], [place], MCHC (RBC) [Mass/Vol] 32.9 g/dL Normal 32.0-35.9 [facility] Comment on above: Performed By: #### U R BETA #### [facility] LABORATORY [address] [place], [place], MCV (RBC) [Entitic vol] 92 fL Normal 80-100 [facility] Comment on above: Performed By: #### U R BETA #### [facility] [address] [place], [place], Monocytes (Bld) [#/Vol] 0.32 10*3/uL Normal 0.20-1.00 [facility] Comment on above: Performed By: #### U R BETA #### [facility]OR[facility] [address] [place], [place], Monocytes/100 WBC (Bld) 6.8 % Normal 2.0-11.0 [facility] Comment on above: Performed By: #### U R BETA #### [facility] [address] [place], [place], Neutrophils (Bld) [#/Vol] 3.14 10*3/uL Normal 1.50-8.00 [facility] Comment on above: Performed By: #### U R BETA #### [facility] [address] [place], [place], Neutrophils/100 WBC (Bld) 65.9 % Normal 31.0-76.0 [facility] Comment on above: Performed By: #### U R BETA #### [facility] [address] [place], [place], Platelet mean volume (Bld) [Entitic vol] 9.7 fL Normal 7.5-11.2 [facility] Comment on above: Performed By: #### U R BETA #### [facility] [address] [place], [place], Platelets (Bld) [#/Vol] 193 10*3/uL Normal 150-400 [facility] Comment on above: Performed By: #### U R BETA #### [facility]OR[facility] [address] [place], [place], RBC (Bld) [#/Vol] 4.32 10*6/uL Normal 4.00-5.20 [facility] Comment on above: Performed By: #### U R BETA #### S PATHOLOGY LABORATORY [address] [place] [address], WBC (Bld) [#/Vol] 4.8 10*3/uL Normal 4.5-11.5 [facility] Comment on above: Performed By: #### U R BETA #### [facility]ORY [address] [place] [address], HCV Ab IA Qn (S)on HCV Ab Ql (S) Non-Reactive Nonreactive [facility] Interpretation and review of laboratory results Normal [facility] HEPATIC FUNCTION PANELon Albumin [Mass/Vol] 5.0 g/dL Normal 3.5-5.7 [facility] Comment on above: Performed By: #### U R BETA #### [facility] [address] [place] [address], ALK 41 IU/L Normal 34-104 [facility] Comment on above: Performed By: #### U R BETA #### [facility] [address] [place] [address], ALT [Catalytic activity/Vol] 8 U/L Normal 7-52 [facility] Comment on above: Performed By: #### U R BETA #### [facility] [address] [place] [address], AST [Catalytic activity/Vol] 11 U/L Low 13-39 [facility] Comment on above: Performed By: #### U R BETA #### S PATHOLOGY LABORATORY [address] [place] [address], Bilirubin [Mass/Vol] 0.5 mg/dL Normal 0.3-1.0 [facility] Comment on above: Performed By: #### U R BETA #### S PATHOLOGY LABORATORY [address] [place] [address], Bilirubin.direct [Mass/Vol] 0.11 mg/dL Normal 0.03-0.18 [facility] Comment on above: Performed By: #### U R BETA #### [facility] [address] [place] [address], Protein [Mass/Vol] 7.5 g/dL Normal 6.0-8.3 [facility] Comment on above: Performed By: #### U R BETA #### S PATHOLOGY LABORATORY [address] [place] [address], HEPATITIS B CORE ANTIBODYon 05-06-2024 CORE Non-Reactive Normal Nonreactive [facility] Comment on above: Performed By: #### U R BETA #### [facility] [address] [place] [address], HEPATITIS B SURFACE ANTIBODY on 05-06-2024 ANTI-HBS < 3.1 Normal [facility] Comment on above: Order Comment: Nonre active: Samples < 7.5 mIU/mLReactive: Samples >/= 10.0 mIU/mLThe accepted criteria for immunity to HBV is anti-HBs activity >/= 10 mIU/mL, as defined by the WHO International Reference Preparation. Performed By: #### U R BETA #### [facility] [address] [place] [address], HEPATITIS B SURFACE ANTIGENo n 05-06-2024 HBSAG Non-Reactive Normal Non-Reactive [facility] Comment on above: Performed By: #### I GG, IGM #### [facility] [address] [place] [address], HEPATITIS C ANTIBODYon 05-06 HCV Non-Reactive Normal Nonreactive [facility] Comment on above: Performed By: #### I GG, IGM #### S PATHOLOGY LABORATORY [address] [place] [address], IMMUNOGLOBULIN Ben 4 IgG [Mass/Vol] 735 mg/dL Normal 635-1741 [facility] Comment on above: Performed By: #### I GG, IGM #### S PATHOLOGY LABORATORY [address] [place] [address], IMMUNOGLOBULIN Mon 4 IgM [Mass/Vol] 219 mg/dL Normal 45-281 [facility] Comment on above: Performed By: #### I GG, IGM #### S PATHOLOGY LABORATORY [address] [place] [address], LYME DISEASE AB WITH REFLEX TO BLOT (IGG, IGM)on 05-06-2024 LYME AB SCREEN <0.90 Normal [facility] Comment on above: Order Comment: Carlos tamy Agency Address Site ID: [id number] Name: [facility] Address: Todd Mosley , [address] [place] [id number] Director: Raudel Jeffries MD Result Comment: Inde [...] JCV AB, LYME G #### [facility] Pathology [address] [facility] [address] [place], [place] [address] Laboratory - Chemistry and C hemistry - challengeon 05-06-2024 Albumin [Mass/Vol] 5 g/dL 3.5 - 5.7 g/dL [facility] ALP [Catalytic activity/Vol] 41 U/L [facility] ALT [Catalytic activity/Vol] 8 U/L [facility] AST [Catalytic activity/Vol] 11 U/L Low [facility] Bilirubin [Mass/Vol] 0.5 mg/dL 0.3 - 1 .0 mg/dL [facility] Bilirubin.direct [Mass/Vol] 0.11 mg/dL 0.03 - 0.18 mg/dL [facility] Protein [Mass/Vol] 7.5 g/dL 6.0 - 8.3 g/dL [facility] Laboratory - Hematology and Cell countson 05-06-2024 Basophils (Bld) [#/Vol] 0.04 10*3/uL 0.00 - 0.20 K/uL [facility] Basophils/100 WBC (Bld) 0.8 % NINF [...] HBV core Ab Ql (S) Non-Reactive Nonreactive [facility] HBV surface Ab IA Qn mIU/mL [facility] Laboratory - Serology - non- microon 05-06-2024 Centromere protein B Ab Ql (S) Positive Abnormal Negative [facility] Centromere protein B Ab Qn (S) 1.7 [facility] Chromatin Ab Ql Negative Negative [facility] th Chromatin Ab Qn [facility] th DNA double strand Ab Qn (S) Negative Negative [facility] DNA double strand Ab Qn (S) See Below [facility] Cuca-1 extractable nuclear Ab IA Qn (Body fld) Negative Negative [facility] Cuca-1 extractable nuclear Ab IA Qn (S) [facility] Nuclear Ab IA Ql (S) Positive Abnormal Negative [facility] Ribonucleoprotein extractable nuclear 63kD Ab Ql Negative Negative [facility] Ribonucleoprotein extractable nuclear Ab IA Qn (S) [facility] Ribosomal P Ab IA Qn (S) [facility] Ribosomal P Ab Ql (S) Negative Negative [facility] SCL-70 extractable nuclear Ab IA Ql (S) Negative Negative [facility] SCL-70 extractable nuclear Ab IA Qn (S) [facility] Sjogrens syndrome-A extractable nuclear Ab IA Ql (S) Negative Negative [facility] Sjogrens syndrome-A extractable nuclear Ab IA Qn (S) [facility] Sjogrens syndrome-B extractable nuclear Ab IA Ql (S) Negative Negative [facility] Sjogrens syndrome-B extractable nuclear Ab IA Qn (S) [facility] Thomas extractable nuclear Ab IA Qn (S) [facility] Thomas extractable nuclear Ab Ql (S) Negative Negative [facility] Thomas extractable nuclear Ab+Ribonucleoprotein extractable nuclear Ab IA Ql (S) Negative Negative [facility] Thomas extractable nuclear Ab+Ribonucleoprotein extractable nuclear IgG IA Qn (S) [facility] Immune complex.IgG [Mass/Vol] 735 mg/dL 635 - 1741 mg/dL [facility] Immune complex.IgM [Mass/Vol] 219 mg/dL 45 - 281 mg/dL [facility] MISCELLANEOUS SEND OUT TESTo n 05-06-2024 MISCELLANEOUS TEST RESULT See scanned report Normal [facility] Comment on above: Performed By: #### G ENTEST #### [facility] [address] [place], [place], TEST NAME Myelin Oligodendrocyte Glycoprotein(MOG)Anti body with Reflex to Titer,Serum Normal [facility] Comment on above: Performed By: #### G ENTEST #### [facility] [address] [place], [place], No Panel Informationon 05-06 Reference Range: [...] indicate the amount of anti-VZV antibody present. [facility] Interpretation and review of laboratory results Normal [facility] Interpretation and review of laboratory results Abnormal [facility] ds DNA Reference Range: < or = to 4 IU/mL-Negative 5-9 IU/mL-Indeterminate > or = to 10 IU/mL-Positive [facility] Interpretation and review of laboratory results Normal [facility] Interpretation and review of laboratory results Normal [facility] Nonreactive: Samples < 7.5 mIU/mL Reactive: Samples >/= 10.0 mIU/mL The accepted criteria for immunity to HBV is anti-HBs activity >/= 10 mIU/mL, as defined by the WHO International Reference Preparation. [facility] Interpretation and review of laboratory results Abnormal [facility] Interpretation and review of laboratory results Normal [facility] Patient Instructionson 05-06 [employer] Interface Message Text We discussed today that the data support multiple sclerosis. Please get labs - you will need a red top tube drawn. We can check back in in 2 weeks. Pamphlets today for Ocrevus, Kesimpta, Zeposia. Normal [facility] Progress Noteson 05-06-2024 [employer] Interface Message Text [facility] Department of Neurology Neuroimmunology Clinic New [...] her right breast. She works at a [employer]. Lives with grandmother, with cat and dog. Does drink alcohol, 4 to 5 drinks every other weekend. No tobacco use. 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 Has [...] ope (more content not included)... Normal [facility] QUANTIFERON-TB GOLD PLUSon 1 07-06-2023 TB (CELL MEDIATED) Negative Normal Negative [facility] [employer] [facility] Comment on above: Order Comment: Inter [...] I GG, IGM #### [facility] [address] [place] [address], [id number] TB ANTIGEN 1 < 0.35 Normal <0.35 [facility] Comment on above: Order Comment: Inter [...] GG, IGM #### [facility] [address] [place], [place], TB ANTIGEN 2 < 0.35 Normal <0.35 [facility] Comment on above: Order Comment: Inter [...] I GG, IGM #### S PATHOLOGY LABORATORY [address] [place] [address], STRATIFY JCV ABon 05-06-2024 INDEX VALUE 0.16 Normal [facility] Comment on above: Order Comment: Carlos [facility] Address Site ID: EZ Name: [facility], Address: [address] [place], [place] [address] Director: Xochitl Moreno MD,PhD,DEVI Performed By: #### S TRATIFY JCV AB, LYME G #### [facility] Pathology [address] [place], [place] SUSANNA VIRUS AB Negative Normal [facility] Comment on above: Order Comment: Carlos [facility] Address Site ID: EZ Name: [facility], Address: [address] [place] [phone] Director: Xochitl Moreno MD,PhD,DEVI Result Comment: Index [...] JCV AB, LYME Gustavo #### [facility] Pathology [address] [place], [place] VARICELLA ZOSTER IGG ANTIBOD Yon 05-06-2024 VZI 2.5 AI Normal [facility] Comment on above: Order Comment: Refer [...] By: #### a na, vz ####S PATHOLOGY [id number] [place], [place], Telephone Encounteron 2023 [employer] Interface Message Text Neurology Clinical Acute Care Occupational Therapist Note Attempted to call patient. LVM to return call to the Neurology department to schedule a neurology appt for optic neuritis (MS) with Dr Bedolla. Appt on 05/04 cancelled, letter sent RIN Enriquez, RN, CMSRN Clinical Acute Care Occupational Therapist, Neurology Normal [facility] JACOBSEN VISUAL FIELD - OU - BOTH EYESon 10-09-2024 Right Eye Reliability was good. Findings include normal observations. Left Eye Reliability was good. Findings include normal observations. Notes I personally reviewed the visual ochoa performed by this patient on 03/17/24. The visual ochoa are normal OU. Nguyễn Watt MD [facility] JACOBSEN VISUAL FIELD - OU - BOTH EYES Right Eye Reliability was good. Findings include normal observations. Left Eye Reliability was good. Findings include normal observations. Notes I personally reviewed the visual ochoa performed by this patient on 03/17/24. The visual ochoa are normal OU. Nguyễn Watt MD Normal [facility] OPTIC DISC PHOTOS - OU - BOT H EYESon 03-18-2024 OPTIC DISC PHOTOS - OU - BOTH EYES Trace temporal pallor I personally reviewed the fundus photos taken on this patient. Fundus photos taken to document the appearance of the optic discs. There is trace temporal pallor of the right optic disc. The left disc is normal. Nguyễn Watt MD Normal [facility] Trace temporal pallo r I personally reviewed the fundus photos taken on this patient. Fundus photos taken to document the appearance of the optic discs. There is trace temporal pallor of the right optic disc. The left disc is normal. Nguyễn Watt MD [facility] Progress Noteson 03-17-2024 [employer] Interface Message Text New patient Optic neuritis, right eye -Reports blurry vision OD, pain with up gaze and paresthesias January 2024. Went to ED -Seen by english as a second language instructor resident 01/31/24. At time time +rAPD OD, [...] with neurology. Nguyễn Watt MD Normal [facility] BASIC METABOLIC PANELon 01-09 Anion gap [Moles/Vol] 13 mmol/L Normal 10-20 [facility] Comment on above: Performed By: #### G ENTEST #### S PATHOLOGY LABORATORY [address] [place] [address], Calcium [Mass/Vol] 9.8 mg/dL Normal 8.6-10.3 [facility] Comment on above: Performed By: #### G ENTEST #### S PATHOLOGY LABORATORY [address] [place] [address], Chloride [Moles/Vol] 105 mmol/L Normal 98-107 [facility] Comment on above: Performed By: #### G ENTEST #### S PATHOLOGY LABORATORY [address] [place] [address], CO2 [Moles/Vol] 25 mmol/L Normal 21-31 [facility] Comment on above: Performed By: #### G ENTEST #### S PATHOLOGY LABORATORY [address] [place] [address], Creatinine [Mass/Vol] 0.71 mg/dL Normal 0.60-1.20 [facility] Comment on above: Performed By: #### G ENTEST #### S PATHOLOGY LABORATORY [address] [place] [address], ESTIMATED GFR (CKD-EPI) 121 mL/min/1.73sqm Normal >=60 [facility] Comment on above: Result Comment: 2020 [...] Inclusion of Race in Diagnosing Kidney Disease. Australian Journal of Kidney Diseases 2021;79(2):268-88.e1. 2. N Engl J Med 1 Vol. 385 Issue 19 Pages 9876-6731 Performed By: #### G ENTEST #### S PATHOLOGY LABORATORY [address] [place] [address], Glucose [Mass/Vol] 150 mg/dL High 74-109 [facility] Comment on above: Performed By: #### G ENTEST #### S PATHOLOGY LABORATORY [address] [place] [address], Potassium [Moles/Vol] 4.3 mmol/L Normal 3.5-5.0 [facility] Comment on above: Performed By: #### G ENTEST #### S PATHOLOGY LABORATORY [address] [place] [address], Sodium [Moles/Vol] 139 mmol/L Normal 136-145 [facility] Comment on above: Performed By: #### G ENTEST #### [facility] [address] [place] [address], Urea nitrogen [Mass/Vol] 19 mg/dL Normal 7-25 [facility] Comment on above: Performed By: #### G ENTEST #### S PATHOLOGY LABORATORY [address] [place] [address], Basic metabolic 2000 panelon 02-03-2024 Anion gap [Moles/Vol] 13 mmol/L 10 - 20 Met [facility] Calcium [Mass/Vol] 9.8 mg/dL 8.6 - 10. 3 mg/dL [facility] Chloride [Moles/Vol] 105 mmol/L 98 - 10 7 mmol/L [facility] CO2 [Moles/Vol] 25 mmol/L 21 - 31 mmol/L [facility] Creatinine [Mass/Vol] 0.71 mg/dL 0.60 - 1.20 mg/dL [facility] GFR/1.73 sq M.predicted CKD-EPI (S/P/Bld) [Vol rate/Area] 121 - PINF [facility] Comment on above: 2020 CKD EPI [...] Inclusion of Race in Diagnosing Kidney Disease. Australian Journal of Kidney Diseases 202;79(2):268-88.e1. 2. N Engl J Med 1 Vol. 385 Issue 19 Pages 5903-2597 Glucose [Mass/Vol] 150 mg/dL High 74 - 109 mg/dL [facility] Interpretation and review of laboratory results Abnormal [facility] Potassium [Moles/Vol] 4.3 mmol/L 3.5 - 5.0 mmol/L [facility] Sodium [Moles/Vol] 139 mmol/L 136 - 145 mmol/L [facility] Urea nitrogen [Mass/Vol] 19 mg/dL 7 - 25 mg/dL [facility] CBC panel Auto (Bld)on 02-02 Erythrocyte distribution width (RBC) [Ratio] 14.0 % 11.5 - 14.5 % [facility] Hematocrit (Bld) [Volume fraction] 37.0 % 36.0 - 46.0 % [facility] Hemoglobin (Bld) [Mass/Vol] 12.3 g/dL 12.0 - 15.0 g/dL [facility] Interpretation and review of laboratory results Normal [facility] MCH (RBC) [Entitic mass] 29.1 pg 26.0 - 34.0 pg [facility] MCHC (RBC) [Mass/Vol] 33.3 g/dL 32.0 - 35.9 g/dL [facility] MCV (RBC) [Entitic vol] 87 fL 80 - 100 fL [facility] Platelet mean volume (Bld) [Entitic vol] 10.2 fL 7.5 - 11.2 fL [facility] Platelets (Bld) [#/Vol] 158 10*3/uL 150 - 400 K/uL [facility] RBC (Bld) [#/Vol] 4.24 10*6/uL [facility] WBC (Bld) [#/Vol] 11.2 10*3/uL 4.5 - 11.5 K/uL [facility] COMPLETE BLOOD COUNTon 02-02 Erythrocyte distribution width (RBC) [Ratio] 14.0 % Normal 11.5-14.5 [facility] Comment on above: Performed By: #### G ENTEST #### [facility] [address] [place] [address], Hematocrit (Bld) [Volume fraction] 37.0 % Normal 36.0-46.0 [facility] Comment on above: Performed By: #### G ENTEST #### [facility] [address] [place] [address], Hemoglobin (Bld) [Mass/Vol] 12.3 g/dL Normal 12.0-15.0 [facility] Comment on above: Performed By: #### G ENTEST #### [facility] [address] [place] [address], MCH (RBC) [Entitic mass] 29.1 pg Normal 26.0-34.0 [facility] Comment on above: Performed By: #### G ENTEST #### [facility] [address] [place] [address], MCHC (RBC) [Mass/Vol] 33.3 g/dL Normal 32.0-35.9 [facility] Comment on above: Performed By: #### G ENTEST #### S PATHOLOGY LABORATORY [address] [place] [address], MCV (RBC) [Entitic vol] 87 fL Normal 80-100 [facility] Comment on above: Performed By: #### G ENTEST #### [facility] [address] [place] [address], Platelet mean volume (Bld) [Entitic vol] 10.2 fL Normal 7.5-11.2 [facility] Comment on above: Performed By: #### G ENTEST #### S PATHOLOGY LABORATORY [address] [place], [place], Platelets (Bld) [#/Vol] 158 10*3/uL Normal 150-400 [facility] Comment on above: Performed By: #### G ENTEST #### S PATHOLOGY LABORATORY [address] [place], [place], RBC (Bld) [#/Vol] 4.24 10*6/uL Normal 4.00-5.20 [facility] Comment on above: Performed By: #### G ENTEST #### S PATHOLOGY LABORATORY [address] [place], [place], WBC (Bld) [#/Vol] 11.2 10*3/uL Normal 4.5-11.5 [facility] Comment on above: Performed By: #### G ENTEST #### [facility] [address] [place] [address], MAGNESIUMon 02-03-2024 Interpretation and review of laboratory results Normal [facility] Magnesium [Mass/Vol] 2.0 mg/dL 1.9 - 2 .7 mg/dL [facility] Magnesium [Mass/Vol] 2.0 mg/dL Normal 1.9-2.7 [facility] Comment on above: Performed By: #### G ENTEST #### [facility] [address] [place], [place], NMO AQUAPORIN 4 IGG, CBAon 0 02-03-2024 AQUAPORIN 4 RECEPTOR AB, IGG Negative Normal NEGATIVE [facility] Comment on above: Order Comment: Carlos morelos Agency Address Site ID: EZ Name: [employer], Address: [address] [place] [id number] Director: Xochitl Moreno MD,PhD,DEVI Result Comment: This test was developed and its analytical performance characteristics have been determined by [employer]. It has not been cleared or approved by FDA. This assay has been validated pursuant to the CLIA regulations and is used for clinical purposes. Performed By: #### N VA #### [facility] Pathology [address] [facility] [address] [place], [place] [address] No Panel Informationon 02-02 [facility] Progress Noteson 02-03-2024 [employer] Interface Message Text SOCIAL WORK Per interdisciplinary [...] appropriate assessments and interventions. Vaibhav Washington, ANIBAL, HAZARDOUS WASTE MATERIAL TECHNICIAN Inpatient Social Work Normal [facility] [employer] [facility] [employer] treadalong Interface Message Text ATTENDING ATTESTATION I have [...] reported separately) Referring/communicati ng with other health associate director career services - when not reported separately Charting in [...] 14. (more content not included)... Normal [facility] [employer] [facility] BASIC METABOLIC PANELon 01-09 Anion gap [Moles/Vol] 14 mmol/L Normal 10-20 [facility] [employer] [facility] Comment on above: Performed By: #### G ENTEST #### [facility] [address] [place] [address], Calcium [Mass/Vol] 9.4 mg/dL Normal 8.6-10.3 [facility] [employer] [facility] Comment on above: Performed By: #### G ENTEST #### [facility] [address] [place] [address], Chloride [Moles/Vol] 105 mmol/L Normal 98-107 [facility] Comment on above: Performed By: #### G ENTEST #### [facility] [address] [place], [place], CO2 [Moles/Vol] 24 mmol/L Normal 21-31 [facility] Comment on above: Performed By: #### G ENTEST #### S PATHOLOGY LABORATORY [address] [place], [place], Creatinine [Mass/Vol] 0.64 mg/dL Normal 0.60-1.20 [facility] Comment on above: Performed By: #### G ENTEST #### S PATHOLOGY LABORATORY [address] [place], [place], ESTIMATED GFR (CKD-EPI) 126 mL/min/1.73sqm Normal >=60 [facility] Comment on above: Result Comment: 2020 CKD EPI Equation using Creatinine without Race Comment: Estimated glomerular filtration rate (eGFR) is calculated without a race coefficient. Values should be interpreted in the context of the patient's full clinical presentation. Reference: 1. Darryl C, Luis A M, Anrulfo ABURTO, et al.. A Unifying Approach for GFR Estimation: Recommendations of the NKF-ASN Task Force on Reassessing the Inclusion of Race in Diagnosing Kidney Disease. Australian Journal of Kidney Diseases 2021;79(2):268-88.e1. 2. N Engl J Med 2020 Vol. 385 Issue 19 Pages 7869-2075 Performed By: #### G ENTEST #### [facility] [address] [place], [place], Glucose [Mass/Vol] 133 mg/dL High 74-109 [facility] Comment on above: Performed By: #### G ENTEST #### S PATHOLOGY LABORATORY [address] [place], [place], Potassium [Moles/Vol] 4.3 mmol/L Normal 3.5-5.0 [facility] Comment on above: Performed By: #### G ENTEST #### [facility] [address] [place], [place], Sodium [Moles/Vol] 139 mmol/L Normal 136-145 [facility] Comment on above: Performed By: #### G ENTEST #### [facility] [address] [place], [place], Urea nitrogen [Mass/Vol] 14 mg/dL Normal 7-25 [facility] Comment on above: Performed By: #### G ENTEST #### [facility] [address] [place], [place], Basic metabolic 2000 panelon 02-02-2024 Anion gap [Moles/Vol] 14 mmol/L 10 - 20 Met [facility] Calcium [Mass/Vol] 9.4 mg/dL 8.6 - 10. 3 mg/dL [facility] Chloride [Moles/Vol] 105 mmol/L 98 - 10 7 mmol/L [facility] CO2 [Moles/Vol] 24 mmol/L 21 - 31 mmol/L [facility] Creatinine [Mass/Vol] 0.64 mg/dL 0.60 - 1.20 mg/dL [facility] GFR/1.73 sq M.predicted CKD-EPI (S/P/Bld) [Vol rate/Area] 126 - PINF [facility] Comment on above: 2020 CKD EPI [...] Inclusion of Race in Diagnosing Kidney Disease. Australian Journal of Kidney Diseases 202;79(2):268-88.e1. 2. N Engl J Med 2020 Vol. 385 Issue 19 Pages [phone] Glucose [Mass/Vol] 133 mg/dL High 74 - 109 mg/dL [facility] Interpretation and review of laboratory results Abnormal [facility] Potassium [Moles/Vol] 4.3 mmol/L 3.5 - 5.0 mmol/L [facility] Sodium [Moles/Vol] 139 mmol/L 136 - 145 mmol/L [facility] Urea nitrogen [Mass/Vol] 14 mg/dL 7 - 25 mg/dL [facility] CBC panel Auto (Bld)Ordered By: Esau Donnelly on 02-02-2024 Erythrocyte distribution width (RBC) [Ratio] 13.8 % 11.5 - 14.5 % [facility] Hematocrit (Bld) [Volume fraction] 36.4 % 36.0 - 46.0 % [facility] Hemoglobin (Bld) [Mass/Vol] 12.2 g/dL 12.0 - 15.0 g/dL [facility] Interpretation and review of laboratory results Normal [facility] MCH (RBC) [Entitic mass] 29.2 pg 26.0 - 34.0 pg [facility] MCHC (RBC) [Mass/Vol] 33.6 g/dL 32.0 - 35.9 g/dL [facility] MCV (RBC) [Entitic vol] 87 fL 80 - 100 fL [facility] Platelet mean volume (Bld) [Entitic vol] 9.3 fL 7.5 - 11.2 fL [facility] Platelets (Bld) [#/Vol] 170 10*3/uL 150 - 400 K/uL [facility] RBC (Bld) [#/Vol] 4.19 10*6/uL [facility] WBC (Bld) [#/Vol] 8.0 10*3/uL 4.5 - 11.5 K/uL [facility] COMPLETE BLOOD COUNTon 02-01 Erythrocyte distribution width (RBC) [Ratio] 13.8 % Normal 11.5-14.5 [facility] Comment on above: Performed By: #### G ENTEST #### [facility] [address] [place] [address], Hematocrit (Bld) [Volume fraction] 36.4 % Normal 36.0-46.0 [facility] Comment on above: Performed By: #### G ENTEST #### S PATHOLOGY LABORATORY [address] [place] [address], Hemoglobin (Bld) [Mass/Vol] 12.2 g/dL Normal 12.0-15.0 [facility] Comment on above: Performed By: #### G ENTEST #### S PATHOLOGY LABORATORY [address] [place] [address], MCH (RBC) [Entitic mass] 29.2 pg Normal 26.0-34.0 [facility] Comment on above: Performed By: #### G ENTEST #### [facility] [address] [place] [address], MCHC (RBC) [Mass/Vol] 33.6 g/dL Normal 32.0-35.9 [facility] Comment on above: Performed By: #### G ENTEST #### [facility] [address] [place] [address], MCV (RBC) [Entitic vol] 87 fL Normal 80-100 [facility] Comment on above: Performed By: #### G ENTEST #### [facility] [address] [place] [address], Platelet mean volume (Bld) [Entitic vol] 9.3 fL Normal 7.5-11.2 [facility] Comment on above: Performed By: #### Gustavo ENTEST #### [facility] [address] [place] [address], Platelets (Bld) [#/Vol] 170 10*3/uL Normal 150-400 [facility] Comment on above: Performed By: #### Gustavo ENTEST #### [facility] [address] [place] [address], RBC (Bld) [#/Vol] 4.19 10*6/uL Normal 4.00-5.20 [facility] Comment on above: Performed By: #### Gustavo ENTEST #### [facility] [address] [place] [address], WBC (Bld) [#/Vol] 8.0 10*3/uL Normal 4.5-11.5 [facility] Comment on above: Performed By: #### Gustavo ENTEST #### [facility] [address] [place] [address], MAGNESIUMon 02-02-2024 Interpretation and review of laboratory results Normal [facility] Magnesium [Mass/Vol] 1.9 mg/dL 1.9 - 2 .7 mg/dL [facility] Magnesium [Mass/Vol] 1.9 mg/dL Normal 1.9-2.7 [facility] Comment on above: Performed By: #### Gustavo ENTEST #### [facility] [address] [place], [address] MR C-SPINE W/+W/Oon 02-02-20 MR C-SPINE W/+W/O [...] disease. MACRO: None Normal [facility] MR Cervical spine WO and [...] in keeping with demyelinating disease. MACRO: None [facility] Radiology Study observation (narrative) [facility] MR T-SPINE W/+W/Oon 02-02-20 MR T-SPINE [...] with demyelinating disease. MACRO: None Normal [facility] [employer] [facility] MR Thoracic spine WO and W [...] with demyelinating disease. MACRO: None [facility] Radiology Study observation (narrative) [facility] Thor[facility] WO and W c ontrast IVOrdered By: Alessandro Alvarez on 02-02-2024 [employer] Work Phone: No Panel Informationon 02-01 [employer] Progress Noteson 02-02-2024 [employer] Authentication Interface Message Text Reason for Consult: [...] ivpb (custom dose), 1,000 mg, Intravenous, Daily, Eef Lanza DO, Last Rate: 100 mL/hr at [...] witho (more content not included)... Normal [facility] [employer] [facility] ANGIOTENSIN 1 CONVERTING ENZ Y*on 02-01-2024 MAULIK 19 U/L Normal 9-67 [facility] Comment on above: Order Comment: Carlos morelos Agency Address Site ID: QPT Name: [facility] Address: [address] [place] [address] Director: Raudel Jeffries MD Performed By: #### Gustavo TOLEDO #### [facility] [address] [place], [place], CSF CELL COUNTOrdered By: Nikolay Bautista [...] Performed By: #### HOA HOPE ####[facility] [id number] [place], [place], Color (U) Colorless Normal [facility] Comment on above: Order Comment: TNC ( Total Nucleated Count) consists of WBC and lining cells. Performed By: #### HOA HOPE ####[facility] [id number] [place], [place], RBC (Bld) [#/Vol] 0 10*6/uL Normal 0-5 [facility] Comment on above: Order Comment: TNC ( Total Nucleated Count) consists of WBC and lining cells. Performed By: #### C HOA RODRÍGUEZ ####[facility] [id number] [place], [place], SUPERNATANT Colorless Normal [facility] Comment on above: Order Comment: TNC ( Total Nucleated Count) consists of WBC and lining cells. Performed By: #### C HOA RODRÍGUEZ ####[facility] [id number] [place], [place], TUBE # 4 Normal [facility] Comment on above: Order Comment: TNC ( Total Nucleated Count) consists of WBC and lining cells. Performed By: #### HOA OHPE ####S PATHOLOGY [id number] [place], [place], WBC (Bld) [#/Vol] 0.005 10*3/uL Normal 0-5 [facility] Comment on above: Order Comment: TNC ( Total Nucleated Count) consists of WBC and lining cells. Performed By: #### HOA HOPE ####S PATHOLOGY [id number] [place], [place], CSF DIFFERENTIALon Cells Counted Total (Bld) [#] 10 {cells} [facility] Lymphocytes/100 WBC (CSF) 90 % [facility] Monocytes+Macrophages /100 WBC (CSF) 10 % [facility] CELLS COUNTED TOTAL # IN BLOOD 10 Normal [facility] Comment on above: Performed By: #### HOA HOPE ####[facility] PATHOLOGY [id number] [place], [place], FLUID, LYMPHOCYTES 90 % Normal [facility] Comment on above: Performed By: #### HOA HOPE ####[facility] PATHOLOGY [id number] [place], [place], FLUID, MONOCYTES/MACROPHAGES 10 % Normal [facility] Comment on above: Performed By: #### HOA HOPE ####[facility] PATHOLOGY [id number] [place], [place], CULTURE, CSF/GRAM STAINon CULTURE, CSF/GRAM STAIN C CSF: No Growth GRAM STAIN: This Gram Stain was performed on a Cytocentrifuged specimen. No Polymorphonuclear Leukocytes seen No organisms seen Normal [facility] Comment on above: Performed By: #### C CSF ####[facility] [address] [place], [place] [id number] Consultson 02-01-2024 [employer] Authentication Interface Message Text Reason for Consult: [...] (custom dose), 1,000 mg, Intravenous, Daily, Efe aLnza DO, Stopped at 02/01/24 0703 Exam Neurologic: [...] o (more content not included)... Normal [facility] [employer] [facility] ED Provider Noteson 02-01-20 [employer] Authentication Interface Message Text Normal [facility] GC/CHLAMYDIA/TRICHOMONAS AMP LIFICATIONon 02-01-2024 C. trachomatis DNA SKIP+probe Ql (Unsp spec) Negative Negative [facility] Interpretation and review of laboratory results Normal [facility] N. gonorrhoeae DNA SKIP+probe Ql (Unsp spec) Negative Negative [facility] T. vaginalis DNA SKIP+probe Ql (Unsp spec) Negative Negative [facility] This test is performed using an automated nucleic acid amplification assay ([employer]). [facility] GC/CHLAMYDIA/TRICHOMO LOWELL AMPLIFICATION CHLAMYDIA AMPLIFICATION: Negative GC AMPLIFICATION: Negative TRICHOMONAS AMPLIFICATION: Negative Normal Negative [facility] [employer] [facility] Comment on above: Order Comment: This test is performed using an automated nucleic acid amplification assay ([employer] Performed By: #### G CT ####[facility] [id number] [place] [id number] GLUCOSE, CSFon 02-01-2024 Glucose (CSF) [Mass/Vol] 54 mg/dL 40 - 70 mg/dL [facility] GLU CSF 54 mg/dL Normal 40-70 [facility] Comment on above: Performed By: #### U R BETA #### [facility] [address] [place], [address] H AND Uriel 02-01-2024 [employer] Authentication Interface Message Text Attestation signed by [...] Spine - Follow LP/labs Agusto Noonan MD [facility] Internal Medicine: H AND P Note Patient: Azeb Hyatt : 2000 Sex: female Room: [place] [address] Admit Date: 01/31/2024 Today's Date: 02/01/2024 Length [...] day (more content not included)... Normal [facility] [employer] [facility] MR Brain WO and W contrast [...] review separately dictated MR orbits. MACRO: None [facility] MR HEAD W/+W/Oon 02-01-2024 MR HEAD [...] dictated MR orbits. MACRO: None Normal [facility] [employer] [facility] MR ORBIT W/+W/Oon 02-01-2024 MR ORBIT [...] for further characterization. MACRO: None Normal [facility] [employer] [facility] MR Orbit WO and W contrast [...] MRI brain for further characterization. MACRO: None [facility] MR Orbit WO and W contrast I VOrdered By: Lyle Vargas on 02-01-2024 [facility] Work Phone: No Panel InformationOrdered By: Rojas Bautista on 02-01-2024 [facility] No Panel Informationon 01-31 Interpretation and review of laboratory results Normal [facility] OLIGOCLONAL BANDS, SERUM AND CSFon 02-01-2024 OLIGOCLONAL BANDS Present Abnormal Absent [facility] [employer] [facility] Comment on above: Order Comment: Carlos tamy Agency Address Site ID: AMD Name: [employer] [place] Address: [id number] [place] [address] [place] Director: Rio Szymanski M.D.,PhD Result Comment: The patient's CSF contains GREATER THAN FIVE well defined gamma restriction bands that are not present in the corresponding serum sample. Also noted are additional identical (mirror image) gamma restriction bands in both the patient's CSF and serum. These findings are indicative of intra-cerebral as well as systemic synthesis of gamma globulins and may be associated with Guillain-Frankfort syndrome, peripheral neuropathy or increased blood-brain barrier [...] bands due to local production in the PATHOLOGY LABORATORY DIRECTOR, serum and CSF should be tested simultaneously. Oligoclonal bands can however be observed in a variety of other diseases, e.g., subacute sclerosing panen- cephalitis, inflammatory polyneuropathy, PATHOLOGY LABORATORY DIRECTOR lupus, and brain tumors and infarctions. The clinical significance of a numerical band count, determined by isoelectric focusing, has not been definitively defined. The data should be interpreted in conjunction with all pertinent clinical and laboratory data for this patient. Performed By: #### U R BETA #### [facility] [address] [place] [address], [phone] Progress Noteson 02-01-2024 [employer] Authentication Interface Message Text RESIDENTIAL PLAN NOTE CC: Blurred vision of the [...] Monson MD Internal Medicine PGY-2 Normal [facility] QUANTIFERON-TB GOLD PLUSon 0 02-01-2024 TB [...] uncommon. Performed By: #### G ENTEST #### [facility] [address] [place], [address] TB ANTIGEN 1 < 0.35 Normal <0.35 [facility] Comment on above: Order Comment: [...] uncommon. Performed By: #### G ENTEST #### [facility] [address] [place], [address] TB ANTIGEN 2 < 0.35 Normal <0.35 [facility] Comment on above: Order Comment: [...] G ENTEST #### [facility] [address] [place], [place], TOTAL PROTEIN, CSFon 024 Protein (CSF) [Mass/Vol] 27.8 mg/dL 15 - 45 mg/dL [facility] TP CSF 27.8 mg/dL Normal 15-45 [facility] Comment on above: Performed By: #### U R BETA #### [facility] [address] [place], [place], XR CHEST AP OR PA 1 [...] radiograph. MACRO: None Normal [facility] XR Chest Single viewon 01-31 [...] for autoimmune, ?sarcoid ORDERING PROVIDER: DEONTE DAVENPORT TECHNRAFAEL NOTE: COMPARISON: None FINDINGS: Limitations: Limited by single frontal portable view. Lines, tubes, and devices: None. Lungs and pleura: No focal pulmonary consolidation, effusion or pneumothorax. Cardiomediastinal silhouette: Normal cardiomediastinal silhouette. Musculoskeletal: Unremarkable. IMPRESSION: No radiographically apparent acute abnormality allowing for single view radiograph. MACRO: None [employer] Radiology Study observation (narrative) [facility] XR Chest Single viewOrdered By: Pete Byers on 02-01-2024 [employer] Work Phone: BASIC METABOLIC PANELon 01-09 Anion gap [Moles/Vol] 13 mmol/L Normal 10-20 [facility] [employer] [facility] Comment on above: Performed By: #### U R BETA #### S PATHOLOGY LABORATORY [address] [place] [address], Calcium [Mass/Vol] 9.9 mg/dL Normal 8.6-10.3 [facility] [employer] [facility] Comment on above: Performed By: #### U R BETA #### S PATHOLOGY LABORATORY [address] [place] [address], Chloride [Moles/Vol] 106 mmol/L Normal 98-107 [facility] [employer] [facility] Comment on above: Performed By: #### U R BETA #### [facility] [address] [place] [address], CO2 [Moles/Vol] 27 mmol/L Normal 21-31 [facility] Comment on above: Performed By: #### U R BETA #### [facility] [address] [place] [address], Creatinine [Mass/Vol] 0.69 mg/dL Normal 0.60-1.20 [facility] [employer] [facility] Comment on above: Performed By: #### U R BETA #### [facility] [address] [place] [address], ESTIMATED GFR (CKD-EPI) 123 mL/min/1.73sqm Normal >=60 [facility] [employer] [facility] Comment on above: Result Comment: 2020 [...] Inclusion of Race in Diagnosing Kidney Disease. Australian Journal of Kidney Diseases 2021;79(2):268-88.e1. 2. N Engl J Med 1 Vol. 385 Issue 19 Pages [phone] Performed By: #### U R BETA #### [facility] [address] [place] [address], Glucose [Mass/Vol] 78 mg/dL Normal 74-109 [facility] Comment on above: Performed By: #### U R BETA #### [facility] [address] [place] [address], Potassium [Moles/Vol] 4.3 mmol/L Normal 3.5-5.0 [facility] Comment on above: Performed By: #### U R BETA #### S PATHOLOGY LABORATORY [address] [place] [address], Sodium [Moles/Vol] 142 mmol/L Normal 136-145 [facility] Comment on above: Performed By: #### U R BETA #### S PATHOLOGY LABORATORY [address] [place] [address], Urea nitrogen [Mass/Vol] 14 mg/dL Normal 7-25 [facility] Comment on above: Performed By: #### U R BETA #### S PATHOLOGY LABORATORY [address] [place] [address], Basic metabolic 2000 panelon 01-31-2024 Anion gap [Moles/Vol] 13 mmol/L 10 - 20 [facility] Calcium [Mass/Vol] 9.9 mg/dL 8.6 - 10. 3 mg/dL [facility] Chloride [Moles/Vol] 106 mmol/L 98 - 10 7 mmol/L [facility] CO2 [Moles/Vol] 27 mmol/L 21 - 31 mmol/L [facility] Creatinine [Mass/Vol] 0.69 mg/dL 0.60 - 1.20 mg/dL [facility] GFR/1.73 sq M.predicted CKD-EPI (S/P/Bld) [Vol rate/Area] 123 - PINF [facility] Comment on above: 2020 CKD EPI Equatio [...] Inclusion of Race in Diagnosing Kidney Disease. Australian Journal of Kidney Diseases 202;79(2):268-88.e1. 2. N Engl J Med 2020 Vol. 385 Issue 19 Pages [phone] Glucose [Mass/Vol] 78 mg/dL 74 - 109 mg/dL [facility] Interpretation and review of laboratory results Normal [...] g/dL 12.0 - 15.0 g/dL [facility] Interpretation and review [...] 14.3 % Normal 11.5-14.5 [facility] Comment on above: Performed By: #### G ENTEST #### [facility] [address] [place] [address], Hematocrit (Bld) [Volume fraction] 37.2 % Normal 36.0-46.0 [facility] Comment on above: Performed By: #### G ENTEST #### [facility] [address] [place] [address], Hemoglobin (Bld) [Mass/Vol] 12.2 g/dL Normal 12.0-15.0 [facility] Comment on above: Performed By: #### Gustavo ENTEST #### [facility] [address] [place] [address], MCH (RBC) [Entitic mass] 28.7 pg Normal 26.0-34.0 [facility] Comment on above: Performed By: #### Gustavo ENTEST #### [facility] [address] [place] [address], MCHC (RBC) [Mass/Vol] 32.7 g/dL Normal 32.0-35.9 [facility] Comment on above: Performed By: #### Gustavo ENTEST #### [facility] [address] [place] [address], MCV (RBC) [Entitic vol] 88 fL Normal 80-100 [facility] Comment on above: Performed By: #### Gustavo ENTEST #### [facility] [address] [place] [address], Platelet mean volume (Bld) [Entitic vol] 10.1 fL Normal 7.5-11.2 [facility] Comment on above: Performed By: #### Gustavo ENTEST #### [facility] [address] [place] [address], Platelets (Bld) [#/Vol] 172 10*3/uL Normal 150-400 [facility] Comment on above: Performed By: #### Gustavo ENTEST #### [facility] [address] [place] [address], RBC (Bld) [#/Vol] 4.25 10*6/uL Normal 4.00-5.20 [facility] Comment on above: Performed By: #### G ENTEST #### [facility] [address] [place], [place], WBC (Bld) [#/Vol] 4.4 10*3/uL Low 4.5-11.5 [facility] Comment on above: Performed By: #### G ENTEST #### [facility] [address] [place], [place], Consultson 01-31-2024 [employer] Authentication Interface Message Text Attestation signed by Israel Bennett MD at 02/03/2024 1:28 PM I did not personally examine this patient. I have, where applicable, reviewed relevant laboratory studies and imaging personally. I have reviewed the resident's note and agree with the proposed management. Israel Bennett MD Cornea, External Disease, and Refractive Surgery [facility] Ophthalmology Ophthalmology Consult Note CC: Blurred [...] Clear, no heme or pigment Disc OD: [place]way, Sharp, perfused, and c/d 0.2, no edema appreciated, no disc heme OS: [place]ingway, Sharp, perfused, and c/d 0.2, no edema [...] Heber Benjamin MD Ophthalmology Resident Please page [phone] with additional questions/concerns Patient was discussed with Dr. Dunham, senior resident english as a second language instructor. Commonly used ophthalmology abbreviations: AC: Anterior chamber; ACIOL: Anterior chamber intraocular lens; APD, RAPD: (Relative) Afferent pupillary defect; ARMD, AMD: Age-related macular dege (more content not included)... Normal [facility] [employer] [facility] ED Noteson 01-31-2024 [employer] Authentication Interface Message Text Bed: 43 Expected date: Expected time: Means of arrival: Comments: eye Normal [facility] [employer] [facility] ED Provider Noteson 01-31-20 [employer] Authentication Interface Message Text Attestation signed by [...] procedure well. Agusto Hartley DO Normal [facility] [employer] [facility] [employer] Authentication Interface Message Text I, Paul Alexander [...] Resident Medicine Admission Service. Report called to [facility] res, [facility], 0500 (02/01/24 0501) The patient has received [...] ask questions. Paul Alexander MD Normal [facility] [employer] [facility] [employer]der treadalong Interface Message Text --------- HISTORY OF PRESENT [...] diagnosed with optic neuritis by opthalmology in [place]. 2nd opinion ophthalmology said eye was fine, [...] Notes: Reviewed and utilized the nursing notes. Abstractor: not needed - patient preferred language is Congolese. External Medical Records: The patient's available past [...] of External (Non- ED) Notes: notes from [place] shows normal eye exam Management Decisions: Diagnoses considered include cva, brain tumor, optic neuritis, MS Discussion with External Provider: Water Hydrant Installer from [employer] service recommends admit Independent Test Interpretation: see above SCRIBE ATTESTATION (more content not included)... Normal [facility] [employer] [facility] HCG URINEOrdered By: Ryan Cheema on 01-31-2024 HCG ( test) Ql (U) Negative Negative [facility] Interpretation and review of laboratory results [facility] HCG URINEon 01-31-2024 Beta HCG ( test) Ql (U) Negative Normal Negative [facility] [employer] [facility] Comment on above: Performed By: #### U R BETA #### [facility] [address] [place] [address], [phone] HIV 1 and 2 Ab and HIV 1 p24 Ag panel IAon 01-31-2024 HIV 1+2 Ab+HIV1 p24 Ag IA Ql Non-Reactive Non-Reactive [facility] Comment on above: No laboratory eviden ce for HIV Infection. Negative result does not rule out acute HIV infection. If acute HIV infection is suspected, recommend ordering an HIV-1 RNA quanitification test. Interpretation and review of laboratory results Normal [employer] HIV Information: [place] Rev. code 3701.243(E): This [...] release of HIV test results or diagnoses. [facility] HIV1 HIV2 AGAB SCRNon 2023 HIV AG-AB SCREEN Non-Reactive Normal Non-Reactive [facility] [facility] Comment on above: Order Comment: [...] R BETA #### [facility] [address] [place], [place], MR Brain WO and W contrast I [facility] 01-31-2024 Radiology Study observation (narrative) [facility] MR Orbit WO and W contrast I [facility] 01-31-2024 Radiology Study observation (narrative) [facility] SYPHILIS WITH CONFIRMATIONon 01-31-2024 T. pallidum Ab LA Qn (S) [facility] T. pallidum IgG+IgM IA Ql (S) Non-Reactive Non-Reactive [facility] No results found for : TPPA No components found for: FTA No serologic evidence of syphilis. If recent exposure/early infection is suspected, repeat testing in 2-4 weeks. [facility] SYPHILIS TOTAL (IGG/IGM) Non-Reactive Normal Non-Reactive [facility] Comment on above: Order Comment: No re sults found for: TPPA No components found for: FTA No serologic evidence of syphilis.If recent exposure/early infection is suspected, repeat testing in 2-4 weeks. Performed By: #### G ENTEST #### [facility] [address] [place], [place], TPPA Normal [facility] Comment on above: Order Comment: No re sults found for: TPPA No components found for: FTA No serologic evidence of syphilis.If recent exposure/early infection is suspected, repeat testing in 2-4 weeks. Performed By: #### G ENTEST #### [facility] [address] [place], [address] URINALYSISon 01-31-2024 Appearance (U) Turbid Clear [facility] [...] (positive predictive value for UTI around 50%) [facility] Glucose Ql (U) Negative Normal Negative [facility] Comment on above: Order Comment: A [...] Performed By: #### u rinalysis ####S PATHOLOGY [id number] [place] [address], Protein (U) [Mass/Vol] 20 mg/dL Normal Negative [facility] Comment on above: Order Comment: A [...] Performed By: #### u rinalysis ####S PATHOLOGY [id number] [place] [address], SQUAMOUS EPITHELIAL 6-10 Normal 0-10 [facility] Comment on above: Order Comment: [...] Performed By: #### u rinalysis ####S PATHOLOGY [id number] [place], [place], U APPEAR Turbid Normal Clear [facility] Comment on above: Order Comment: [...] around 50%) Performed By: #### u rinalysis ####[facility] PATHOLOGY [id number] [place], [place], [place] BACTERIA Few Normal [facility] Comment on above: Order Comment: A [...] around 50%) Performed By: #### u rinalysis ####[facility] PATHOLOGY [id number] [place], [place], [place] BILI Negative Normal Negative [facility] Comment on above: Order Comment: A [...] around 50%) Performed By: #### u rinalysis ####[facility] PATHOLOGY [id number] [place], [place], [place] BLOOD Negative Normal Negative The [employer] [facility] Comment on above: Order Comment: A [...] Performed By: #### u rinalysis ####S PATHOLOGY [id number] [place], [place], [place] COLOR Light Yellow Normal Colorless [facility] [employer] [facility] Comment on above: Order Comment: A [...] Performed By: #### u rinalysis ####S PATHOLOGY [id number] [place], [place], [place] KETONE Negative Normal Negative [facility] [employer] [facility] Comment on above: Order Comment: A [...] Performed By: #### u rinalysis ####[facility] [id number] [place], [place], [place] LEUK Positive Abnormal Negative [facility] [employer] [facility] Comment on above: Order Comment: A [...] for pyuria. Performed By: #### u rinalysis ####[facility] PATHOLOGY [id number] [place], [place], [place] MUCOUS Present Normal [facility] Comment on above: Order Comment: A [...] Performed By: #### u rinalysis ####S PATHOLOGY [id number] [place], [place], [place] NITRITE Positive Abnormal Negative [facility] Comment on above: Order Comment: A [...] Performed By: #### u rinalysis ####[facility] [id number] [place], [place], [place] PH 7.0 Normal 5.0-8.0 [facility] Comment on above: Order Comment: A [...] around 50%) Performed By: #### u rinalysis ####[facility] PATHOLOGY [id number] [place], [place], [place] RBC None Seen Normal 0-2 [facility] Comment on above: Order Comment: A [...] around 50%) Performed By: #### u rinalysis ####[facility] PATHOLOGY [id number] [place], [place], [place] SG 1.024 Normal <=1.030 [facility] Comment on above: Order Comment: A [...] around 50%) Performed By: #### u rinalysis ####[facility] PATHOLOGY [id number] [place], [place] UROBILI Negative Normal Negative [facility] Comment on above: Order Comment: [...] around 50%) Performed By: #### u rinalysis ####[facility] PATHOLOGY [id number] [place], [place], [place] WBC 6-10 Abnormal 0-2 [facility] Comment on above: Order Comment: [...] around 50%) Performed By: #### u rinalysis ####[facility] PATHOLOGY [id number] [place], [place], Perimetry studyon 01-30-2024 [facility] Perimetry studyon 01-28-2024 Radiology Study observation (narrative) [facility] XR chest 2V*on 01-08-2024 XR chest 2V* [facility] [place] [address] XRay Report Signed Patient: Azeb Hyatt MR#: [id number] 517 : 2000 Acct:[id number] Age/Sex: 23 / F ADM Date: 01/08/24 Loc: ER Room: Type: [facility] ER Attending Dr: Copies to: PINEDA Chang Ordering Provider: PINEDA Chang Date of Service: 01/08/24 XR/XR chest 2V*: Skin/Abscess/Foreign Body Chest 2 views CLINICAL HISTORY: Right axillary numbness, shortness of breath anxiety. COMPARISON: None FINDINGS: Heart normal size. Lungs are clear. No free air. XR/XR chest 2V* IMPRESSION: NO ACUTE CARDIOPULMONARY ABNORMALITY. Impression dictated by: Tra Marroquin Jr., D.O.01/08/2024 9:34 AM Dictation Location: [place] [address] Transcribed By: [facility] 01/08/24933 Dictated By: Tra Marroquin Jr, DO 01/08/24933 Signed By: 01/08/24933 Normal The [facility] Throat Cultureon 08-07-2023 Throat culture Moderate Normal Respiratory [place] 2 Days PERFORMED BY: [place] [address] PATHOLOGIST PRODUCT/DEVICE TECHNOLOGIST GLORY SHELTON M.D. Normal [facility] Comment on above: Performed By: #### C [place] #### [address] COVID-19 PCRon 12-26-2019 SARS-CoV-2, SKIP Not Detected Normal Not Detected [facility] Comment on above: Result Comment: This test was developed and its performance characteristics determined by [employer]. This test has not been FDA cleared [...] assay. Performed By: #### C VDPCR #### [facility] [address] [place] [id number] Blanca Aguilar XR CHEST 2 Von 12-08-2019 [...] MAITE LUCAS Date: 2019-12-08 10:27 Normal [facility] Vital Signs Date Time Vital Sign Value Performing Clinician Facility 05-06-2024 09:32-0500 Body mass index (BMI) [Ratio] 22.9 kg/m2 Ligia Bedolla MD Work Phone: [facility] 05-06-2024 09:32-0500 Body weight 60.51 kg Ligia Bedolla MD Work Phone: [facility] 05-06-2024 09:32-0500 Diastolic blood pressure 61 mm[Hg] Ligia Bedolla MD Work Phone: [facility] 05-06-2024 09:32-0500 Systolic blood pressure 101 mm[Hg] Ligia Bedolla MD Work Phone: [facility] 02-03-2024 13:06-0400 Body temperature 98.71 [degF] Pricila Arguello MD Work Phone: [facility] 02-03-2024 13:06-0400 Diastolic blood pressure 61 mm[Hg] Pricila Arguello MD Work Phone: [facility] 02-03-2024 13:06-0400 Heart rate 58 /min Pricila Arguello MD Work Phone: [facility] 02-03-2024 13:06-0400 Respiratory rate 18 /min Pricila Arguello MD [facility] Phone[facility] 02-03-2024 13:06-0400 SaO2% (BldA) [Mass fraction] 99 % Pricila Arguello MD Work Phone[facility] 02-03-2024 13:06-0400 Systolic blood pressure 110 mm[Hg] Pricila Arguello MD Work Phone: [facility] 02-01-2024 14:44-0400 Body height 162.6 cm Pricila Arguello MD Work Phone[facility] 02-01-2024 14:44-0400 Body mass index (BMI) [Ratio] 22.31 kg/m2 Pricila Arguello MD Work Phone[facility] 02-01-2024 14:44-0400 Body weight 58.97 kg Pricila Arguello MD Work Phone[facility] 01-29-2024 15:06-0400 Body weight 59.93 kg Thad Mitch DO Work Phone: [facility] 01-29-2024 15:06-0400 Diastolic blood pressure 68 mm[Hg] Thad Mitch DO Work Phone: [facility] 01-29-2024 15:06-0400 Systolic blood pressure 104 mm[Hg] Thad Mitch DO Work Phone: [facility] 01-08-2024 09:05-0400 Body height 162.56 cm PHYSICIAN NO [facility] 01-08-2024 09:05-0400 Body temperature 98 [degF] PHYSICIAN NO [facility] 01-08-2024 09:05-0400 Body weight 60 kg PHYSICIAN NO [facility] 01-08-2024 09:05-0400 Diastolic blood pressure 60 mm[Hg] PHYSICIAN NO [facility] 01-08-2024 09:05-0400 Heart rate 71 /min PHYSICIAN NO [facility] 01-08-2024 09:05-0400 Respiratory rate 18 /min PHYSICIAN NO [facility] 01-08-2024 09:05-0400 SaO2% (BldA) [Mass fraction] 98 % PHYSICIAN NO [facility] 01-08-2024 09:05-0400 Systolic blood pressure 103 mm[Hg] PHYSICIAN NO [facility] 04-05-2023 12:20-0400 Body height 162.56 cm Samantha Driscoll Other [employer] Other 04-05-2023 12:20-0400 Body mass index (BMI) [Ratio] 20.94 kg/m2 Samantha Driscoll Other [employer] Other 04-05-2023 12:20-0400 Body temperature 98.3 [degF] Samantha Driscoll Other [employer] Other 04-05-2023 12:20-0400 Body weight 55.34 kg Samantha Driscoll Other [employer] Other 04-05-2023 12:20-0400 Diastolic blood pressure 60 mm[Hg] Samantha Driscoll Other [employer] Other 04-05-2023 12:20-0400 Respiratory rate 18 /min Samantha Driscoll Other [employer] Other 04-05-2023 12:20-0400 SaO2% (BldA) [Mass fraction] 99 % Samantha Driscoll Other [employer] Other 04-05-2023 12:20-0400 Systolic blood pressure 103 mm[Hg] Samantha Driscoll Other [employer] Other Encounters Encounter Date Encounter Type Care Provider Facility Start: 06-12-2024 End: 06-12-2024 Telephone encounter Marlee GREEN/MPA [facility] Start: 06-09-2024 End: 06-09-2024 ambulatory CRISTIAN [facility] Start: 05-28-2024 End: 05-28-2024 Telemedicine consultation with patient Neisha Aguero IRIS Work Phone: [facility] Comment on above: ENCOUNTER OPENED IN ERROR (Primary Dx) Start: 05-28-2024 End: 05-28-2024 ambulatory [facility] AG[facility] Start: 05-20-2024 End: 05-20-2024 ambulatory LIGIA BEDOLLA [facility] Start: 05-06-2024 End: 05-06-2024 Clinical Support [place] [facility] [place] [facility] Comment on above: Arrived Start: 05-06-2024 End: 05-06-2024 Office outpatient visit 40 minutes Ligia Bedolla MD Work Phone: [facility] Neurology Comment on above: Multiple sclerosis ( HCC) (Primary Dx); Chronic right shoulder pain; Paresthesias; History of eating disorder; Dysphagia, unspecified type; Anxiety about health; Body mass index (BMI) 22.0-22.9, adult Start: 05-06-2024 End: 05-06-2024 ambulatory AGUSTO NOONAN Facility[facility] Start: 05-02-2024 End: 05-02-2024 Letter encounter Prem Blackburn MD Work Phone: [facility] Start: 03-23-2024 End: 03-23-2024 Telephone encounter Neisha Casanova RN [facility] Comment on above: APPOINTMENT SCHEDULI NG Start: 03-17-2024 End: 03-17-2024 ambulatory PREM BLACKBURN Facility:[facility] Start: 02-17-2024 End: 02-17-2024 Letter encounter Neisha Casanova RN [facility] Start: 02-01-2024 Evaluation and management of inpatient UNKNOWN PROVIDER Facility:[facility] Start: 02-01-2024 End: 02-03-2024 Evaluation and management of inpatient AGUSTO NOONAN Facility:[facility] Start: 01-31-2024 End: 02-03-2024 Evaluation and management of inpatient Pricila Arguello MD Work Phone: [facility] [address] Comment on above: Other optic neuritis (Primary Dx); Screening for STD (sexually transmitted disease) [Z11.3]; Demyelinating disease (HCC) Start: 01-31-2024 Emergency department patient visit UNKNOWN PROVIDER Facility:[facility] Start: 01-29-2024 End: 01-29-2024 ambulatory THAD [...] 01-08-2024 Emergency department patient visit PHYSICIAN BLAZE [facility] Work Phone: Start: 08-07-2023 End: 08-07-2023 ambulatory PHYSICIAN NO FAMILY Facility:[facility] Start: 04-05-2023 End: 04-05-2023 ambulatory Samantha Driscoll Other [employer] Other Start: 04-05-2023 Office outpatient ne w 20 minutes Samantha Driscoll [facility] Start: 12-24-2019 End: 12-25-2019 Patient encounter procedure [facility] Facility:[facility] Start: 12-08-2019 End: 12-08-2019 Patient encounter [...] (RZV) Vaccine (1 of 2) [facility] Start: 08-19-2024 End: 08-19-2024 Telemedicine consultation with patient 08/19/2024 1:00 PM EDT Telemedicine [facility] Neurology [address] [place], [place] [id number] Ligia Bedolla MD [address] [place] [address] [facility] Start: 07-28-2024 End: 07-28-2024 Patient encounter procedure 07/28/2024 10:00 AM EST Office Visit [facility] [address] [place] [address] Thad Meyer DO [address] [place] [address] [facility] Start: 05-20-2024 End: 05-20-2024 Patient encounter procedure 05/20/2024 11:30 AM EST Office Visit [facility] Neurology [address] [place] [address] Ligia Bedolla MD [address] [place], [place] [phone] [facility] Neurology Start: 05-04-2024 End: 05-04-2024 Patient encounter procedure 05/04/2024 4:00 PM EST Office Visit [facility] [address] [place] [address] Nicholas Pelaez MD [address] [place] [phone] [facility] Start: 03-17-2024 End: 03-17-2024 Patient encounter procedure 03/17/2024 10:00 AM EDT Office Visit [facility] Ophthalmology (Eye) Residents [address] [place] [address] Nguyễn Watt MD [address] [place] [id number] Take Down Inspector, Eye [facility] Ophthalmology (Eye) Residents Start: 03-10-2024 Influenza [...] [facility] [address] [place] [phone] Philomena Steele MD [address] [place] [address] [facility] Start: 01-28-2024 End: 01-28-2024 Patient encounter procedure 01/28/2024 11:15 AM EDT Office Visit [facility] [address] [place] [address] Philomena Steele MD [address] [place] [address] Arrived [facility] Comment [...] BLOT (IGG, IGM) Lab Routine Multiple sclerosis ([facility]) 05/06/2024 11:18 AM EST [facility] Antibody agusto cunnin gham virus STRATIFY JCV AB Lab Routine Multiple sclerosis ([facility]) 05/06/2024 11:18 AM EST [facility] End: 05-06-2025 Antibody varicella-zoster VARICELLA ZOSTER IGG ANTIBODY Lab Routine Multiple sclerosis ([facility]) 1 Occurrences starting 05/06/2024 until 05/06/2025 [facility] Comment on above: 1 Occurrences starti ng 05/06/2024 until 05/06/2025 Antibody varicella-zoster VARICELLA ZOSTER IGG ANTIBODY Lab Routine Multiple sclerosis ([facility]) 05/06/2024 11:18 AM EST [facility] End: 05-06-2025 Antinuclear antibodies oscar AUTOIMMUNE MULTIPLEX PANEL Lab Routine Multiple sclerosis ([facility]) 1 Occurrences starting 05/06/2024 until 05/06/2025 [facility] Comment on above: 1 Occurrences starti ng 05/06/2024 until 05/06/2025 Antinuclear antibodi es oscar AUTOIMMUNE MULTIPLEX PANEL Lab Routine Multiple sclerosis ([facility]) 05/06/2024 11:18 AM EST [facility] Assay of [...] BASIC METABOLIC PANEL Lab Routine Multiple sclerosis ([facility]) 1 Occurrences starting 05/06/2024 until 05/06/2025 [employer] Work Phone: Comment on above: 1 Occurrences starti ng 05/06/2024 until 05/06/2025 Basic metabolic 2000 panel - Serum or Plasma BASIC METABOLIC PANEL Lab Routine Multiple sclerosis (HCC) 05/06/2024 11:18 AM EST [facility] Blood count complete auto&auto difrntl wbc CBC WITH DIFFERENTIAL Lab Only Routine Multiple sclerosis (HCC) 05/06/2024 11:18 AM [facility] CBC panel - Blood by Automated count COMPLETE BLOOD COUNT Lab STAT Daily until discontinued starting 02/02/2024, 2 completed [facility] Comment on above: Daily until disconti nued starting 02/02/2024, 2 completed CBC W Auto Different ial panel - Blood COMPLETE BLOOD COUNT W/DIFF Lab Routine Multiple sclerosis (HCC) 05/06/2024 11:18 AM EST [facility] Cul bact xcpt urine blood/stool aerobic isol CULTURE, CSF/GRAM STAIN Microbiology STAT 02/01/2024 1:17 AM EDT [facility] End: 05-06-2025 Hepatic function panel HEPATIC FUNCTION PANEL Lab Routine Multiple sclerosis (HCC) 1 Occurrences starting 05/06/2024 until 05/06/2025 [facility] Comment on above: 1 Occurrences starti ng 05/06/2024 until 05/06/2025 Hepatic function panel HEPATIC F UNCTION PANEL Lab Routine Multiple sclerosis (HCC) 05/06/2024 11:18 AM EST [facility] End: 05-06-2025 Hepatitis b core antibody hbcab total HEPATITIS B CORE ANTIBODY Lab Routine Multiple sclerosis (HCC) 1 Occurrences starting 05/06/2024 until 05/06/2025 [facility] Comment on above: 1 Occurrences starti ng 05/06/2024 until 05/06/2025 Hepatitis b core antibody hbcab total HEPATITIS B CORE ANTIBODY Lab Routine Multiple sclerosis (HCC) 05/06/2024 11:18 AM EST [facility] End: 05-06-2025 Hepatitis b surf antibody hbsab HEPATITIS B SURFACE ANTIBODY Lab Routine Multiple sclerosis (HCC) 1 Occurrences starting 05/06/2024 until 05/06/2025 [facility] Comment on above: 1 Occurrences starti ng 05/06/2024 until 05/06/2025 Hepatitis b surf antibody hbsab HEPATITIS B SURFACE ANTIBODY Lab Routine Multiple sclerosis (HCC) 05/06/2024 11:18 AM EST [facility] Hepatitis C virus Ab [Units/volume] in Serum by Immunoassay HEPATITIS C ANTIBODY Lab Routine Multiple sclerosis ([facility]) 05/06/2024 11:18 AM EST [facility]sen perimeter plot JACOBSEN VISUAL FIELD - OU - BOTH EYES Ophthalmology Routine Other optic neuritis 03/17/2024 12:23 PM EDT [employer] Work Phone: End: 05-06-2025 Iaad ia hepatitis b surface antigen HEPATITIS B SURFACE ANTIGEN Lab Routine Multiple sclerosis (HCC) 1 Occurrences starting 05/06/2024 until 05/06/2025 [facility] Comment on above: 1 Occurrences starti ng 05/06/2024 until 05/06/2025 Iaad ia hepatitis b surface antigen HEPATITIS B SURFACE ANTIGEN Lab Routine Multiple sclerosis ([facility]) 05/06/2024 11:18 AM EST [employer] End: 02-03-2024 Immunoassay analyte qual/semiqual multiple step [employer] Work Phone: Comment on above: One time for 1 Occur rences starting 02/03/2024 until 02/03/2024 End: 02-01-2024 Oligoclonal immune OLIGOCLONAL BANDS, SERUM & CSF Lab STAT One time for 1 Occurrences starting 02/01/2024 until 02/01/2024 [employer] Work Phone: Comment on above: One time for 1 Occur rences starting 02/01/2024 until 02/01/2024 Oligoclonal immune OLIGOCLONAL B ANDS, SERUM & CSF Lab STAT 02/01/2024 1:17 AM EDT [facility] OPTIC DISC PHOTOS - OU - BOTH EYES OPTIC DISC PHOTOS - OU - BOTH EYES Ophthalmology Routine Other optic neuritis 03/17/2024 12:23 PM EDT [employer] Patient Education Paresthesia (D C) Upper Back Pain ED [facility] Work Phone: Patient referral [facility] Work Phone: End: 02-01-2024 Tb cell mediated antign respnse gamma interferon [facility] Comment on above: Morning Blood Draw f or 1 Occurrences starting 02/01/2024 until 02/01/2024 Tb cell mediated ant ign respnse gamma interferon QUANTIFERON-TB GOLD PLUS Lab Routine Multiple sclerosis ([facility]) 05/06/2024 11:18 AM [facility] Unlisted chemistry procedure MISCELLANEOUS SEND OUT TEST Lab Routine Multiple sclerosis ([facility]) 05/06/2024 11:18 AM [facility] Immunizations Immunization Date Immunization Notes Care Provider Dee mathur 08-18-2014 meningococcal polysaccharide (groups A, C, Y and W-135) diphtheria toxoid conjugate vaccine (MCV4P) Pricila Arguello MD Work Phone: [facility] 03-13-2011 influenza, seasonal, injectable Pricila Arguello MD Work Phone: [facility] 03-13-2011 meningococcal polysaccharide (groups A, C, Y and W-135) diphtheria toxoid conjugate vaccine (MCV4P) Prciila Arguello MD Work Phone: [facility] 03-13-2011 tetanus toxoid, redu beatriz diphtheria toxoid, and acellular pertussis vaccine, adsorbed Pricila Arguello MD Work Phone: [facility] 03-13-2011 influenza virus vacc ine, unspecified formulation Philomena Steele MD Work Phone: [facility] 06-15-2008 influenza, seasonal, injectable, preservative free Pricila Arguello MD Work Phone: [facility] 03-10-2008 human papilloma viru s vaccine, quadrivalent Pricila Arguello MD Work Phone: [facility] 01-06-2008 hepatitis A vaccine, pediatric/adolescent dosage, 2 dose schedule Pricila Arguello MD Work Phone: [facility] 01-06-2008 human papilloma viru s vaccine, quadrivalent Pricila Arguello MD Work Phone: [facility] 01-06-2008 varicella virus vaccine Pricila Arguello MD Work Phone: [facility] 12-31-2003 diphtheria, tetanus toxoids and acellular pertussis vaccine Pricila Arguello MD Work Phone: [facility] 12-31-2003 measles, mumps and r ubella virus vaccine Pricila Arguello MD Work Phone: [facility] 12-31-2003 poliovirus vaccine, inactivated Pricila Jos MD Work Phone: [facility] 07-14-1999 diphtheria, tetanus toxoids and acellular pertussis vaccine, unspecified formulation Pricila Arguello MD Work Phone: [facility] 07-14-1999 haemophilus influenz ae type b vaccine, HbOC conjugate Pricila Arguello MD Work Phone: [facility] 05-15-1999 measles, mumps and r ubella virus vaccine Pricila Arguello MD Work Phone: [facility] 05-15-1999 trivalent poliovirus vaccine, live, oral Pricila Arguello MD Work Phone: [facility] 05-15-1999 varicella virus vaccine Pricila Arguello MD Work Phone: [facility] 01-04-1999 diphtheria, tetanus toxoids and acellular pertussis vaccine, unspecified formulation Pricila Arguello MD Work Phone: [facility] 01-04-1999 haemophilus influenz ae type b conjugate and Hepatitis B vaccine Pricila Arguello MD Work Phone: [facility] 2000 diphtheria, tetanus toxoids and acellular pertussis vaccine, unspecified formulation Pricila Arguello MD Work Phone: [facility] 2000 haemophilus influenz ae type b vaccine, HbOC conjugate Pricila Arguello MD Work Phone: [facility] 1998 poliovirus vaccine, inactivated Pricila Arguello MD Work Phone: [facility] 2000 diphtheria, tetanus toxoids and acellular pertussis vaccine, unspecified formulation Pricila Arguello MD Work Phone: [facility] 2000 haemophilus influenz ae type b conjugate and Hepatitis B vaccine Pricila Arguello MD Work Phone: [facility] 1998 poliovirus vaccine, inactivated Pricila Arguello MD Work Phone: [facility] Payers Date Payer Category Payer Commercial Indemnity [employer] - HMO/PPO/POS [id number] 2024 Unknown [employer] - HMO/PPO/POS SUPERMED PPO/CLASSIC/PLUS [id number] 2024-Present [address] [place] [address] PPO [id number] 2024 Unknown [id number] 2023 Self-pay 1998 Unknown [id number] 32 1998 Unknown [id number] 32 1998 Unknown [id number] 32 1998 Unknown [id number] 32 1998 Unknown [id number] 1998 Unknown [id number] 1978 Unknown [id number] 1978 Unknown [id number] 1959 Unknown [id number] Unknown [id number] 31 Unknown [id number] 31 Social History Date Type Detail Facility Unknown if ever smoked [employer] Other Start: 02-01-2024 End: 05-06-2024 Sex Assigned At [facility] Start: 01-08-2024 Tobacco smoking status NHIS Smoker (finding) [facility] Start: 2000 Sex Assigned At Female F [facility] Start: 02-01-2024 Tobacco smoking status NDIS Never smoked tobacco [facility] Start: 02-01-2024 Tobacco use and exposure Smokeless tobacco non-user [facility] Start: 02-01-2024 End: 05-06-2024 History of Social function [facility] Start: 2000 Sex assigned at Not on file N [facility] Start: 01-31-2024 Sex [facility] (finding[facility] Start: 01-28-2024 Tobacco smoking status NDIS Smokes tobacco daily [facility] History of tobacco use Cigarette Smoker [facility] Tobacco smoking status NDIS Tobacco smoking consumption unknown [facility] Clinical Notes 04-05-2023 to 06-09-2024 Neisha Aguero PA-C - 05/28/2024 7:57 PM ESTAddendum Note - Ligia Bedolla MD - 05/06/2024 4:57 PM ESTAddendum Note [...] who presents for New Patient ([facility]) and Swollen Glands. 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 Lives with grandmother. Vapes daily, occasional cigarette. EtOH socially. Smokes marijuana about twice weekly. FH: HTN, Breast cancer (great aunts) Screenings/immunizations: -Never had pap, has appt with jack strip assembler in Jul for pap Review of Systems [...] maintenance. Cristian Bolanos DO Family Medicine PGY-3 [facility] 05-28-2024 History of Present illness Narrative Encounter Opened in error. Please disregard. Pt stated she scheduled this visit to establish with a PCP, was unable to schedule herself online. I will request the [facility] RN to assist pt. Neisha Aguero PA-C documented in this encounter [facility] 05-21-2024 Note Serenity Lupe 1999 SPECIALTY [...] Administered DTaP (CVX=20) 12/31/2003 DTaP, unspecified formulation (QUX=047) 1998, 1998, 01/04/1999, 07/14/1999 HPV, quadrivalent (Gardasil 4) (CVX=62) 01/06/2008, 03/10/2008 Hep A (peds/adol, 2 dose) (CVX=83) 01/06/2008 Hep B/HIB (Comvax) (CVX=51) 1998, 01/04/1999 Hib (HbOC) (CVX=47) 1998, 07/14/1999 Influenza, injectable, trivalent, preservative (AKQ=016) 03/13/2011 Influenza, injectable, trivalent, preservative free (NYD=946) 06/15/2008 MMR, Icjitcb-Yhahf-Hozjpyu (CVX=03) 05/15/1999, 12/31/2003 Meningococcal conjugate (MCV4,Men-ACWY), Menactra (MCV4P) (BJL=749) 03/13/2011, 08/18/2014 Pfizer Monovalent (12+ yrs) SARS-COV-2 (COVID-19) vaccine, mRNA, spike protein, LNP, pres. free, 30 mcg/0.3mL dose (ZTL=978) 09/14/2020, 10/05/2020 Polio, inactivated (IPV) (CVX=10) 1998, 1998, 12/31/2003 Polio, oral (OPV) (CVX=02) 05/15/1999 Tdap (RAQ=789) 03/13/2011 Varicella (Chickenpox) (CVX=21) 05/15/1999, 01/06/2008 Is [...] Denies worsening paresthesias, did go swimming at [employer] and noted she fatigued more easily than [...] preferred choice. She has been researching on [employer] and other sites. We reviewed healthy lifestyle choices, including moderate alcohol use and no smoking, as well as previously reviewed reproductive safety data surrounding DMT. She had questions re: vaccinations; schedule and referral to PCP provided. Presented with [facility] paperwork, which I will complete. We reviewed frequency and duration of appointments and of the expected treatment. She reports her work has been quite supportive as she decides on DMT. 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 Repeat Tb test negative (previ (more content not included)... [facility] Note [facility] Neuroimm unology Clinic Established Patient Evaluation [...] Denies worsening paresthesias, did go swimming at [employer] and noted she fatigued more easily than [...] preferred choice. She has been researching on [employer] and other sites. We reviewed healthy lifestyle choices, including moderate alcohol use and no smoking, as well as previously reviewed reproductive safety data surrounding DMT. She had questions re: vaccinations; schedule and referral to PCP provided. Presented with [facility] paperwork, which I will complete. We reviewed frequency and duration of appointments and of the expected treatment. She reports her work has been quite supportive as she decides on DMT. 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 [...] Use - High Risk (01/28/2024) Received from [facility] Patient History Smoking Tobacco [...] (#/5): 5/5 deltoid, biceps, triceps, finger extensors, senior safety support manager strength bilaterally 5/5 hip flexors, knee flexors, [...] Screen Negative (more content not included)... [facility] 05-06-2024 Note Addended by: LIGIA BEDOLLA on: 05/06/2024 04:57 PM Modules accepted: Level of Service [facility] 05-06-2024 Note Addended by: LIGIA BEDOLLA on: 05/06/2024 04:57 PM Modules accepted: Level of Service [facility] 05-06-2024 Note Addended by: LIGIA BEDOLLA on: 05/06/2024 04:57 PM Modules accepted: Level of Service [facility] 05-06-2024 Miscellaneous Notes Addended by: LIGIA BEDOLLA on: 05/06/2024 04:57 PM Modules accepted: Level of Service documented in this encounter [facility] 05-06-2024 Instructions Ligia Bedolla MD - 05/06/2024 10:46 AM EST We discussed today that the data support multiple sclerosis. Please get labs - you will need a red top tube drawn. We can check back in in 2 weeks. Pamphlets today for Ocrevus, Kesimpta, Zeposia. documented in this encounter [facility] 05-06-2024 History of Present illness Narrative Images from the original note were not included. [facility] Department of Neurology Neuroimmunology Clinic New [...] her right breast. She works at a [employer]. Lives with grandmother, with cat and dog. Does drink alcohol, 4 to 5 drinks every other weekend. No tobacco use. 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 Has [...] which included preparing to see the patient, xnac-ce-tcql patient care, completing clinical documentation, obtaining and/or reviewing separately obtained history, counseling and educating the patient/family/caregiver, ordering medications, tests, or procedures, independently interpreting results (not separately reported) and communicating results to the patient/family/caregiver. Ligia Bedolla MD, MS Neuroimmunology Staff Department of Neurology [facility] documented in this encounter [facility] 05-06-2024 History of Present illness Narrative Images from the original note were not included. [facility] Department of Neurology Neuroimmunology Clinic New [...] beige ). 01/28/[address] 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 Has [...] which included preparing to see the patient, oxts-ru-xirz patient care, completing clinical documentation, obtaining and/or reviewing separately obtained history, counseling and educating the patient/family/caregiver, ordering medications, tests, or procedures, independently interpreting results (not separately reported) and communicating results to the patient/family/caregiver. Ligia Bedolla MD, MS Neuroimmunology Staff Department of Neurology [facility] documented in this encounter [facility] 03-23-2024 Telephone encounter Note Neurology Clinical Acute Care Occupational Therapist Note Attempted to call patient. LVM to return call to the Neurology department to schedule a neurology appt for optic neuritis (MS) with Dr Bedolla. Appt on 05/04 cancelled, letter sent RIN Enriquez, RN, CMSRN Clinical Acute Care Occupational Therapist, Neurology [facility] 03-23-2024 Miscellaneous Notes Neurology Clinical Acute Care Occupational Therapist Note Attempted to call patient. LVM to return call to the Neurology department to schedule a neurology appt for optic neuritis (MS) with Dr Bedolla. Appt on 05/04 cancelled, letter sent RIN Enriquez, RN, CMSRN Clinical Acute Care Occupational Therapist, Neurology documented in this encounter [facility] 03-17-2024 History of Present illness Narrative New patient Optic neuritis, right eye -Reports blurry vision OD, pain with up gauze and paresthesias January 2024. Went to ED -Seen by english as a second language instructor resident 01/31/24. At time time +rAPD OD, [...] resident documented in this encounter [facility] 03-17-2024 History of Present illness Narrative New patient Optic neuritis, right eye -Reports blurry vision OD, pain with up gaze and paresthesias January 2024. Went to ED -Seen by english as a second language instructor resident 01/31/24. At time time +rAPD OD, [...] MD documented in this encounter [facility] 02-03-2024 Note DISCHARGE SUMMARY [address] [address] Azeb Hyatt Date of : 2000 23 year old female Attending Agusto Noonan MD Date of Admission 01/31/2024 Date of Discharge 02/03/2024 Final Diagnosis: Demyelinating disease (HCC) Hospital Problems as of 02/03/2024 * (Principal) Demyelinating disease (HCC) Other optic neuritis Screening for STD (sexually transmitted disease) Discharge Procedure Orders NEUROLOGY SERVICE REQUEST Referral Priority: Routine Referral Type: Service Level Authorization Referral Location: [facility] Number of Visits Requested: 3 Expiration Date: 02/02/25 Future Appointments Date Time Provider Department Center 03/17/2024 10:00 AM Nguyễn Watt MD [facility] 05/04/2024 4:00 PM Nicholas Pelaez MD [facility] Condition at Discharge improved Symptoms to [...] follow-up Agusto Noonan MD [facility] 02-03-2024 History of Present illness [...] the attending Dr. Rowe. NATASHA Lynn Pager; [phone] Department of Neurology Hospital Medicine Progress Note Azeb Hyatt Age [age] year old female [id number] [id number]/1 Admitted 01/31/2024 3:56 PM Hospital Day: [...] questions and concerns addressed. Agusto Noonan MD RESIDENTIAL PLAN NOTE CC: Blurred vision of the [...] PGY-2 documented in this encounter [facility] 02-03-2024 Note Hospital Medicine Pr ashely Note Azeb Hyatt Age [age] year old female [id number] AC6-502/1 Admitted 01/31/2024 3:56 PM Hospital Day: [...] and concerns addressed. Agusto Noonan MD [facility] [employer] [facility] 02-02-2024 Note Hospital Medicine Pr ogress Note Venancioenilottie Hyatt Age [age] year old female [id number] [id number] Admitted 01/31/2024 3:56 PM Hospital Day: [...] and concerns addressed. Agusto Noonan MD [facility] 02-01-2024 Consult note Associated Order (s): [...] the attending Dr. Rowe. NATASHA Lynn Pager; [phone] Department of Neurology [facility] 02-01-2024 Consult note Associated Order (s): [...] the attending Dr. Rowe. NATASHA Lynn Pager; [phone] Department of Neurology Associated Order(s): IP OPHTHALMOLOGY [...] Clear, no heme or pigment Disc OD: Hemingway, Sharp, perfused, and c/d 0.2, no edema appreciated, no disc heme OS: Hemingway, Sharp, perfused, and c/d 0.2, no edema [...] Heber Benjamin MD Ophthalmology Resident Please page [phone] with additional questions/concerns Patient was discussed with Dr. Dunham, senior resident english as a second language instructor. Commonly used ophthalmology abbreviations: AC: Anterior chamber; [...] Ophthalmology documented in this encounter [facility] 02-01-2024 History and physical note Images from the original note were not included. [facility] Internal Medicine: H&P Note Patient: Azeb Hyatt : 2000 Sex: female Room: [place] [address] Admit Date: 01/31/2024 Today's Date: 02/01/2024 Length [...] EMERGENCY CONTACT #1: Reginaldo HYATT (Grandparent) home: [phone], work: Dispo: Home when medically ready Outpatient [...] Follow LP/labs Agusto Noonan MD [facility] Work Phone: 02-01-2024 History and physical note Images from the original note were not included. [facility] Internal Medicine: H&P Note Patient: Azeb Hyatt : 2000 Sex: female Room: [place] [address] Admit Date: 01/31/2024 Today's Date: 02/01/2024 Length [...] EMERGENCY CONTACT #1: Reginaldo HYATT (Grandparent) home: [phone], work: Dispo: Home when medically ready Outpatient [...] MD documented in this encounter [facility] 01-31-2024 Emergency department Note PROCEDURE NOTE: [...] The history is provided by the Patient. zAeb Hyatt is a 23 year old female [...] diagnosed with optic neuritis by opthalmology in [place]. 2nd opinion ophthalmology said eye was fine, [...] Notes: Reviewed and utilized the nursing notes. Abstractor: not needed - patient preferred language is Congolese. External Medical Records: The patient's available past [...] of External (Non- ED) Notes: notes from [place] shows normal eye exam Management Decisions: Diagnoses considered include cva, brain tumor, optic neuritis, MS Discussion with External Provider: Water Hydrant Installer from [employer] recommends admit Independent Test [...] role in this case. PLEASE SEE OTHER ATTENDING/RESIDENT/PHYSICIAN/IDENTITY MANAGEMENT CONSULTANT /PA NOTATION Venancio Aranda MD documented in this encounter [facility] 01-31-2024 Physician Emergency department Note PROCEDURE [...] pressure was 18 mmHg Paul Alexander MD [employer] Work Phone: 01-31-2024 Physician Emergency department Note [...] opportunity to ask questions. Paul Alexander MD [employer] Work Phone: 01-31-2024 Consult note Associated Order [...] Clear, no heme or pigment Disc OD: Hemingway, Sharp, perfused, and c/d 0.2, no edema appreciated, no disc heme OS: Hemingway, Sharp, perfused, and c/d 0.2, no edema [...] Heber Benjamin MD Ophthalmology Resident Please page [phone] with additional questions/concerns Patient was discussed with Dr. Dunham, senior resident english as a second language instructor. Commonly used ophthalmology abbreviations: AC: Anterior chamber; [...] External Disease, and Refractive Surgery [facility] Ophthalmology [facility] Work Phone: 01-31-2024 Emergency department Note Bed: 43 Expected date: Expected time: Means of arrival: Comments: eye [facility] 01-31-2024 Physician Emergency department Note HISTORY [...] diagnosed with optic neuritis by opthalmology in [place]. 2nd opinion ophthalmology said eye was fine, [...] Notes: Reviewed and utilized the nursing notes. Abstractor: not needed - patient preferred language is Congolese. 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 Pricila Matute. [facility] Work Phone: 01-31-2024 Note Physician Triage [...] role in this case. PLEASE SEE OTHER ATTENDING/RESIDENT/PHYSICIAN/IDENTITY MANAGEMENT CONSULTANT /PA NOTATION Venancio Aranda MD [facility] 01-31-2024 Physician Emergency department Note [...] role in this case. PLEASE SEE OTHER ATTENDING/RESIDENT/PHYSICIAN/IDENTITY MANAGEMENT CONSULTANT /PA NOTATION Venancio Aranda MD [employer] Work Phone: 01-30-2024 Note Right Eye Reliability was good. Progression has no prior data. Foveal threshold was reduced. Findings include superior paracentral defect, inferior paracentral defect, paracentral scotoma. Left Eye Reliability was good. Progression has no prior data. Foveal threshold was normal. Notes Possible vertical cut not consistent with ON [facility] 01-29-2024 History of Present illness Narrative Reason [...] nursing note reviewed. Exam conducted with a accounts clerk present. Vitals: There is no height or [...] lymph nodes noted. Pt saw ophthalmology in [facility] on Saturday - 02/03/24. Second opinion with Ariana Adrian. Pt to return for annual unless needed sooner. Documented by Lauren Paulson LPN on behalf of: Thad Meyer DO documented in this encounter [facility] 01-28-2024 History of Present illness Narrative Assessment/Plan work up for optic neuritis Had mri in er yesterday--normal documented in this encounter [facility] 01-08-2024 Hospital Discharge instructions Additional Instructions Take [...] high fever vomiting or any other concerns [facility] Work Phone: 04-05-2023 Evaluation note Encounter Date Diagnosis Assessment Notes Mar, Gingivitis (ICD-10 - K05.10) Gingivitis home care material was printed Drink plenty fluids, get plenty of rest. Take the amoxicillin as prescribed until gone. Rinse your mouth with warm salt water frequently. Take Tylenol alternately with ibuprofen for pain. Follow-up with your dentist as soon as possible. [employer] Other Evaluation noteNo assessment information available [facility] Work Phone: Evaluation note* Diagnosis Demyelinating [...] Unspecified follow-up examination documented in this encounter [facility] HealthcareEvaluation note* Diagnosis Optic neuritis- Primary Unspecified optic neuritis [facility] Diagnosis ENCOUNTER OPENED IN ERROR- Primary [facility] - Reported* Type Description Date Medical History possible overactive thyroid Medical History possible PCOS, unable to f/u bec ause she lost her insurance [employer] Other Summary Purpose Family History No Family [...] Diagnoses Demyelinating disease (HCC) Agusto Noonan MD [facility] [place] [address] [facility] [place] [address] Referral ID Status Reason Start Date Expiration Date V isits Requested Visits Authorized [id number] Authorized 02/03/2024 02/02/2025 3 3 Scheduling Instructions Please call the Neurology Clinic at to schedule an appointment if one was not made for you today. Question Answer Patient to be evaluated for: Multiple Sclerosis, Demyelinating Disease Additional Source Comments INFORMATION SOURCE (unrecogn ized section and content) DATE CREATED AUTHOR 12/31/2019 [facility] DATE CREATED AUTHOR AUTHOR'S ORGANIZ ATION 01/24/2024 [facility] DATE CREATED AUTHOR AUTHOR'S ORGANIZ ATION 01/29/2024 [facility] EPIC DATE CREATED AUTHOR AUTHOR'S ORGANIZ ATION 06/21/2024 [facility] DATE CREATED AUTHOR AUTHOR'S ORGANIZ ATION 07/23/2024 [facility] [employer] [facility] REASON FOR VISIT (unrecogniz ed section and content) Specialty Diagnoses / Procedures Referred By Forrest morrison Referred To Contact Emergency Medicine Diagnoses Other optic neuritis Procedures NA [facility] [employer] [facility] [address] [place], [place] [address] [address] Phone: [phone] [facility] [employer] [facility] [place] [address] Phone: [phone] Referral ID Status Reason Start Date Expiration Date Visits Re quested Visits Authorized [id number] 3 3 Reason Comments Optic Neuritis Reason Onset Date Comments APPOINTMENT SCHEDULING 03/23/2024 Reason Comments New patient, to establish relationship N ew patient, MSWalk time: 8.77 Specialty Diagnoses / Procedures Referred By Forrest morrison Referred To Contact Neurology Diagnoses Demyelinating disease (HCC) Agusto Noonan MD [address] [place] [address] Phone: tel: fax: [facility] [address] [place] [address] Phone: tel: Referral ID Status Reason Start Date Expiration Date V isits Requested Visits Authorized [id number] Authorized 02/03/2024 02/02/2025 3 3 Reason Comments [...] 2024 End: January 08, 2024 Gregoria Irving [facility] Emergency Provider Active Start: January 08, 2024 End: January 08, 2024 Mold Finisher Relationship Specialty Start Date End Date Prem Blackburn MD [address] [place] [address] [place] [address] Resident Ophthalmology 04/11/24 Mold Finisher Relationship Specialty Start Date End Date Prem Blacbkurn MD [address] [place] [address] [place] [address] Resident Ophthalmology 04/11/24 Mold Finisher Relationship Specialty Start Date End Date Prem Blackburn MD [address] [place] [address] [place] [address] Resident Ophthalmology 04/11/24 Mold Finisher Relationship Specialty Start Date End Date Prem Blackburn MD [address] [place] [address] [place] [address] Resident Ophthalmology 04/11/24 Mold Finisher Relationship Specialty Start Date End Date Prem Blackburn MD [address] [place] [address] [place] [address] Resident Ophthalmology 04/11/24 Mold Finisher Relationship Specialty Start Date End Date Prem Blackburn MD [address] [place] [address] [place] [address] Resident Ophthalmology 04/11/24 Ligia Bedolla MD [address] [place] [address] [place] [address] Physician Neurology 05/16/24 [facility] [address] [place] [address] [place] [address] Pharmacist Pharmacology and Toxicology 05/21/24 Syl Santiago [facility] Medication Rhia Pharmacology and Toxicology 05/21/24 Radha Dolan, [facility] Pharmacology and Toxicology 05/21/24 Mold [employer] Relationship Specialty Start Date End Date Prem Blackburn MD [address] [place] [address] [place] [address] Resident Ophthalmology 04/11/24 Ligia Bedolla MD [address] [place] [id number] Physician Neurology 05/16/24 [facility] [address] [place] [address] [place] [address] Pharmacist Pharmacology and Toxicology 05/21/24 Syl Santiago [facility] Medication Rhia Pharmacology and Toxicology 05/21/24 Radha Dolan, [facility] Pharmacology and Toxicology 05/21/24 Goals (unrecognized section [...] - Provider: Dee Yost) lidocaine-epinephrine (XYLOCAINE) 1 %-1:[id number] injection SOLN (COMPLETED) 10 mL, Injection, ONCE, [...] BE BASED ON THE PRIMARY CLINICAL RECORDS. [employer] [facility]. provides no warranty or guarantee of the accuracy or completeness of information in this document.
== END 2024-07-28 20:38 | disposition home or self-care (01) ==
LOC: LAB 20:37
PROVIDERS: Visit Provider Obstetrics & Gynecology
DX: Z01.419 Encounter for gynecological examination (general) (routine) without abnormal findings (principal)
CPT/HCPCS: 88175

== ENCOUNTER 2024-11-27 07:30 | Emergency (ER) | payer SELFPAY ==
[2024-11-27 07:37] VITALS: BP 141/88; PULSE 72; TEMP 37.1; O2SAT 97; BMI 20.6
--- OUTSIDE RECORDS SUMMARY | 2024-11-27 07:39 | XMS_ITS | CCD ---
Author Organization [facility] Care Team Providers Care Accounting Software Specialist Name Role Phone ALYSSA, BOB Admitting Unavailable ALYSSA, BOB Attending Unavailable REQUEST, NONE LISTED Primary Care Unavailable MAITE LUCAS Consulting Unavailable ALYSSA, BOB Consulting Unavailable MISC, DOCTOR Admitting Unavailable MISC, DOCTOR Attending Unavailable MISC, DOCTOR Primary Care Unavailable MISC, DOCTOR Consulting Unavailable Samantha Driscoll Unavailable NO FAMILY, PHYSICIAN Primary Care Provider Unava ilable Bullimore, SHOULDER SAWYER-BC Gregoria E Emergency Provider Bullimore, Gregoria E Admitting Unavailable Bullimore, Gregoria E Attending Unavailable NO FAMILY, PHYSICIAN Primary Care Unavailable NO FAMILY, PHYSICIAN Primary Care Unavailable Maximilian Garner Admitting Unavailable Maximilian Garner Attending Unavailable Unavailable Primary Care Provider Unavailabl oscar Blackburn MD, Prem Unavailable Unavailable Primary Care Provider UnavailLigia Lawson MD [facility]available [facility] Syl Santiago CPhT Unavailable UnavailRadha Martinez CPhT Unavailable Unavailable CRISTIAN BOLANOS Attending Unavailable THAD MEYER Attending Unavailable PHILOMENA STEELE Attending Unavailable THAD MEYER Attending Unavailable PROVIDER, PATHOLOGY Attending Unavailable AGUSTO NOONAN Admitting Unavailable PROVIDER, PATHOLOGY Admitting Unavailable PROVIDER, PATHOLOGY Attending Unavailable PROVIDER, PATHOLOGY Admitting Unavailable LIGIA BEDOLLA Attending Unavailable PROVIDER, PATHOLOGY Attending Unavailable PROVIDER, PATHOLOGY Admitting Unavailable AGUSTO NOONAN Referring Unavailable PROVIDER, PATHOLOGY Attending Unavailable PROVIDER, PATHOLOGY Admitting Unavailable AGUSTO NOONAN Referring Unavailable PROVIDER, PATHOLOGY Admitting Unavailable AGUSTO NOONAN Referring Unavailable LIGIA BEDOLLA Attending Unavailable PROVIDER, PATHOLOGY Admitting Unavailable PREM BLACKBURN Attending Unavailable LIGIA BEDOLLA Referring Unavailable PROVIDER, PATHOLOGY Attending Unavailable PROVIDER, PATHOLOGY Admitting Unavailable PROVIDER, PATHOLOGY Admitting Unavailable LIGIA BEDOLLA Attending Unavailable LIGIA BEDOLLA Referring Unavailable PROVIDER, PATHOLOGY Attending Unavailable PROVIDER, PATHOLOGY Admitting Unavailable NIDA NEISHA Attending Unavailable PROVIDER, PATHOLOGY Admitting Unavailable AGUSTO NOONAN Admitting Unavailable AGUSTO NOONAN Attending Unavailable PROVIDER, PATHOLOGY Admitting Unavailable PROVIDER, PATHOLOGY Attending Unavailable Allergies Allergy Classification Reported Allergen(s) Allergy Type Date of Onset Reaction(s) Facility (1 source) Latex Drug allergy (disorder) 12-08-[address] [facility] Repository Medications Current Medications Medication Drug [...] painful area for up to 12 hrs [place] (No Known Home Meds) (1 source) Start: 01-08-2024 [place] (No Known Home Meds) Active January 08, [...] dose on 02/01/24 at 0900, Until Discontinued EPINEPHrine / Lidocaine [...] on 02/01/24 at 0527, Until Discontinued, Sleep methylPREDNISolone sodium succinate (SOLU-Medrol) 1,000 mg in dextrose 5 % 100 mL ivpb (custom dose) (1 source) Start: 02-01-2024 End: 02-03-2024 1,000 mg, Intravenous, DAILY, 3 doses, First dose on 02/01/24 at 0300, Last dose on 02/03/24 at 0900 pantoprazole 40 mg delayed release [...] [Other optic neuritis] Onset: 02-01-2024 02-01-2024 Chronic Malaise and fatigue (1 source) Other fatigue; Translations: [Other fatigue] Onset: 08-19-2024 Episodic Miscellaneous mental health disorders (3 sources) Anxiety about body function or health; Translations: [Other symptoms and signs involving emotional state] 05-06-2024 Episodic Multiple sclerosis (10 sources) Multiple sclerosis; Translations: [Multiple sclerosis] Onset: 05-20-2024 05-06-2024 Chronic Other endocrine disorders (2 sources) Polycystic ovary syndrome; Translations: [Polycystic ovarian syndrome] 07-28-2024 Chronic Other female genital disorders (2 sources) Abnormal uterine bleeding; Translations: [Abnormal uterine and vaginal bleeding, unspecified] 07-28-2024 Chronic Other female genital disorders (2 sources) Vaginal discharge; Translations: [Other specified noninflammatory disorders of vagina] 07-28-2024 Episodic Other gastrointestinal disorders (3 sources) Dysphagia; Translations: [...] Value Interpretation Reference Range Facility Progress Noteson 08-27-2024 Shipping Point Inspector Authentication Interface Message Text Infusion Center Nursing Note Verified patient's identification correctly by name and date of . Current allergy status reviewed with patient. Situation: Problem: Multiple Sclerosis Infusion of Ocrevus (Ocrelizumab) Induction # 2/2, 2 doses of 300 mg, 2 weeks apart Background: Last Dose: N/A Induction today Ordering Provider: Ligia Bedolla MD Assessment: Patient at risk for falls: No Falls Risk protocol implemented: No Call aguayo within reach: Yes Active Treatment Plan: Yes Pre Infusion Screening completed: Yes Nursing assessment: Pt presents to infusion clinic for IV Ocrevus. This is her 2nd dose. Pt stated that the day after her 1st dose she came down with sinus pain, sore throat and cough. Spoke with Dr. Bedolla and they dx'd her with cold. Much better today. No s/s of cold, fever, pain and or complications. Administration: IV access: See LDA Premedications: Yes. See MAR. Medication received from pharmacy. Label, solution, and expiration date/time verified. Appropriate filter utilized as stipulated by medication guidelines. At 1056: Ocrevus 300 mg in 250 ml initiated via pump at 30 ml/hr. At Medication infusion rate increased by 30 ml/hr every 30 minutes to a max rate of 180 ml/hr for remainder of infusion per medication administration instructions/guidelin es. See MAR. Monitoring and VS per therapy plan protocol/medication guidelines. At 1130: Infusion increased to 60 mL/hr. At 1155: Infusion increased to 90 mL/hr. At 1230: Infusion increased to 120 mL/hr. At 1259: Infusion increased to 150 mL/hr. At 1345: Infusion completed. Tolerated well. No adverse reactions. Line flushed per MH guidelines. Patient remains in clinic for 60 minutes post infusion monitoring per therpay plan guidelines: Yes IV Access Discontinued: See LDA Recommendation/Plan: Next infusion: February at 09:00. Provider follow up: Next appointment in Neurology is on 02/19/2025 at 3:30 PM with Ligia Bedolla MD Pt is aware and agrees with plan of care: Yes Pt received clinic After Visit Summary: Yes Pt uses MYChart: Yes Pt left clinic in good condition: Yes Normal The [facility] Shipping Point Inspector Authentication Interface Message Text Patient was identified by name and date of . Bobby Ruelas MA Patient at risk for falls:No Falls Risk protocol implemented: No Normal The [facility] Patient Instructionson 08-19 Shipping Point Inspector Authentication Interface Message Text Continue Ocrevus MRI due in January We discussed need for regular skin checks with PCP or Dermatology (annual); counseled safe sun exposure We will check labs for fatigue; these can be done by primary care if they are willing. If there are deficiencies, they can be treated. If not, we can consider starting amantadine for fatigue. Please let me know if we need to talk sooner; otherwise, we will see you back in office in 6 months. Normal The [facility] US PELVIC COMPLETE W/ TVon 0 08-18-2024 US PELVIC COMPLETE W/ TV EXAM: US PELVIC COMPLETE W/ TV HISTORY: PCOS, irregular cycles x a few weeks. COMPARISON: None available. TECHNIQUE: Two-dimensional transabdominal grayscale ultrasound imaging of the pelvis was performed. Color flow Doppler imaging of the ovaries was also performed. Transvaginal was performed. FINDINGS: UTERUS 7.0 x 3.2 x 4.5 cm The uterus is anteverted in position and demonstrates a normal, homogeneous echotexture. ENDOMETRIUM 0.5 cm The endometrium demonstrates a normal, homogeneous echotexture. RIGHT OVARY 3.7 x 2.5 x 2.9 cm The right ovary demonstrates a normal echotexture with follicles. The ovarian volume is 14 mL. There is normal color Doppler flow. LEFT OVARY 3.4 x 2.2 x 2.6 cm The left ovary demonstrates a normal echotexture with follicles. The ovarian volume is 10 mL. There is normal color Doppler flow. Trace fluid is present within the cul-de-sac. IMPRESSION: 1. Unremarkable ultrasound of the pelvis. 2. Normal color Doppler flow within the bilateral ovaries. Electronically Signed:Electronically signed by SUKH NATHAN II, MD, PHD at 19-Aug-2024 08:37:28 AM [facility] Normal Not Available Comment on above: Order Comment: US PE LVIS-TRANSVAG IF INDICATED No LMP recorded. Progress Noteson 08-13-2024 Shipping Point Inspector Authentication Interface Message Text Infusion Center Nursing Note Verified patient's identification correctly by name and date of . Current allergy status reviewed with patient. Situation: Problem: Multiple Sclerosis Infusion of Ocrevus (Ocrelizumab) Induction # 1/2, 2 doses of 300 mg, 2 weeks apart Background: Last Dose: N/A Induction today Ordering Provider: Ligia Bedolla MD Assessment: Patient at risk for falls: No Falls Risk protocol implemented: No Call aguayo within reach: Yes Active Treatment Plan: Yes Pre Infusion Screening completed: Yes Nursing assessment: Pt presents well to clinic for infusion. Pt denies any recent fever, chills, flu like symptoms, skin issues, or any other s/s of infection. Per pt she finished a course of antibiotics yesterday, 08/12/2024. Per Dr. Bedolla pt can start her infusions today. Pt is cooperative with care and voiced no questions or concerns at this time. Administration: IV access: See LDA Premedications: Yes. Administered at 0957 AND 0958. See MAR. Medication received from pharmacy. Label, solution, and expiration date/time verified. Appropriate filter utilized as stipulated by medication guidelines. Ocrevus 300 mg in 250 ml initiated via pump at 30 ml/hr. Medication infusion rate increased by 30 ml/hr every 30 minutes to a max rate of 180 ml/hr for remainder of infusion per medication administration instructions/guidelin es. See MAR. Monitoring and VS per therapy plan protocol/medication guidelines. Infusion completed. Tolerated well. No adverse reactions. Line flushed per guidelines. Patient remains in clinic for 60 minutes post infusion monitoring per therpay plan guidelines: Yes IV Access Discontinued: See LDA Recommendation/Plan: Next infusion: q 2 weeks, 08/27/2024 at 0900 Provider follow up: Next appointment in Neurology is on 08/19/2024 at 1:00 PM with Ligia Bedolla MD Pt is aware and agrees with plan of care: Yes Pt received clinic After Visit Summary: Yes Pt uses MYChart: Yes Pt left clinic in good condition: Yes Normal The [place] Shipping Point Inspector Authentication Interface Message Text Patient was identified by name and date of . Bobby Ruelas MA Patient at risk for falls:No Falls Risk protocol implemented: No Normal The [facility] Progress Noteson 07-30-2024 Shipping Point Inspector Authentication Interface Message Text Appointment for initial infusion/injection has been scheduled. Next appointment in Medical Specialties is on 08/13/2024 at 9:00 AM with INFUSION CHAIR 5 Next appointment in Medical Specialties is on 08/27/2024 at 9:00 AM with INFUSION CHAIR 5 Medication for infusion is being supplied by: [employer] ( Ocrevus) Thank you, Hiram Owusu [facility], Specialty Vocational Rehabilitation Specialist [facility] [phone] ext [phone] Normal The [facility] Shipping Point Inspector Authentication Interface Message Text SPECIALTY PHARMACY - Prior Auth APPROVED- MEDICAL BENEFIT 07/30/24 1244 Specialty Med Prior Auth Info - Primary - Medical Benefit Specialty Med [place] Outcome - Medical Benefit Appeal approved Insurance Payor - Medical Benefit [facility] [place] Auth Number - Medical [id number] Effective Start Date 05/22/24 Effective End Date 05/21/25 How was approval received? Fax Specialty Prior Auth Medication Details - Primary - Medical Benefit Medication(s) Ocrevus 300mg/10mL: 300 mg once on day 1, followed by 300 mg once 2 weeks later; subsequent doses of 600 mg are administered once every 6 months Authorized Quantity 4 Unit of Measure Number of Visits The pharmacy will contact patient Azeb Hyatt and update her on the approval status. Pharmacy to contact patient regarding next step for medication fill. Encounter to be routed to appropriate oil processing technician/pharmacist for medication fill outreach. Patient questions may be directed to: [phone] option 3 Thank you, Syl Santiago [facility] Normal The [place] Shipping Point Inspector Stanceation Interface Message Text SPECIALTY PHARMACY - Appeal Denied- PHARMACY BENEFIT 07/30/24 1243 Specialty Med Prior Auth Info - Primary Specialty Med [place] Outcome Appeal denied Insurance Payor [employer] Denial Reason Drug criteria not met Specialty Prior Auth Medication Details - Primary Medication(s) Ocrevus 300mg/10mL: 300 mg once on day 1, followed by 300 mg once 2 weeks later; subsequent doses of 600 mg are administered once every 6 months Thank you, Syl Santiago [facility] [phone] option 3 Normal The [facility] Progress Noteson 07-29-2024 Shipping Point Inspector Authentication Interface Message Text Peer to peer has been scheduled with [facility] [place] and Dr. Ligia Bedolla on 07/30 between 10am-11am. Karie Johnson, PharmD [facility] [phone] option # 3 Normal [facility] RECURRENT VAGINITIS (HTRX)on 07-29-2024 ATOPOBIUM VAGINAE 18.615 Abnormal [facility] Healthcare ATOPOBIUM VAGINAE Detected Abnormal [facility] BVAB 2,3 (BACTERIAL VAGINOSIS ASSOCIATED BACTERIA 2, 3); MOBILUNCUS SPP 0 [facility] BVAB 2,3 (BACTERIAL VAGINOSIS ASSOCIATED BACTERIA 2, 3); MOBILUNCUS SPP Not detected [facility] AISHA ALBICANS, PARAPSILOSIS, TROPICALIS 0 [facility] Healthcare AISHA ALBICANS, PARAPSILOSIS, TROPICALIS Not detected [facility] AISHA GLABRATA 0 [facility] Healthcare AISHA GLABRATA Not detected [facility] AISHA KRUSEI 0 [facility] AISHA KRUSEI Not detected [facility] CHLAMYDIA TRACHOMATIS 21.867 Abnormal [facility] CHLAMYDIA TRACHOMATIS Detected Abnormal [facility] ERMB, C; MEFA 15.486 Abnormal [facility] ERMB, C; MEFA Detected Abnormal [facility] GARDNERELLA VAGINALIS 16.778 Abnormal [facility] GARDNERELLA VAGINALIS Detected Abnormal [facility] Interpretation and review of laboratory results Abnormal [facility] Healthcare MEGASPHAERA (TYPES 1, 2) 17.956 Abnormal [facility] Healthcare MEGASPHAERA (TYPES 1, 2) Detected Abnormal [facility] MYCOPLASMA GENITALIUM 0 [facility] MYCOPLASMA GENITALIUM Not detected [facility] NEISSERIA GONORRHOEAE 0 [facility] Healthcare NEISSERIA GONORRHOEAE Not detected [facility] TET B, TET M 15.121 Abnormal [facility] Healthcare TET B, TET M Detected Abnormal [facility] TRICHOMONAS VAGINALIS 0 [facility] TRICHOMONAS VAGINALIS Not detected [facility] ALL CBC WITH AUTO DIFFon BASOPHILS ABSOLUTE AUTO 0 [facility] Basophils/100 WBC (Bld) 1 % 0.2 - 2.0 % [facility] Eosinophils/100 WBC (Bld) 4 % 0.9 - 7.0 % [facility] Erythrocyte distribution width (RBC) [Ratio] 13.5 % 11.0 - 15.0 % [facility] Hematocrit (Bld) [Volume fraction] 40 % 36.0 - 48.0 % [facility] Hemoglobin (Bld) [Mass/Vol] 13.1 g/dL 12.0 - 16.0 g/dL [facility] IMMATURE GRANULOCYTES ABS AUTO 0.01 [facility] Immature granulocytes/100 WBC (Bld) 0.3 % 0.0 - 0.5 % [facility] LYMPHOCYTES ABSOLUTE AUTO 1.2 [facility] Lymphocytes/100 WBC (Bld) 29.6 % 20.5 - 60.0 % [facility] MCH (RBC) [Entitic mass] 28.7 pg 26.7 - 34.0 pg [facility] MCHC (RBC) [Mass/Vol] 32.8 g/dL 29.9 - 35.2 g/dL [facility] MCV (RBC) [Entitic vol] 87.5 fL 81.0 - 99.0 fL [facility] MONOCYTES ABSOLUTE AUTO 0.4 [facility] Monocytes/100 WBC (Bld) 9.3 % 1.7 - 12.0 % [facility] NEUTROPHILS ABSOLUTE AUTO 2.2 [facility] Neutrophils/100 WBC (Bld) 55.8 % 43.0 - 75.0 % [facility] Platelet mean volume (Bld) [Entitic vol] 11.7 fL 9.5 - 13.5 fL [facility] TBH EO # 0.2 [facility] TB PLT 184 [facility] RBC 4.57 [facility] WBC 4 [facility] Progress Noteson 07-22-2024 Shipping Point Inspector Authentication Interface Message Text SPECIALTY PHARMACY - Appeal Submitted- PHARMACY BENEFIT Medication and dosing: Ocrevus 300mg/10mL: 300 mg once on day 1, followed by 300 mg once 2 weeks later; subsequent doses of 600 mg are administered once every 6 months Insurance: [employer] Appeal submitted on date: 07/22/24 Method submitted: FAX #: [phone] Insurance has up to 3 calendar days to make a decision on the appeal. Pharmacy will addend this encounter with response from plan. Thank you, Syl Santiago, [facility] [phone] option 3 Normal [facility] Progress Noteson 07-21-2024 Shipping Point Inspector Authentication Interface Message Text SPECIALTY PHARMACY - [...] every 6 months Thank you, Syl Santiago [facility] Normal The [facility] Progress Noteson 07-17-2024 Shipping Point Inspector Authentication Interface Message Text SPECIALTY PHARMACY - Prior Auth Submitted- PHARMACY BENEFIT Medication and dosing: Ocrevus 300mg/10mL: 300 mg once on day 1, followed by 300 mg once 2 weeks later; subsequent doses of 600 mg are administered once every 6 months Insurance: [employer] PA submitted on date: 07/17/24 EPIC WQ- LATENT: Pardo- [id number] Pharmacy will addend this encounter with response from plan. Thank you, Syl Santiago CPhT Normal The [facility] Shipping Point Inspector Authentication Interface Message Text SPECIALTY PHARMACY - Appeal Denied- MEDICAL BENEFIT 07/17/24 1452 Specialty Med Prior Auth Info - Primary - Medical Benefit Specialty Med [place] Outcome - Medical Benefit Appeal denied Insurance Payor - Medical Benefit [facility] [place] Denial Reason Drug criteria not met [place] Notes Appeal Denied on 06/24/24 per MMO Rep Selena ([phone]) Specialty Prior Auth Medication Details - Primary - Medical Benefit Medication(s) Ocrevus Thank you, Syl Santiago [facility] [phone] option 3 Normal The [facility] Progress Noteson 06-17-2024 Shipping Point Inspector Authentication Interface Message Text SPECIALTY PHARMACY - Appeal Submitted- MEDICAL BENEFIT Medication and dosing: Ocrevus 300mg/10mL: 300 mg once on day 1, followed by 300 mg once 2 weeks later; subsequent doses of 600 mg are administered once every 6 months Insurance: MMO Appeal submitted on date: 06/17/24 Method submitted: FAX #: [phone] Insurance has up to 30 calendar days to make a decision on the appeal. Pharmacy will addend this encounter with response from plan. Thank you, Syl Santiago [facility] [phone] option 3 Normal The [facility] Office Visiton 06-09-2024 Follow-up visit [id number] Azeb Hyatt 2000 F Date Provider Department Center 06/09/2024 CRISTIAN CARDOZA [facility] Comprehensiv Family History Problem Relation Age of Onset Other Maternal Grandmother Family Status - Relation Status Age at Maternal Grandmother Level of Service:31630 OR OFFICE/OUTPATIENT NEW LOW MDM 30 MINUTES (GE) Reason for Visit and Comments: New Patient [632] - Here to est care. Swollen Glands [[id number]] Normal [facility] Progress Noteson 06-04-2024 Shipping Point Inspector Authentication Interface Message Text SPECIALTY PHARMACY - Prior Auth Denied- MEDICAL BENEFIT 06/04/24 1246 Specialty Med Prior Auth Info - Primary - Medical Benefit Specialty Med [place] Outcome - Medical Benefit Denied Insurance Payor - Medical Benefit [facility] [place] Denial Reason Required Step Therapy Denial Follow Up Appeal Required Specialty Prior Auth Medication Details - Primary - Medical Benefit Medication(s) Ocrevus 300mg/10mL: 300 mg once on day 1, followed by 300 mg once 2 weeks later; subsequent doses of 600 mg are administered once every 6 months Thank you, Syl Santiago CPhT Normal The [facility] Progress Noteson 05-28-2024 Shipping Point Inspector Authentication Interface Message Text Encounter Opened in error. Please disregard. Pt stated she scheduled this visit to establish with a PCP, was unable to schedule herself online. I will request the [facility] Primary Care RN to assist pt. Neisha Aguero PA-C Normal The [facility] Shipping Point Inspector Authentication Interface Message Text More info faxed to [employer] regarding Ocrevus auth request ([phone]). Thank you, Syl Santiago CPhT Normal The [facility] Progress Noteson 05-26-2024 Shipping Point Inspector Authentication Interface Message Text Generic disease modifying therapies would not be appropriate for patient. These include oral tablets that she is unable to swallow (dimethyl fumarate, Teriflunomide, fingolimod) and injections that she is unable to administer (glatiramer, interferons). Additionally, patient has MS with spinal cord involvement, is -omani (risk factor for more aggressive MS), and [...] With Multiple Sclerosis. TISH Neurol. 2019 October 1;76(5):536-541. doi: 10.1001/[email or web address].20 18.4905. PMID: [id number]; PMCID: [id number]. Karie Johnson, PharmD [facility] [phone] option # 3 Normal The [facility] Progress Noteson 05-25-2024 Shipping Point Inspector Authentication Interface Message Text Normal The [facility] Progress Noteson 05-22-2024 Shipping Point Inspector Authentication Interface Message Text SPECIALTY PHARMACY - Prior Auth Submitted- MEDICAL BENEFIT Medication and dosing: Ocrevus 300mg/10mL: 300 mg once on day 1, followed by 300 mg once 2 weeks later; subsequent doses of 600 mg are administered once every 6 months Insurance: JOSE ANGEL AGUILLON submitted on date: 05/22/24 PORTAL SUBMISSION: SITE: [facility] REF#: [id number] Pharmacy will addend this encounter with response from plan. Thank you, Syl Santiago CPhT Normal The [place] Patient Instructionson 05-20 Shipping Point Inspector Authentication Interface Message Text It was great [...] a new primary care provider please call [phone] Physical therapy for your shoulder: SCHEDULING INSTRUCTIONS: Call [phone] to schedule your Physical Therapy appointment. We offer therapy services at many convenient locations. Please arrive 20 minutes prior to your appointment to register. It is important to bring your insurance cards and a personal identification card to your appointment. If you are unable to keep your appointment, cancel or reschedule by calling [phone] or via [employer]. Normal The [place] Progress Noteson 05-20-2024 Shipping Point Inspector Authentication Interface Message Text Patient accompanied by family/friend/visitor for visit. Patient granted verbal permission for family/friend/visitor to remain in exam room for visit. Walk time test result: 11.23 Normal The [place] AUTOIMMUNE MULTIPLEX PANELon 05-06-2024 OSCAR SCREEN Positive Abnormal Negative The [facility] Comment on above: Order Comment: ds DNA Reference Range: < or = to 4 IU/mL-Negative 5-9 IU/mL-Indeterminate > or = to 10 IU/mL-Positive Performed By: #### v shiv, oscar #### S [facility] [address] [place] [address], CENTROMERE ANTIBODY Positive Abnormal Negative [facility] Comment on above: Order Comment: ds DNA Reference Range: < or = to 4 IU/mL-Negative 5-9 IU/mL-Indeterminate > or = to 10 IU/mL-Positive Performed By: #### shaun chaney, oscar #### [facility] [address] [place] [address], CENTROMERE ANTIBODY INDEX 1.7 Al High <1.0 [facility] Comment on above: Order Comment: ds DNA Reference Range: < or = to 4 IU/mL-Negative 5-9 IU/mL-Indeterminate > or = to 10 IU/mL-Positive Performed By: #### shaun chaney, oscar #### [facility] [address] [place] [address], CHROMATIN ANTIBODY Negative Normal Negative [facility] Comment on above: Order Comment: ds DNA Reference Range: < or = to 4 IU/mL-Negative 5-9 IU/mL-Indeterminate > or = to 10 IU/mL-Positive Performed By: #### v shiv, oscar #### [facility] [address] [place] [address], CHROMATIN ANTIBODY INDEX < 0.2 Normal <1.0 [facility] Comment on above: Order Comment: ds DNA Reference Range: < or = to 4 IU/mL-Negative 5-9 IU/mL-Indeterminate > or = to 10 IU/mL-Positive Performed By: #### v shiv, oscar #### [facility] [address] [place] [address], DS DNA Negative Normal Negative [facility] Comment on above: Order Comment: ds DNA Reference Range: < or = to 4 IU/mL-Negative 5-9 IU/mL-Indeterminate > or = to 10 IU/mL-Positive Performed By: #### v shiv, oscar #### S [facility] [address] [place] [address], DS DNA ANTIBODY < 1 Normal See Below [facility] Comment on above: Order Comment: ds DNA Reference Range: < or = to 4 IU/mL-Negative 5-9 IU/mL-Indeterminate > or = to 10 IU/mL-Positive Performed By: #### v shiv, oscar #### [facility] [address] [place] [address], JO1 ANTIBODY Negative Normal Negative [facility] Comment on above: Order Comment: ds DNA Reference Range: < or = to 4 IU/mL-Negative 5-9 IU/mL-Indeterminate > or = to 10 IU/mL-Positive Performed By: #### v shiv, oscar #### [facility] [address] [place] [address], JO1 ANTIBODY INDEX < 0.2 Normal <1.0 [facility] Comment on above: Order Comment: ds DNA Reference Range: < or = to 4 IU/mL-Negative 5-9 IU/mL-Indeterminate > or = to 10 IU/mL-Positive Performed By: #### v shiv, oscar #### [facility] [address] [place] [address], RIBOSOMAL P ANTIBODY Negative Normal Negative [facility] Comment on above: Order Comment: ds DNA Reference Range: < or = to 4 IU/mL-Negative 5-9 IU/mL-Indeterminate > or = to 10 IU/mL-Positive Performed By: #### v shiv, oscar #### [facility] [address] [place] [address], RIBOSOMAL P ANTIBODY INDEX < 0.2 Normal <1.0 [facility] Comment on above: Order Comment: ds DNA Reference Range: < or = to 4 IU/mL-Negative 5-9 IU/mL-Indeterminate > or = to 10 IU/mL-Positive Performed By: #### v shiv, oscar #### [facility] [address] [place] [address], BEAN SNIPPER ANTIBODY Negative Normal Negative [facility] Comment on above: Order Comment: ds DNA Reference Range: < or = to 4 IU/mL-Negative 5-9 IU/mL-Indeterminate > or = to 10 IU/mL-Positive Performed By: #### v shiv, oscar #### [facility] [address] [place] [address], BEAN SNIPPER ANTIBODY INDEX < 0.2 Normal <1.0 [facility] Comment on above: Order Comment: ds DNA Reference Range: < or = to 4 IU/mL-Negative 5-9 IU/mL-Indeterminate > or = to 10 IU/mL-Positive Performed By: #### shaun chaney, oscar #### [facility] [address] [place] [address], SCLERODERMA-70 ANTIBODY Negative Normal Negative [facility] Comment on above: Order Comment: ds DNA Reference Range: < or = to 4 IU/mL-Negative 5-9 IU/mL-Indeterminate > or = to 10 IU/mL-Positive Performed By: #### v shiv, oscar #### [facility] [address] [place] [address], SCLERODERMA-70 ANTIBODY INDEX < 0.2 Normal <1.0 [facility] Comment on above: Order Comment: ds DNA Reference Range: < or = to 4 IU/mL-Negative 5-9 IU/mL-Indeterminate > or = to 10 IU/mL-Positive Performed By: #### v shiv, oscar #### [facility] [address] [place] [address], THOMAS ANTIBODY Negative Normal Negative [facility] Comment on above: Order Comment: ds DNA Reference Range: < or = to 4 IU/mL-Negative 5-9 IU/mL-Indeterminate > or = to 10 IU/mL-Positive Performed By: #### v shiv, oscar #### [facility] [address] [place] [address], THOMAS ANTIBODY INDEX < 0.2 Normal <1.0 [facility] Comment on above: Order Comment: ds DNA Reference Range: < or = to 4 IU/mL-Negative 5-9 IU/mL-Indeterminate > or = to 10 IU/mL-Positive Performed By: #### v shiv, oscar #### [facility] [address] [place] [address], THOMAS/BEAN SNIPPER ANTIBODY Negative Normal Negative [facility] Comment on above: Order Comment: ds DNA Reference Range: < or = to 4 IU/mL-Negative 5-9 IU/mL-Indeterminate > or = to 10 IU/mL-Positive Performed By: #### v z, oscar #### [facility] [address] [place] [address], THOMAS/BEAN SNIPPER ANTIBODY INDEX < 0.2 Normal <1.0 [facility] Comment on above: Order Comment: ds DNA Reference Range: < or = to 4 IU/mL-Negative 5-9 IU/mL-Indeterminate > or = to 10 IU/mL-Positive Performed By: #### v shiv, oscar #### [facility] [address] [place] [address], SS-A ANTIBODY Negative Normal Negative [facility] Comment on above: Order Comment: ds DNA Reference Range: < or = to 4 IU/mL-Negative 5-9 IU/mL-Indeterminate > or = to 10 IU/mL-Positive Performed By: #### v shiv, oscar #### [facility] [address] [place] [address], SS-A ANTIBODY INDEX < 0.2 Normal <1.0 [facility] Comment on above: Order Comment: ds DNA Reference Range: < or = to 4 IU/mL-Negative 5-9 IU/mL-Indeterminate > or = to 10 IU/mL-Positive Performed By: #### v z, oscar #### [facility] [address] [place] [address], SS-B ANTIBODY Negative Normal Negative [facility] Comment on above: Order Comment: ds DNA Reference Range: < or = to 4 IU/mL-Negative 5-9 IU/mL-Indeterminate > or = to 10 IU/mL-Positive Performed By: #### v z, oscar #### [facility] [address] [place] [address], SS-B ANTIBODY INDEX < 0.2 Normal <1.0 [facility] Comment on above: Order Comment: ds DNA Reference Range: < or = to 4 IU/mL-Negative 5-9 IU/mL-Indeterminate > or = to 10 IU/mL-Positive Performed By: #### v shiv, oscar #### [facility] [address] [place] [address], Addendum Noteon 05-06-2024 Shipping Point Inspector Authentication Interface Message Text Addended by: LIGIA BEDOLLA on: 05/06/2024 04:57 PM Modules accepted: Level of Service Normal The [facility] [employer] [facility] BASIC METABOLIC PANELon 11-2 Anion gap [Moles/Vol] 17 mmol/L Normal 10-20 [facility] Comment on above: Performed By: #### G ENTEST #### S PATHOLOGY LABORATORY [address] [place] [address], Calcium [Mass/Vol] 9.9 mg/dL Normal 8.6-10.3 [facility] Comment on above: Performed By: #### G ENTEST #### [facility] [address] [place] [address], Chloride [Moles/Vol] 105 mmol/L Normal 98-107 [facility] Comment on above: Performed By: #### G ENTEST #### [facility] [address] [place] [address], CO2 [Moles/Vol] 28 mmol/L Normal 21-31 [facility] Comment on above: Performed By: #### G ENTEST #### [facility] [address] [place] [address], Creatinine [Mass/Vol] 0.66 mg/dL Normal 0.60-1.20 [facility] Comment on above: Performed By: #### G ENTEST #### S [facility] [address] [place] [address], ESTIMATED GFR (CKD-EPI) 124 mL/min/1.73sqm Normal >=60 [facility] Comment on above: Result Comment: 2020 [...] Inclusion of Race in Diagnosing Kidney Disease. [place] Journal of Kidney Diseases 202;79(2):268-88.e1. 2. N Engl J Med 1 Vol. 385 Issue 19 Pages 2251-9208 Performed By: #### G ENTEST #### [facility] [address] [place] [address], Glucose [Mass/Vol] 77 mg/dL Normal 74-109 [facility] Comment on above: Performed By: #### G ENTEST #### S PATHOLOGY LABORATORY [address] [place], [place], Potassium [Moles/Vol] 4.7 mmol/L Normal 3.5-5.0 [facility] Comment on above: Performed By: #### G ENTEST #### S PATH[facility] LAB[facility]AT[facility] [address] [place] [address], Sodium [Moles/Vol] 145 mmol/L Normal 136-145 [facility] Comment on above: Performed By: #### G ENTEST #### S PATH[facility] LAB[facility] [address] [place] [address], Urea nitrogen [Mass/Vol] 14 mg/dL Normal 7-25 [facility] Comment on above: Performed By: #### G ENTEST #### [facility] [address] [place], [place], Basic metabolic 2000 panelon 05-06-2024 Anion gap [Moles/Vol] 17 mmol/L 10 - 20 Met [facility] Calcium [Mass/Vol] 9.9 mg/dL 8.6 - 10. 3 mg/dL [facility] Chloride [Moles/Vol] 105 mmol/L 98 - 10 7 mmol/L [facility] CO2 [Moles/Vol] 28 mmol/L 21 - 31 mmol/L [facility] Creatinine [Mass/Vol] 0.66 mg/dL 0.60 - 1.20 mg/dL [facility] GFR/1.73 sq M.predicted CKD-EPI (S/P/Bld) [Vol rate/Area] 124 - PINF [facility] Comment on above: 2020 CKD EPI [...] Inclusion of Race in Diagnosing Kidney Disease. [place] Journal of Kidney Diseases 2021;79(2):268-88.e1. 2. N Engl J Med 2020 Vol. 385 Issue 19 Pages 5441-7330 Glucose [Mass/Vol] 77 mg/dL 74 - 109 mg/dL [facility] Interpretation and review of laboratory results Normal [facility] Potassium [Moles/Vol] 4.7 mmol/L 3.5 - 5.0 mmol/L [facility] Sodium [Moles/Vol] 145 mmol/L 136 - 145 mmol/L [facility] Urea nitrogen [Mass/Vol] 14 mg/dL 7 - 25 mg/dL [facility] CBC WITH DIFFERENTIALon 04-11 Basophils (Bld) [#/Vol] 0.04 10*3/uL Normal 0.00-0.20 [facility] Comment on above: Performed By: #### C BCDSAT ####[facility] [id number] [place], [place], Basophils/100 WBC (Bld) 0.8 % Normal <=1.9 [facility] Comment on above: Performed By: #### C BCDSAT ####[facility] [id number] [place], [place], Eosinophils (Bld) [#/Vol] 0.11 10*3/uL Normal 0.00-0.70 [facility] Comment on above: Performed By: #### C BCDSAT ####S PATHOLOGY [id number] [place], Eosinophils/100 WBC (Bld) 2.4 % Normal 0.1-4.0 [facility] Comment on above: Performed By: #### C BCDSAT ####S PATHOLOGY [id number] [place], [place], Erythrocyte distribution width (RBC) [Ratio] 14.5 % Normal 11.5-14.5 [facility] Comment on above: Performed By: #### C BCDSAT ####[facility] [id number] [place] [address], Hematocrit (Bld) [Volume fraction] 39.6 % Normal 36.0-46.0 [facility] Comment on above: Performed By: #### C BCDSAT ####[facility] [id number] [place] [address], Hemoglobin (Bld) [Mass/Vol] 13.0 g/dL Normal 12.0-15.0 [facility] Comment on above: Performed By: #### C BCDSAT ####[facility] [id number] [place] [address], Lymphocytes (Bld) [#/Vol] 1.15 10*3/uL Normal 1.00-4.80 [facility] Comment on above: Performed By: #### C BCDSAT ####[facility] [id number] [place] [address], Lymphocytes/100 WBC (Bld) 24.2 % Normal 24.0-44.0 [facility] Comment on above: Performed By: #### C BCDSAT ####[facility] [id number] [place] [address], MCH (RBC) [Entitic mass] 30.1 pg Normal 26.0-34.0 [facility] Comment on above: Performed By: #### C BCDSAT ####[facility] [id number] [place] [address], MCHC (RBC) [Mass/Vol] 32.9 g/dL Normal 32.0-35.9 [facility] Comment on above: Performed By: #### C BCDSAT ####[facility] [id number] [place], MCV (RBC) [Entitic vol] 92 fL Normal 80-100 [facility] Comment on above: Performed By: #### C BCDSAT ####[facility] [id number] [place] [address], Monocytes (Bld) [#/Vol] 0.32 10*3/uL Normal 0.20-1.00 [facility] Comment on above: Performed By: #### C BCDSAT ####[facility] [id number] [place], Monocytes/100 WBC (Bld) 6.8 % Normal 2.0-11.0 [facility] Comment on above: Performed By: #### C BCDSAT ####[facility] [id number] [place], Neutrophils (Bld) [#/Vol] 3.14 10*3/uL Normal 1.50-8.00 [facility] Comment on above: Performed By: #### C BCDSAT ####[facility] [id number] [place], Neutrophils/100 WBC (Bld) 65.9 % Normal 31.0-76.0 [facility] Comment on above: Performed By: #### C BCDSAT ####[facility] [id number] [place], Platelet mean volume (Bld) [Entitic vol] 9.7 fL Normal 7.5-11.2 [facility] Comment on above: Performed By: #### C BCDSAT ####[facility] [id number] [place], Platelets (Bld) [#/Vol] 193 10*3/uL Normal 150-400 [facility] Comment on above: Performed By: #### C BCDSAT ####[facility] [id number] [place], RBC (Bld) [#/Vol] 4.32 10*6/uL Normal 4.00-5.20 [facility] Comment on above: Performed By: #### C BCDSAT ####[facility] [id number] [place], WBC (Bld) [#/Vol] 4.8 10*3/uL Normal 4.5-11.5 [facility] Comment on above: Performed By: #### C BCDSAT ####[facility] [id number] [place], HCV Ab IA Qn (S)on HCV Ab Ql (S) Non-Reactive Nonreactive [facility] Interpretation and review of laboratory results Normal [facility] HEPATIC FUNCTION PANELon Albumin [Mass/Vol] 5.0 g/dL Normal 3.5-5.7 [facility] Comment on above: Performed By: #### G ENTEST #### S PATHOLOGY LABORATORY [address] [place] [address], ALK 41 IU/L Normal 34-104 [facility] Comment on above: Performed By: #### G ENTEST #### [facility] [address] [place] [address], ALT [Catalytic activity/Vol] 8 U/L Normal 7-52 [facility] Comment on above: Performed By: #### G ENTEST #### [facility] [address] [place] [address], AST [Catalytic activity/Vol] 11 U/L Low 13-39 [facility] Comment on above: Performed By: #### G ENTEST #### [facility] [address] [place] [address], Bilirubin [Mass/Vol] 0.5 mg/dL Normal 0.3-1.0 [facility] Comment on above: Performed By: #### G ENTEST #### [facility] [address] [place] [address], Bilirubin.direct [Mass/Vol] 0.11 mg/dL Normal 0.03-0.18 [facility] Comment on above: Performed By: #### G ENTEST #### S PATHOLOGY LABORATORY [address] [place] [address], Protein [Mass/Vol] 7.5 g/dL Normal 6.0-8.3 [facility] Comment on above: Performed By: #### G ENTEST #### S PATHOLOGY LABORATORY [address] [place] [address], HEPATITIS B CORE ANTIBODYon 05-06-2024 CORE Non-Reactive Normal Nonreactive [facility] Comment on above: Performed By: #### A NTI-HBS, CORE ####[facility] [id number] [place], HEPATITIS B SURFACE ANTIBODY on 05-06-2024 ANTI-HBS < 3.1 Normal [facility] Comment on above: Order Comment: Nonre active: Samples < 7.5 mIU/mLReactive: Samples >/= 10.0 mIU/mLThe accepted criteria for immunity to HBV is anti-HBs activity >/= 10 mIU/mL, as defined by the WHO International Reference Preparation. Performed By: #### A NTI-HBS, CORE ####S PATHOLOGY [id number] [place], [place], HEPATITIS B SURFACE ANTIGENo n 05-06-2024 HBSAG Non-Reactive Normal Non-Reactive [facility] Comment on above: Performed By: #### I GG, IGM #### S PATHOLOGY LABORATORY [address] [place] [address], [place], HEPATITIS C ANTIBODYon 05-06 HCV Non-Reactive Normal Nonreactive [facility] Comment on above: Performed By: #### I GG, IGM #### S PATHOLOGY LABORATORY [address] [place], [place], IMMUNOGLOBULIN Ben 4 IgG [Mass/Vol] 735 mg/dL Normal 635-1741 [facility] Comment on above: Performed By: #### I GG, IGM #### S PATHOLOGY LABORATORY [address] [place], [place], IMMUNOGLOBULIN Mon 4 IgM [Mass/Vol] 219 mg/dL Normal 45-281 [facility] Comment on above: Performed By: #### I GG, IGM #### S PATHOLOGY LABORATORY [address] [place], [place], LYME DISEASE AB WITH REFLEX TO BLOT (IGG, IGM)on 05-06-2024 LYME AB SCREEN <0.90 Normal [facility] Comment on above: Order Comment: Carlos morelos Agency Address Site ID: [id number] Name: [employer] [facility] Address: [address] [place] [address], [address] [place] [id number] Director: Raudel Jeffries MD Result Comment: Inde [...] S TRACARO JCV AB, LYME G #### [facility] [address] [place], [place] [address] Laboratory - Chemistry and C hemistry - challengeon 05-06-2024 Albumin [Mass/Vol] 5 g/dL 3.5 - 5.7 g/dL [facility] ALP [Catalytic activity/Vol] 41 U/L [facility] ALT [Catalytic activity/Vol] 8 U/L [facility] AST [Catalytic activity/Vol] 11 U/L Low [facility] Bilirubin [Mass/Vol] 0.5 mg/dL 0.3 - 1 .0 mg/dL [facility] Bilirubin.direct [Mass/Vol] 0.11 mg/dL 0.03 - 0.18 mg/dL [facility] Protein [Mass/Vol] 7.5 g/dL 6.0 - 8.3 g/dL [facility] Laboratory - Hematology and Cell countson 05-06-2024 Basophils (Bld) [#/Vol] 0.04 10*3/uL 0.00 - 0.20 K/uL [facility] Basophils/100 WBC (Bld) 0.8 % NINF - [...] [#/Vol] 4.8 10*3/uL 4.5 - 11.5 K/uL [facility] - Microbiology an d Antimicrobial susceptibilityon 05-06-2024 VZV IgG IA Ql (S) 2.5 AI [facility] surface Ag Ql (S) Non-Reactive Non-Reactive [facility] HBV core Ab Ql (S) Non-Reactive Nonreactive [facility] HBV surface Ab IA Qn mIU/mL [facility] - Serology - non- microon 05-06-2024 Centromere protein B Ab Ql (S) Positive Abnormal Negative [facility] Centromere protein B Ab Qn (S) 1.7 High NINF [facility] Chromatin Ab Ql Negative Negative [facility] Chromatin [facility] Qn [facility] DNA double strand Ab Qn (S) Negative Negative [facility] DNA double strand Ab Qn (S) See Below [facility] Cuca-1 extractable nuclear Ab IA Qn (Body fld) Negative Negative [facility] Cuca-1 extractable nuclear Ab IA Qn (S) [facility] Nuclear Ab IA Ql (S) Positive Abnormal Negative [facility] Ribonucleoprotein extractable nuclear 63kD Ab Ql Negative Negative [facility] Ribonucleoprotein extractable nuclear Ab IA Qn (S) NINF [facility] Ribosomal P Ab IA Qn (S) [facility] Ribosomal P Ab Ql (S) Negative Negative [facility] SCL-70 extractable nuclear Ab IA Ql (S) Negative Negative [facility] SCL-70 extractable nuclear Ab IA Qn (S) [facility] Sjogrens syndrome-A extractable nuclear Ab IA Ql (S) Negative Negative [facility] Sjogrens syndrome-A extractable nuclear Ab IA Qn (S) [facility] Sjogrens syndrome-B extractable nuclear Ab IA Ql (S) Negative Negative [facility] Sjogrens syndrome-B extractable nuclear Ab IA Qn (S) [facility] Thomas extractable nuclear Ab IA Qn (S) [facility] Thomas extractable nuclear Ab Ql (S) Negative Negative [facility] Thomas extractable nuclear Ab+Ribonucleoprotein extractable nuclear Ab IA Ql (S) Negative Negative [facility] Thomas extractable nuclear Ab+Ribonucleoprotein extractable nuclear IgG IA Qn (S) [facility] Immune complex.IgG [Mass/Vol] 735 mg/dL 635 - 1741 mg/dL [facility] Immune complex.IgM [Mass/Vol] 219 mg/dL 45 - 281 mg/dL [facility] MISCELLANEOUS SEND OUT TESTo n 05-06-2024 MISCELLANEOUS TEST RESULT See scanned report Normal [facility] Comment on above: Performed By: #### G ENTEST #### [facility] [address] [place] [address], TEST NAME Myelin Oligodendrocyte Glycoprotein(MOG)Anti body with Reflex to Titer,Serum Normal [facility] Comment on above: Performed By: #### G ENTEST #### S PATHOLOGY LABORATORY [address] [place] [address], No Panel Informationon 05-06 Reference Range: Negative [...] indicate the amount of anti-VZV antibody present. [facility] Interpretation and review of laboratory results Normal [facility] Interpretation and review of laboratory results Abnormal [facility] ds DNA Reference Range: < or = to 4 IU/mL-Negative 5-9 IU/mL-Indeterminate > or = to 10 IU/mL-Positive [facility] Interpretation and review of laboratory results Normal [facility] Interpretation and review of laboratory results Normal [facility] Nonreactive: Sample s < 7.5 mIU/mL Reactive: Samples >/= 10.0 mIU/mL The accepted criteria for immunity to HBV is anti-HBs activity >/= 10 mIU/mL, as defined by the WHO International Reference Preparation. [facility] Interpretation and review of laboratory results Abnormal [facility] Interpretation and review of laboratory results Normal [facility] Patient Instructionson 05-06 Shipping Point Inspector Authentication Interface Message Text We discussed today that the data support multiple sclerosis. Please get labs - you will need a red top tube drawn. We can check back in in 2 weeks. Pamphlets today for Ocrevus, Kesimpta, Zeposia. 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 Several weeks to a month later, additionally developed OD eye pain with up gaze, with color desaturation loss in the right eye (view tanish and beige ). 01/28/[address] Steele ([facility]), with VA 20/50, +ve R APD, 12/18 color plates OD, OS normal. She was routed to the ED 01/31/2024 for admission, T3-T8 sensory level on exam as well. MRI Brain WWO performed, with OD ON enhancement and T2 Flair signal changes as below, short to medium segment length ON involvement, left temporal lesion, left anterior C2 lesion (non-GdE) at least one convincing right T2 hemicord lesion (non-GdE) on my review. IVMP x 3 days, with gradual recovery over the next few weeks of nearly all symptoms, with excellent recovery on follow-up with her Ophthalmology team 03/17/2024. Now she feels back to normal; some mild residual swelling under her left jaw and in her right breast. 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 Lives with grandmother, with cat and dog. Does drink alcohol, 4 to 5 drinks every other weekend. No tobacco use. 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 Has [...] Achilles 2 Achilles 2 plantar response mute (more content not included)... Normal The [facility] QUANTIFERON-TB GOLD PLUSon 1 07-06-2023 TB (CELL MEDIATED) Negative Normal Negative [facility] Comment on above: [...] uncommon. Performed By: #### G ENTEST #### [facility] [address] [place] [address], TB ANTIGEN 1 < 0.35 Normal <0.35 The [facility] Comment on above: Order Comment: Inter [...] uncommon. Performed By: #### G ENTEST #### S PATHOLOGY LABORATORY [address] [place] [address], TB ANTIGEN 2 < 0.35 Normal <0.35 The [facility] Comment on above: Order Comment: Inter [...] uncommon. Performed By: #### G ENTEST #### S PATHOLOGY LABORATORY [address] [place] [address], STRATIFY JCV ABon 05-06-2024 INDEX VALUE 0.16 Normal The [facility] Comment on above: Order Comment: Carlos morelos [place] Address Site ID: EZ Name: [employer], Address: [address] [place], [place] [id number] Director: Xochitl Moreno MD,PhD,DEVI Performed By: #### S TRATIFY JCV AB, LYME G #### [facility] [address] [place] [address] SUSANNA VIRUS AB Negative Normal [facility] Comment on above: Order Comment: Carlos morelos [place] Address Site ID: EZ Name: [employer], Address: [address] [place], [place] [address] Director: Xochitl Moreno MD,PhD,DEVI Result Comment: Index [...] 1TYSABRI(natalizumab) Prescribing Information Performed By: #### S TRATIFY JCV AB, LYME G #### [facility] [address] [place], [place] VARICELLA ZOSTER IGG ANTIBOD Yon 05-06-2024 VZI 2.5 AI Normal The [facility] Comment on above: Order Comment: Refer ence Range: Negative : < or = 0.80 [...] of anti-VZV antibody present. Performed By: #### v z, oscar #### S PATHOLOGY LABORATORY [address] [place], [place], Telephone Encounteron 2023 Shipping Point Inspector Authentication Interface Message Text Neurology Clinical Solder Sprayer Note Attempted to call patient. LVM to return call to the Neurology department to schedule a neurology appt for optic neuritis (MS) with Dr Bedolla. Appt on 05/04 cancelled, letter sent BARNEY EnriquezN, RN, CMSRN Clinical Solder Sprayer, Neurology Normal The [facility] JACOBSEN VISUAL FIELD - OU - BOTH EYESon 03-18-2024 Right Eye Reliability was good. Findings include normal observations. Left Eye Reliability was good. Findings include normal observations. Notes I personally reviewed the visual ochoa performed by this patient on 03/17/24. The visual ochoa are normal OU. Nguyễn Watt MD [facility] JACOBSEN VISUAL FIELD - OU - BOTH EYES Right Eye Reliability was good. Findings include normal observations. Left Eye Reliability was good. Findings include normal observations. Notes I personally reviewed the visual ochoa performed by this patient on 03/17/24. The visual ochoa are normal OU. Nguyễn Watt MD Normal The [facility] OPTIC DISC PHOTOS - OU - BOT H EYESon 03-18-2024 OPTIC DISC PHOTOS - OU - BOTH EYES Trace temporal pallor I personally reviewed the fundus photos taken on this patient. Fundus photos taken to document the appearance of the optic discs. There is trace temporal pallor of the right optic disc. The left disc is normal. Nguyễn Watt MD Normal The [facility] Trace temporal pallo r I personally reviewed the fundus photos taken on this patient. Fundus photos taken to document the appearance of the optic discs. There is trace temporal pallor of the right optic disc. The left disc is normal. Nguyễn Watt MD [facility] Progress Noteson 03-17-2024 Shipping Point Inspector Authentication Interface Message Text New patient Optic neuritis, right eye -Reports blurry vision OD, pain with up gaze and paresthesias January 2024. Went to ED -Seen by application penetration tester resident 01/31/24. At time time +rAPD OD, [...] with neurology. Nguyễn Watt MD Normal The [facility] BASIC METABOLIC PANELon 01-09 Anion gap [Moles/Vol] 13 mmol/L Normal 10-20 The [facility] Comment on above: Performed By: #### G ENTEST #### S PATHOLOGY LABORATORY [address] [place] [address], Calcium [Mass/Vol] 9.8 mg/dL Normal 8.6-10.3 The [facility] Comment on above: Performed By: #### G ENTEST #### S PATHOLOGY LABORATORY [address] [place] [address], Chloride [Moles/Vol] 105 mmol/L Normal 98-107 [facility] Comment on above: Performed By: #### G ENTEST #### S PATHOLOGY LABORATORY [address] [place] [address], CO2 [Moles/Vol] 25 mmol/L Normal 21-31 [facility] Comment on above: Performed By: #### G ENTEST #### S PATHOLOGY LABORATORY [address] [place] [address], Creatinine [Mass/Vol] 0.71 mg/dL Normal 0.60-1.20 [facility] Comment on above: Performed By: #### G ENTEST #### S PATHOLOGY LABORATORY [address] [place] [address], ESTIMATED GFR (CKD-EPI) 121 mL/min/1.73sqm Normal >=60 [facility] Comment on above: Result Comment: 2020 CKD EPI Equation using Creatinine without Race Comment: Estimated glomerular filtration rate (eGFR) is calculated without a race coefficient. Values should be interpreted in the context of the patient's full clinical presentation. Reference: 1. Darryl Mai, Luis A M, Arnulfo ABURTO, et al.. A Unifying Approach for GFR Estimation: Recommendations of the NKF-ASN Task Force on Reassessing the Inclusion of Race in Diagnosing Kidney Disease. [place] Journal of Kidney Diseases 2021;79(2):268-88.e1. 2. N Engl J Med 2020 Vol. 385 Issue 19 Pages 9659-7690 Performed By: #### G ENTEST #### [facility] [address] [place] [address], Glucose [Mass/Vol] 150 mg/dL High 74-109 [facility] Comment on above: Performed By: #### G ENTEST #### [facility] [address] [place] [address], Potassium [Moles/Vol] 4.3 mmol/L Normal 3.5-5.0 [facility] Comment on above: Performed By: #### G ENTEST #### S PATHOLOGY LABORATORY [address] [place] [address], Sodium [Moles/Vol] 139 mmol/L Normal 136-145 [facility] Comment on above: Performed By: #### G ENTEST #### [facility] [address] [place] [address], Urea nitrogen [Mass/Vol] 19 mg/dL Normal 7-25 [facility] Comment on above: Performed By: #### G ENTEST #### S PATHOLOGY LABORATORY [address] [place] [address], Basic metabolic 2000 panelon 02-03-2024 Anion gap [Moles/Vol] 13 mmol/L 10 - 20 Met [facility] Calcium [Mass/Vol] 9.8 mg/dL 8.6 - 10. 3 mg/dL [facility] Chloride [Moles/Vol] 105 mmol/L 98 - 10 7 mmol/L [facility] CO2 [Moles/Vol] 25 mmol/L 21 - 31 mmol/[facility] Creatinine [Mass/Vol] 0.71 mg/dL 0.60 - 1.20 mg/dL [facility] GFR/1.73 sq M.predicted CKD-EPI (S/P/Bld) [Vol rate/Area] 121 - PINF [facility] Comment on above: 2020 CKD EPI Equatio n using Creatinine without Race Comment: Estimated glomerular filtration rate (eGFR) is calculated without a race coefficient. Values should be interpreted in the context of the patient's full clinical presentation. Reference: 1. Darryl Mai, Luis A M, Arnulfo ABURTO, et al.. A Unifying Approach for GFR Estimation: Recommendations of the NKF-ASN Task Force on Reassessing the Inclusion of Race in Diagnosing Kidney Disease. [place] Journal of Kidney Diseases 202;79(2):268-88.e1. 2. N Engl J Med 2020 Vol. 385 Issue 19 Pages 7087-4998 Glucose [Mass/Vol] 150 mg/dL High 74 - 109 mg/dL [facility] Interpretation and review of laboratory results Abnormal [facility] Potassium [Moles/Vol] 4.3 mmol/L 3.5 - 5.0 mmol/L [facility] Sodium [Moles/Vol] 139 mmol/L 136 - 145 mmol/L [facility] Urea nitrogen [Mass/Vol] 19 mg/dL 7 - 25 mg/dL [facility] CBC panel Auto (Bld)on 02-02 Erythrocyte distribution width (RBC) [Ratio] 14.0 % 11.5 - 14.5 % [facility] Hematocrit (Bld) [Volume fraction] 37.0 % 36.0 - 46.0 % [facility] Hemoglobin (Bld) [Mass/Vol] 12.3 g/dL 12.0 - 15.0 g/dL [facility] Interpretation and review of laboratory results Normal [facility] MCH (RBC) [Entitic mass] 29.1 pg 26.0 - 34.0 pg [facility] MCHC (RBC) [Mass/Vol] 33.3 g/dL 32.0 - 35.9 g/dL [facility] MCV (RBC) [Entitic vol] 87 fL 80 - 100 fL [facility] Platelet mean volume (Bld) [Entitic vol] 10.2 fL 7.5 - 11.2 fL [facility] Platelets (Bld) [#/Vol] 158 10*3/uL 150 - 400 K/uL [facility] RBC (Bld) [#/Vol] 4.24 10*6/uL [facility] WBC (Bld) [#/Vol] 11.2 10*3/uL 4.5 - 11.5 K/uL [facility] COMPLETE BLOOD COUNTon 02-02 Erythrocyte distribution width (RBC) [Ratio] 14.0 % Normal 11.5-14.5 [facility] Comment on above: Performed By: #### G ENTEST #### [facility] [address] [place] [address], Hematocrit (Bld) [Volume fraction] 37.0 % Normal 36.0-46.0 [facility] Comment on above: Performed By: #### G ENTEST #### [facility] [address] [place] [address], Hemoglobin (Bld) [Mass/Vol] 12.3 g/dL Normal 12.0-15.0 [facility] Comment on above: Performed By: #### G ENTEST #### [facility] [address] [place] [address], MCH (RBC) [Entitic mass] 29.1 pg Normal 26.0-34.0 [facility] Comment on above: Performed By: #### G ENTEST #### [facility] [address] [place] [address], MCHC (RBC) [Mass/Vol] 33.3 g/dL Normal 32.0-35.9 [facility] Comment on above: Performed By: #### G ENTEST #### [facility] [address] [place] [address], MCV (RBC) [Entitic vol] 87 fL Normal 80-100 [facility] Comment on above: Performed By: #### G ENTEST #### [facility] [address] [place] [address], Platelet mean volume (Bld) [Entitic vol] 10.2 fL Normal 7.5-11.2 [facility] Comment on above: Performed By: #### G ENTEST #### [facility] [address] [place] [address], Platelets (Bld) [#/Vol] 158 10*3/uL Normal 150-400 [facility] Comment on above: Performed By: #### G ENTEST #### S PATHOLOGY LABORATORY [address] [place], [place], RBC (Bld) [#/Vol] 4.24 10*6/uL Normal 4.00-5.20 [facility] Comment on above: Performed By: #### G ENTEST #### S PATHOLOGY LABORATORY [address] [place], [place], WBC (Bld) [#/Vol] 11.2 10*3/uL Normal 4.5-11.5 [facility] Comment on above: Performed By: #### G ENTEST #### [facility] [address] [place], [place], MAGNESIUMon 02-03-2024 Interpretation and review of laboratory results Normal [facility] Magnesium [Mass/Vol] 2.0 mg/dL 1.9 - 2 .7 mg/dL [facility] Magnesium [Mass/Vol] 2.0 mg/dL Normal 1.9-2.7 [facility] Comment on above: Performed By: #### G ENTEST #### [facility] [address] [place], [place], NMO AQUAPORIN 4 IGG, CBAon 0 02-03-2024 AQUAPORIN 4 RECEPTOR AB, IGG Negative Normal NEGATIVE [facility] Comment on above: Order Comment: Carlos morelos Agency Address Site ID: EZ Name: [employer] [facility], Address: [address] [place] [id number] Director: Xochitl Moreno MD,PhD,DEVI Result Comment: This test was developed and its analytical performance characteristics have been determined by [employer]. It has not been cleared or approved by FDA. This assay has been validated pursuant to the CLIA regulations and is used for clinical purposes. Performed By: #### G ENTEST #### S PATHOLOGY LABORATORY [address] [place], [place], No Panel Informationon 02-02 [facility] Progress Noteson 02-03-2024 Shipping Point Inspector Authentication Interface Message Text SOCIAL WORK Per interdisciplinary [...] complete appropriate assessments and interventions. Vaibhav [place], [facility], [facility] Inpatient Social Work Normal The [facility] Shipping Point Inspector Authentication Interface Message Text ATTENDING ATTESTATION I have [...] reported separately) Referring/communicati ng with other health career representative - when not reported separately Charting in [...] 14. (more content not included)... Normal The [facility] BASIC METABOLIC PANELon 08-2 Anion gap [Moles/Vol] 14 mmol/L Normal 10-20 The [facility] Comment on above: Performed By: #### U R BETA #### [facility] [address] [place] [address], Calcium [Mass/Vol] 9.4 mg/dL Normal 8.6-10.3 [facility] Comment on above: Performed By: #### U R BETA #### [facility] [address] [place], [place], Chloride [Moles/Vol] 105 mmol/L Normal 98-107 [facility] Comment on above: Performed By: #### U R BETA #### [facility] [address] [place], [place], CO2 [Moles/Vol] 24 mmol/L Normal 21-31 [facility] Comment on above: Performed By: #### U R BETA #### [facility] [address] [place], [place], Creatinine [Mass/Vol] 0.64 mg/dL Normal 0.60-1.20 [facility] Comment on above: Performed By: #### U R BETA #### S PATHOLOGY LABORATORY [address] [place], [place], ESTIMATED GFR (CKD-EPI) 126 mL/min/1.73sqm Normal >=60 [facility] Comment on above: Result Comment: 2020 [...] Inclusion of Race in Diagnosing Kidney Disease. [place] Journal of Kidney Diseases 2021;79(2):268-88.e1. 2. N Engl J Med 1 Vol. 385 Issue 19 Pages [phone] Performed By: #### U R BETA #### S PATHOLOGY LABORATORY [address] [place], [place], Glucose [Mass/Vol] 133 mg/dL High 74-109 [facility] Comment on above: Performed By: #### U R BETA #### S PATHOLOGY LABORATORY [address] [place], [place], Potassium [Moles/Vol] 4.3 mmol/L Normal 3.5-5.0 [facility] Comment on above: Performed By: #### U R BETA #### S PATHOLOGY LABORATORY [address] [place], [place], Sodium [Moles/Vol] 139 mmol/L Normal 136-145 [facility] Comment on above: Performed By: #### U R BETA #### S PATHOLOGY LABORATORY [address] [place] [address], Urea nitrogen [Mass/Vol] 14 mg/dL Normal 7-25 [facility] Comment on above: Performed By: #### U R BETA #### S PATHOLOGY LABORATORY [address] [place] [address], [phone] Basic metabolic 2000 panelon 02-02-2024 Anion gap [Moles/Vol] 14 mmol/L 10 - 20 Met [facility] Calcium [Mass/Vol] 9.4 mg/dL 8.6 - 10. 3 mg/dL [facility] Chloride [Moles/Vol] 105 mmol/L 98 - 10 7 mmol/L [facility] CO2 [Moles/Vol] 24 mmol/L 21 - 31 mmol/L [facility] Creatinine [Mass/Vol] 0.64 mg/dL 0.60 - 1.20 mg/dL [facility] GFR/1.73 sq M.predicted CKD-EPI (S/P/Bld) [Vol rate/Area] 126 - PINF [facility] Comment on above: 2020 CKD EPI [...] Inclusion of Race in Diagnosing Kidney Disease. [place] Journal of Kidney Diseases 202;79(2):268-88.e1. 2. N Engl J Med 1 Vol. 385 Issue 19 Pages 8832-9068 Glucose [Mass/Vol] 133 mg/dL High 74 - 109 mg/dL [facility] Interpretation and review of laboratory results Abnormal [facility] Potassium [Moles/Vol] 4.3 mmol/L 3.5 - 5.0 mmol/L [facility] Sodium [Moles/Vol] 139 mmol/L 136 - 145 mmol/L [facility] Urea nitrogen [Mass/Vol] 14 mg/dL 7 - 25 mg/dL [facility] CBC panel Auto (Bld)Ordered By: Esau Donnelly on 02-02-2024 Erythrocyte distribution width (RBC) [Ratio] 13.8 % 11.5 - 14.5 % [facility] Hematocrit (Bld) [Volume fraction] 36.4 % 36.0 - 46.0 % [facility] Hemoglobin (Bld) [Mass/Vol] 12.2 g/dL 12.0 - 15.0 g/dL [facility] Interpretation and review of laboratory results Normal [facility] MCH (RBC) [Entitic mass] 29.2 pg 26.0 - 34.0 pg [facility] MCHC (RBC) [Mass/Vol] 33.6 g/dL 32.0 - 35.9 g/dL [facility] MCV (RBC) [Entitic vol] 87 fL 80 - 100 fL [facility] Platelet mean volume (Bld) [Entitic vol] 9.3 fL 7.5 - 11.2 fL [facility] Platelets (Bld) [#/Vol] 170 10*3/uL 150 - 400 K/uL [facility] RBC (Bld) [#/Vol] 4.19 10*6/uL [facility] WBC (Bld) [#/Vol] 8.0 10*3/uL 4.5 - 11.5 K/uL [facility] COMPLETE BLOOD COUNTon 02-01 Erythrocyte distribution width (RBC) [Ratio] 13.8 % Normal 11.5-14.5 [facility] Comment on above: Performed By: #### G ENTEST #### [facility] [address] [place] [address], Hematocrit (Bld) [Volume fraction] 36.4 % Normal 36.0-46.0 [facility] Comment on above: Performed By: #### G ENTEST #### [facility] [address] [place] [address], Hemoglobin (Bld) [Mass/Vol] 12.2 g/dL Normal 12.0-15.0 [facility] Comment on above: Performed By: #### G ENTEST #### [facility] [address] [place] [address], MCH (RBC) [Entitic mass] 29.2 pg Normal 26.0-34.0 [facility] Comment on above: Performed By: #### G ENTEST #### S PATHOLOGY LABORATORY [address] [place] [address], MCHC (RBC) [Mass/Vol] 33.6 g/dL Normal 32.0-35.9 [facility] Comment on above: Performed By: #### G ENTEST #### S PATHOLOGY LABORATORY [address] [place] [address], MCV (RBC) [Entitic vol] 87 fL Normal 80-100 [facility] Comment on above: Performed By: #### Gustavo ENTEST #### S PATHOLOGY LABORATORY [address] [place] [address], Platelet mean volume (Bld) [Entitic vol] 9.3 fL Normal 7.5-11.2 [facility] Comment on above: Performed By: #### Gustavo ENTEST #### S [facility] LAB[facility] [address] [place] [address], Platelets (Bld) [#/Vol] 170 10*3/uL Normal 150-400 [facility] Comment on above: Performed By: #### Gustavo ENTEST #### S [facility] LAB[facility] [address] [place] [address], RBC (Bld) [#/Vol] 4.19 10*6/uL Normal 4.00-5.20 [facility] Comment on above: Performed By: ###Emy hCen ENTEST #### [facility] [address] [place], [place], WBC (Bld) [#/Vol] 8.0 10*3/uL Normal 4.5-11.5 [facility] Comment on above: Performed By: ###Emy Chen ENTEST #### [facility] [address] [place] [address], MAGNESIUMon 02-02-2024 Interpretation and review of laboratory results Normal [facility] Magnesium [Mass/Vol] 1.9 mg/dL 1.9 - 2 .7 mg/dL [facility] Magnesium [Mass/Vol] 1.9 mg/dL Normal 1.9-2.7 [facility] Comment on above: Performed By: #### U R BETA #### [facility] [address] [place] [address], MR C-SPINE W/+W/Oon 02-02-20 MR C-SPINE W/+W/O [...] with demyelinating disease. MACRO: None Normal The [facility] MR Cervical spine WO and W [...] in keeping with demyelinating disease. MACRO: None [facility] Radiology Study observation (narrative) [facility] MR T-SPINE W/+W/Oon 02-02-20 MR T-SPINE [...] with demyelinating disease. MACRO: None Normal The [facility] MR Thoracic spine WO and W [...] in keeping with demyelinating disease. MACRO: None [facility] Radiology Study observation (narrative) [facility] MR Thoracic spine WO and W c ontrast IVOrdered By: Alessandro Alvarez on 02-02-2024 [facility] Work Phone: No Panel Informationon 02-01 [facility] [facility] Progress Noteson 02-02-2024 Shipping Point Inspector Authentication Interface Message Text Reason for Consult: [...] tablet, 650 mg, Oral, Q4H PRN, Deonte Daevnport MD melatonin tablet, 3 mg, Oral, At Bedtime PRN, Deonte Davenport MD enoxaparin (LOVENOX) 40 MG/0.4ML injection 40 mg, 40 mg, Subcutaneous, Daily, Deonte Davenport MD methylPREDNISolone sodium succinate (SOLU-Medrol) 1,000 mg in dextrose 5 % 100 mL ivpb (custom dose), 1,000 mg, Intravenous, Daily, Efe Lanza DO, Last Rate: 100 mL/hr at 02/02/24 09, 1,000 mg at 02/02/24 09 Exam Neurologic: Cognition Sedation: none Level of [...] witho (more content not included)... Normal The [facility] ANGIOTENSIN 1 CONVERTING ENZ Y*on 02-01-2024 MAULIK 19 U/L Normal 9-67 The [facility] Comment on above: Order Comment: Carlos omrelos Agency Address Site ID: [id number] Name: [employer] [facility] Address: [address] [facility], [address] [place] [id number] Director: Raudel Jeffries MD Performed By: #### G ENTEST #### [facility] [address] [place] [address], [phone] CSF CELL COUNTOrdered By: Nikolay Bautista on [...] WBC and lining cells. Performed By: #### U R BETA #### S PATHOLOGY LABORATORY [address] [place] [address], Color (U) Colorless Normal [facility] Comment on above: Order Comment: TNC ( Total Nucleated Count) consists of WBC and lining cells. Performed By: #### U R BETA #### S PATHOLOGY LABORATORY [address] [place] [address], RBC (Bld) [#/Vol] 0 10*6/uL Normal 0-5 [facility] Comment on above: Order Comment: TNC ( Total Nucleated Count) consists of WBC and lining cells. Performed By: #### U R BETA #### S [facility] LAB[facility]ATORY [address] [place] [address], [employer] Colorless Normal [facility] Comment on above: Order Comment: TNC ( Total Nucleated Count) consists of WBC and lining cells. Performed By: #### U R BETA #### S PATHOLOG[facility] LABORATORY [address] [place] [address], TUBE # 4 Normal [facility] Comment on above: Order Comment: TNC ( Total Nucleated Count) consists of WBC and lining cells. Performed By: #### U R BETA #### [facility] [address] [place] [address], WBC (Bld) [#/Vol] 0.005 10*3/uL Normal 0-5 [facility] Comment on above: Order Comment: TNC ( Total Nucleated Count) consists of WBC and lining cells. Performed By: #### U R BETA #### [facility] [address] [place], [place], CSF DIFFERENTIALon Cells Counted Total (Bld) [#] 10 {cells} [facility] Lymphocytes/100 WBC (CSF) 90 % [facility] Monocytes+Macrophages /100 WBC (CSF) 10 % [facility] CELLS COUNTED TOTAL # IN BLOOD 10 Normal [facility] Comment on above: Performed By: #### U R BETA #### S PATHOLOG[facility] LAB[facility]ATORY [address] [place] [address], FLUID, LYMPHOCYTES 90 % Normal [facility] Comment on above: Performed By: #### U R BETA #### S PATHOLOGY LABORATORY [address] [place], [place], FLUID, MONOCYTES/MACROPHAGES 10 % Normal [facility] Comment on above: Performed By: #### U R BETA #### [facility]ATORY [address] [place] [address], CULTURE, CSF/GRAM STAINon CULTURE, CSF/GRAM STAIN C CSF: No Growth GRAM STAIN: This Gram Stain was performed on a Cytocentrifuged specimen. No Polymorphonuclear Leukocytes seen No organisms seen Normal [facility] Comment on above: Performed By: #### C CSF ####[facility] [address] [place], [place] Consultson 02-01-2024 Shipping Point Inspector Authentication Interface Message Text Reason for Consult: [...] o (more content not included)... Normal The [facility] ED Provider Noteson 02-01-20 Shipping Point Inspector Authentication Interface Message Text Normal The [facility] GC/CHLAMYDIA/TRICHOMONAS AMP LIFICATIONon 02-01-2024 C. trachomatis DNA SKIP+probe Ql (Unsp spec) Negative Negative [facility] Interpretation and review of laboratory results Normal [facility] N. gonorrhoeae DNA SKIP+probe Ql (Unsp spec) Negative Negative [facility] T. vaginalis DNA SKIP+probe Ql (Unsp spec) Negative Negative [facility] This test is performed using an automated nucleic acid amplification assay ([employer] [facility] GC/CHLAMYDIA/TRICHOMO LOWELL AMPLIFICATION CHLAMYDIA AMPLIFICATION: Negative GC AMPLIFICATION: Negative TRICHOMONAS AMPLIFICATION: Negative Normal Negative [facility] Comment on above: Order Comment: This test is performed using an automated nucleic acid amplification assay ([employer] Performed By: #### G CT ####[facility] [address] [place], [place] GLUCOSE, CSFon 02-01-2024 Glucose (CSF) [Mass/Vol] 54 mg/dL 40 - 70 mg/dL [facility] GLU CSF 54 mg/dL Normal 40-70 [facility] Comment on above: Performed By: #### U R BETA #### [facility] [address] [place], [id number] H AND Uriel 02-01-2024 Shipping Point Inspector Authentication Interface Message Text Attestation signed by [...] Spine - Follow LP/labs Agusto Noonan MD [facility] Internal Medicine: H AND P Note Patient: Azeb Hyatt : 2000 Sex: female Room: [place] [address] Admit Date: 01/31/2024 Today's Date: 02/01/2024 Length [...] day (more content not included)... Normal The [facility] MR Brain WO and W contrast [...] review separately dictated MR orbits. MACRO: None [facility] MR HEAD W/+W/Oon 02-01-2024 MR HEAD W/+W/O [...] dictated MR orbits. MACRO: None Normal [facility] MR ORBIT W/+W/Oon 02-01-2024 MR ORBIT [...] for further characterization. MACRO: None Normal The [facility] MR Orbit WO and W contrast I Von 02-01-2024 EXAMINATION: MR ORBI T W/+W/O 01/31/2024 11:46 PM CLINICAL HISTORY: rt eye changes ro ms optic neuritis ASSOCIATED DIAGNOSIS: rt eye changes ro ms optic neuritis ORDERING PROVIDER: PRICILA ARGUELLO TECHNRAFAEL NOTE: Pt states that their right eye [...] ms optic neuritis ORDERING PROVIDER: PRICILA ARGUELLO TECHNRAFAEL NOTE: Pt states that their right eye [...] MRI brain for further characterization. MACRO: None [facility] MR Orbit WO and W contrast I VOrdered By: Lyle Vargas on 02-01-2024 [facility] Work Phone: No Panel InformationOrdered By: Rojas Bautista on 02-01-2024 [facility] No Panel Informationon 01-31 Interpretation and review of laboratory results Normal [facility] OLIGOCLONAL BANDS, SERUM AND CSFon 02-01-2024 OLIGOCLONAL BANDS Present Abnormal Absent [facility] Comment on above: Order Comment: Carlos morelos Agency Address Site ID: AMD Name: [employer] Rome[place] Address: [address] [place] [address] Dr [place]o, [place] Director: Rio Szymanski M.D.,PhD Result Comment: The patient's CSF contains GREATER THAN FIVE well defined gamma restriction bands that are not present in the corresponding serum sample. Also noted are additional identical (mirror image) gamma restriction bands in both the patient's CSF and serum. These findings are indicative of intra-cerebral as well as systemic synthesis of gamma globulins and may be associated with Guillain-Gosport syndrome, peripheral neuropathy or increased blood-brain barrier [...] bands due to local production in the FREIGHT CLAIM INVESTIGATOR, serum and CSF should be tested simultaneously. Oligoclonal bands can however be observed in a variety of other diseases, e.g., subacute sclerosing panen- cephalitis, inflammatory polyneuropathy, FREIGHT CLAIM INVESTIGATOR lupus, and brain tumors and infarctions. The clinical significance of a numerical band count, determined by isoelectric focusing, has not been definitively defined. The data should be interpreted in conjunction with all pertinent clinical and laboratory data for this patient. Performed By: #### U R BETA #### [facility] [address] [place] [address], [phone] Progress Noteson 02-01-2024 Shipping Point Inspector Authentication Interface Message Text SNF PLAN NOTE CC: Blurred vision of the [...] Monson MD Internal Medicine PGY-2 Normal The [facility] QUANTIFERON-TB GOLD PLUSon 0 02-01-2024 TB (CELL MEDIATED) Indeterminate Abnormal Negative The [facility] Comment on above: Order Comment: Inter [...] I GG, IGM #### S PATHOLOGY LABORATORY [address] [place] [address], [id number] TB ANTIGEN 1 < 0.35 Normal <0.35 The [facility] Comment on above: Order Comment: Inter [...] Performed By: #### I GG, IGM #### [facility] [address] [place] [address], TB ANTIGEN 2 < 0.35 Normal <0.35 [facility] Comment on above: Order Comment: Inter [...] Performed By: #### I GG, IGM #### [facility]ATORY [address] [place] [address], TOTAL PROTEIN, CSFon 024 Protein (CSF) [Mass/Vol] 27.8 mg/dL 15 - 45 mg/dL [facility] TP CSF 27.8 mg/dL Normal 15-45 [facility] Comment on above: Performed By: #### U R BETA #### [facility] [address] [place] [address], XR CHEST AP OR PA 1 VIEWon [...] single view radiograph. MACRO: None Normal The [facility] XR Chest Single viewon 01-31 EXAMINATION: [...] allowing for single view radiograph. MACRO: None [facility] Radiology Study observation (narrative) [facility] XR Chest Single viewOrdered By: Pete Byers on 02-01-2024 [facility] Work Phone: BASIC METABOLIC PANELon 01-09 Anion gap [Moles/Vol] 13 mmol/L Normal 10-20 The [facility] Comment on above: Performed By: #### U R BETA #### [facility] [address] [place], [place], Calcium [Mass/Vol] 9.9 mg/dL Normal 8.6-10.3 The [facility] Comment on above: Performed By: #### U R BETA #### S PATHOLOGY LABORATORY [address] [place], [place], Chloride [Moles/Vol] 106 mmol/L Normal 98-107 The [facility] Comment on above: Performed By: #### U R BETA #### S PATHOLOGY LABORATORY [address] [place], [place], CO2 [Moles/Vol] 27 mmol/L Normal 21-31 The [facility] Comment on above: Performed By: #### U R BETA #### S PATHOLOGY LABORATORY [address] [place] [address], Creatinine [Mass/Vol] 0.69 mg/dL Normal 0.60-1.20 The [facility] Comment on above: Performed By: #### U R BETA #### [facility] [address] [place] [address], ESTIMATED GFR (CKD-EPI) 123 mL/min/1.73sqm Normal >=60 The [facility] Comment on above: Result Comment: 2020 [...] Inclusion of Race in Diagnosing Kidney Disease. [place] Journal of Kidney Diseases 2021;79(2):268-88.e1. 2. N Engl J Med 1 Vol. 385 Issue 19 Pages 1648-8109 Performed By: #### U R BETA #### [facility] [address] [place], [place], Glucose [Mass/Vol] 78 mg/dL Normal 74-109 [facility] Comment on above: Performed By: #### U R BETA #### S PATHOLOGY LABORATORY [address] [place] [address], Potassium [Moles/Vol] 4.3 mmol/L Normal 3.5-5.0 [facility] Comment on above: Performed By: #### U R BETA #### [facility] [address] [place], [place], Sodium [Moles/Vol] 142 mmol/L Normal 136-145 [facility] Comment on above: Performed By: #### U R BETA #### [facility] [address] [place], [place], Urea nitrogen [Mass/Vol] 14 mg/dL Normal 7-25 [facility] Comment on above: Performed By: #### U R BETA #### S PATHOLOGY LABORATORY [address] [place], [place], Basic metabolic 2000 panelon 01-31-2024 Anion gap [Moles/Vol] 13 mmol/L 10 - 20 Met [facility] Calcium [Mass/Vol] 9.9 mg/dL 8.6 - 10. 3 mg/dL [facility] Chloride [Moles/Vol] 106 mmol/L 98 - 10 7 mmol/L [facility] CO2 [Moles/Vol] 27 mmol/L 21 - 31 mmol/L [facility] Creatinine [Mass/Vol] 0.69 mg/dL 0.60 - 1.20 mg/dL [facility] GFR/1.73 sq M.predicted CKD-EPI (S/P/Bld) [Vol rate/Area] 123 - PINF [facility] Comment on above: 2020 CKD EPI [...] Inclusion of Race in Diagnosing Kidney Disease. [place] Journal of Kidney Diseases 202;79(2):268-88.e1. 2. N Engl J Med 2020 Vol. 385 Issue 19 Pages 8059-7411 Glucose [Mass/Vol] 78 mg/dL 74 - 109 mg/dL [facility] Interpretation and review of laboratory results Normal [facility] Potassium [Moles/Vol] 4.3 mmol/L 3.5 - 5.0 mmol/L [facility] Sodium [Moles/Vol] 142 mmol/L 136 - 145 mmol/L [facility] Urea nitrogen [Mass/Vol] 14 mg/dL 7 - 25 mg/dL [facility] panel Auto (Bld)on 01-30 Erythrocyte distribution width (RBC) [Ratio] 14.3 % 11.5 - 14.5 % [facility] Hematocrit (Bld) [Volume fraction] 37.2 % 36.0 - 46.0 % [facility] Hemoglobin (Bld) [Mass/Vol] 12.2 g/dL 12.0 - 15.0 g/dL [facility] Interpretation and review of laboratory results Abnormal [facility] MCH (RBC) [Entitic mass] 28.7 pg 26.0 - 34.0 pg [facility] MCHC (RBC) [Mass/Vol] 32.7 g/dL 32.0 - 35.9 g/dL [facility] MCV (RBC) [Entitic vol] 88 fL 80 - 100 fL [facility] Platelet mean volume (Bld) [Entitic vol] 10.1 fL 7.5 - 11.2 fL [facility] Platelets (Bld) [#/Vol] 172 10*3/uL 150 - 400 K/uL [facility] RBC (Bld) [#/Vol] 4.25 10*6/uL [facility] WBC (Bld) [#/Vol] 4.4 10*3/uL Low 4.5 - 11.5 K/uL [facility] COMPLETE BLOOD COUNTon 01-30 Erythrocyte distribution width (RBC) [Ratio] 14.3 % Normal 11.5-14.5 [facility] Comment on above: Performed By: #### U R BETA #### [facility] [address] [place] [address], Hematocrit (Bld) [Volume fraction] 37.2 % Normal 36.0-46.0 [facility] Comment on above: Performed By: #### U R BETA #### [facility] [address] [place], [place], Hemoglobin (Bld) [Mass/Vol] 12.2 g/dL Normal 12.0-15.0 [facility] Comment on above: Performed By: #### U R BETA #### S PATHOLOGY LABORATORY [address] [place] [address], MCH (RBC) [Entitic mass] 28.7 pg Normal 26.0-34.0 [facility] Comment on above: Performed By: #### U R BETA #### S PATHOLOGY LABORATORY [address] [place] [address], MCHC (RBC) [Mass/Vol] 32.7 g/dL Normal 32.0-35.9 [facility] Comment on above: Performed By: #### U R BETA #### [facility] [address] [place] [address], MCV (RBC) [Entitic vol] 88 fL Normal 80-100 [facility] Comment on above: Performed By: #### U R BETA #### [facility] [address] [place] [address], Platelet mean volume (Bld) [Entitic vol] 10.1 fL Normal 7.5-11.2 [facility] Comment on above: Performed By: #### U R BETA #### [facility] [address] [place] [address], Platelets (Bld) [#/Vol] 172 10*3/uL Normal 150-400 [facility] Comment on above: Performed By: #### U R BETA #### S PATHOLOGY LABORATORY [address] [place] [address], RBC (Bld) [#/Vol] 4.25 10*6/uL Normal 4.00-5.20 [facility] Comment on above: Performed By: #### U R BETA #### S PATHOLOGY LABORATORY [address] [place] [address], WBC (Bld) [#/Vol] 4.4 10*3/uL Low 4.5-11.5 [facility] Comment on above: Performed By: #### U R BETA #### S PATHOLOGY LABORATORY [address] [place] [address], Consultson 01-31-2024 Shipping Point Inspector Authentication Interface Message Text Attestation signed by Israel Bennett MD at 02/03/2024 1:28 PM I did not personally examine this patient. I have, where applicable, reviewed relevant laboratory studies and imaging personally. I have reviewed the resident's note and agree with the proposed management. Israel Bennett MD Cornea, External Disease, and Refractive Surgery [facility] Ophthalmology Ophthalmology Consult Note CC: Blurred [...] Clear, no heme or pigment Disc OD: [place], Sharp, perfused, and c/d 0.2, no edema appreciated, no disc heme OS: [place], Sharp, perfused, and c/d 0.2, no edema [...] Heber Benjamin MD Ophthalmology Resident Please page [phone] with additional questions/concerns Patient was discussed with Dr. Dunham, senior resident application penetration tester. Commonly used ophthalmology abbreviations: AC: Anterior chamber; ACIOL: Anterior chamber intraocular lens; APD, RAPD: (Relative) Afferent pupillary defect; ARMD, AMD: Age-related macular dege (more content not included)... Normal The [facility] ED Noteson 01-31-2024 Shipping Point Inspector Authentication Interface Message Text Bed: 43 Expected date: Expected time: Means of arrival: Comments: eye Normal [facility] Provider Noteson 01-31-20 Shipping Point Inspector Authentication Interface Message Text Attestation signed by [...] procedure well. Agusto Hartley DO Normal The [facility] Shipping Point Inspector Authentication Interface Message Text I, Paul Alexander [...] ask questions. Paul Alexander MD Normal The [facility] Shipping Point Inspector Authentication Interface Message Text --------- HISTORY OF PRESENT [...] diagnosed with optic neuritis by opthalmology in [place]. 2nd opinion ophthalmology said eye was fine, [...] Notes: Reviewed and utilized the nursing notes. Demographer: not needed - patient preferred language is Romanian. External Medical Records: The patient's available past [...] of External (Non- ED) Notes: notes from [facility] shows normal eye exam Management Decisions: Diagnoses considered include cva, brain tumor, optic neuritis, MS Discussion with External Provider: [facility] Independent Test Interpretation: see above SCRIBE ATTESTATION (more content not included)... Normal [facility] HCG URINEOrdered By: Ryan Cheema on 01-31-2024 HCG ( test) Ql (U) Negative Negative [facility] Interpretation and review of laboratory results Normal [facility] HCG URINEon 01-31-2024 Beta HCG ( test) Ql (U) Negative Normal Negative [facility] Comment on above: Performed By: #### U R BETA #### [facility] [address] [place], [address] HIV 1 and 2 Ab and HIV 1 p24 Ag panel IAon 01-31-2024 HIV 1+2 Ab+HIV1 p24 Ag IA Ql Non-Reactive Non-Reactive [facility] Comment on above: No laboratory eviden ce for HIV Infection. Negative result does not rule out acute HIV infection. If acute HIV infection is suspected, recommend ordering an HIV-1 RNA quanitification test. Interpretation and review of laboratory results Normal [facility] HIV Information: [place] Rev. code 3701.243(E): This information has been [...] release of HIV test results or diagnoses. [facility] HIV1 HIV2 AGAB SCRNon 2023 HIV AG-AB SCREEN Non-Reactive Normal Non-Reactive The [facility] Comment on above: Order Comment: HIV I nformation: ???[place] Rev. code 3701.243(E):This information has been disclosed [...] U R BETA #### [facility] [address] [place] [address], MR Brain WO and W contrast I Von 01-31-2024 Radiology Study observation (narrative) [facility] MR Orbit WO and W contrast I Von 01-31-2024 Radiology Study observation (narrative) [facility] SYPHILIS WITH CONFIRMATIONon 01-31-2024 T. pallidum Ab LA Qn (S) [facility] T. pallidum IgG+IgM IA Ql (S) Non-Reactive Non-Reactive [facility] No results found for : TPPA No components found for: FTA No serologic evidence of syphilis. If recent exposure/early infection is suspected, repeat testing in 2-4 weeks. [facility] SYPHILIS TOTAL (IGG/IGM) Non-Reactive Normal Non-Reactive [facility] Comment on above: Order Comment: No re sults found for: TPPA No components found for: FTA No serologic evidence of syphilis.If recent exposure/early infection is suspected, repeat testing in 2-4 weeks. Performed By: #### G ENTEST #### [facility] [address] [place] [address], TPPA Normal [facility] Comment on above: Order Comment: No re sults found for: TPPA No components found for: FTA No serologic evidence of syphilis.If recent exposure/early infection is suspected, repeat testing in 2-4 weeks. Performed By: #### G ENTEST #### [facility] [address] [place] [address], URINALYSISon 01-31-2024 Appearance (U) Turbid Clear [facility] [...] (positive predictive value for UTI around 50%) [facility] Glucose Ql (U) Negative Normal Negative [facility] Comment on above: Order Comment: A [...] around 50%) Performed By: #### u rinalysis ####[facility] PATH[facility] [id number] [place], [place], Protein (U) [Mass/Vol] 20 mg/dL Normal Negative The [facility] Comment on above: Order Comment: A [...] around 50%) Performed By: #### u rinalysis ####[facility] PATH[facility]Y [id number] [place], [place], SQUAMOUS EPITHELIAL 6-10 Normal 0-10 [facility] Comment on above: Order Comment: A [...] around 50%) Performed By: #### u rinalysis ####[facility] PATHOLOGY [id number] [place], [place], U APPEAR Turbid Normal Clear [facility] Comment on above: Order Comment: A [...] around 50%) Performed By: #### u rinalysis ####[facility] PATH[facility] [id number] [place], U BACTERIA Few Normal [facility] Comment on above: Order Comment: [...] around 50%) Performed By: #### u rinalysis ####[facility] PATHOLOGY [id number] [place] [address], U BILI Negative Normal Negative [facility] Comment on above: Order Comment: A [...] around 50%) Performed By: #### u rinalysis ####[facility] [id number] [place], U BLOOD Negative Normal Negative [facility] Comment on above: Order Comment: A [...] around 50%) Performed By: #### u rinalysis ####[facility] PATH[facility] [id number] [place], [place], U COLOR Light Yellow Normal Colorless [facility] Comment on above: Order Comment: A [...] around 50%) Performed By: #### u rinalysis ####[facility] PATH[facility] [id number] [place], U KETONE Negative Normal Negative [facility] Comment on above: Order Comment: A [...] around 50%) Performed By: #### u rinalysis ####[facility] PATH[facility]Y [id number] [place], [place], U LEUK Positive Abnormal Negative [facility] Comment on above: Order Comment: A [...] for pyuria. Performed By: #### u rinalysis ####[facility] PATHOLOGY [id number] [place], [place] MUCOUS Present Normal [facility] Comment on above: Order Comment: A [...] around 50%) Performed By: #### u rinalysis ####[facility] PATH[facility] [id number] [place], [place] NITRITE Positive Abnormal Negative The [facility] Comment on above: Order Comment: A [...] around 50%) Performed By: #### u rinalysis ####[facility] PATH[facility] [id number] [place], [place] PH 7.0 Normal 5.0-8.0 [facility] Comment on above: Order Comment: A [...] around 50%) Performed By: #### u rinalysis ####[facility] PATH[facility] [id number] [place], [place], U RBC None Seen Normal 0-2 [facility] Comment on above: Order Comment: A [...] around 50%) Performed By: #### u rinalysis ####[facility] PATH[facility] [id number] [place], [place], U SG 1.024 Normal <=1.030 [facility] Comment on above: Order Comment: A [...] around 50%) Performed By: #### u rinalysis ####[facility] PATH[facility] [id number] [place], [place] UROBILI Negative Normal Negative [facility] Comment on above: Order Comment: A [...] Performed By: #### u rinalysis ####S PATHOLOGY [id number] [place], [place], U WBC 6-10 Abnormal 0-2 [facility] Comment on above: Order Comment: [...] around 50%) Performed By: #### u rinalysis ####[facility] PATHOLOGY [id number] [place], [place], Perimetry studyon 01-30-2024 Critical access hospital Perimetry studyon 01-28-2024 Radiology Study observation (narrative) [facility] X[facility] chest 2V*on 01-08-2024 XR chest 2V* [facility] [place] [address] [place] [address] XRay Report Signed Patient: Azeb Hyatt MR#: [id number] 517 : 2000 Acct:[id number] Age/Sex: 23 / F ADM Date: 01/08/24 Loc: ER Room: Type: [facility] ER Attending Dr: Copies to: PINEDA Chang Ordering Provider: PINEDA Chang Date of Service: 01/08/24 XR/XR chest 2V*: Skin/Abscess/Foreign Body Chest 2 views CLINICAL HISTORY: Right axillary numbness, shortness of breath anxiety. COMPARISON: None FINDINGS: Heart normal size. Lungs are clear. No free air. XR/XR chest 2V* IMPRESSION: NO ACUTE CARDIOPULMONARY ABNORMALITY. Impression dictated by: Tra Marroquin Jr. DValerieOValerie01/08/2024 9:34 AM Dictation Location: [place] [address] Transcribed By: [facility] 01/08/24 0934 Dictated By: Tra Marroquin Jr, DO 01/08/2434 Signed By: 01/08/2434 Normal [facility] Throat Cultureon 08-07-2023 Throat culture Moderate Normal Respiratory Iona 2 Days PERFORMED BY: [place] [id number] PATHOLOGIST SUBSTANCE ABUSE COUNSELOR GLORY SHELTON M.D. Normal [facility] Comment on above: Performed By: #### C [place] #### [address] COVID-19 PCRon 12-26-2019 SARS-CoV-2, SKIP Not Detected Normal Not Detected [facility] Comment on above: Result Comment: This test was developed and its performance characteristics determined by [employer]. This test has not been FDA cleared [...] assay. Performed By: #### C VDPCR #### [facility] [address] [address] Blanca Aguilar XR CHEST 2 Von 12-08-2019 [...] by: MAITE LUCAS Date: 2019-12-08 10:27 Normal [facility] Vital Signs Date Time Vital Sign Value Performing Clinician Facility 07-28-2024 10:39-0500 Body weight 61.87 kg Thad Mitch DO Work Phone: [facility] 07-28-2024 10:39-0500 Diastolic blood pressure 70 mm[Hg] Thad Mitch DO Work Phone: [facility] 07-28-2024 10:39-0500 Systolic blood pressure 100 mm[Hg] Thad Mitch DO Work Phone: [facility] 05-06-2024 09:32-0500 Body mass index (BMI) [Ratio] 22.9 kg/m2 Ligia Bedolla MD Work Phone: [facility] 05-06-2024 09:32-0500 Body weight 60.51 kg Ligia Bedolla MD Work Phone: [facility] 05-06-2024 09:32-0500 Diastolic blood pressure 61 mm[Hg] Ligia Bedolla MD Work Phone: [facility] 05-06-2024 09:32-0500 Systolic blood pressure 101 mm[Hg] Ligia Bedolla MD Work Phone: [facility] 02-03-2024 13:06-0400 Body temperature 98.71 [degF] Pricila Arguello MD Work Phone: [facility] 02-03-2024 13:06-0400 Diastolic blood pressure 61 mm[Hg] Pricila Arguello MD Work Phone: [facility] 02-03-2024 13:06-0400 Heart rate 58 /min Pricila Arguello MD Work Phone: [facility] 02-03-2024 13:06-0400 Respiratory rate 18 /min Pricila Arguello MD Work Phone: [facility] 02-03-2024 13:06-0400 SaO2% (BldA) [Mass fraction] 99 % Pricila Arguello MD Work Phone: [facility] 02-03-2024 13:06-0400 Systolic blood pressure 110 mm[Hg] Pricila Arguello MD Work Phone: [facility] 02-01-2024 14:44-0400 Body height 162.6 cm Pricila Arguello MD Work Phone: [facility] 02-01-2024 14:44-0400 Body mass index (BMI) [Ratio] 22.31 kg/m2 Pricila Arguello MD Work Phone: [facility] 02-01-2024 14:44-0400 Body weight 58.97 kg Pricila Arguello MD Work Phone: [facility] 01-29-2024 15:06-0400 Body weight 59.93 kg Thad Mitch DO Work Phone: [facility] 01-29-2024 15:06-0400 Diastolic blood pressure 68 mm[Hg] Thad Mitch DO Work Phone: [facility] 01-29-2024 15:06-0400 Systolic blood pressure 104 mm[Hg] Thad Mitch DO Work Phone: [facility] 01-08-2024 09:05-0400 Body height 162.56 cm PHYSICIAN NO [facility] 01-08-2024 09:05-0400 Body temperature 98 [degF] PHYSICIAN NO [facility] 01-08-2024 09:05-0400 Body weight 60 kg PHYSICIAN NO [facility] 01-08-2024 09:05-0400 Diastolic blood pressure 60 mm[Hg] PHYSICIAN NO [facility] 01-08-2024 09:05-0400 Heart rate 71 /min PHYSICIAN NO [facility] 01-08-2024 09:05-0400 Respiratory rate 18 /min PHYSICIAN NO [facility] 07-31-2024 09:05-0400 SaO2% (BldA) [Mass fraction] 98 % PHYSICIAN NO [facility] 01-08-2024 09:05-0400 Systolic blood pressure 103 mm[Hg] PHYSICIAN NO [facility] 04-05-2023 12:20-0400 Body height 162.56 cm Samantha Driscoll Other [employer] Other 04-05-2023 12:20-0400 Body mass index (BMI) [Ratio] 20.94 kg/m2 Samantha Yamila Other [employer] Other 04-05-2023 12:20-0400 Body temperature 98.3 [degF] Samantha Yamila Other [employer] Other 04-05-2023 12:20-0400 Body weight 55.34 kg Samantha Yamila Other [employer] Other 04-05-2023 12:20-0400 Diastolic blood pressure 60 mm[Hg] Samantha Yamila Other [employer] Other 04-05-2023 12:20-0400 Respiratory rate 18 /min Samantha Yamila Other [employer] Other 04-05-2023 12:20-0400 SaO2% (BldA) [Mass fraction] 99 % Samantha Yamila Other [employer] Other 04-05-2023 12:20-0400 Systolic blood pressure 103 mm[Hg] Samantha Yamila Other [employer] Other Encounters Encounter Date Encounter Type Care Provider Facility Start: 08-27-2024 ambulatory LIGIA BEDOLLA Facility: [facility] Start: 08-19-2024 End: 08-19-2024 ambulatory PATHOLOGY PROVIDER Facility:[facility] Start: 08-18-2024 End: 08-18-2024 ambulatory THAD MITCH Not Available Start: 08-13-2024 ambulatory LIGIA BEDOLLA Facility: [facility] Start: 07-28-2024 End: 07-28-2024 Bamboo flowsheet Thad Mitch DO Work Phone: [facility] Start: 07-28-2024 End: 07-29-2024 Bamboo flowsheet Thad Mitch DO Work Phone: [facility] Start: 07-28-2024 End: 07-28-2024 Clinisync Result Encounter Thad Mitch DO Work Phone: [facility] Unsolicited Start: 07-28-2024 End: 07-29-2024 External Result Encounter Thad Mitch DO Work Phone: [facility] Unsolicited Start: 07-28-2024 End: 07-28-2024 ambulatory THAD MITCH Not Available Start: 07-28-2024 End: 07-28-2024 Patient encounter procedure Thad Mitch DO Work Phone: [facility] Start: 07-28-2024 End: 07-28-2024 Periodic preventive med est patient 18-39 yrs Thad Mitch DO Work Phone: [facility] Comment on above: Well woman exam with routine gynecological exam; PCOS (polycystic ovarian syndrome); Abnormal uterine bleeding (AUB); Vaginal discharge; STD exposure Start: 06-12-2024 End: 06-12-2024 Telephone encounter Marlee Kahn MTA/MPA [facility] Start: 06-09-2024 End: 06-09-2024 ambulatory CRISTIAN [facility] Start: 05-28-2024 End: 05-28-2024 Telemedicine consultation with patient Neisha Aguero PA-C Work Phone: [facility] Comment on above: ENCOUNTER OPENED IN ERROR (Primary Dx) Start: 05-28-2024 End: 05-28-2024 ambulatory NEISHA AGUERO Facility:[facility] Start: 05-20-2024 End: 05-20-2024 ambulatory PATHOLOGY PROVIDER Facility:[facility] Start: 05-06-2024 End: 05-06-2024 Clinical Support [facility] Comment on above: Arrived Start: 05-06-2024 End: 05-06-2024 Office outpatient visit 40 minutes Ligia Bedolla MD Work Phone: [facility] Comment on above: Multiple sclerosis ( HCC) (Primary Dx); Chronic right shoulder pain; Paresthesias; History of eating disorder; Dysphagia, unspecified type; Anxiety about health; Body mass index (BMI) 22.0-22.9, adult Start: 05-06-2024 End: 05-06-2024 ambulatory PATHOLOGY PROVIDER Facility:[facility] Start: 05-02-2024 End: 05-02-2024 Letter encounter Prem Blackburn MD Work Phone: [facility] Start: 03-23-2024 End: 03-23-2024 Telephone encounter Neisha Casanova RN [facility] Comment on above: APPOINTMENT SCHEDDANIELLE REESE Start: 03-17-2024 End: 03-17-2024 ambulatory PATHOLOGY PROVIDER Facility:[facility] Start: 02-17-2024 End: 02-17-2024 Letter encounter Neisha Casanova RN [facility] Start: 02-01-2024 Evaluation and management of inpatient PATHOLOGY PROVIDER Facility:[facility] Start: 02-01-2024 End: 02-03-2024 Evaluation and management of inpatient AGUSTO NOONAN Facility:[facility] Start: 01-31-2024 End: 02-03-2024 Evaluation and management of inpatient Pricila Arguello MD Work Phone: [facility] Comment on above: Other optic neuritis (Primary Dx); Screening for STD (sexually transmitted disease) [Z11.3]; Demyelinating disease (HCC) Start: 01-31-2024 Emergency department patient visit PATHOLOGY PROVIDER Facility:[facility] Start: 01-29-2024 End: 01-29-2024 ambulatory THAD MITCH [...] End: 01-08-2024 Emergency department patient visit PHYSICIAN NO FAMILY [facility] Work Phone: Start: 08-07-2023 End: 08-07-2023 ambulatory PHYSICIAN NO FAMILY Facility:[facility] Start: 04-05-2023 End: 04-05-2023 ambulatory Samantha Driscoll Other [employer] Other Start: 04-05-2023 Office outpatient ne w 20 minutes Samantha Driscoll [facility] Start: 12-24-2019 End: 12-25-2019 Patient encounter procedure DOCTOR MISC Facility:[facility] Start: 12-08-2019 End: 12-08-2019 Patient encounter procedure BOB ALYSSA Facility:[facility] Procedures Date Procedure Procedure Detail Performing Clinician Start: 07-28-2024 ALL CBC WITH AUTO DIFF Thad Meyer DO Work Phone: Start: 07-28-2024 RECURRENT VAGINITIS (HTRX) Thad Meyer DO Work Phone: Start: 05-06-2024 Assay of gammaglobul in iga [...] Work Phone: Start: 02-02-2024 Assay of magnesium Juan Carlost rosa m Davenport MD Work Phone: Start: 02-01-2024 Iadna [...] 2) Shingles (RZV) Vaccine (1 of 2) [facility] Start: 07-29-2025 End: 07-29-2025 Patient encounter procedure 07/29/2025 10:00 AM EST Office Visit [facility] [address] [place] [address] Thad Meyer DO [address] [place] [address] [facility] Start: 08-19-2024 End: 08-19-2024 Telemedicine consultation with patient 08/19/2024 1:00 PM EDT Telemedicine [facility] [address] [place] [address] Ligia Bedolla MD [address] [place] [address] [facility] Start: 08-18-2024 End: 08-18-2024 Professional / ancillary services management 08/18/2024 9:30 AM EDT Ancillary Procedure [facility] [address] [place] [address] [facility] Start: 07-28-2024 End: 07-28-2025 DHEA DHEA Lab Routine PCOS (polycystic ovarian syndrome) Expected: 07/28/2024 (Approximate), Expires: 07/28/2025 [facility] Comment on above: Expected: 07/28/2024 (Approximate), Expires: 07/28/2025 Start: 07-28-2024 End: 07-28-2025 US Pelvis US Pelvis w/ TV Imaging Routine PCOS (polycystic ovarian syndrome) Expected: 07/28/2024, Expires: 07/28/2025 [facility] Comment on above: Expected: 07/28/2024 , Expires: 07/28/2025 Start: 07-28-2024 End: 07-28-2024 Patient encounter procedure 07/28/2024 10:00 AM EST Office Visit [facility] [address] [place] [id number] Thad Meyer DO [address] [place] [address] [facility] Start: 05-20-2024 End: 05-20-2024 Patient encounter procedure 05/20/2024 11:30 AM EST Office Visit [facility] [address] [place] [address] Ligia Bedolla MD [address] [place] [address] [facility] Start: 05-04-2024 End: 05-04-2024 Patient encounter procedure 05/04/2024 4:00 PM EST Office Visit [facility] [address] [place] [address] Nicholas Pelaez MD [address] [place] [phone] [facility] Start: 03-17-2024 End: 03-17-2024 Patient encounter procedure 03/17/2024 10:00 AM EDT Office Visit [facility] Residents [address] [place] [phone] Nguyễn Watt MD [address] [place], [place] [id number] [employer], Eye [facility] Start: 03-10-2024 Influenza vaccination Influenza Vacc ine (#1) [facility] Start: 02-09-2024 COVID-19 Vaccine ( season) COVID-19 Vaccine ( season) [facility] Start: 02-09-2024 COVID-19 Vaccine ( season) COVID-19 Vaccine ( season) [facility] Start: 02-09-2024 Influenza vaccination Influenza Vacc ine (#1) [facility] Start: 02-03-2024 End: 02-03-2024 Patient encounter procedure 02/03/2024 10:30 AM EDT Office Visit [facility] [address] [place] [address] Philomena Steele MD [address] [place] [address] [facility] Start: 01-28-2024 End: 01-28-2024 Patient encounter procedure 01/28/2024 11:15 AM EDT Office Visit [facility] [address] [place] [address] Philomena Steele MD [address] [place] [address] Arrived [facility] Comment [...] series) [facility] End: 02-01-2024 Angiotensin i-converting enzyme [facility] Comment on above: Morning Blood Draw f or 1 Occurrences starting 02/01/2024 until 02/01/2024 Antibody borrelia burgdorferi lyme disease LYME DISEASE AB WITH REFLEX TO BLOT (IGG, IGM) Lab Routine Multiple sclerosis ([facility]) 05/06/2024 11:18 AM EST [facility] Antibody agusto cunnin gham virus STRATIFY JCV AB Lab Routine Multiple sclerosis ([facility]) 05/06/2024 11:18 AM EST [facility] End: 05-06-2025 Antibody varicella-zoster VARICELLA ZOSTER IGG ANTIBODY Lab Routine Multiple sclerosis ([facility]) 1 Occurrences starting 05/06/2024 until 05/06/2025 [facility] Comment on above: 1 Occurrences starti ng 05/06/2024 until 05/06/2025 Antibody varicella-zoster VARICELLA ZOSTER IGG ANTIBODY Lab Routine Multiple sclerosis ([facility]) 05/06/2024 11:18 AM EST [facility] End: 05-06-2025 Antinuclear antibodies oscar AUTOIMMUNE MULTIPLEX PANEL Lab Routine Multiple sclerosis ([facility]) 1 Occurrences starting 05/06/2024 until 05/06/2025 [facility] Comment on above: 1 Occurrences starti ng 05/06/2024 until 05/06/2025 Antinuclear antibodi es oscar AUTOIMMUNE MULTIPLEX PANEL Lab Routine Multiple sclerosis ([facility]) 05/06/2024 11:18 AM EST [facility] Assay [...] Lab Routine Multiple sclerosis ([facility]) 1 Occurrences starting 05/06/2024 until 05/06/2025 [facility] Work Phone: Comment on above: 1 Occurrences starti ng 05/06/2024 until 05/06/2025 Basic metabolic 2000 panel - Serum or Plasma BASIC METABOLIC PANEL Lab Routine Multiple sclerosis ([facility]) 05/06/2024 11:18 AM EST [facility] Blood count complete auto&auto difrntl wbc CBC WITH DIFFERENTIAL Lab Only Routine Multiple sclerosis ([facility]) 05/06/2024 11:18 AM EST [facility] CBC panel - Blood by Automated count COMPLETE BLOOD COUNT Lab STAT Daily until discontinued starting 02/02/2024, 2 [facility] Comment on above: Daily until disconti nued starting 02/02/2024, 2 completed CBC W Auto Different ial panel - Blood COMPLETE BLOOD COUNT W/DIFF Lab Routine Multiple sclerosis ([facility]) 05/06/2024 11:18 AM EST [facility] CBC W Auto Different ial panel - Blood CBC and differential Lab Routine PCOS (polycystic ovarian syndrome) Ordered: 07/28/2024 [facility] Comment on above: Ordered: 07/28/2024 CHLAMYDIA TRACHOMATI S (GENITO/STI) CHLAMYDIA TRACHOMATIS (GENITO/STI) Lab Routine Vaginal discharge STD exposure Ordered: 07/28/2024 [facility] Comment on above: Ordered: 07/28/2024 Cul bact xcpt urine blood/stool aerobic isol CULTURE, CSF/GRAM STAIN Microbiology STAT 02/01/2024 1:17 AM EDT [facility] Cervical or vaginal smear or scraping study Pap Smear Pathology and Cytology Routine Well woman exam with routine gynecological exam Ordered: 07/28/2024 [facility] Work Phone: Comment on above: Ordered: 07/28/2024 DHEA-sulfate DHEA-sulfate Lab Routine PCOS (polycystic ovarian syndrome) Ordered: 07/28/2024 [facility] Comment on above: Ordered: 07/28/2024 Follicle stimulating hormone Follicle stimulating hormone Lab Routine PCOS (polycystic ovarian syndrome) Ordered: 07/28/2024 [facility] Comment on above: Ordered: 07/28/2024 hCG, quantitative, hCG, quantitative, Lab Routine PCOS (polycystic ovarian syndrome) Ordered: 07/28/2024 [facility] Comment on above: Ordered: 07/28/2024 Hemoglobin A1c/Hemoglobin.total in Blood Hemoglobin A1c Lab Routine Abnormal uterine bleeding (AUB) Ordered: 07/28/2024 [facility] Comment on above: Ordered: 07/28/2024 End: 05-06-2025 Hepatic function panel HEPATIC FUNCTION PANEL Lab Routine Multiple sclerosis (HCC) 1 Occurrences starting 05/06/2024 until 05/06/2025 [facility] Comment on above: 1 Occurrences starti ng 05/06/2024 until 05/06/2025 Hepatic function panel HEPATIC F UNCTION PANEL Lab Routine Multiple sclerosis (HCC) 05/06/2024 11:18 AM EST [facility] End: 05-06-2025 Hepatitis b core antibody hbcab total HEPATITIS B CORE ANTIBODY Lab Routine Multiple sclerosis (HCC) 1 Occurrences starting 05/06/2024 until 05/06/2025 [facility] Comment on above: 1 Occurrences starti ng 05/06/2024 until 05/06/2025 Hepatitis b core antibody hbcab total HEPATITIS B CORE ANTIBODY Lab Routine Multiple sclerosis (HCC) 05/06/2024 11:18 AM EST [facility] End: 05-06-2025 Hepatitis b surf antibody hbsab HEPATITIS B SURFACE ANTIBODY Lab Routine Multiple sclerosis (HCC) 1 Occurrences starting 05/06/2024 until 05/06/2025 [facility] Comment on above: 1 Occurrences starti ng 05/06/2024 until 05/06/2025 Hepatitis b surf antibody hbsab HEPATITIS B SURFACE ANTIBODY Lab Routine Multiple sclerosis (HCC) 05/06/2024 11:18 AM EST [facility] [employer] Hepatitis C virus Ab [Units/volume] in Serum by Immunoassay HEPATITIS C ANTIBODY Lab Routine Multiple sclerosis (HCC) 05/06/2024 11:18 AM EST [employer] perimeter plot JACOBSEN VISUAL FIELD - OU - BOTH EYES Ophthalmology Routine Other optic neuritis 03/17/2024 12:23 PM EDT [employer] Work Phone: End: 05-06-2025 Iaad ia hepatitis b surface antigen HEPATITIS B SURFACE ANTIGEN Lab Routine Multiple sclerosis (HCC) 1 Occurrences starting 05/06/2024 until 05/06/2025 [facility] [employer] Comment on above: 1 Occurrences starti ng 05/06/2024 until 05/06/2025 Iaad ia hepatitis b surface antigen HEPATITIS B SURFACE ANTIGEN Lab Routine Multiple sclerosis (HCC) 05/06/2024 11:18 AM EST [facility] [employer] End: 02-03-2024 Immunoassay analyte qual/semiqual multiple step [employer] Work Phone: Comment on above: One time for 1 Occur rences starting 02/03/2024 until 02/03/2024 Luteinizing hormone Luteinizing hormone Lab Routine PCOS (polycystic ovarian syndrome) Ordered: 07/28/2024 [facility] Comment on above: Ordered: 07/28/2024 Neisseria gonorrhoea e DNA [Presence] in Unspecified specimen by SKIP with probe detection Neisseria gonorrhea DNA probe, direct Lab Routine Vaginal discharge STD exposure Ordered: 07/28/2024 [facility] Comment on above: Ordered: 07/28/2024 End: 02-01-2024 Oligoclonal immune OLIGOCLONAL BANDS, SERUM & CSF Lab STAT One time for 1 Occurrences starting 02/01/2024 until 02/01/2024 [employer] Work Phone: Comment on above: One time for 1 Occur rences starting 02/01/2024 until 02/01/2024 Oligoclonal immune OLIGOCLONAL B ANDS, SERUM & CSF Lab STAT 02/01/2024 1:17 AM EDT [facility] [employer] OPTIC DISC PHOTOS - OU - BOTH EYES OPTIC DISC PHOTOS - OU - BOTH EYES Ophthalmology Routine Other optic neuritis 03/17/2024 12:23 PM EDT [facility] Patient Education Paresthesia (D C) Upper Back Pain ED [facility] Work Phone: Patient referral [facility] Work Phone: SURESWAB(R) ADVANCED VAGINITIS PLUS, TMA SURESWAB(R) ADVANCED VAGINITIS PLUS, TMA Pathology and Cytology Routine Vaginal discharge STD exposure Ordered: 07/28/2024 [facility] Comment on above: Ordered: 07/28/2024 End: 02-01-2024 Tb cell mediated antign respnse gamma interferon [facility] Comment on above: Morning Blood Draw f or 1 Occurrences starting 02/01/2024 until 02/01/2024 Tb cell mediated ant ign respnse gamma interferon QUANTIFERON-TB GOLD PLUS Lab Routine Multiple sclerosis (HCC) 05/06/2024 11:18 AM EST [facility] Thyrotropin [Units/volume] in Serum or Plasma TSH Lab Routine PCOS (polycystic ovarian syndrome) Ordered: 07/28/2024 [facility] Comment on above: Ordered: 07/28/2024 Thyroxine (T4) free [Mass/volume] in Serum or Plasma T4, free Lab Routine PCOS (polycystic ovarian syndrome) Ordered: 07/28/2024 [facility] Comment on above: Ordered: 07/28/2024 Unlisted chemistry procedure MISCELLANEOUS SEND OUT TEST Lab Routine Multiple sclerosis (HCC) 05/06/2024 11:18 AM EST [facility] Immunizations Immunization Date Immunization Notes Care Provider Dee mathur 08-18-2014 meningococcal polysaccharide (groups A, C, Y and W-135) diphtheria toxoid conjugate vaccine (MCV4P) Pricila Arguello MD Work Phone: [facility] 03-13-2011 influenza, seasonal, injectable Pricila Arguello MD Work Phone: [facility] 03-13-2011 meningococcal polysaccharide (groups A, C, Y and W-135) diphtheria toxoid conjugate vaccine (MCV4P) Pricila Arguello MD Work Phone: [facility] 03-13-2011 tetanus toxoid, redu beatriz diphtheria toxoid, and acellular pertussis vaccine, adsorbed Pricila Arguello MD Work Phone: [facility] 03-13-2011 influenza virus vacc ine, unspecified formulation Philomena Steele MD Work Phone: [facility] 06-15-2008 influenza, seasonal, injectable, preservative free Pricila Arguello MD Work Phone: [facility] 03-10-2008 human papilloma viru s vaccine, quadrivalent Pricila Arguello MD Work Phone: [facility] 01-06-2008 hepatitis A vaccine, pediatric/adolescent dosage, 2 dose schedule Pricila Arguello MD Work Phone: [facility] 01-06-2008 human papilloma viru s vaccine, quadrivalent Pricila Arguello MD Work Phone: [facility] 01-06-2008 varicella virus vaccine Pricila Arguello MD Work Phone: [facility] 12-31-2003 diphtheria, tetanus toxoids and acellular pertussis vaccine Pricila Arguello MD Work Phone: [facility] 12-31-2003 measles, mumps and r ubella virus vaccine Pricila Arguello MD Work Phone: [facility] 12-31-2003 poliovirus vaccine, inactivated Pricila Arguello MD Work Phone: [facility] 07-14-1999 diphtheria, tetanus toxoids and acellular pertussis vaccine, unspecified formulation Pricila Arguello MD Work Phone: [facility] 07-14-1999 haemophilus influenz ae type b vaccine, HbOC conjugate Pricila Arguello MD Work Phone: [facility] 05-15-1999 measles, mumps and r ubella virus vaccine Pricila Arguello MD Work Phone: [facility] 05-15-1999 trivalent poliovirus vaccine, live, oral Pricila Arguello MD Work Phone: [facility] 05-15-1999 varicella virus vaccine Pricila Arguello MD Work Phone: [facility] 01-04-1999 diphtheria, tetanus toxoids and acellular pertussis vaccine, unspecified formulation Pricila Arguello MD Work Phone: [facility] 01-04-1999 haemophilus influenz ae type b conjugate and Hepatitis B vaccine Pricila Arguello MD Work Phone: [facility] 1998 diphtheria, tetanus toxoids and acellular pertussis vaccine, unspecified formulation Pricila Arguello MD Work Phone: [facility] 1998 haemophilus influenz ae type b vaccine, HbOC conjugate Pricila Arguello MD Work Phone: [facility] 1998 poliovirus vaccine, inactivated Pricila Arguello MD Work Phone: [facility] 1998 diphtheria, tetanus toxoids and acellular pertussis vaccine, unspecified formulation Pricila Arguello MD Work Phone: [facility] 2000 haemophilus influenz ae type b conjugate and Hepatitis B vaccine Pricila Arguello MD Work Phone: [facility] 2000 poliovirus vaccine, inactivated Pricila Arguello MD Work Phone: [facility] Payers Date Payer Category Payer Commercial Indemnity [facility] U[facility] - HMO/PPO/POS [id number] 2024 Private Health Insurance [employer] [id number] 2024 Unknown [employer] - HMO/PPO/POS SUPERMED PPO/CLASSIC/PLUS [id number] 2024-Present [address] [place] [address] PPO [id number] 2024 Unknown [id number] 2023 Self-pay 1998 Unknown [id number]. 1259 1998 Unknown [id number]. 1259 1998 Unknown [id number]. 732 1998 Unknown [id number] 2.840.1.574200.3.579.2. 73 1998 Unknown [id number] 2.840.1.294675.3.579.2. 732 1998 Unknown [id number] 2840.1.111756.3.579.2. 732 1998 Unknown [id number] 2840.1.283903.3.579.2. 73 1998 Unknown [id number] 2.16840.1.951043.3.579.2. 73 1998 Unknown [id number] 216840.1.406865.3.579.2. 732 1998 Unknown [id number] 216840.1.342385.3.579.2. 732 1998 Unknown [id number] 216840.1.628225.3.579.2. 732 1978 Unknown [id number] 2.16.840.1.598330.3.579.2. 593 1978 Unknown [id number] 2.16.840.1.432680.3.579.2. 593 1959 Unknown [id number] Unknown [id number] 2.16.840.1.161265.3.579.2. 531 Unknown [id number]. 531 Social History Date Type Detail Facility Unknown if ever smoked [facility] [employer] Other Start: 01-28-2024 End: 02-01-2024 Sex Assigned At [facility] [employer] Other Start: 01-08-2024 Tobacco smoking status NHIS Smoker (finding) [facility] Start: 2000 Sex Assigned At Female F [facility] Start: 02-01-2024 Tobacco smoking status MTIS Never smoked tobacco [facility] Start: 02-01-2024 Tobacco use and exposure Smokeless tobacco non-user [facility] Start: 01-28-2024 End: 02-01-2024 History of Social function [facility] Start: 2000 Sex assigned at Not on file [facility] Start: 01-31-2024 Sex Female (finding) [facility] Start: 01-28-2024 Tobacco smoking status MTIS Smokes tobacco daily [facility] History of tobacco use Cigarette Smoker [facility] Tobacco smoking status MTIS Tobacco smoking consumption unknown [facility] Clinical Notes 04-05-2023 to 08-19-2024 Lauren Paulson LPN - 07/28/2024 10:00 AM Neisha Gutierrez PA-C - 05/28/2024 7:57 PM ESTAddendum Note - Ligia Bedolla MD - 05/06/2024 4:57 PM ESTPatient Instructions Note Date & Type Note Facility 08-19-2024 Note [facility] Established Patient Evaluation CHIEF COMPLAINT: demyelinating disease, MS likely Neurologic Diagnosis: demyelinating disease, MS likely Date of onset: 12/2023 Date of diagnosis of MS: 04/2024 Disease course at onset: RRMS Current disease course: RRMS Previous disease therapies: IVMP x 3 days, 02/01/2024 - 02/03/2024 Current disease therapy: OCR 08/13/2024 - prsent Most recent MRI brain: 01/31/2024 - right ON +ve GdE, left temporal lobe lesion no GdE Most recent MRI cervical spine: 02/02/2024 - left anterior C2 lesion, no GdE Most recent MRI thoracic spine: 02/02/2024 - right T2 lesion, no GdE Last known new clinical relapse or radiographic activity: 12/2023 CSF: 12/2023, TNC 5/Prot 28/Glu 54, +OCBs, no IgG index JCV serology result and date: NA NMO/MOG antibodies: NA The patient is accompanied by self, currently on Ocrevus, last dose 08/13/2024 and tolerating the medication well. Since the last visit on 05/20/2024, overall felt well. INTERVAL HISTORY: OCR infusion well-tolerated; next half-dose planned for several weeks from now. Day after first dose, did developed tooth pain and sore throat and mucous, sniffling. Can talk and breath through her nose now, but before was swollen and had pressure throughout the sinuses. No cough, no fever. Did get a financial plan for tooth extraction; will plan to pursue this at least four weeks after she gets Ocrevus. Will rare paresthesias on her right side, lasting one or two days; we reviewed relapse vs pseudorelapse criteria. Went to OB recently and found to have thyroid problems; she is getting further evaluation for these. Fatigue has been a main symptoms, as below, work has been stressful in general. Inquires about use of tanning beds; skin protection and risk of skin cancer counseled, reviewed possibly may worsen MS symptoms due to heat exposure. Reviewed possibility of baseline increased risk of skin cancer from Ocrevus, encouraged Dermatology / PCP skin check annually. Recently treated for chlamydia, reviewed protection from sexual infections re: MS - wonders about need for additional contraception. On-going symptoms related to the neuroimmunological condition were reviewed, including: Mood: Anxious. Has tried sertraline, was not on it a lot, felt strange. Tried Xanax, slowed her breath and heart rate too much. Tried Atarax was good, as needed. Hasn't needed. Bladder: None Bowel: None Fatigue: Notable, taking naps, always feeling like she is in bed. Sleep: Waking up a lot in the night, even if managed to stay awake. Still wakes up at 2 to 3 AM, then again 4 to 5 AM, doesn't want to get out of bed. Doesn't want to get out of bed. Memory/Concentration: Needing to take notes more often, not as sharp. PAST HISTORY: Past Medical History: Diagnosis Date Eating disorder There is no previous surgical history on file. Social Drivers of Health Tobacco Use: Low Risk (06/09/2024) Received from [facility] Patient History Smoking Tobacco Use: Never Smokeless Tobacco Use: Never Passive Exposure: Not on file Recent Concern: Tobacco Use - High Risk (01/28/2024) Re[facility] Patient History Smoking Tobacco Use: Every Day Smokeless Tobacco Use: Unknown Passive Exposure: Not on file Alcohol Use: Not on file Financial Resource Strain: High Risk (08/19/2024) Overall Financial Resource Strain (CARDIA) Difficulty of Paying Living Expenses: Hard Food Insecurity: Patient Declined (08/19/2024) Hunger Vital Sign Worried About Running Out of Food in the Last Year: Patient declined Ran Out of Food in the Last Year: Patient declined Transportation Needs: Unmet Transportation Needs (08/19/2024) PRAPARE - Transportation Lack of Transportation (Medical): Yes Lack of Transportation (Non-Medical): Yes Physical Activity: Sufficiently Active (08/19/2024) Exercise Vital Sign Days of Exercise per Week: 3 days Minutes of Exercise per Session: 60 min Stress: Stress Concern Present (08/19/2024) [place] [employer] - Occupational Stress Questionnaire Feeling of Stress : Very much Social Connections: Moderately Isolated (08/19/2024) Social Connection and Isolation Panel [NHANES] Frequency of Communication with Friends and Family: Three times a week Frequency of Social Gatherings with Friends and Family: Twice a week Attends Roman [employer] Services: More than 4 times per year Active Member of Clubs or Organizations: No Attends Club or Organization Meetings: Never Marital Status: Never Intimate Partner Violence: Unknown (08/19/2024) Humiliation, Afraid, Rape, and Kick questionnaire Fear of Current or Ex-Partner: Patient declined Emotionally Abused: No Physically Abused: Patient declined Sexually Abused: No Depression: Not at risk (06/09/2024) Received from [facility] PHQ-2 Patient Health Questionnaire-2 Score: 0 Reyna (more content not included)... [facility] 07-28-2024 History of Present illness Narrative Reason for Appointment: Patient ID: Azeb Hyatt is a 24 y.o. female who presents for Well Women Visit Patient presents today for Annual Exam. and STD Check. MEDICATIONS No current outpatient medications ALLERGIES No [...] of Systems Constitutional: Negative. HENT: Negative. Eyes: Negative. Respiratory: Negative. Cardiovascular: Negative. Gastrointestinal: Negative. Genitourinary: Negative. Musculoskeletal: Negative. Skin: Negative. Neurological: Negative. All other systems reviewed and are negative. Hematological: Negative. Endocrine: Negative. Allergic/Immunologic: Negative. OBJECTIVE Objective: Physical Exam Constitutional: Appearance: Normal appearance. She is well-developed. Genitourinary: Vulva normal. Breasts: Breasts are soft. Right: Normal. Left: Normal. Cardiovascular: Rate and Rhythm: Normal [...] nursing note reviewed. Exam conducted with a technical applications specialist present. Vitals: There is no height or weight on file to calculate BMI. BP: 100/70 No LMP recorded. ASSESSMENT & PLAN ICD-10-CM 1. Well woman exam with routine gynecological exam Z01.419 Pap Smear Annual Exam: Patient presents today for an annual exam. Patient states she is doing well and has complaints of irregular cycles that has been happening on and off. Pt given labs and ultrasound orders. Pap and cultures was obtained without difficulty. No orders of the defined types were placed in this encounter. Follow Up: Patient is to return in one year for annual unless needed otherwise. Documented by Lauren Paulson LPN on behalf of: Thad Meyer DO documented in this encounter [facility] 06-09-2024 Note Attestation signed by Adia Reece [...] presents for New Patient (Here [facility]) and Swollen Glands. 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 Lives with grandmother. Vapes daily, occasional cigarette. EtOH socially. Smokes marijuana about twice weekly. FH: HTN, Breast cancer (great aunts) Screenings/immunizations: -Never had pap, has appt with reproduction order processor in Jul for pap Review of Systems [...] Bolanos DO Family Medicine PGY-3 [facility] 05-28-2024 History of Present illness Narrative Encounter Opened in error. Please disregard. Pt stated she scheduled this visit to establish with a PCP, was unable to schedule herself online. I will request the [facility] RN to assist pt. Neisha Aguero PA-C documented in this encounter [facility] 05-21-2024 Note Se[facility] Lu[facility] 1999 SPECIALTY [...] Administered DTaP (CVX=20) 12/31/2003 DTaP, unspecified formulation (XRT=206) 1998, 1998, 01/04/1999, 07/14/1999 HPV, quadrivalent (Gardasil 4) (CVX=62) 01/06/2008, 03/10/2008 Hep A (peds/adol, 2 dose) (CVX=83) 01/06/2008 Hep B/HIB (Comvax) (CVX=51) 1998, 01/04/1999 Hib (HbOC) (CVX=47) 1998, 07/14/1999 Influenza, injectable, trivalent, preservative (VUG=087) 03/13/2011 Influenza, injectable, trivalent, preservative free (XWU=638) 06/15/2008 MMR, Ymwmash-Yjodu-Hfhslxk (CVX=03) 05/15/1999, 12/31/2003 Meningococcal conjugate (MCV4,Men-ACWY), Menactra (MCV4P) (GVX=475) 03/13/2011, 08/18/2014 Pfizer Monovalent (12+ yrs) SARS-COV-2 (COVID-19) vaccine, mRNA, spike protein, LNP, pres. free, 30 mcg/0.3mL dose (PBE=796) 09/14/2020, 10/05/2020 Polio, inactivated (IPV) (CVX=10) 1998, 1998, 12/31/2003 Polio, oral (OPV) (CVX=02) 05/15/1999 Tdap (KOY=640) 03/13/2011 Varicella (Chickenpox) (CVX=21) 05/15/1999, 01/06/2008 Is [...] Denies worsening paresthesias, did go swimming at [employer] [facility] and noted she fatigued more easily than usual (though admits she has not been as active recently as she has been in the past). Does have some difficulty thinking / focusing at work but overall doing well. 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 We re-reviewed options and her labs below, including Kesimpta, Tysabri, Ocrevus. Pros and cons of each discussed in depth, with extended conversation re: SUSANNA Virus status and EBV as risk factor; ultimately, Ocrevus selected as the preferred choice. She has been researching on [place] and other sites. We reviewed healthy lifestyle choices, including moderate alcohol use and no smoking, as well as previously reviewed reproductive safety data surrounding DMT. She had questions re: vaccinations; schedule and referral to PCP provided. Presented with [facility] paperwork, which I will complete. We reviewed frequency and duration of appointments and of the expected treatment. She reports her work has been quite supportive as she decides on DMT. Low-positive BEAN SNIPPER, but non high-positive concerning for mimics (Sjogren's). Repeat Tb test negative (previ (more content not included)... [facility] 05-20-2024 Note [facility] Established Patient Evaluation [...] Denies worsening paresthesias, did go swimming at [employer] [facility] and noted she fatigued more easily than usual (though admits she has not been as active recently as she has been in the past). Does have some difficulty thinking / focusing at work but overall doing well. 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 We re-reviewed options and her labs below, including Kesimpta, Tysabri, Ocrevus. Pros and cons of each discussed in depth, with extended conversation re: SUSANNA Virus status and EBV as risk factor; ultimately, Ocrevus selected as the preferred choice. She has been researching on [employer] and other sites. We reviewed healthy lifestyle choices, including moderate alcohol use and no smoking, as well as previously reviewed reproductive safety data surrounding DMT. She had questions re: vaccinations; schedule and referral to PCP provided. Presented with [facility] paperwork, which I will complete. We reviewed frequency and duration of appointments and of the expected treatment. She reports her work has been quite supportive as she decides on DMT. Low-positive BEAN SNIPPER, but non high-positive concerning for mimics (Sjogren's). 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 [facility] Note Addended by: LIGIA BEDOLLA on: 05/06/2024 04:57 PM Modules accepted: Level of Service [facility] 05-06-2024 Note Addended by: LIGIA BEDOLLA on: 05/06/2024 04:57 PM Modules accepted: Level of Service [facility] 05-06-2024 Note Addended by: LIGIA BEDOLLA on: 05/06/2024 04:57 PM Modules accepted: Level of Service [facility] 05-06-2024 Miscellaneous Notes Addended by: LIGIA BEDOLLA on: 05/06/2024 04:57 PM Modules accepted: Level of Service documented in this encounter [facility] 05-06-2024 Instructions Ligia Bedolla MD - 05/06/2024 10:46 AM EST We discussed today that the data support multiple sclerosis. Please get labs - you will need a red top tube drawn. We can check back in in 2 weeks. Pamphlets today for Ocrevus, Kesimpta, Zeposia. documented in this encounter [facility] 05-06-2024 History of Present illness Narrative Images from the original note were not included. 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 Has [...] which included preparing to see the patient, [id number] patient care, completing clinical documentation, obtaining and/or reviewing separately obtained history, counseling and educating the patient/family/caregiver, ordering medications, tests, or procedures, independently interpreting results (not separately reported) and communicating results to the patient/family/caregiver. Ligia Bedolla MD, MS Neuroimmunology Staff Department of Neurology [facility] documented in this encounter [facility] 05-06-2024 History of Present illness Narrative Images from the original note were not included. 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 Has [...] which included preparing to see the patient, [id number] patient care, completing clinical documentation, obtaining and/or reviewing separately obtained history, counseling and educating the patient/family/caregiver, ordering medications, tests, or procedures, independently interpreting results (not separately reported) and communicating results to the patient/family/caregiver. Ligia Bedolla MD, MS Neuroimmunology Staff Department of Neurology [facility] documented in this encounter [facility] 03-23-2024 Telephone encounter Note Neurology Clinical Solder Sprayer Note Attempted to call patient. LVM to return call to the Neurology department to schedule a neurology appt for optic neuritis (MS) with Dr Bedolla. Appt on 05/04 cancelled, letter sent RIN Enriquez, RN, [facility]older Sprayer, Neurology [facility] 03-23-2024 Miscellaneous Notes Neurology Clinical Solder Sprayer Note Attempted to call patient. LVM to return call to the Neurology department to schedule a neurology appt for optic neuritis (MS) with Dr Bedolla. Appt on 05/04 cancelled, letter sent RIN Enriquez, RN, [facility] Clinical Solder Sprayer, Neurology documented in this encounter [facility] 03-17-2024 History of Present illness Narrative New patient Optic neuritis, right eye -Reports blurry vision OD, pain with up gauze and paresthesias January 2024. Went to ED -Seen by application penetration tester resident 01/31/24. At time time +rAPD OD, [...] MD Ophthalmology resident documented in this encounter [facility] 03-17-2024 History of Present illness Narrative New patient Optic neuritis, right eye -Reports blurry vision OD, pain with up gaze and paresthesias January 2024. Went to ED -Seen by application penetration tester resident 01/31/24. At time time +rAPD OD, color plates / OD, full OS -LP with oligoclonal Bands [...] Nguyễn Watt MD documented in this encounter [facility] 02-03-2024 Note DISCHARGE SUMMARY [place] [id number] Azeb Hyatt Date of : 2000 23 year old female Attending Agusto Noonan MD Date of Admission 01/31/2024 Date of Discharge 02/03/2024 Final Diagnosis: Demyelinating disease (HCC) Hospital Problems as of 02/03/2024 * (Principal) Demyelinating disease (HCC) Other optic neuritis Screening for STD (sexually transmitted disease) Discharge Procedure Orders NEUROLOGY SERVICE REQUEST Referral Priority: Routine Referral Type: Service Level Authorization Referral Location: [facility] Number of Visits Requested: 3 Expiration Date: 02/02/25 Future Appointments Date Time Provider Department Center 03/17/2024 10:00 AM Nguyễn Watt MD [facility] 05/04/2024 4:00 PM Nicholas Pelaez MD [facility] Condition at Discharge improved Symptoms to look [...] mg Normal Disp-46 Tablet, R-0 - Until 02/05/2024 I provided the patient and/or family/surrogate with [...] more urgent follow-up Agusto Noonan MD [facility] 02-03-2024 History of Present illness Narrative [...] complete appropriate assessments and interventions. ANIBAL Ferrari, TANKROOM TENDER Inpatient Social Work Images from the original [...] Lanza DO, Last Rate: 100 mL/hr at 02/02/24915, 1,000 mg at 02/02/24 09 Exam Neurologic: Cognition Sedation: none Level of [...] the attending Dr. Rowe. NATASHA Lynn Pager; [phone] Department of Neurology [facility] Medicine Progress Note Azeb Hyatt Age [age] year old female [id number] AC6-502/1 Admitted 01/31/2024 3:56 PM Hospital Day: [...] questions and concerns addressed. Agusto Noonan MD SNF PLAN NOTE CC: Blurred vision of the [...] Internal Medicine PGY-2 documented in this encounter [facility] 02-03-2024 Note Hospital Medicine Pr ogkiersten Note Azeb Lupe Age [age] year old female [id number] AC6-502/1 Admitted 01/31/2024 3:56 PM Hospital Day: [...] and concerns addressed. Agusto Noonan MD [facility] 02-02-2024 Note Hospital Medicine Ronald lund Note Azeb Hyatt Age [age] year old female [id number] [id number] Admitted 01/31/2024 3:56 PM Hospital Day: [...] and concerns addressed. Agusto Noonan MD [facility] 02-01-2024 Consult note Associated Order (s): [...] the attending Dr. Rowe. NATASHA Lynn Pager; [phone] Department of Neurology [facility] 02-01-2024 Consult note Associated Order (s): [...] the attending Dr. Rowe. NATASHA Lynn Pager; [phone] Department of Neurology Associated Order(s): IP OPHTHALMOLOGY [...] Clear, no heme or pigment Disc OD: [place], Sharp, perfused, and c/d 0.2, no edema appreciated, no disc heme OS: [place], Sharp, perfused, and c/d 0.2, no edema [...] Heber Benjamin MD Ophthalmology Resident Please page [phone] with additional questions/concerns Patient was discussed with Dr. Dunham, senior resident application penetration tester. Commonly used ophthalmology abbreviations: AC: Anterior chamber; [...] MD Cornea, External Disease, and Refractive Surgery [facility] Ophthalmology documented in this encounter [facility] 02-01-2024 History and physical note Images from the original note were not included. [facility] Internal Medicine: H&P Note Patient: Azeb Hyatt : 2000 Sex: female Room: [place] [address] Admit Date: 01/31/2024 Today's Date: 02/01/2024 Length [...] EMERGENCY CONTACT #1: Reginaldo HYATT (Grandparent) home: [phone], work: Dispo: Home when medically ready Outpatient [...] Spine - Follow LP/labs Agusto Noonan MD [facility] Work Phone: 02-01-2024 History and physical note Images from the original note were not included. [facility] Internal Medicine: H&P Note Patient: Azeb Hyatt : 2000 Sex: female Room: [place] [address] Admit Date: 01/31/2024 Today's Date: 02/01/2024 Length [...] EMERGENCY CONTACT #1: Reginaldo HYATT (Grandparent) home: [phone], work: Dispo: Home when medically ready Outpatient [...] Agusto Noonan MD documented in this encounter [facility] 01-31-2024 Emergency department Note PROCEDURE NOTE: [...] MRI INTERVAL PROGRESS: ED Course as of 08/25/24 2146 Fri Jan 31, 2024 1935 Received sign out pending MRI and final ophtho recs [MIRIAM] ED Course User Index [MIRIAM] Paul Alexander MD Optho rec'd neuro consult, neuro recd LP and further MRIs. Both rec'd solumedrol which was ordered IMPRESSION AND DISPOSITION Clinical Impression Diagnosis Comment Other optic neuritis [H46.8] Disposition: Admitted to Floor: Resident Medicine Admission Service. Report called to Med res, [facility], 0500 (02/01/24 0501) The patient has received [...] diagnosed with optic neuritis by opthalmology in [place]. 2nd opinion ophthalmology said eye was fine, [...] Notes: Reviewed and utilized the nursing notes. Demographer: not needed - patient preferred language is Romanian. External Medical Records: The patient's available past [...] of External (Non- ED) Notes: notes from [facility] shows normal eye exam Management Decisions: Diagnoses considered include cva, brain tumor, optic neuritis, MS Discussion with External Provider: Events Manager from opetho service recommends admit Independent Test [...] role in this case. PLEASE SEE OTHER ATTENDING/RESIDENT/PHYSICIAN/MANUFACTURER REPRESENTATIVE /PA NOTATION Venancio Aranda MD documented in this encounter [facility] 01-31-2024 Physician Emergency department Note PROCEDURE [...] pressure was 18 mmHg Paul Alexander MD [facility] Work Phone: 01-31-2024 Physician Emergency department Note Images from the original note were not included. I, Paul Alexander MD, have assumed care of this patient from Dr. Arguello as of 9:46 PM. PENDING/TO DO: MRI INTERVAL PROGRESS: ED Course as of 02/02/242145Jan 31, 2024 1935 Received sign out pending MRI and final [...] opportunity to ask questions. Paul Alexander MD [facility] Work Phone: 01-31-2024 Consult note Associated Order [...] Clear, no heme or pigment Disc OD: [place], [place], perfused, and c/d 0.2, no edema appreciated, no disc heme OS: [place], Sharp, perfused, and c/d 0.2, no edema [...] Heber Benjamin MD Ophthalmology Resident Please page [id number] with additional questions/concerns Patient was discussed with Dr. Dunham, senior resident application penetration tester. Commonly used ophthalmology abbreviations: AC: Anterior chamber; [...] hemorrhage; XT: Exotropia Associated attestation - Israel Benntet MD - 02/03/2024 1:28 PM EDT I did not personally examine this patient. I have, where applicable, reviewed relevant laboratory studies and imaging personally. I have reviewed the resident's note and agree with the proposed management. Israel Bennett MD Cornea, External Disease, and Refractive Surgery [facility] Work Phone: 01-31-2024 Emergency department Note Bed: 43 Expected date: Expected time: Means of arrival: Comments: eye [facility] 01-31-2024 Physician Emergency department Note HISTORY [...] diagnosed with optic neuritis by opthalmology in [place]. 2nd opinion ophthalmology said eye was fine, [...] Notes: Reviewed and utilized the nursing notes. Demographer: not needed - patient preferred language is Romanian. External Medical Records: The patient's available past [...] of External (Non- ED) Notes: notes from [facility] shows normal eye exam Management Decisions: Diagnoses considered include cva, brain tumor, optic neuritis, MS Discussion with External Provider: Events Manager from [facility] recommends admit Independent Test [...] decision making performed by me. Pricila Matute. [facility] Work Phone: 01-31-2024 Note Physician Triage [...] role in this case. PLEASE SEE OTHER ATTENDING/RESIDENT/PHYSICIAN/MANUFACTURER REPRESENTATIVE /PA NOTATION Venancio Aranda MD [facility] 01-31-2024 Physician Emergency department Note [...] role in this case. PLEASE SEE OTHER ATTENDING/RESIDENT/PHYSICIAN/MANUFACTURER REPRESENTATIVE /PA NOTATION Venancio Aranda MD [facility] Work Phone: 01-30-2024 Note Right Eye Reliability was good. Progression has no prior data. Foveal threshold was reduced. Findings include superior paracentral defect, inferior paracentral defect, paracentral scotoma. Left Eye Reliability was good. Progression has no prior data. Foveal threshold was normal. Notes Possible vertical cut not consistent with ON [facility] 01-29-2024 History of Present illness Narrative [...] nursing note reviewed. Exam conducted with a technical applications specialist present. Vitals: There is no height or [...] lymph nodes noted. Pt saw ophthalmology in [facility] on Saturday - 02/03/24. Second opinion with Ariana Adrian. Pt to return for annual unless needed sooner. Documented by Lauren Paulson LPN on behalf of: Thad Meyer DO documented in this encounter [facility] 01-28-2024 History of Present illness Narrative Assessment/Plan work up for optic neuritis Had mri in er yesterday--normal documented in this encounter [facility] 01-08-2024 Hospital Discharge instructions Additional Instructions [...] high fever vomiting or any other concerns [facility] [employer] Work Phone: 04-05-2023 Evaluation note Encounter Date Diagnosis Assessment Notes Mar, Gingivitis (ICD-10 - K05.10) Gingivitis home care material was printed Drink plenty fluids, get plenty of rest. Take the amoxicillin as prescribed until gone. Rinse your mouth with warm salt water frequently. Take Tylenol alternately with ibuprofen for pain. Follow-up with your dentist as soon as possible. [employer] Other Evaluation noteNo assessment information available [facility] [employer] Work Phone: Evaluation note* Diagnosis Demyelinating disease [...] Unspecified follow-up examination [facility] Diagnosis Optic neuritis- Primary Unspecified optic neuritis [facility] Diagnosis ENCOUNTER OPENED IN ERROR- Primary [facility] Diagnosis Well woman exam with routine gynecological exam Routine gynecological examination PCOS (polycystic ovarian syndrome) Polycystic ovaries Abnormal uterine bleeding (AUB) Vaginal discharge Leukorrhea, not specified as infective STD exposure [facility] N[facility]ative - Reported* Type Description Date Medical History possible overactive thyroid Medical History possible PCOS, unable to f/u bec ause she lost her insurance [employer] Other Summary Purpose Family History No Family [...] Diagnoses Demyelinating disease (HCC) Agusto Noonan MD [address] [place] [address] [facility] [address] [place] [address] Referral ID Status Reason Start Date Expiration Date V isits Requested Visits Authorized [id number] Authorized 02/03/2024 02/02/2025 3 3 Scheduling Instructions Please call the Neurology Clinic at to schedule an appointment if one was not made for you today. Question Answer Patient to be evaluated for: Multiple Sclerosis, Demyelinating Disease Additional Source Comments INFORMATION SOURCE (unrecogn ized section and content) DATE CREATED AUTHOR 12/31/2019 [facility] DATE CREATED AUTHOR AUTHOR'S ORGANIZ ATION 01/24/2024 [facility] DATE CREATED AUTHOR AUTHOR'S ORGANIZ ATION 06/21/2024 [facility] DATE CREATED AUTHOR AUTHOR'S ORGANIZ ATION 08/20/2024 [facility] DATE CREATED AUTHOR AUTHOR'S ORGANIZ ATION 09/03/2024 [facility] REASON FOR VISIT (unrecogniz ed section and content) Specialty Diagnoses / Procedures Referred By Forrest morrison Referred To Contact Emergency Medicine Diagnoses Other optic neuritis Procedures NA [facility] [address] [place] [id number] Phone: [phone] [facility] [address] [place] [id number] Phone: [phone] Referral ID Status Reason Start Date Expiration Date Visits Re quested Visits Authorized [id number] 3 3 Reason Comments Optic Neuritis Reason Onset Date Comments APPOINTMENT SCHEDULING 03/23/2024 Reason Comments New patient, to establish relationship N ew patient, MSWalk time: 8.77 Specialty Diagnoses / Procedures Referred By Forrest morrison Referred To Contact Neurology Diagnoses Demyelinating disease (HCC) Agusto Noonan MD [address] [place] [address] Phone: tel: fax: [facility] [address] [place] [address] Phone: tel: Referral ID Status Reason Start Date Expiration Date V isits Requested Visits Authorized [id number] Authorized 02/03/2024 02/02/2025 3 3 Reason Comments ER Follow-up Reason Comments Eye Pain Reason Onset Date Comments to establish with a PCP Encounter opened in error 05/28/2024 Reason Comments Well Women Visit Care Teams (unrecognized sec tion and content) Team Status: Active Member Role Status Dates PHYSICIAN NO FAMILY Primary Care Provider Active Team Status: Inactive Member Role Status Dates PHYSICIAN NO FAMILY Primary Care Provider Active Start: January 08, 2024 End: January 08, 2024 CHAD Chang- Emergency Provider Active Start: January 08, 2024 End: January 08, 2024 Accounting Software Specialist Relationship Specialty Start Date End Date Prem Blackburn MD [address] [place] [address] [place] [address] Resident Ophthalmology 04/11/24 Accounting Software Specialist Relationship Specialty Start Date End Date Prem Blackburn MD [address] [place] [address] [place] [address] Resident Ophthalmology 04/11/24 Accounting Software Specialist Relationship Specialty Start Date End Date Prem Blackburn MD [address] [place] [address] [place] [address] Resident Ophthalmology 04/11/24 Accounting Software Specialist Relationship Specialty Start Date End Date Prem Blackburn MD [address] [place] [address] [place] [address] Resident Ophthalmology 04/11/24 Accounting Software Specialist Relationship Specialty Start Date End Date Prem Blackburn MD [address] [place] [address] [place] [address] Resident Ophthalmology 04/11/24 Accounting Software Specialist Relationship Specialty Start Date End Date Prem Blackburn MD [address] [place] [address] [place] [address] Resident Ophthalmology 04/11/24 Ligia Bedolla MD [address] [place] [id number] Physician Neurology 05/16/24 Karie Johnson [facility] [address] [place] [address] [place] [address] Pharmacist Pharmacology and Toxicology 05/21/24 Syl Santiago, [facility] Medication Mine Wirer Pharmacology and Toxicology 05/21/24 Radha Dolan, nitrogen operator Clear Bag Tech Pharmacology and Toxicology 05/21/24 Accounting Software Specialist Relationship Specialty Start Date End Date Prem Blackburn MD [address] [place] [address] [place] [address] Resident Ophthalmology 04/11/24 Ligia Bedolla MD [address] [place] [address] Physician Neurology 05/16/24 Karie Johnson [facility] [address] [place] [id number] Pharmacist Pharmacology and Toxicology 05/21/24 Syl Santiago, [facility] Medication Mine Wirer Pharmacology and Toxicology 05/21/24 Radha Dolan, [facility] Clear Bag Tech Pharmacology and Toxicology 05/21/24 Goals (unrecognized section [...] refused) 0900 (Hold/Not Given - Provider: Whit Pastrana, GORGE - Reason: Patient refused) Gadoterate Meglumine (DOTAREM) 10 MMOL/20ML solution (COMPLETED) 20 mL, Intravenous Push, Once at Radiology exam, 1 dose, Starting on 02/02/24 at 1115, Until 02/02/24 at 1105, Imaging Protocol Orders 1105 (Given - Provider: Dee Yost) lidocaine-epinephrine (XYLOCAINE) 1 %-[id number] injection SOLN (COMPLETED) 10 mL, Injection, ONCE, 1 dose, On 02/01/24 at 0041 0041 (Given by Clinician - Provider: Dayron Alvarez, GORGE) methylPREDNISolone sodium succinate (SOLU-Medrol) 1,000 mg in dextrose 5 % 100 mL ivpb (custom dose) (COMPLETED) 1,000 mg, Intravenous, DAILY, 3 doses, First dose on 02/01/24 at 0300, Last dose on Sat02/03/24 at 0900 0520 (IV New Bag - Provider: Dayron Alvarez, RN)0703 (IV Stop - Provider: Erika Cardoza, GORGE) 0916 (IV New Bag - Provider: Connie Bocanegra, GORGE) 0917 (IV New Bag - Provider: Whit Pastrana, GORGE) pantoprazole (PROTONIX) injection 40 mg, Intravenous Push, 2 TIMES DAILY, First dose on Sat02/03/24 at 1300, Until Discontinued 1253 (Given - Provider: Whit Pastrana RN)2100 (Due) PRN Medication Order 02/01/2024 02/02/2024 02/03/2024 [...] BE BASED ON THE PRIMARY CLINICAL RECORDS. [employer] provides no warranty or guarantee of the accuracy or completeness of information in this document.
[2024-11-27 08:10] LABS: Bilirubin Urine NEGATIVE (NEGATIVE); Blood Urine MODERATE (NEGATIVE); Clarity Urine CLOUDY (CLEAR); Color Urine LT. YELLOW (YELLOW); Glucose Urine UA NEGATIVE (NEGATIVE); Ketones Urine TRACE mg/dL (NEGATIVE); Leukocyte Esterase Urine LARGE (NEGATIVE); Nitrite Urine NEGATIVE (NEGATIVE); Protein Urine >=300 mg/dL (NEG/TRACE); Specific Gravity Urine 1.025 (1.005-1.025); Urobilinogen Urine 0.2 EU/dL (0.2-1.0)
[2024-11-27 08:11] LABS: HCG Qualitative Urine* NEGATIVE (NEGATIVE); Internal Control Within Normal Limits
[2024-11-27 08:24] LABS: Urine Microscopic Indicated YES
[2024-11-27 08:30] LABS: Bacteria Urine SMALL #/HPF (NONE SEEN); Cast Seen? NONE SEEN #/LPF (NONE SEEN); Crystals Seen? None Seen #/HPF (None Seen); Mucus Urine SMALL (NONE SEEN); Squamous Epithelial Cell Urine FEW #/LPF (NONE/RARE); WBC Urine >100 #/HPF (NONE SEEN)
[2024-11-27 08:31] LABS: Urine Culture Indicated YES-FRMC
--- NOTE | 2024-11-27 08:48 | ED_ITS ---
HPI - Female Genitourinary General Chief complaint: Urogenital-Female Stated complaint: URINATION ISSUES Time Seen by Provider: 11/27/24 07:42 Source: patient Mode of arrival: walk-in Limitations: no limitations History of Present Illness HPI Narrative: The patient is a 24-year-old female who recently stopped smoking marijuana she does have a history of MS and she mentioned that almost a week ago she had episodes of nausea and vomiting after stopping marijuana but it resolved and she has been eating and drinking with no difficulty, but she mentioned that for the last few days she has been noticing some decrease in amount of urination and the frequency increased in addition to some burning at the end of urination Patient denies any nausea vomiting or any other concerns Related Data Previous Rx's ?Medication ?Instructions ?Recorded sulfamethoxazole 800 1 tab PO Q12H 5 days #10 tab s 11/27/24 mg-trimethoprim 160 mg tablet (Bactrim DS) Allergies Allergy/AdvReac Type Severity Reaction Status Date / Time No Known Drug Allergies Allergy Verified 11/27/24 07:37 Review of Systems ROS Status of ROS 10 or more systems reviewed and unremark able except as noted in history and below [facility] Social History Little interest or pleasure in doing things: not at all Feeling down, depressed, or hopeless: not at all Exam Narrative Exam Narrative: Nurses notes and vital signs reviewed and patient is not hypoxic. General: Well-appearing and in no apparent distress. Skin: Warm, dry, no pallor noted. No rash. Head: Normocephalic, atraumatic. Neck: Supple, non-tender. Cardiovascular: Regular Rate and Rhythm without murmur, gallop or rub. Respiratory: No accessory muscle use or respiratory distress. Lungs are clear to auscultation, no wheezing, rales or rhonchi Chest Wall: no tenderness Back: No midline thoracic or lumbar vertebral tenderness. No CVA tenderness Musculoskeletal: normal ROM, no calf or popliteal tenderness, no lower extremity edema/swelling GI: Abdomen is soft, non-distended. Normal bowel sounds. No masses appreciated. No tenderness to palpation. No rebound, guarding, or rigidity noted. Neurological: A&O x4. No cranial nerve dysfunction observed. Constitutional Vital Signs, click to edit/add: Last Vital Signs Temp 98.7 F 11/27/24 07:37 Pulse 72 11/27/24 07:37 Resp 16 11/27/24 07:37 BP 141/88 11/27/24 07:37 Pulse Ox 97 11/27/24 07:37 O2 Del Method Room Air 11/27/24 07:37 Course Vital Signs Vital signs: Vital Signs Temperature 98.7 F 11/27/24 07:37 Pulse Rate 72 11/27/24 07:37 Respiratory Rate 16 11/27/24 07:37 Blood Pressure 141/88 11/27/24 07:37 Pulse Oximetry 97 11/27/24 07:37 Oxygen Delivery Method Room Air 11/27/24 07:37 Temperature 98.7 F 11/27/24 07:37 Pulse Rate 72 11/27/24 07:37 Respiratory Rate 16 11/27/24 07:37 Blood Pressure 141/88 11/27/24 07:37 Pulse Oximetry 97 11/27/24 07:37 Oxygen Delivery Method Room Air 11/27/24 07:37 MDM - Female Genitourinary MDM Narrative Medical decision making narrative: The patient presentation is mostly secondary to UTI she mentioned that she has been feeling that the amount of urination is less than what usually she is urinating and she is having burning at the end of the urination which goes with UTI She does have a white blood cell elevated in the urine as well as bacteria and leukocyte esterase and that goes with UTI and she does have a negative Initially the patient when she mentioned that she had not been urinating enough I did order blood workup with the patient give us a urine sample right away and she does not have any significant urinalysis finding that would require further evaluation with a blood workup specially with no tachycardia no fever no flank pain no other concerns and her nausea and vomiting already resolved a week ago Initially I did order the blood workup but when the urinalysis came positive for UTI which could explain the patient's symptoms I canceled the blood workup on the patient had an explanation why the blood workup was canceled Patient will just follow-up with her primary care doctor as outpatient for further evaluation she was started on Bactrim for UTI management after making sure that she does not have any interaction with Ocrevus her MS medication The patient is to follow up with primary care physician in next 2-3 days or to return to the emergency department should any of the signs or symptoms worsen or new symptoms develop. The patient agrees with the following Diagnosis and Treat ment plan and the patient will be discharged home. Lab Data Labs: Lab Results 11/27/24 Range/Units 08:04 Urine Color Lt. yellow (YELLOW) Urine Clarity Cloudy A (CLEAR) Urine pH 6.0 (5.0-9.0) Ur Specific [place] 1.025 (1.005-1.025) Urine Protein >=300 A (NEG/TRACE) mg/dL Urine Glucose (UA) Negative (NEGATIVE) mg/dL Urine Ketones Trace A (NEGATIVE) mg/dL Urine Occult Blood Moderate A (NEGATIVE) Urine Nitrite Negative (NEGATIVE) Urine Bilirubin Negative (NEGATIVE) Urine Urobilinogen 0.2 (0.2-1.0) EU/dL Ur Leukocyte Esterase Large A (NEGATIVE) Urine RBC 2-5 A (0-2) #/HPF Urine WBC >100 A (NONE SEEN) #/HPF Ur Squamous Epith Cells Few A (NONE/RARE) #/LPF Urine Crystals None seen (None Seen) #/HPF Urine Bacteria Small A (NONE SEEN) #/HPF Urine Casts None seen (NONE SEEN) #/LPF Urine Mucus Small A (NONE SEEN) Ur Culture Indicated? Yes-[facility] Urine HCG, Qual Negative (NEGATIVE) Discharge Plan Discharge Chief Complaint: Urogenital-Female Clinical Impression: UTI (urinary tract infection) Patient Disposition: Home, Self-Care Time of Disposition Decision: 08:44 Condition: Good Mode of Transportation: Private Vehicle Prescriptions / Home Meds: New sulfamethoxazole-trimethoprim [Bactrim DS] 800-160 mg tablet 1 tab PO Q12H 5 Days Qty: 10 0RF Print Language: Guyanese Instructions: Urinary Tract Infection in Women (DC) Referrals: Physician,Non-Staff, [Primary Care Provider] - 1 week Discharge Date/Time: 11/27/24 08:48
== END 2024-11-27 08:48 | disposition home or self-care (01) ==
PROVIDERS: Emergency Provider Emergency Medicine
DX: N39.0 Urinary tract infection, site not specified (principal); R35.0 Frequency of micturition; R30.0 Dysuria
CPT/HCPCS: 80053; 81001; 84703; 87086; 87088; 99285